=== PATIENT | male | born 1940 | race Caucasian/White ===

== ENCOUNTER 2017-03-01 20:50 | Inpatient (IN) | payer OTHER, BC ==
--- NOTE | 2017-03-01 21:42 | PDOC ---
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 Patient reports he was in his usual state of health when he suddenly developed sharp left-sided chest pain radiating to the left shoulder last night that he describes as constant and 7/10, in severity. He also reports associated one episode of vomiting last night and SOB, which he took albuterol with improvement. Denies lightheadedness, diaphoresis, or jaw pain. Patient states he was prescribed dilaudid for his h/o of chronic pain, which he decided to take last night prior to going to bed. The patient denies fever, chills, cough, abdominal pain, and diarrhea. Allergies: NKDA Social History: No alcohol, tobacco, or drug use reported. Past Surgical History: s/p cardiac stents x2 PCP: Dr. Edwardo Yang Cardio: Dr. Abhishek Ridley <GermaineBertha - Last Filed: 03/02/17 01:55> - General Chief Complaint: Chest Pain Stated Complaint: CHEST DISCOMFORT/S.O.B Time Seen by Provider: 03/01/17 21:10 Past History - Past Medical History Anemia: No Asthma: No Cancer: Yes (PROSTATE) Cardiac Disorders: Yes (STENTS, FACTOR 5, CLOTTING DISORDER) CVA: Yes (X2 '93 / '04 / (L) WEAKNESS) COPD: Yes CHF: No Dementia: No Diabetes: No GI Disorders: Yes (diverticulosis,gerd) Disorders: Yes (kidney stone) HTN: Yes Hypercholesterolemia: Yes Kidney Stones: Yes Liver Disease: No Suicide Attempt (Hx): No Seizures: No Thyroid Disease: No - Surgical History Abdominal Surgery: No Appendectomy: No Cardiac Surgery: Yes (2 STENTS, NICHOL FILTER) Cholecystectomy: No Lung Surgery: No Neurologic Surgery: No - Psycho/Social/Smoking Cessation Hx Anxiety: Yes Suicidal Ideation: No Smoking Status: No Smoking History: Never smoked Have you smoked in the past 12 months: No Number of Cigarettes Smoked Daily: 0 Information on smoking cessation initiated: No Hx Alcohol Use: No Drug/Substance Use Hx: No Substance Use Type: None Hx Substance Use Treatment: No <DanielamyRavindra - Last Filed: 03/02/17 00:48> <Bertha Herron - Last Filed: 03/02/17 01:55> - Past Medical History Allergies/Adverse Reactions: Allergies Allergy/AdvReac Type Severity Reaction Status Date / Time No Known Allergies Allergy Verified 03/01/17 21:04 Home Medications: Ambulatory Orders Hydromorphone HCl [Dilaudid] 8 mg PO TID PRN 07/14/16 Linaclotide [Linzess] 290 mcg PO DAILY 07/14/16 Thyroid [[place] Thyroid] 60 mg PO DAILY 07/14/16 Zolpidem Tartrate [Ambien] 10 mg PO HS PRN 07/14/16 Apixaban [Eliquis] 5 mg PO BID 03/01/17 Omeprazole 40 mg PO DAILY 03/01/17 Tamsulosin HCl 0.4 mg PO DAILY 03/01/17 Morphine Sulfate 30 mg PO BID 03/02/17 Ranolazine [Ranexa] 500 mg PO BID 03/02/17 Review of Systems - Review of Systems Able to Perform ROS?: Yes Comments:: 03/01/17 21:50 CONSTITUTIONAL: Absent: fever, chills, diaphoresis, generalized weakness, malaise, loss of appetite HEENT: Absent: rhinorrhea, nasal congestion, throat pain, throat swelling, difficulty swallowing, mouth swelling, ear pain, eye pain, visual Changes CARDIOVASCULAR: +left-sided chest pain radiating to the left shoulder Absent: chest pain, syncope, palpitations, irregular heart rate, lightheadedness RESPIRATORY: +SOB Absent: cough, dyspnea with exertion, orthopnea, wheezing, stridor, hemoptysis GASTROINTESTINAL: +vomiting Absent: abdominal pain, abdominal distension, diarrhea, constipation, melena, hematochezia GENITOURINARY: Absent: dysuria, frequency, urgency, hesitancy, hematuria, flank pain, genital pain MUSCULOSKELETAL: Absent: myalgia, joint swelling SKIN: Absent: rash, itching, pallor NEUROLOGIC: Absent: headache, focal weakness or paresthesias, dizziness, unsteady gait, seizure, mental status changes, bladder or bowel incontinence PSYCHIATRIC: Absent: anxiety, depression, suicidal or homicidal ideation, hallucinations. <AugustTony irwinta - Last Filed: 03/02/17 01:55> *Physical Exam - Vital Signs Last Vital Signs Temp Pulse Resp BP Pulse Ox 97.9 F 82 22 151/81 95 03/01/17 21:04 03/01/17 21:04 03/01/17 21:04 03/01/17 21:04 03/01/17 21:04 <Ravnidra Franklin - Last Filed: 03/02/17 00:48> - Vital Signs Last Vital Signs Temp Pulse Resp BP Pulse Ox 97.9 F 82 22 151/81 95 03/01/17 21:04 03/01/17 21:04 03/01/17 21:04 03/01/17 21:04 03/01/17 21:04 - Physical Exam Comments: 03/01/17 21:50 GENERAL: Well developed, well nourished. Awake and alert. No acute distress. HEENT: Normocephalic, atraumatic. PERRLA, EOMI. No conjunctival pallor. Sclera are non- icteric. Moist mucous membranes. Oropharynx is clear. NECK: Supple. Full ROM. No JVD. Carotid pulses 2+ and symmetric, without bruits. No thyromegaly. No lymphadenopathy. CARDIOVASCULAR: Regular rate and rhythm. No murmurs, rubs, or gallops. Distal pulses are 2+ and symmetric. PULMONARY: No evidence of respiratory distress. Lungs clear to auscultation bilaterally. No wheezing, rales or rhonchi. ABDOMINAL: Soft. Diffuse abdominal tenderness. Non-distended. No rebound or guarding. No organomegaly. Normoactive bowel sounds. MUSCULOSKELETAL Normal range of motion at all joints. No bony deformities or tenderness. Moderate right CVA tenderness. EXTREMITIES: No cyanosis. No clubbing. +2 pitting edema bilateral lower extremities. No calf tenderness. SKIN: Warm and dry. Normal capillary refill. No rashes. No jaundice. NEUROLOGICAL: Alert, awake, appropriate. Cranial nerves 2-12 intact. Moving all extremities. No gross focal neurological deficits. PSYCHIATRIC: Cooperative. Good eye contact. Appropriate mood and affect. <Bertha Herron - Last Filed: 03/02/17 01:55> Heart Score/ECG Review - ECG Impressions Comment:: 03/01/17 21:50 NSR @82bpm Possible L atrial enlargement Borderline ECG <Bertha Herron - Last Filed: 03/02/17 01:55> ED Treatment Course - LABORATORY CBC & Chemistry Diagram: 03/01/17 21:32 03/01/17 21:32 <Ravindra Franklin - Last Filed: 03/02/17 00:48> - LABORATORY CBC & Chemistry Diagram: 03/01/17 21:32 03/01/17 21:32 <Bertha Herron - Last Filed: 03/02/17 01:55> Medical Decision Making - Medical Decision Making 03/02/17 00:48 Dr. Franklin: The scribe's documentation has been prepared under my direction and personally reviewed by me in its entirery. I confirm that the note above accurately reflects all work, treatment, procedures, and medical decision making performed by me. Pt still having pain. Wants to be evaluated more for pain. Will admit. Spoke to Dr. Wilkes for orders <Ravindra Franklin - Last Filed: 03/02/17 00:48> - Medical Decision Making 03/02/17 00:26 Patient's case discussed with Dr. Santo Rockwell who is covering for Dr. Talha Love who is covering for Dr. Edwardo Yang. <Bertha Herron - Last Filed: 03/02/17 01:55> *DC/Admit/Observation/Transfer - Discharge Dispostion Admit: Yes <Ravindra Franklin - Last Filed: 03/02/17 00:48> - Attestations Scribe Attestion: 03/01/17 21:51 Documentation prepared by Bertha Herron, acting as certified medical dosimetrist for Ravindra Franklin MD <Bertha Herron - Last Filed: 03/02/17 01:55> Diagnosis at time of Disposition: Chronic pain syndrome - Discharge Dispostion Condition at time of disposition: Stable - Referrals Referrals: Edwardo Yang MD [Primary Care Provider] -
[2017-03-01 22:08] LABS: BASOPHIL 0.6 % (0-2.0); EOSINOPHIL 3.7 % (0-4.5); MCH 31.1 pg (25.7-33.7); MCHC 33.2 g/dl (32.0-35.9); MEAN CELL VOLUME 93.9 fl (80-96); NEUTROPHILS 55.9 % (42.8-82.8); PLATELET COUNT 203 K/MM3 (134-434); RDW 14.6 % (11.9-15.9)
[2017-03-01 22:24] LABS: INR 1.3 (0.82-1.09); PROTHROMBIN TIME (PATIENT) 14.4 SEC (9.98-11.88)
[2017-03-01 22:32] LABS: ALBUMIN 3.4 g/dl (3.4-5.0); ANION GAP 11 (8-16); CALCIUM 8.6 mg/dL (8.5-10.1); CO2 26 mmol/L (21-32); COCKROFT - GAULT 67.1; CREATININE 1.3 mg/dL (0.7-1.3); GLUCOSE,RANDOM 104 mg/dL (74-106); SGOT/AST 13 U/L (15-37); SGPT/ALT 18 U/L (12-78)
[2017-03-01 22:36] LABS: ALK PHOS 61 U/L (45-117); BILIRUBIN,TOTAL 0.4 mg/dL (0.2-1.0); TOT PROT 6.6 g/dl (6.4-8.2); TROPONIN I < 0.02 ng/ml (0.00-0.05)
[2017-03-02] MEDS ORDERED: traMADol HCL 50 MG TABLET PO PRN (01:01)
[2017-03-02] MEDS ORDERED: PANTOPRAZOLE SODIUM 40 MG in SODIUM CHLORIDE 100 ML IVPB ONE (01:04)
[2017-03-02] MEDS ORDERED: HYDROmorphone HCL CARPU-JECT 2 MG/1 ML DISP.SYRIN IVPUSH ONE (01:05)
[2017-03-02] MEDS ORDERED: PANTOPRAZOLE SODIUM 100 ML IVPB ONE (01:20)
[2017-03-02] MEDS ORDERED: ALBUTEROL SO4 6.7 GM HFA INHALER IH PRN (05:05)
[2017-03-02] MEDS ORDERED: MINERAL OIL/PET HY-PHL TOPICAL OINTMENT 454 GM JAR TP PRN (05:07)
[2017-03-02 06:33] VITALS: BMI 32.1
[2017-03-02] MEDS ORDERED: SIMETHICONE 125 MG PO PRN ×2 (07:00)
[2017-03-02] MEDS ORDERED: PT OWN MED DRAWER 7, Y5N ONE ×4 (08:38→21:30)
[2017-03-02] MEDS: PANCREATIN PO SCH ×3 (08:50→17:57)
[2017-03-02] MEDS: TAMSULOSIN HCL 0.4 MG CAP.ER.24H (FP) PO SCH (08:51)
--- NOTE | 2017-03-02 09:19 | EKG ---
Test Reason : Blood Pressure : / mmHG Vent. Rate : 082 BPM Atrial Rate : 082 BPM P-R Int : 160 ms QRS Dur : 090 ms QT Int : 404 ms P-R-T Axes : 048 -15 019 degrees QTc Int : 472 ms NORMAL SINUS RHYTHM POSSIBLE LEFT ATRIAL ENLARGEMENT INCOMPLETE RBBB WHEN COMPARED WITH ECG OF 30-OCT-2016 17:19, NO SIGNIFICANT CHANGE WAS FOUND Confirmed by DIAMANTE MARI MD ([id number]) on 03/02/2017 9:19:33 AM Referred By: Confirmed By:DIAMANTE MARI MD
[2017-03-02] MEDS ORDERED: LINZESS 290 MCG PO SCH (10:00)
[2017-03-02 10:20] LABS: EOSINOPHIL 4.9 % (0-4.5); MCH 31.7 pg (25.7-33.7); MEAN CELL VOLUME 93.2 fl (80-96); MEAN PLT VOLUME 7.5 fl (7.5-11.1); NEUTROPHILS 52.3 % (42.8-82.8); PLATELET COUNT 168 K/MM3 (134-434); RDW 14.4 % (11.9-15.9); WHITE BLOOD COUNT 5.8 K/mm3 (4.0-10.0)
[2017-03-02] MEDS: RANOLAZINE E.R. 500 MG TABLET (FP) PO SCH ×2 (10:34→21:31)
[2017-03-02] MEDS: APIXABAN 5 MG TABLET PO SCH ×2 (10:34→22:37)
[2017-03-02] MEDS: morphine SO4 SUSTAINED ACTING 30 MG TABLET.SA PO SCH ×2 (10:34→21:31)
[2017-03-02] MEDS: PANTOPRAZOLE 40 MG TABLET (FP) PO SCH (10:34)
[2017-03-02] MEDS: FLUTICASONE PROP 0.05% 16 GM NASAL SPRAY NS SCH (10:36)
[2017-03-02] MEDS: ISOSORBIDE MONONITRATE 30 MG TAB.SR.24H (FP) PO SCH (10:37)
[2017-03-02] MEDS: LINACLOTIDE 290 MCG PO SCH (10:41)
[2017-03-02] MEDS: [UNRECOGNIZED DRUG - OTHER] PO SCH (10:41)
[2017-03-02] MEDS: THYROID 60 MG TABLET PO SCH (10:42)
[2017-03-02 10:49] LABS: ANION GAP 9 (8-16); CALCIUM 8.2 mg/dL (8.5-10.1); CO2 26 mmol/L (21-32); COCKROFT - GAULT 76.33; CREATININE 1.2 mg/dL (0.7-1.3); GLUCOSE,RANDOM 94 mg/dL (74-106); MAGNESIUM 2.3 mg/dL (1.8-2.4); PHOSPHOROUS 3.8 mg/dL (2.5-4.9)
[2017-03-02 10:51] LABS: TROPONIN I < 0.02 ng/ml (0.00-0.05)
[2017-03-02] MEDS ORDERED: ACETAMINOPHEN 325 MG TABLET (FP) PO PRN (13:15)
[2017-03-02] MEDS ORDERED: ONDANSETRON 4 MG/2 ML VIAL IVPB PRN (13:15)
--- NOTE | 2017-03-02 13:18 | HP ---
Admitting History and Physical - Primary Care Physician PCP: Edwardo Yang - Admission Chief Complaint: I'm hurting History of Present Illness: Mr Vences is a 77 year old male who comes in with complaints of pain. Because of a CVA history he has some difficulty describing his pain. He says he has pain in his chest, abdomen, and groin. He says he is having L sided chest pain but keeps pointing to his R back and saying the pain is there. He says it is "ulcer" pain. He complains of groin pain and says it has been there since his bladder was seeded. He says he has abdominal pain, says it is epigastric in nature and from reflux. He denies fevers, chills, lightheadedness, passing out, shortness of breath, diarrhea, constipation, or swelling. He says he was nauseated and threw up once Sunday morning, however he was also drinking Sunday night and is reluctant to tell me how much. 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 Cardiovascular: Yes: CAD (multiple stents), Deep Vein Thrombosis, HTN, Hyperlipdemia, [place] Pulmonary: Yes: COPD Gastrointestinal: Yes: GERD Renal/: Yes: BPH, Cancer (Prostate) Heme/Onc: Yes: Hypercoaguable State (Factor 5 Clotting Disorder) Psych: Yes: Anxiety Musculoskeletal: Yes: Osteoarthritis, Other (Chronic pain syndrome) - Past Surgical History Past Surgical History: Yes: Stent - Smoking History Smoking history: Never smoked Have you smoked in the past 12 months: No Aproximately how many cigarettes per day: 0 - Alcohol/Substance Use Hx Alcohol Use: Yes History of Substance Use: reports: None - Social History ADL: Independent 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 History of Recent Travel: No Home Medications - Allergies Allergies/Adverse Reactions: Allergies Allergy/AdvReac Type Severity Reaction Status Date / Time No Known Allergies Allergy Verified 03/01/17 21:04 - Home Medications Home Medications: Ambulatory Orders Hydromorphone HCl [Dilaudid] 8 mg PO TID PRN 07/14/16 Linaclotide [Linzess] 290 mcg PO DAILY 07/14/16 Thyroid [[place] Thyroid] 60 mg PO DAILY 07/14/16 Zolpidem Tartrate [Ambien] 10 mg PO HS PRN 07/14/16 Apixaban [Eliquis] 5 mg PO BID 03/01/17 Omeprazole 40 mg PO DAILY 03/01/17 Tamsulosin HCl 0.4 mg PO DAILY 03/01/17 Morphine Sulfate 30 mg PO BID 03/02/17 Ranolazine [Ranexa] 500 mg PO BID 03/02/17 Family Disease History - Family Disease History Family History: Unremarkable Review of Systems Findings/Remarks: Full review of systems obtained, as per HPI and otherwise negative Physical Examination Vital Signs: Vital Signs Temperature 98.6 F 03/02/17 09:00 Pulse Rate 72 03/02/17 09:00 Respiratory Rate 18 03/02/17 09:00 Blood Pressure 124/59 03/02/17 09:00 O2 Sat by Pulse Oximetry (%) 94 L 03/02/17 09:00 Constitutional: Yes: Well Nourished, No Distress, Calm Eyes: Yes: Conjunctiva Clear, EOM Intact HENT: Yes: Atraumatic, Normocephalic Cardiovascular: Yes: Regular Rate and Rhythm. No: Gallop, Murmur, Rub Respiratory: Yes: Regular, CTA Bilaterally. No: Rales, Rhonchi, Wheezes Gastrointestinal: Yes: Normal Bowel Sounds, Soft. No: Distention, Tenderness Extremities: Yes: WNL Edema: No Labs: CBC, BMP 03/02/17 09:50 03/02/17 09:50 Imaging - Results Cat Scan: Report Reviewed Problem List - Problems (1) Chronic abdominal pain Code(s): R10.9 - UNSPECIFIED ABDOMINAL PAIN G89.29 - OTHER CHRONIC PAIN (2) GERD (gastroesophageal reflux disease) Code(s): K21.9 - GASTRO-ESOPHAGEAL REFLUX DISEASE WITHOUT ESOPHAGITIS (3) CAD (coronary artery disease) Code(s): I25.10 - ATHSCL HEART DISEASE OF [place] CORONARY ARTERY W/O ANG PCTRS (4) COPD (chronic obstructive pulmonary disease) Code(s): J44.9 - CHRONIC OBSTRUCTIVE PULMONARY DISEASE, UNSPECIFIED (5) CVA (cerebral vascular accident) Code(s): I63.9 - CEREBRAL INFARCTION, UNSPECIFIED (6) HTN (hypertension) Code(s): I10 - ESSENTIAL (PRIMARY) HYPERTENSION Qualifiers: Hypertension type: essential hypertension Qualified Code(s): I10 - Essential (primary) hypertension (7) Factor V deficiency Code(s): D68.2 - HEREDITARY DEFICIENCY OF OTHER CLOTTING FACTORS Assessment/Plan -patient admitted under observation -continue home regimen -GI consulted for abdominal pain -low suspicion this is cardiac pain, can hold off on cardiology consult -monitor for improvement
--- NOTE | 2017-03-02 16:17 | CON.GI ---
Consult Consult Specialty:: GASTROENTEROLOGY Reason for Consultation:: CHRONIC ABDOMINAL PAIN, NAUSEA AND VOMITING, WORSENING REFLUX - History of Present Illness Chief Complaint: LEFT SIDED FLANK PAIN, GERD, NAUSEA AND VOMITING History of Present Illness: THIS IS A 77 YEAR OLD MALE WITH CHRONIC PAIN SYNDROME, HISTORY OF PROSTATE CANCER S/P SEED IMPLANTS, DVT, FACTOR V DEF ON ELIQUIS AND S/P IVC, ON NARCOTICS ADMITTED WITH SEVERE UPPER LEFT FLANK PAIN. CT RENAL PROTOCOL WAS NEGATIVE FOR RENAL STONES. CONSULT CALLED FOR FURTHER EVALUATION. HE ALSO C/O OF INCREASED REFLUX SYMPTOMS WITH NAUSEA AND VOMITING. HE DOES C/O OF MILD DYSPHAGIA. HE HAS NO WEIGHT LOSS. HE WAKES A NIGHT WITH THIS REFLUX AND REGURGITATION. HE DOES EAT LATE AT NIGHT AND EVEN WAKES AT NIGHT AND EATS THEN LAYS BACK DOWN IN BED. HE STATES THAT HE IS CONSTIPATED AND HAS A HARD BM THAT HE REQUIRES HIM TO STRAIN WHEN HAVING A BM. HE DENIES BLEEDING. HE HAS PAIN INTERMITTENTLY IN VARIOUS AREAS OF HIS ABDOMEN EVERYDAY. HE IS ON DILAUDID FOR RELIEF OF THIS PAIN AND VARIOUS OTHERS. 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 Cardio/Vascular: Yes: CAD (multiple stents), Deep Vein Thrombosis, HTN, Hyperlipdemia, [place] Pulmonary: Yes: COPD, Pulmonary Fibrosis Gastrointestinal: Yes: Constipation, GERD Renal/: Yes: BPH, Cancer (Prostate) Psych: Yes: Anxiety Musculoskeletal: Yes: Osteoarthritis, Other (Chronic pain syndrome) - Past Surgical History Past Surgical History: Yes: Colonoscopy, Stent, Upper Endoscopy Additional Surgical History: SEED IMPLANTS PROSTATE - Alcohol/Substance Use Hx Alcohol Use: No History of Substance Use: reports: None - Smoking History Smoking history: Never smoked Have you smoked in the past 12 months: No Aproximately how many cigarettes per day: 0 - Social History ADL: Independent 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 History of Recent Travel: No Home Medications - Allergies Allergies/Adverse Reactions: Allergies Allergy/AdvReac Type Severity Reaction Status Date / Time No Known Allergies Allergy Verified 03/01/17 21:04 - Home Medications Home Medications: Ambulatory Orders Hydromorphone HCl [Dilaudid] 8 mg PO TID PRN 07/14/16 Linaclotide [Linzess] 290 mcg PO DAILY 07/14/16 Thyroid [[place] Thyroid] 60 mg PO DAILY 07/14/16 Zolpidem Tartrate [Ambien] 10 mg PO HS PRN 07/14/16 Apixaban [Eliquis] 5 mg PO BID 03/01/17 Omeprazole 40 mg PO DAILY 03/01/17 Tamsulosin HCl 0.4 mg PO DAILY 03/01/17 Morphine Sulfate 30 mg PO BID 03/02/17 Ranolazine [Ranexa] 500 mg PO BID 03/02/17 Family Disease History - Family Disease History Family History: Unremarkable Review of Systems - Review of Systems Constitutional: reports: No Symptoms Eyes: reports: No Symptoms HENT: reports: No Symptoms Neck: reports: No Symptoms Cardiovascular: reports: No Symptoms Respiratory: reports: No Symptoms Gastrointestinal: reports: Abdominal Pain, Constipation, Indigestion, Nausea, Vomiting Musculoskeletal: reports: Joint Pain, Muscle Pain Integumentary: reports: No Symptoms Neurological: reports: No Symptoms Hematology/Lymphatic: reports: No Symptoms Psychiatric: reports: Anxiety Physical Exam-GI Vital Signs: Vital Signs Temperature 97.6 F 03/02/17 15:05 Pulse Rate 83 03/02/17 15:05 Respiratory Rate 15 03/02/17 15:05 Blood Pressure 102/57 03/02/17 15:05 O2 Sat by Pulse Oximetry (%) 94 L 03/02/17 13:16 Constitutional: Yes: Well Nourished Eyes: Yes: Conjunctiva Clear HENT: Yes: Normocephalic Neck: Yes: Supple Cardiovascular: Yes: Regular Rate and Rhythm Respiratory: Yes: Rales (DRY RALES) Gastrointestinal Inspection: Yes: Other (DISTENSION) ...Auscultate: Yes: Hyperactive Bowel Sounds ...Palpate: Yes: Tenderness (LLQ PAIN,RIGHT FLANK PAIN) Genitourinary: Yes: WNL Musculoskeletal: Yes: WNL Extremities: Yes: WNL Neurological: Yes: Alert, Oriented Labs: INR, PTT INR 1.30 (0.82-1.09) H D 03/01/17 21:32 Laboratory Tests 03/01/17 03/01/17 03/02/17 21:32 21:32 09:50 WBC 5.8 RBC 4.34 Hgb 13.7 Hct 40.4 MCV 93.2 MCHC 34.0 RDW 14.4 Plt Count 168 MPV 7.5 Neutrophils % 52.3 Lymphocytes % 28.6 Monocytes % 13.2 H Eosinophils % 4.9 H INR 1.30 H D Sodium Potassium Creatinine Random Glucose Phosphorus Magnesium Lipase 115 03/02/17 09:50 WBC RBC Hgb Hct MCV MCHC RDW Plt Count MPV Neutrophils % Lymphocytes % Monocytes % Eosinophils % INR Sodium 141 Potassium 4.0 Creatinine 1.2 Random Glucose 94 Phosphorus 3.8 Magnesium 2.3 Lipase Imaging - Results Cat Scan: Pending, Image Reviewed (CTA PENDING) Problem List - Problems (1) Constipation Assessment/Plan: HIS EXAM IS NON SPECIFIC AND I BELIEVE THIS IS ALL NARCOTIC INDUCED PAIN AND CONSTIPATION. I NEED TO ALSO RULE OUT MESENTERIC ISCHEMIA BUT I DOUBT THE CTA WOULD BE POSITIVE. GIVEN HIS VASCULAR DISEASE THE EXAM SHOULD BE DONE. I WOULD ADD MIRALAX Q DAY, ADD COLACE, AND PROBABLY ADD MOVANTIK AN OUTPATIENT. HE NEEDS A COLONOSCOPY BUT WOULD HAVE TO BE DONE BRIDGED WITH LOVENOX. Code(s): K59.00 - CONSTIPATION, UNSPECIFIED (2) GERD (gastroesophageal reflux disease) Assessment/Plan: DIETARY HABITS HAVE INCREASED THE SYMPTOMS OF GERD. DUE TO MEDS HE MAY HAVE SOME PARESIS. I HAVE SENT HIM FOR A GRASTRIC EMPTYING SCAN. ADDED ZANTAC TO AVOID PPi WHILE ON ELIGUIS. Code(s): K21.9 - GASTRO-ESOPHAGEAL REFLUX DISEASE WITHOUT ESOPHAGITIS (3) Dysphagia Assessment/Plan: NO WEIGHT LOSS. WOULD ALSO NEED AN EGD EVENTUALLY. Code(s): R13.10 - DYSPHAGIA, UNSPECIFIED (4) Chronic abdominal pain Code(s): R10.9 - UNSPECIFIED ABDOMINAL PAIN G89.29 - OTHER CHRONIC PAIN (5) Chronic pain syndrome Code(s): G89.4 - CHRONIC PAIN SYNDROME (6) CAD (coronary artery disease) Code(s): I25.10 - ATHSCL HEART DISEASE OF [place] CORONARY ARTERY W/O ANG PCTRS (7) Anxiety Code(s): F41.9 - ANXIETY DISORDER, UNSPECIFIED (8) COPD (chronic obstructive pulmonary disease) Code(s): J44.9 - CHRONIC OBSTRUCTIVE PULMONARY DISEASE, UNSPECIFIED (9) CVA (cerebral vascular accident) Code(s): I63.9 - CEREBRAL INFARCTION, UNSPECIFIED (10) Factor V deficiency Code(s): D68.2 - HEREDITARY DEFICIENCY OF OTHER CLOTTING FACTORS (11) Hypercholesteremia Code(s): E78.0 - PURE HYPERCHOLESTEROLEMIA * DO NOT USE *
[2017-03-02] MEDS: POLYETHYLENE GLYCOL 3350 119 GM BTL PO SCH (17:57)
[2017-03-02] MEDS ORDERED: POLYETHYLENE GLYCOL 3350 119 GM BTL PO ONE (20:15)
[2017-03-02] MEDS: DOCUSATE SODIUM 100 MG CAPSULE (FP) PO SCH (21:31)
[2017-03-02] MEDS: RANITIDINE HCL 150 MG TABLET (FP) PO SCH (21:32)
[2017-03-02] MEDS: ZOLPIDEM TARTRATE 5 MG TABLET PO PRN (22:54)
[2017-03-03] MEDS: SENNOSIDES 8.6MG TABLET (FP) PO SCH ×2 (01:53→22:08)
[2017-03-03] MEDS: PANCREATIN PO SCH ×3 (08:36→17:24)
[2017-03-03] MEDS ORDERED: PT OWN MED DRAWER 7, Y5N ONE ×5 (08:38→17:24)
[2017-03-03] MEDS: TAMSULOSIN HCL 0.4 MG CAP.ER.24H (FP) PO SCH (08:51)
[2017-03-03 09:08] LABS: BASOPHIL 0.9 % (0-2.0); MCH 31.6 pg (25.7-33.7); MCHC 33.7 g/dl (32.0-35.9); MEAN CELL VOLUME 93.9 fl (80-96); MEAN PLT VOLUME 7.5 fl (7.5-11.1); NEUTROPHILS 57.1 % (42.8-82.8); PLATELET COUNT 166 K/MM3 (134-434); RDW 14.6 % (11.9-15.9); WHITE BLOOD COUNT 5.3 K/mm3 (4.0-10.0)
[2017-03-03] MEDS: LINACLOTIDE 290 MCG PO SCH (09:12)
[2017-03-03 09:29] LABS: CALCIUM 8.2 mg/dL (8.5-10.1); COCKROFT - GAULT 91.6; MAGNESIUM 2.3 mg/dL (1.8-2.4); PHOSPHOROUS 3.2 mg/dL (2.5-4.9)
[2017-03-03] MEDS: THYROID 60 MG TABLET PO SCH (10:02)
[2017-03-03] MEDS: APIXABAN 5 MG TABLET PO SCH ×2 (10:04→22:11)
[2017-03-03] MEDS: FLUTICASONE PROP 0.05% 16 GM NASAL SPRAY NS SCH (10:04)
[2017-03-03] MEDS: ISOSORBIDE MONONITRATE 30 MG TAB.SR.24H (FP) PO SCH (10:04)
[2017-03-03] MEDS: morphine SO4 SUSTAINED ACTING 30 MG TABLET.SA PO SCH ×2 (10:04→22:10)
[2017-03-03] MEDS: [UNRECOGNIZED DRUG - OTHER] PO SCH (10:05)
[2017-03-03] MEDS: RANITIDINE HCL 150 MG TABLET (FP) PO SCH ×2 (10:06→22:10)
[2017-03-03] MEDS: PANTOPRAZOLE 40 MG TABLET (FP) PO SCH (10:06)
[2017-03-03] MEDS: RANOLAZINE E.R. 500 MG TABLET (FP) PO SCH ×2 (10:06→22:07)
[2017-03-03] MEDS: POLYETHYLENE GLYCOL 3350 119 GM BTL PO SCH (10:07)
--- NOTE | 2017-03-03 13:25 | PN ---
Progress Note, Physician History of Present Illness: Still with abd pain, notes that he cannot cut down on his pain meds due to other pain in body (groin and arthritis pain). Breathing has been feeling heavy , asking for nebulized treatments. - Current Medication List Current Medications: Active Medications Acetaminophen (Tylenol -) 650 mg PO Q4H PRN PRN Reason: FEVER OR PAIN Albuterol Sulfate (Ventolin Hfa Inhaler -) 1 puff IH Q6H PRN PRN Reason: SHORTNESS OF BREATH Last Admin: 03/02/17 10:36 Dose: 1 puff Albuterol Sulfate (Ventolin 0.083% Nebulizer Soln -) 1 amp NEB TIDR [facility] Apixaban (Eliquis -) 5 mg PO BID [facility] Last Admin: 03/03/17 10:04 Dose: 5 mg Docusate Sodium (Colace -) 300 mg PO HS [facility] Last Admin: 03/02/17 21:31 Dose: 300 mg Emollient Ointment (Aquaphor -) 1 applic TP BID PRN Fluticasone Propionate (Flonase -) 1 spray NS DAILY [facility] Last Admin: 03/03/17 10:04 Dose: 1 spray Hydromorphone HCl (Dilaudid -) 8 mg PO Q8H PRN Last Admin: 03/02/17 05:50 Dose: 8 mg Isosorbide Mononitrate (Imdur -) 30 mg PO DAILY [facility] Last Admin: 03/03/17 10:04 Dose: 30 mg Morphine Sulfate (Ms Contin -) 30 mg PO BID [facility] Last Admin: 03/03/17 10:04 Dose: 30 mg Nf Med(Align Probiotic Supplement ) 1 each PO DAILY [facility] Last Admin: 03/03/17 10:05 Dose: 1 each Nf Med(Pancreatin (1300)) 1 each PO TIDAC [facility] Last Admin: 03/03/17 12:24 Dose: 1 each Nf Med(Simethicone (125mg)) 1 each PO ACHS PRN Nf Med(Simethicone (125mg)) 2 each PO ACHS PRN Nf Med (Linzess (290mcg)) 1 each PO DAILY@0700 [facility] Ondansetron HCl (Zofran Injection) 4 mg IVPB Q6H PRN PRN Reason: NAUSEA Pantoprazole Sodium (Protonix -) 40 mg PO DAILY [facility] Last Admin: 03/03/17 10:06 Dose: 40 mg Polyethylene Glycol (Miralax (For Daily Use) -) 17 gm PO DAILY [facility] Last Admin: 03/03/17 10:07 Dose: 17 grams Ranitidine HCl (Zantac -) 150 mg PO BID [facility] Last Admin: 03/03/17 10:06 Dose: 150 mg Ranolazine (Ranexa -) 500 mg PO BID [facility] Last Admin: 03/03/17 10:06 Dose: 500 mg Senna (Senna -) 2 tab PO HS [facility] Last Admin: 03/03/17 01:53 Dose: 2 tab Tamsulosin HCl (Flomax -) 0.4 mg PO DAILY@0830 [facility] Last Admin: 03/03/17 08:51 Dose: 0.4 mg Thyroid ([place] Thyroid -) 60 mg PO DAILY@0700 [facility] Tramadol HCl (Ultram -) 50 mg PO Q6H PRN Zolpidem Tartrate (Ambien -) 5 mg PO HS PRN Last Admin: 03/02/17 22:54 Dose: 5 mg - Objective Vital Signs: Vital Signs Temperature 97.8 F 03/03/17 10:00 Pulse Rate 75 03/03/17 10:00 Respiratory Rate 18 03/03/17 10:00 Blood Pressure 120/60 03/03/17 10:00 O2 Sat by Pulse Oximetry (%) 98 03/02/17 21:16 Constitutional: Yes: No Distress, Calm HENT: Yes: Atraumatic, Normocephalic Neck: Yes: Supple, Trachea Midline Cardiovascular: Yes: Regular Rate and Rhythm, S1, S2. No: Murmur Respiratory: Yes: Regular, Diminished (bilaterally) Gastrointestinal: Yes: Normal Bowel Sounds, Soft, Abdomen, Obese. No: Distention, Tenderness Edema: Yes Edema: LLE: Trace, RLE: Trace Neurological: Yes: Alert, Oriented Labs: CBC, BMP 03/03/17 07:30 03/03/17 07:30 INR, PTT INR 1.30 (0.82-1.09) H D 03/01/17 21:32 Assessment/Plan All Active Problems Chronic abdominal pain (Acute) Chronic pain syndrome (Acute) Constipation (Acute) Dysphagia (Acute) GERD (gastroesophageal reflux disease) (Acute) Anxiety (Acute) COPD (chronic obstructive pulmonary disease) (Acute) CVA (cerebral vascular accident) (Acute) Factor V deficiency (Acute) HTN (hypertension) (Acute) Hypercholesteremia (Acute) Multiple contusions (Acute) -likely abd pain from narcotic use, so may need to start Movantik as outpatient , but to get gastric emptying study for further eval -will increase Miralax to bid as well -start albuterol nebs for COPD
[2017-03-03] MEDS ORDERED: LACTULOSE 20 GM/30 ML UDC (FOR ORAL USE ONLY) PO PRN (14:17)
[2017-03-03] MEDS: ALBUTEROL SO4 0.083% IH SOL 2.5 MG/3 ML VIAL.NEB. NEB SCH ×2 (14:50→22:47)
[2017-03-03] MEDS: DOCUSATE SODIUM 100 MG CAPSULE (FP) PO SCH (22:07)
[2017-03-03] MEDS: ZOLPIDEM TARTRATE 5 MG TABLET PO PRN (22:08)
[2017-03-04] MEDS ORDERED: PT OWN MED DRAWER 7, Y5N ONE ×2 (05:10→08:41)
[2017-03-04] MEDS: THYROID 60 MG TABLET PO SCH (06:06)
[2017-03-04] MEDS: ALBUTEROL SO4 0.083% IH SOL 2.5 MG/3 ML VIAL.NEB. NEB SCH ×3 (06:30→22:37)
[2017-03-04] MEDS: TAMSULOSIN HCL 0.4 MG CAP.ER.24H (FP) PO SCH (08:39)
[2017-03-04] MEDS: PANCREATIN PO SCH ×3 (08:40→17:37)
[2017-03-04] MEDS: LINACLOTIDE 290 MCG PO SCH (08:40)
[2017-03-04] MEDS ORDERED: THYROID 60 MG TABLET PO SCH (10:00)
[2017-03-04] MEDS: FLUTICASONE PROP 0.05% 16 GM NASAL SPRAY NS SCH (10:04)
[2017-03-04] MEDS: APIXABAN 5 MG TABLET PO SCH ×2 (10:04→21:41)
[2017-03-04] MEDS: PANTOPRAZOLE 40 MG TABLET (FP) PO SCH (10:05)
[2017-03-04] MEDS: ISOSORBIDE MONONITRATE 30 MG TAB.SR.24H (FP) PO SCH (10:05)
[2017-03-04] MEDS: RANOLAZINE E.R. 500 MG TABLET (FP) PO SCH ×2 (10:05→21:41)
[2017-03-04] MEDS: POLYETHYLENE GLYCOL 3350 119 GM BTL PO SCH (10:05)
[2017-03-04] MEDS: RANITIDINE HCL 150 MG TABLET (FP) PO SCH ×2 (10:05→21:42)
[2017-03-04] MEDS: morphine SO4 SUSTAINED ACTING 30 MG TABLET.SA PO SCH ×2 (10:05→21:41)
[2017-03-04] MEDS: [UNRECOGNIZED DRUG - OTHER] PO SCH (10:06)
--- NOTE | 2017-03-04 11:09 | PN ---
Progress Note, Physician History of Present Illness: Was having COLLINS, does note a fall earlier this week (and takes AC). Did have a bowel movement last night, btu still with abd pain (continues to have right groin pain as well -chronic). - Current Medication List Current Medications: Active Medications Acetaminophen (Tylenol -) 650 mg PO Q4H PRN PRN Reason: FEVER OR PAIN Albuterol Sulfate (Ventolin Hfa Inhaler -) 1 puff IH Q6H PRN PRN Reason: SHORTNESS OF BREATH Last Admin: 03/02/17 10:36 Dose: 1 puff Albuterol Sulfate (Ventolin 0.083% Nebulizer Soln -) 1 amp NEB TIDR [facility] Last Admin: 03/04/17 06:30 Dose: 1 amp Apixaban (Eliquis -) 5 mg PO BID [facility] Last Admin: 03/04/17 10:04 Dose: 5 mg Docusate Sodium (Colace -) 300 mg PO HS [facility] Last Admin: 03/03/17 22:07 Dose: 300 mg Emollient Ointment (Aquaphor -) 1 applic TP BID PRN Fluticasone Propionate (Flonase -) 1 spray NS DAILY [facility] Last Admin: 03/04/17 10:04 Dose: 1 spray Hydromorphone HCl (Dilaudid -) 8 mg PO Q8H PRN Last Admin: 03/02/17 05:50 Dose: 8 mg Isosorbide Mononitrate (Imdur -) 30 mg PO DAILY [facility] Last Admin: 03/04/17 10:05 Dose: 30 mg Lactulose (Cephulac (Oral Use)) 20 gm PO DAILY PRN PRN Reason: CONSTIPATION Last Admin: 03/03/17 15:24 Dose: 20 gm Morphine Sulfate (Ms Contin -) 30 mg PO BID [facility] Last Admin: 03/04/17 10:05 Dose: 30 mg Nf Med(Align Probiotic Supplement ) 1 each PO DAILY [facility] Last Admin: 03/04/17 10:06 Dose: 1 each Nf Med(Simethicone (125mg)) 1 each PO ACHS PRN Nf Med(Simethicone (125mg)) 2 each PO ACHS PRN Nf Med (Linzess (290mcg)) 1 each PO DAILY@0800 [facility] Last Admin: 03/04/17 08:40 Dose: 1 each Nf Med(Pancreatin (1300)) 1 each PO TIDCM [facility] Last Admin: 03/04/17 08:40 Dose: 1 each Ondansetron HCl (Zofran Injection) 4 mg IVPB Q6H PRN PRN Reason: NAUSEA Pantoprazole Sodium (Protonix -) 40 mg PO DAILY [facility] Last Admin: 03/04/17 10:05 Dose: 40 mg Polyethylene Glycol (Miralax (For Daily Use) -) 17 gm PO DAILY [facility] Last Admin: 03/04/17 10:05 Dose: Not Given Ranitidine HCl (Zantac -) 150 mg PO BID [facility] Last Admin: 03/04/17 10:05 Dose: 150 mg Ranolazine (Ranexa -) 500 mg PO BID [facility] Last Admin: 03/04/17 10:05 Dose: 500 mg Senna (Senna -) 2 tab PO HS [facility] Last Admin: 03/03/17 22:08 Dose: Not Given Tamsulosin HCl (Flomax -) 0.4 mg PO DAILY@0830 [facility] Last Admin: 03/04/17 08:39 Dose: 0.4 mg Thyroid ([place] Thyroid -) 60 mg PO DAILY@0700 [facility] Last Admin: 03/04/17 06:06 Dose: 60 mg Tramadol HCl (Ultram -) 50 mg PO Q6H PRN Last Admin: 03/04/17 05:21 Dose: 50 mg Zolpidem Tartrate (Ambien -) 5 mg PO HS PRN Last Admin: 03/03/17 22:08 Dose: 5 mg - Objective Vital Signs: Vital Signs Temperature 98.3 F 03/04/17 10:00 Pulse Rate 74 03/04/17 10:00 Respiratory Rate 18 03/04/17 10:00 Blood Pressure 104/54 03/04/17 10:00 O2 Sat by Pulse Oximetry (%) 96 03/04/17 05:41 Constitutional: Yes: No Distress, Calm HENT: Yes: Atraumatic, Normocephalic Cardiovascular: Yes: Regular Rate and Rhythm, S1, S2. No: Murmur Respiratory: Yes: Regular, CTA Bilaterally. No: Rales, Rhonchi, Wheezes Gastrointestinal: Yes: Normal Bowel Sounds, Soft, Tenderness (left lower quadrant) Edema: Yes Edema: LLE: Trace, RLE: Trace Labs: CBC, BMP 03/03/17 07:30 03/03/17 07:30 INR, PTT INR 1.30 (0.82-1.09) H D 03/01/17 21:32 Assessment/Plan All Active Problems Chronic abdominal pain (Acute) Chronic pain syndrome (Acute) Constipation (Acute) Dysphagia (Acute) GERD (gastroesophageal reflux disease) (Acute) Anxiety (Acute) COPD (chronic obstructive pulmonary disease) (Acute) CVA (cerebral vascular accident) (Acute) Factor V deficiency (Acute) HTN (hypertension) (Acute) Hypercholesteremia (Acute) Multiple contusions (Acute) -check CT head, given AC use and headache with previously unreported fall earlier this week -to get gastric emptying study to further evaluate abd pain
[2017-03-04] MEDS: DOCUSATE SODIUM 100 MG CAPSULE (FP) PO SCH (21:40)
[2017-03-04] MEDS: SENNOSIDES 8.6MG TABLET (FP) PO SCH (21:41)
[2017-03-05] MEDS: THYROID 60 MG TABLET PO SCH (06:21)
[2017-03-05] MEDS: ALBUTEROL SO4 0.083% IH SOL 2.5 MG/3 ML VIAL.NEB. NEB SCH ×3 (06:30→22:35)
[2017-03-05 07:00] LABS: EOSINOPHIL 8.4 % (0-4.5); MCH 31.2 pg (25.7-33.7); MCHC 33.1 g/dl (32.0-35.9); MEAN CELL VOLUME 94.3 fl (80-96); MEAN PLT VOLUME 7.5 fl (7.5-11.1); NEUTROPHILS 45.2 % (42.8-82.8); PLATELET COUNT 157 K/MM3 (134-434); RDW 14.6 % (11.9-15.9); WHITE BLOOD COUNT 4.9 K/mm3 (4.0-10.0)
[2017-03-05 07:22] LABS: BILIRUBIN,TOTAL 0.6 mg/dL (0.2-1.0); CALCIUM 8.5 mg/dL (8.5-10.1); COCKROFT - GAULT 76.33; CREATININE 1.2 mg/dL (0.7-1.3)
[2017-03-05] MEDS: PANCREATIN PO SCH ×4 (08:00→17:30)
[2017-03-05] MEDS: TAMSULOSIN HCL 0.4 MG CAP.ER.24H (FP) PO SCH ×2 (08:30→10:37)
[2017-03-05] MEDS: LINACLOTIDE 290 MCG PO SCH (09:27)
[2017-03-05] MEDS: PANTOPRAZOLE 40 MG TABLET (FP) PO SCH (10:32)
[2017-03-05] MEDS: RANOLAZINE E.R. 500 MG TABLET (FP) PO SCH ×2 (10:32→21:49)
[2017-03-05] MEDS: morphine SO4 SUSTAINED ACTING 30 MG TABLET.SA PO SCH ×2 (10:32→21:50)
[2017-03-05] MEDS: RANITIDINE HCL 150 MG TABLET (FP) PO SCH ×2 (10:33→21:50)
[2017-03-05] MEDS: ISOSORBIDE MONONITRATE 30 MG TAB.SR.24H (FP) PO SCH (10:33)
[2017-03-05] MEDS: APIXABAN 5 MG TABLET PO SCH ×2 (10:34→21:47)
[2017-03-05] MEDS: FLUTICASONE PROP 0.05% 16 GM NASAL SPRAY NS SCH (10:38)
[2017-03-05] MEDS: POLYETHYLENE GLYCOL 3350 119 GM BTL PO SCH (10:39)
[2017-03-05] MEDS: [UNRECOGNIZED DRUG - OTHER] PO SCH ×2 (10:45→11:00)
--- NOTE | 2017-03-05 12:16 | PN ---
Progress Note, Physician Chief Complaint: Mr Vences says he is still having abdominal pain. Also with burning on urination that he says happens off and on for months. Not short of breath. No nausea/vomiting and tolerating diet. - Current Medication List Current Medications: Active Medications Acetaminophen (Tylenol -) 650 mg PO Q4H PRN PRN Reason: FEVER OR PAIN Albuterol Sulfate (Ventolin Hfa Inhaler -) 1 puff IH Q6H PRN PRN Reason: SHORTNESS OF BREATH Last Admin: 03/02/17 10:36 Dose: 1 puff Albuterol Sulfate (Ventolin 0.083% Nebulizer Soln -) 1 amp NEB TIDR [facility] Last Admin: 03/05/17 06:30 Dose: 1 amp Apixaban (Eliquis -) 5 mg PO BID [facility] Last Admin: 03/05/17 10:34 Dose: 5 mg Docusate Sodium (Colace -) 300 mg PO HS [facility] Last Admin: 03/04/17 21:40 Dose: 300 mg Emollient Ointment (Aquaphor -) 1 applic TP BID PRN Fluticasone Propionate (Flonase -) 1 spray NS DAILY [facility] Last Admin: 03/05/17 10:38 Dose: 1 spray Hydromorphone HCl (Dilaudid -) 8 mg PO Q8H PRN Last Admin: 03/05/17 01:48 Dose: 8 mg Isosorbide Mononitrate (Imdur -) 30 mg PO DAILY [facility] Last Admin: 03/05/17 10:33 Dose: 30 mg Lactulose (Cephulac (Oral Use)) 20 gm PO DAILY PRN PRN Reason: CONSTIPATION Last Admin: 03/03/17 15:24 Dose: 20 gm Morphine Sulfate (Ms Contin -) 30 mg PO BID [facility] Last Admin: 03/05/17 10:32 Dose: 30 mg Nf Med(Align Probiotic Supplement ) 1 each PO DAILY [facility] Last Admin: 03/05/17 10:45 Dose: Not Given Nf Med(Simethicone (125mg)) 1 each PO ACHS PRN Nf Med(Simethicone (125mg)) 2 each PO ACHS PRN Nf Med (Linzess (290mcg)) 1 each PO DAILY@0800 [facility] Last Admin: 03/05/17 09:27 Dose: 1 each Nf Med(Pancreatin (1300)) 1 each PO TIDCM [facility] Last Admin: 03/05/17 10:37 Dose: 1 each Ondansetron HCl (Zofran Injection) 4 mg IVPB Q6H PRN PRN Reason: NAUSEA Pantoprazole Sodium (Protonix -) 40 mg PO DAILY [facility] Last Admin: 03/05/17 10:32 Dose: 40 mg Polyethylene Glycol (Miralax (For Daily Use) -) 17 gm PO DAILY [facility] Last Admin: 03/05/17 10:39 Dose: 17 grams Ranitidine HCl (Zantac -) 150 mg PO BID [facility] Last Admin: 03/05/17 10:33 Dose: 150 mg Ranolazine (Ranexa -) 500 mg PO BID [facility] Last Admin: 03/05/17 10:32 Dose: 500 mg Senna (Senna -) 2 tab PO HS [facility] Last Admin: 03/04/17 21:41 Dose: 2 tab Tamsulosin HCl (Flomax -) 0.4 mg PO DAILY@0830 [facility] Last Admin: 03/05/17 10:37 Dose: 0.4 mg Thyroid ([place] Thyroid -) 60 mg PO DAILY@0700 [facility] Last Admin: 03/05/17 06:21 Dose: 60 mg Tramadol HCl (Ultram -) 50 mg PO Q6H PRN Last Admin: 03/04/17 05:21 Dose: 50 mg Zolpidem Tartrate (Ambien -) 5 mg PO HS PRN Last Admin: 03/03/17 22:08 Dose: 5 mg - Objective Vital Signs: Vital Signs Temperature 97.9 F 03/05/17 10:00 Pulse Rate 84 03/05/17 10:00 Respiratory Rate 18 03/05/17 10:00 Blood Pressure 104/62 03/05/17 10:00 O2 Sat by Pulse Oximetry (%) 95 03/05/17 09:00 Constitutional: Yes: No Distress, Calm, Obese Cardiovascular: Yes: Regular Rate and Rhythm. No: Gallop, Murmur, Rub Respiratory: Yes: Regular, CTA Bilaterally. No: Rales, Rhonchi, Wheezes Gastrointestinal: Yes: Normal Bowel Sounds, Soft. No: Distention, Tenderness Extremities: Yes: WNL Edema: No Labs: CBC, BMP 03/05/17 06:15 03/05/17 06:15 INR, PTT INR 1.30 (0.82-1.09) H D 03/01/17 21:32 Problem List - Problems (1) Chronic abdominal pain Assessment/Plan: -appreciate GI assistance -? gastroparesis -plan for GES tomorrow Code(s): R10.9 - UNSPECIFIED ABDOMINAL PAIN G89.29 - OTHER CHRONIC PAIN (2) GERD (gastroesophageal reflux disease) Assessment/Plan: -continue protonix and sucralfate Code(s): K21.9 - GASTRO-ESOPHAGEAL REFLUX DISEASE WITHOUT ESOPHAGITIS (3) CAD (coronary artery disease) Assessment/Plan: -quiescent -continue home regimen Code(s): I25.10 - ATHSCL HEART DISEASE OF [place] CORONARY ARTERY W/O ANG PCTRS (4) COPD (chronic obstructive pulmonary disease) Assessment/Plan: -not in exacerbation Code(s): J44.9 - CHRONIC OBSTRUCTIVE PULMONARY DISEASE, UNSPECIFIED (5) CVA (cerebral vascular accident) Assessment/Plan: -continue eliquis Code(s): I63.9 - CEREBRAL INFARCTION, UNSPECIFIED (6) HTN (hypertension) Assessment/Plan: -well controlled Code(s): I10 - ESSENTIAL (PRIMARY) HYPERTENSION Qualifiers: Hypertension type: essential hypertension Qualified Code(s): I10 - Essential (primary) hypertension (7) Factor V deficiency Assessment/Plan: -continue eliquis Code(s): D68.2 - HEREDITARY DEFICIENCY OF OTHER CLOTTING FACTORS (8) Dysuria Assessment/Plan: -check urinalysis Code(s): R30.0 - DYSURIA
--- NOTE | 2017-03-05 18:23 | PN ---
Progress Note (short form) - Note Progress Note: GASTROENTEROLOGY [facility] CAN NOT PERFORM THE GASTRIC EMPTYING SCAN TODAY. THEY WILL TRY TOMORROW, CONTINUE SAME FLORINDA GOSS MD Problem List - Problems (1) Constipation Code(s): K59.00 - CONSTIPATION, UNSPECIFIED (2) GERD (gastroesophageal reflux disease) Code(s): K21.9 - GASTRO-ESOPHAGEAL REFLUX DISEASE WITHOUT ESOPHAGITIS (3) Dysphagia Code(s): R13.10 - DYSPHAGIA, UNSPECIFIED (4) Chronic abdominal pain Code(s): R10.9 - UNSPECIFIED ABDOMINAL PAIN G89.29 - OTHER CHRONIC PAIN (5) Chronic pain syndrome Code(s): G89.4 - CHRONIC PAIN SYNDROME (6) Anxiety Code(s): F41.9 - ANXIETY DISORDER, UNSPECIFIED (7) COPD (chronic obstructive pulmonary disease) Code(s): J44.9 - CHRONIC OBSTRUCTIVE PULMONARY DISEASE, UNSPECIFIED (8) CVA (cerebral vascular accident) Code(s): I63.9 - CEREBRAL INFARCTION, UNSPECIFIED (9) Factor V deficiency Code(s): D68.2 - HEREDITARY DEFICIENCY OF OTHER CLOTTING FACTORS (10) Hypercholesteremia Code(s): E78.0 - PURE HYPERCHOLESTEROLEMIA * DO NOT USE *
[2017-03-05 19:49] LABS: URINE APPEARANCE CLEAR; URINE BILIRUBIN NEGATIVE (NEGATIVE); URINE BLOOD NEGATIVE (NEGATIVE); URINE COLOR LTYELLOW; URINE GLUCOSE (UA) NEGATIVE (NEGATIVE); URINE KETONE NEGATIVE (NEGATIVE); URINE LEUK ESTERASE NEGATIVE (NEGATIVE); URINE NITRITE NEGATIVE (NEGATIVE); URINE PROTEIN NEGATIVE (NEGATIVE); URINE UROBILINOGEN NEGATIVE E.U./dl (0.2-1.0)
[2017-03-05] MEDS ORDERED: PT OWN MED DRAWER 7, Y5N ONE (21:26)
[2017-03-05] MEDS: DOCUSATE SODIUM 100 MG CAPSULE (FP) PO SCH (21:47)
[2017-03-05] MEDS: SENNOSIDES 8.6MG TABLET (FP) PO SCH (21:49)
[2017-03-06] MEDS: ZOLPIDEM TARTRATE 5 MG TABLET PO PRN ×2 (00:46→23:39)
[2017-03-06] MEDS ORDERED: PT OWN MED DRAWER 7, Y5N ONE ×4 (06:06→21:18)
[2017-03-06] MEDS: THYROID 60 MG TABLET PO SCH ×2 (06:44→06:45)
[2017-03-06] MEDS: ALBUTEROL SO4 0.083% IH SOL 2.5 MG/3 ML VIAL.NEB. NEB SCH ×4 (06:48→22:15)
[2017-03-06 07:41] LABS: BASOPHIL 1.1 % (0-2.0); EOSINOPHIL 7.8 % (0-4.5); MCH 31.8 pg (25.7-33.7); MCHC 33.9 g/dl (32.0-35.9); MEAN CELL VOLUME 93.9 fl (80-96); MEAN PLT VOLUME 7.6 fl (7.5-11.1); NEUTROPHILS 52.9 % (42.8-82.8); PLATELET COUNT 158 K/MM3 (134-434); RDW 14.8 % (11.9-15.9); WHITE BLOOD COUNT 5.5 K/mm3 (4.0-10.0)
[2017-03-06 07:52] LABS: CALCIUM 8.3 mg/dL (8.5-10.1); MAGNESIUM 2.4 mg/dL (1.8-2.4)
[2017-03-06 07:54] LABS: COCKROFT - GAULT 76.33; CREATININE 1.2 mg/dL (0.7-1.3); PHOSPHOROUS 3.7 mg/dL (2.5-4.9)
[2017-03-06] MEDS: TAMSULOSIN HCL 0.4 MG CAP.ER.24H (FP) PO SCH (08:04)
[2017-03-06] MEDS: LINACLOTIDE 290 MCG PO SCH (08:05)
[2017-03-06] MEDS: PANCREATIN PO SCH ×3 (08:05→18:15)
[2017-03-06] MEDS: morphine SO4 SUSTAINED ACTING 30 MG TABLET.SA PO SCH ×2 (10:29→21:52)
[2017-03-06] MEDS: RANITIDINE HCL 150 MG TABLET (FP) PO SCH ×2 (10:30→21:50)
[2017-03-06] MEDS: RANOLAZINE E.R. 500 MG TABLET (FP) PO SCH ×2 (10:30→21:52)
[2017-03-06] MEDS: FLUTICASONE PROP 0.05% 16 GM NASAL SPRAY NS SCH (10:30)
[2017-03-06] MEDS: PANTOPRAZOLE 40 MG TABLET (FP) PO SCH (10:30)
[2017-03-06] MEDS: APIXABAN 5 MG TABLET PO SCH ×2 (10:31→21:50)
[2017-03-06] MEDS: POLYETHYLENE GLYCOL 3350 119 GM BTL PO SCH (10:32)
[2017-03-06] MEDS: [UNRECOGNIZED DRUG - OTHER] PO SCH (10:40)
--- NOTE | 2017-03-06 15:13 | PN ---
Progress Note, Physician Chief Complaint: Mr Vences complains of rectal pain today. No cp or sob. Cannot figure if he is still having abdominal pain as he mainly complains of rectal pain. - Current Medication List Current Medications: Active Medications Acetaminophen (Tylenol -) 650 mg PO Q4H PRN PRN Reason: FEVER OR PAIN Albuterol Sulfate (Ventolin Hfa Inhaler -) 1 puff IH Q6H PRN PRN Reason: SHORTNESS OF BREATH Last Admin: 03/02/17 10:36 Dose: 1 puff Albuterol Sulfate (Ventolin 0.083% Nebulizer Soln -) 1 amp NEB TIDR [facility] Last Admin: 03/06/17 14:09 Dose: Not Given Apixaban (Eliquis -) 5 mg PO BID [facility] Last Admin: 03/06/17 10:31 Dose: 5 mg Docusate Sodium (Colace -) 300 mg PO HS [facility] Last Admin: 03/05/17 21:47 Dose: 300 mg Emollient Ointment (Aquaphor -) 1 applic TP BID PRN Fluticasone Propionate (Flonase -) 1 spray NS DAILY [facility] Last Admin: 03/06/17 10:30 Dose: 1 spray Hydromorphone HCl (Dilaudid -) 8 mg PO Q8H PRN Last Admin: 03/05/17 15:55 Dose: 8 mg Isosorbide Mononitrate (Imdur -) 30 mg PO DAILY [facility] Last Admin: 03/05/17 10:33 Dose: 30 mg Lactulose (Cephulac (Oral Use)) 20 gm PO DAILY PRN PRN Reason: CONSTIPATION Last Admin: 03/03/17 15:24 Dose: 20 gm Morphine Sulfate (Ms Contin -) 30 mg PO BID [facility] Last Admin: 03/06/17 10:29 Dose: 30 mg Nf Med(Align Probiotic Supplement ) 1 each PO DAILY [facility] Last Admin: 03/06/17 10:40 Dose: 1 each Nf Med(Simethicone (125mg)) 1 each PO ACHS PRN Nf Med(Simethicone (125mg)) 2 each PO ACHS PRN Nf Med (Linzess (290mcg)) 1 each PO DAILY@0800 [facility] Last Admin: 03/06/17 08:05 Dose: 1 each Nf Med(Pancreatin (1300)) 1 each PO TIDCM [facility] Last Admin: 03/06/17 12:29 Dose: Not Given Ondansetron HCl (Zofran Injection) 4 mg IVPB Q6H PRN PRN Reason: NAUSEA Pantoprazole Sodium (Protonix -) 40 mg PO DAILY [facility] Last Admin: 03/06/17 10:30 Dose: 40 mg Polyethylene Glycol (Miralax (For Daily Use) -) 17 gm PO DAILY [facility] Last Admin: 03/06/17 10:32 Dose: 17 grams Ranitidine HCl (Zantac -) 150 mg PO BID [facility] Last Admin: 03/06/17 10:30 Dose: 150 mg Ranolazine (Ranexa -) 500 mg PO BID [facility] Last Admin: 03/06/17 10:30 Dose: 500 mg Senna (Senna -) 2 tab PO HS [facility] Last Admin: 03/05/17 21:49 Dose: 2 tab Tamsulosin HCl (Flomax -) 0.4 mg PO DAILY@0830 [facility] Last Admin: 03/06/17 08:04 Dose: 0.4 mg Thyroid ([place] Thyroid -) 60 mg PO DAILY@0700 [facility] Last Admin: 03/06/17 06:45 Dose: Not Given Tramadol HCl (Ultram -) 50 mg PO Q6H PRN Last Admin: 03/04/17 05:21 Dose: 50 mg Zolpidem Tartrate (Ambien -) 5 mg PO HS PRN Last Admin: 03/06/17 00:46 Dose: 5 mg - Objective Vital Signs: Vital Signs Temperature 97.5 F L 03/06/17 14:45 Pulse Rate 64 03/06/17 14:45 Respiratory Rate 22 03/06/17 14:45 Blood Pressure 137/82 03/06/17 14:45 O2 Sat by Pulse Oximetry (%) 95 03/06/17 09:00 Constitutional: Yes: Well Nourished, No Distress, Calm Cardiovascular: Yes: Regular Rate and Rhythm. No: Gallop, Murmur, Rub Respiratory: Yes: Regular, CTA Bilaterally. No: Rales, Rhonchi, Wheezes Gastrointestinal: Yes: Normal Bowel Sounds, Soft. No: Distention, Tenderness Extremities: Yes: WNL Edema: No Labs: CBC, BMP 03/06/17 06:20 03/06/17 06:20 INR, PTT INR 1.30 (0.82-1.09) H D 03/01/17 21:32 Problem List - Problems (1) Chronic abdominal pain Code(s): R10.9 - UNSPECIFIED ABDOMINAL PAIN G89.29 - OTHER CHRONIC PAIN (2) GERD (gastroesophageal reflux disease) Code(s): K21.9 - GASTRO-ESOPHAGEAL REFLUX DISEASE WITHOUT ESOPHAGITIS (3) CAD (coronary artery disease) Code(s): I25.10 - ATHSCL HEART DISEASE OF [place] CORONARY ARTERY W/O ANG PCTRS (4) COPD (chronic obstructive pulmonary disease) Code(s): J44.9 - CHRONIC OBSTRUCTIVE PULMONARY DISEASE, UNSPECIFIED (5) CVA (cerebral vascular accident) Code(s): I63.9 - CEREBRAL INFARCTION, UNSPECIFIED (6) HTN (hypertension) Code(s): I10 - ESSENTIAL (PRIMARY) HYPERTENSION Qualifiers: Hypertension type: essential hypertension Qualified Code(s): I10 - Essential (primary) hypertension (7) Factor V deficiency Code(s): D68.2 - HEREDITARY DEFICIENCY OF OTHER CLOTTING FACTORS (8) Dysuria Code(s): R30.0 - DYSURIA Assessment/Plan (1) Chronic abdominal pain Assessment/Plan: -appreciate GI assistance -? gastroparesis -awaiting GES -if performed today, plan for discharge tomorrow -schedule lactulose Code(s): R10.9 - UNSPECIFIED ABDOMINAL PAIN G89.29 - OTHER CHRONIC PAIN (2) GERD (gastroesophageal reflux disease) Assessment/Plan: -continue protonix and sucralfate Code(s): K21.9 - GASTRO-ESOPHAGEAL REFLUX DISEASE WITHOUT ESOPHAGITIS (3) CAD (coronary artery disease) Assessment/Plan: -quiescent -continue home regimen Code(s): I25.10 - ATHSCL HEART DISEASE OF [place] CORONARY ARTERY W/O ANG PCTRS (4) COPD (chronic obstructive pulmonary disease) Assessment/Plan: -not in exacerbation Code(s): J44.9 - CHRONIC OBSTRUCTIVE PULMONARY DISEASE, UNSPECIFIED (5) CVA (cerebral vascular accident) Assessment/Plan: -continue eliquis Code(s): I63.9 - CEREBRAL INFARCTION, UNSPECIFIED (6) HTN (hypertension) Assessment/Plan: -well controlled Code(s): I10 - ESSENTIAL (PRIMARY) HYPERTENSION Qualifiers: Hypertension type: essential hypertension Qualified Code(s): I10 - Essential (primary) hypertension (7) Factor V deficiency Assessment/Plan: -continue eliquis Code(s): D68.2 - HEREDITARY DEFICIENCY OF OTHER CLOTTING FACTORS (8) Dysuria Assessment/Plan: -urinalysis normal Code(s): R30.0 - DYSURIA
[2017-03-06] MEDS: SENNOSIDES 8.6MG TABLET (FP) PO SCH (21:50)
[2017-03-06] MEDS: DOCUSATE SODIUM 100 MG CAPSULE (FP) PO SCH (21:51)
[2017-03-06] MEDS: LACTULOSE 20 GM/30 ML UDC (FOR ORAL USE ONLY) PO SCH (21:58)
[2017-03-07] MEDS: THYROID 60 MG TABLET PO SCH (06:10)
[2017-03-07] MEDS: ALBUTEROL SO4 0.083% IH SOL 2.5 MG/3 ML VIAL.NEB. NEB SCH ×2 (06:45→14:46)
[2017-03-07] MEDS: PANCREATIN PO SCH ×2 (08:00→12:41)
[2017-03-07] MEDS: LINACLOTIDE 290 MCG PO SCH (08:00)
[2017-03-07] MEDS ORDERED: PT OWN MED DRAWER 7, Y5N ONE (10:20)
[2017-03-07] MEDS: morphine SO4 SUSTAINED ACTING 30 MG TABLET.SA PO SCH (10:24)
[2017-03-07] MEDS: TAMSULOSIN HCL 0.4 MG CAP.ER.24H (FP) PO SCH (10:27)
[2017-03-07] MEDS: LACTULOSE 20 GM/30 ML UDC (FOR ORAL USE ONLY) PO SCH (10:28)
[2017-03-07] MEDS: APIXABAN 5 MG TABLET PO SCH (10:29)
[2017-03-07] MEDS: POLYETHYLENE GLYCOL 3350 119 GM BTL PO SCH (10:30)
[2017-03-07] MEDS: FLUTICASONE PROP 0.05% 16 GM NASAL SPRAY NS SCH (10:30)
[2017-03-07] MEDS: [UNRECOGNIZED DRUG - OTHER] PO SCH (10:31)
[2017-03-07] MEDS: PANTOPRAZOLE 40 MG TABLET (FP) PO SCH (10:31)
[2017-03-07] MEDS: RANOLAZINE E.R. 500 MG TABLET (FP) PO SCH (10:32)
[2017-03-07] MEDS: RANITIDINE HCL 150 MG TABLET (FP) PO SCH (10:32)
--- NOTE | 2017-03-07 13:18 | DS ---
Physical Examination Vital Signs: Vital Signs Temperature 98.4 F 03/07/17 10:35 Pulse Rate 86 03/07/17 10:35 Respiratory Rate 20 03/07/17 10:35 Blood Pressure 123/66 03/07/17 10:35 O2 Sat by Pulse Oximetry (%) 94 L 03/06/17 21:00 Constitutional: Yes: Well Nourished, No Distress, Calm Cardiovascular: Yes: Regular Rate and Rhythm. No: Gallop, Murmur, Rub Respiratory: Yes: Regular, CTA Bilaterally. No: Rales, Rhonchi, Wheezes Gastrointestinal: Yes: Normal Bowel Sounds, Soft. No: Distention, Tenderness Extremities: Yes: WNL Edema: No Labs: CBC, BMP 03/06/17 06:20 03/06/17 06:20 Discharge Summary Reason For Visit: CHRONIC PAIN SYNDROME Current Active Problems Chronic abdominal pain (Acute) Chronic pain syndrome (Acute) Constipation (Acute) Dysphagia (Acute) Dysuria (Acute) GERD (gastroesophageal reflux disease) (Acute) Hospital Course: (1) Chronic abdominal pain Code(s): R10.9 - UNSPECIFIED ABDOMINAL PAIN G89.29 - OTHER CHRONIC PAIN (2) GERD (gastroesophageal reflux disease) Code(s): K21.9 - GASTRO-ESOPHAGEAL REFLUX DISEASE WITHOUT ESOPHAGITIS (3) CAD (coronary artery disease) Code(s): I25.10 - ATHSCL HEART DISEASE OF [place] CORONARY ARTERY W/O ANG PCTRS (4) COPD (chronic obstructive pulmonary disease) Code(s): J44.9 - CHRONIC OBSTRUCTIVE PULMONARY DISEASE, UNSPECIFIED (5) CVA (cerebral vascular accident) Code(s): I63.9 - CEREBRAL INFARCTION, UNSPECIFIED (6) HTN (hypertension) Code(s): I10 - ESSENTIAL (PRIMARY) HYPERTENSION Qualifiers: Hypertension type: essential hypertension Qualified Code(s): I10 - Essential (primary) hypertension (7) Factor V deficiency Code(s): D68.2 - HEREDITARY DEFICIENCY OF OTHER CLOTTING FACTORS (8) Dysuria Code(s): R30.0 - DYSURIA Mr Vences is a 77 year old male with chronic abdominal pain who presents with worsening pain. He was seen by GI and underwent CT scan which was normal accept for constipation. He also underwent GES which showed mild gastroparesis. He is to follow up with GI. No change in his current medications. 34 minutes spent in preparation of this discharge Condition: Stable - Instructions Diet, Activity, Other Instructions: resume previous diet and activity Referrals: Edwardo Yang MD [Primary Care Provider] - Italo Chand MD [Staff Physician] - Disposition: VNS/HOME HEALTH CARE - Home Medications Comprehensive Discharge Medication List: Ambulatory Orders Hydromorphone HCl [Dilaudid] 8 mg PO TID PRN 07/14/16 Linaclotide [Linzess] 290 mcg PO DAILY 07/14/16 Thyroid [[place] Thyroid] 60 mg PO DAILY 07/14/16 Zolpidem Tartrate [Ambien] 10 mg PO HS PRN 07/14/16 Apixaban [Eliquis] 5 mg PO BID 03/01/17 Omeprazole 40 mg PO DAILY 03/01/17 Tamsulosin HCl 0.4 mg PO DAILY 03/01/17 Morphine Sulfate 30 mg PO BID 03/02/17 Ranolazine [Ranexa] 500 mg PO BID 03/02/17
--- NOTE | 2017-03-07 14:33 | PN ---
Progress Note (short form) - Note Progress Note: GASTROENTEROLOGY PATIENT WAITING FOR DELAYED PERFORMANCE AND READING OF A GASTRIC EMPTYING SCAN. OF TODAY THE SCAN HAS NOT BEEN READ AND THE PATIENT'S PMD IS READY TO DISCHARGE THE PATIENT. I HAVE NO OBJECTION TO DISCHARGE. PATIENT CAN CALL MY OFFICE FOR FOLLOW UP VISIT. I SPOKE WITH HIS NURSE TODAY AND INFORMED HER OF THIS. FLORINDA GOSS MD Problem List - Problems (1) Constipation Code(s): K59.00 - CONSTIPATION, UNSPECIFIED (2) GERD (gastroesophageal reflux disease) Code(s): K21.9 - GASTRO-ESOPHAGEAL REFLUX DISEASE WITHOUT ESOPHAGITIS (3) Dysphagia Code(s): R13.10 - DYSPHAGIA, UNSPECIFIED (4) Chronic abdominal pain Code(s): R10.9 - UNSPECIFIED ABDOMINAL PAIN G89.29 - OTHER CHRONIC PAIN (5) Chronic pain syndrome Code(s): G89.4 - CHRONIC PAIN SYNDROME (6) Anxiety Code(s): F41.9 - ANXIETY DISORDER, UNSPECIFIED (7) COPD (chronic obstructive pulmonary disease) Code(s): J44.9 - CHRONIC OBSTRUCTIVE PULMONARY DISEASE, UNSPECIFIED (8) CVA (cerebral vascular accident) Code(s): I63.9 - CEREBRAL INFARCTION, UNSPECIFIED (9) Factor V deficiency Code(s): D68.2 - HEREDITARY DEFICIENCY OF OTHER CLOTTING FACTORS (10) Hypercholesteremia Code(s): E78.0 - PURE HYPERCHOLESTEROLEMIA * DO NOT USE *
[2017-03-07 15:07] VITALS: BP 128/61; PULSE 78; TEMP 98.5
== END 2017-03-07 15:28 | disposition home health service (06) | DRG 392 ==
LOC: JER 20:50 → JERBED 03-02 00:50 → UNDOADMOB 03-02 00:50 → INTOOBSV 03-02 00:50 → JERBED 03-02 01:05 → UNDOADMIN 03-02 01:05 → JERBED 03-02 03:39 → J5S 03-02 03:39 → JERBED 03-02 13:15 → INTOOBSV 03-02 13:15 → OBSVTOIN 03-02 13:15 → UNDOADMOB 03-02 13:15 → J5S 03-02 13:15 → JERBED 03-04 11:09 → OBSVTOIN 03-04 11:09 → J5S 03-04 14:27
PROVIDERS: ADMIT Internal Medicine; ATTEND Internal Medicine
PROC: 4A0B78Z Measurement of Gastrointestinal Motility, Via Natural or Artificial Opening (ICD-10-PCS; principal; 2017-03-06)
DX: K31.84 Gastroparesis (principal); I69.354 Hemiplegia and hemiparesis following cerebral infarction affecting left non-dominant side; D68.2 Hereditary deficiency of other clotting factors; I10 Essential (primary) hypertension; E78.00 Pure hypercholesterolemia, unspecified; I25.10 Atherosclerotic heart disease of native coronary artery without angina pectoris; Z86.718 Personal history of other venous thrombosis and embolism; Z79.01 Long term (current) use of anticoagulants; J44.9 Chronic obstructive pulmonary disease, unspecified; G89.4 Chronic pain syndrome; K21.9 Gastro-esophageal reflux disease without esophagitis; K59.00 Constipation, unspecified; R13.10 Dysphagia, unspecified; F41.9 Anxiety disorder, unspecified; R30.0 Dysuria
CPT/HCPCS: 36415; 70450-TC; 74174-TC; 74176; 78264-TC; 80048; 80053; 81003; 82150; 82550; 83690; 83735; 84100; 84484; 85025; 85610; 93005; 93010; 94010; 94640; 99281-25; A9541

== ENCOUNTER 2017-10-22 16:26 | Observation (INO) | payer OTHER, BC ==
[2017-10-22 16:33] VITALS: BMI 32.1
--- NOTE | 2017-10-22 16:34 | PDOC ---
Rapid Medical Evaluation Time Seen by Provider: 10/22/17 16:28 Medical Evaluation: Allergies Allergy/AdvReac Type Severity Reaction Status Date / Time No Known Allergies Allergy Verified 03/01/17 21:04 10/22/17 16:28 I have performed a brief in person evaluation of this patient. The patient presents with chief complaint of : chest pain and shortness of breath started this morning , has lung disease , coronary stents Pertinent PE findings: dyspnea , midsternal chest discomfort and short of breath I have ordered the following: ekg., labs The patient will proceed to the ER for further evaluation.
[2017-10-22 17:07] LABS: BASOPHIL 0.6 % (0-2.0); EOSINOPHIL 3.7 % (0-4.5); MCH 32.3 pg (25.7-33.7); MEAN PLT VOLUME 7.6 fl (7.5-11.1); NEUTROPHILS 68.8 % (42.8-82.8); PLATELET COUNT 165 K/MM3 (134-434); WHITE BLOOD COUNT 6.4 K/mm3 (4.0-10.0)
--- NOTE | 2017-10-22 17:28 | PDOC ---
History of Present Illness - General History Source: Patient Exam Limitations: No Limitations <Ladonna Kay - Last Filed: 10/22/17 20:53> <OwenEdda Babita - Last Filed: 10/24/17 02:03> - General Chief Complaint: Chest Pain Stated Complaint: CHEST PAIN Time Seen by Provider: 10/22/17 16:28 - History of Present Illness Initial Comments: 10/22/17 20:50 The patient is a 77 year old male, with a significant past medical history of CVA (with residual left sided weakness), CAD (multiple stents), Deep Vein Thrombosis (on Eliquis), HTN, Hyperlipdemia, NC,COPD, GERD, BPH, Cancer ( Prostate), Factor 5 Clotting Disorder, Anxiety, Osteoarthritis who presents to the emergency department with 2-3 days of increased cough, SOB and chest pain. Patient reports productive cough with increased phlegm production. Patient also reports midsternal chest pain, radiating to L shoulder, 6/10 in severity. Patient took nebs this morning however denies any relief and reports to the ED for further evaluation. Patient denies headache or dizziness. Patient denies fever, chills, abdominal pain, nausea, vomit, diarrhea or constipation. Patient denies dysuria, frequency , urgency or hematuria. Patient denies sick contacts or recent travel. Allergies: NKDA Social History: No alcohol, tobacco, or drug use reported. 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 Edwardo Yang Cardio: Dr. Abhishek Ridley (Ladonna Kay) Past History <Ladonna Kay - Last Filed: 10/22/17 20:53> - Past Medical History Anemia: No Asthma: No Cancer: Yes (PROSTATE) Cardiac Disorders: Yes (STENTS, FACTOR 5, CLOTTING DISORDER) CVA: Yes (X2 '93 / '04 / (L) WEAKNESS) COPD: Yes CHF: No Dementia: No Diabetes: No GI Disorders: Yes (diverticulosis,gerd) Disorders: Yes (kidney stone) HTN: Yes Hypercholesterolemia: Yes Kidney Stones: Yes Liver Disease: No Seizures: No Thyroid Disease: No - Surgical History Abdominal Surgery: No Appendectomy: No Cardiac Surgery: Yes (2 STENTS, NICHOL FILTER) Cholecystectomy: No Lung Surgery: No Neurologic Surgery: No - Suicide/Smoking/Psychosocial Hx Smoking Status: No Smoking History: Never smoked Have you smoked in the past 12 months: No Number of Cigarettes Smoked Daily: 0 Hx Alcohol Use: Yes Drug/Substance Use Hx: No Substance Use Type: None Hx Substance Use Treatment: No <Edda Weaver - Last Filed: 10/24/17 02:03> - Past Medical History Allergies/Adverse Reactions: Allergies Allergy/AdvReac Type Severity Reaction Status Date / Time No Known Allergies Allergy Verified 10/22/17 16:29 Home Medications: Ambulatory Orders Hydromorphone HCl [Dilaudid] 8 mg PO TID PRN 07/14/16 Linaclotide [Linzess] 290 mcg PO DAILY 07/14/16 Thyroid [[place] Thyroid] 60 mg PO DAILY 07/14/16 Zolpidem Tartrate [Ambien] 10 mg PO HS PRN 07/14/16 Apixaban [Eliquis] 5 mg PO BID 03/01/17 Omeprazole 40 mg PO DAILY 03/01/17 Tamsulosin HCl 0.4 mg PO DAILY 03/01/17 Ranolazine [Ranexa] 500 mg PO BID 03/02/17 Morphine *Sr* [Ms Contin -] 30 mg PO Q12H 10/22/17 Cardiac Specific PMH - Complaint Specific PMHX Angina: No Cardiac Arrhythmia: No GERD: No Pacemaker: No Peripheral Vascular Disease: No <Edda Weaver - Last Filed: 10/24/17 02:03> Review of Systems - Review of Systems Able to Perform ROS?: Yes <Ladonna Kay - Last Filed: 10/22/17 20:53> <Edda Weaver - Last Filed: 10/24/17 02:03> - Review of Systems Comments:: 10/22/17 20:50 CONSTITUTIONAL: Absent: fever, chills, diaphoresis, generalized weakness, malaise, loss of appetite HEENT: Absent: rhinorrhea, nasal congestion, throat pain, throat swelling, difficulty swallowing, mouth swelling, ear pain, eye pain, visual Changes CARDIOVASCULAR: + chest pain Absent:, syncope, palpitations, irregular heart rate, lightheadedness, peripheral edema RESPIRATORY: +cough, shortness of breath Absent: dyspnea with exertion, orthopnea, wheezing, stridor, hemoptysis GASTROINTESTINAL: Absent: abdominal pain, abdominal distension, nausea, vomiting, diarrhea, constipation, melena, hematochezia GENITOURINARY: Absent: dysuria, frequency, urgency, hesitancy, hematuria, flank pain, genital pain MUSCULOSKELETAL: Absent: myalgia, arthralgia, joint swelling SKIN: Absent: rash, itching, pallor HEMATOLOGIC/IMMUNOLOGIC: Absent: easy bleeding, easy bruising, lymphadenopathy, frequent infections ENDOCRINE: Absent: unexplained weight gain, unexplained weight loss, heat intolerance, cold intolerance NEUROLOGIC: Absent: headache, focal weakness or paresthesias, dizziness, unsteady gait, seizure, mental status changes, bladder or bowel incontinence PSYCHIATRIC: Absent: anxiety, depression, suicidal or homicidal ideation, hallucinations. (Ladonna Kay) *Physical Exam <Ladonna Kay - Last Filed: 10/22/17 20:53> <Edda Weaver - Last Filed: 10/24/17 02:03> - Vital Signs Last Vital Signs Temp Pulse Resp BP Pulse Ox 97.5 F L 90 18 133/69 95 10/23/17 22:00 10/23/17 22:00 10/23/17 22:00 10/23/17 22:00 10/23/17 21:00 - Physical Exam Comments: 10/22/17 20:51 GENERAL: Well developed, well nourished. Awake and alert. No acute distress. HEENT: Normocephalic, atraumatic. PERRLA, EOMI. No conjunctival pallor. Sclera are non- icteric. Moist mucous membranes. Oropharynx is clear. NECK: Supple. Full ROM. No JVD. Carotid pulses 2+ and symmetric, without bruits. No thyromegaly. No lymphadenopathy. CARDIOVASCULAR: Regular rate and rhythm. No murmurs, rubs, or gallops. Distal pulses are 2+ and symmetric. PULMONARY: +Fine crackle to the L base. Decreased breath sounds. No evidence of respiratory distress. No wheezing, rales. ABDOMINAL: Soft. Non-tender. Non-distended. No rebound or guarding. No organomegaly. Normoactive bowel sounds. MUSCULOSKELETAL Normal range of motion at all joints. No bony deformities or tenderness. No CVA tenderness. EXTREMITIES: No cyanosis. No clubbing. No edema. No calf tenderness. SKIN: Warm and dry. Normal capillary refill. No rashes. No jaundice. NEUROLOGICAL: Alert, awake, appropriate. Cranial nerves 2-12 intact. No deficits to light touch and temperature in face, upper extremities and lower extremities. No motor deficits in the in face, upper extremities and lower extremities. Normoreflexic in the upper and lower extremities. Normal speech. Toes are down-going bilaterally. Gait is normal without ataxia. PSYCHIATRIC: Cooperative. Good eye contact. Appropriate mood and affect. (Ladonna Kay) ED Treatment Course - LABORATORY CBC & Chemistry Diagram: 10/22/17 16:11 10/22/17 16:11 <Ladonna Kay - Last Filed: 10/22/17 20:53> - LABORATORY CBC & Chemistry Diagram: 10/23/17 05:22 10/23/17 05:22 <Edda Weaver - Last Filed: 10/24/17 02:03> - ADDITIONAL ORDERS Additional order review: 10/22/17 16:11 RBC 4.62 MCV 95.0 MCHC 34.0 RDW 14.0 MPV 7.6 Neutrophils % 68.8 D Lymphocytes % 17.6 D Monocytes % 9.3 Eosinophils % 3.7 Basophils % 0.6 - RADIOLOGY Radiology Studies Ordered: Category Date Time Status CHEST X-RAY PORTABLE* [RAD] Stat Radiology 10/22/17 18:47 Completed - Medications Given in the ED: ED Medications Discontinued Medications Generic Name Dose Route Start Last Admin Trade Name Freq PRN Reason Stop Dose Admin Albuterol/Ipratropium 1 amp 10/22/17 20:45 10/22/17 20:45 Duoneb - NEB 10/22/17 20:46 1 amp ONCE STA Administration Aspirin 81 mg 10/22/17 20:48 10/22/17 20:45 Asa - PO 10/22/17 20:49 81 mg ONCE ONE Administration Hydromorphone HCl 1 mg 10/22/17 22:00 10/22/17 22:30 Dilaudid Injection - IVPUSH 10/22/17 22:01 1 mg ONCE ONE Administration Potassium Phosphate 16 mm/ 250 mls @ 62.5 mls/hr 10/23/17 10:00 10/23/17 11: 00 Sodium Chloride IVPB 10/23/17 13:59 Not Given ONCE ONE Potassium Phosphate 16 mm/ 255.3333 mls @ 62.5 mls/hr 10/23/17 10:41 12:13 Sodium Chloride IVPB 10/23/17 14:05 62.5 mls/hr ONCE ONE Administration Prednisone 60 mg 10/22/17 20:45 10/22/17 20:55 Deltasone - PO 10/22/17 20:46 60 mg ONCE ONE Administration Medical Decision Making <Ladonna Kay - Last Filed: 10/22/17 20:53> <Edda Weaver - Last Filed: 10/24/17 02:03> - Medical Decision Making 10/22/17 21:14 77-year-old man with a history of coronary artery disease, COPD, who is home to dependent, presents with dyspnea and chest pain. EKG does not show any signs of ischemia. cxr + infi;ltrate pt has copd exacerbation and pneumonia and received resp tx,steroids, antibiotics and was admitted 10/24/17 02:02 (Edda Weaver) *DC/Admit/Observation/Transfer <Ladonna Kay - Last Filed: 10/22/17 20:53> - Discharge Dispostion Admit: Yes <Edda Weaver - Last Filed: 10/24/17 02:03> Diagnosis at time of Disposition: Dyspnea Qualifiers: Dyspnea type: other forms of dyspnea Qualified Code(s): R06.09 - Other forms of dyspnea Chest pain Qualifiers: Chest pain type: unspecified Qualified Code(s): R07.9 - Chest pain, unspecified - Attestations Scribe Attestion: 10/22/17 20:51 Documentation prepared by Ladonna Kay, acting as medical authorization specialist for Edda Weaver MD (Ladonna Kay)
[2017-10-22 17:31] LABS: INR 1.38 (0.82-1.09); PROTHROMBIN TIME (PATIENT) 15.6 SEC (9.98-11.88)
[2017-10-22 17:39] LABS: ALBUMIN 3.6 g/dl (3.4-5.0); ANION GAP 8 (8-16); CALCIUM 9.2 mg/dL (8.5-10.1); CO2 31 mmol/L (21-32); CREATININE 1.2 mg/dL (0.7-1.3); GLUCOSE,RANDOM 97 mg/dL (74-106); SGOT/AST 13 U/L (15-37)
[2017-10-22 18:14] LABS: ALK PHOS 69 U/L (45-117); BILIRUBIN,TOTAL 0.5 mg/dL (0.2-1.0); CPK 49 IU/L (39-308); SGPT/ALT 25 U/L (12-78); TOT PROT 6.7 g/dl (6.4-8.2); TROPONIN I < 0.02 ng/ml (0.00-0.05)
[2017-10-22] MEDS ORDERED: predniSONE 20 MG TABLET (UD) PO ONE (20:45)
[2017-10-22] MEDS ORDERED: ALBUTEROL SO4 2.5/IPRATROPIUM 0.5 INH SOL 3 ML VIAL.NEB. NEB STA (20:45)
[2017-10-22] MEDS ORDERED: ASPIRIN 81 MG CHEWABLE TABLETS PO ONE (20:48)
[2017-10-22] MEDS ORDERED: HYDROmorphone HCL CARPU-JECT 1 MG/1 ML DISP.SYRIN IVPUSH ONE (22:00)
--- NOTE | 2017-10-22 22:03 | HP ---
CHIEF COMPLAINT: YESSI whitley, CP PCP: Trey HISTORY OF PRESENT ILLNESS: This is a 77 year old male with a significant PMH CAD, MD, COPD who presented to the ED with a 2-3 day history of productive cough, SOB and chest pain. Pt also reports increased leg edema from usual. He dneies any palpitations. He has difficulty expressing himself at times due to previous CVA. He denies abdominal pain, nausea, vomiting, diarrhea. Reports constipation at times. 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 Smoking: pt denies Alcohol: pt denies Drugs: pt denies Family History: mother and father in their 80s due to heart disease sister with DVT during Allergies No Known Allergies Allergy (Verified 10/22/17 16:29) HOME MEDICATIONS: 3 Medication Instructions Recorded Hydromorphone HCl [Dilaudid] 8 mg PO TID PRN 07/14/16 Linaclotide [Linzess] 290 mcg PO DAILY 07/14/16 Thyroid [[place] Thyroid] 60 mg PO DAILY 07/14/16 Zolpidem Tartrate [Ambien] 10 mg PO HS PRN 07/14/16 Apixaban [Eliquis] 5 mg PO BID 03/01/17 Omeprazole 40 mg PO DAILY 03/01/17 Tamsulosin HCl 0.4 mg PO DAILY 03/01/17 Morphine Sulfate 30 mg PO BID 03/02/17 Ranolazine [Ranexa] 500 mg PO BID 03/02/17 REVIEW OF SYSTEMS CONSTITUTIONAL: Absent: fever, chills, diaphoresis, generalized weakness, malaise, loss of appetite, weight change HEENT: Absent: rhinorrhea, nasal congestion, throat pain, throat swelling, difficulty swallowing, mouth swelling, ear pain, eye pain, visual changes CARDIOVASCULAR: Present: chest pain Absent: syncope, palpitations, irregular heart rate, lightheadedness, peripheral edema RESPIRATORY: Present: cough, shortness of breath Absent: dyspnea with exertion, orthopnea, wheezing, stridor, hemoptysis GASTROINTESTINAL: Absent: abdominal pain, abdominal distension, nausea, vomiting, diarrhea, constipation, melena, hematochezia GENITOURINARY: Absent: dysuria, frequency, urgency, hesitancy, hematuria, flank pain, genital pain MUSCULOSKELETAL: Absent: myalgia, arthralgia, joint swelling, back pain, neck pain SKIN: Absent: rash, itching, pallor HEMATOLOGIC/IMMUNOLOGIC: Absent: easy bleeding, easy bruising, lymphadenopathy, frequent infections ENDOCRINE: Absent: unexplained weight gain, unexplained weight loss, heat intolerance, cold intolerance NEUROLOGIC: Absent: headache, focal weakness or paresthesias, dizziness, unsteady gait, seizure, mental status changes, bladder or bowel incontinence PSYCHIATRIC: Absent: anxiety, depression, suicidal or homicidal ideation, hallucinations. PHYSICAL EXAMINATION Vital Signs - 24 hr 3 10/22/17 10/22/17 10/22/17 16:29 17:42 17:55 Temperature 97.4 F L Pulse Rate 90 Pulse Rate [ 78 75 Apical] Respiratory 22 18 17 Rate Blood Pressure 140/72 Blood Pressure 119/74 118/72 [Left Arm] O2 Sat by Pulse 96 96 100 Oximetry (%) GENERAL: Awake, alert, and fully oriented, in no acute distress. HEAD: Normal with no signs of trauma. EYES: Pupils equal, round and reactive to light, extraocular movements intact, sclera anicteric, conjunctiva clear. No lid lag. EARS, NOSE, THROAT: Ears normal, nares patent, oropharynx clear without exudates. Moist mucous membranes. NECK: Normal range of motion, supple without lymphadenopathy, JVD, or masses. LUNGS: Breath sounds equal, Crackles bilateral bases. No wheezes, and no rhonchi. No accessory muscle use. HEART: Regular rate and rhythm, normal S1 and S2 without murmur, rub or gallop. ABDOMEN: Soft, nontender, not distended, normoactive bowel sounds, no guarding, no rebound, no masses. No hepatomegaly or splenomegaly. MUSCULOSKELETAL: Normal range of motion at all joints. No bony deformities or tenderness. No CVA tenderness. UPPER EXTREMITIES: 2+ pulses, warm, well-perfused. No cyanosis. No clubbing. No peripheral edema. LOWER EXTREMITIES: 2+ pulses, warm, well-perfused. No calf tenderness. tr peripheral edema. NEUROLOGICAL: Cranial nerves II-XII intact. Normal speech. Normal gait. PSYCHIATRIC: Cooperative. Good eye contact. Appropriate mood and affect. SKIN: Warm, dry, normal turgor, no rashes or lesions noted, normal capillary refill. Laboratory Results - last 24 hr 3 10/22/17 10/22/17 10/22/17 16:11 16:11 16:11 WBC 6.4 RBC 4.62 Hgb 14.9 Hct 43.9 MCV 95.0 MCH 32.3 MCHC 34.0 RDW 14.0 Plt Count 165 MPV 7.6 Neutrophils % 68.8 D Lymphocytes % 17.6 D Monocytes % 9.3 Eosinophils % 3.7 Basophils % 0.6 PT with INR 15.60 H INR 1.38 H Sodium 139 Potassium 4.7 Chloride 100 Carbon Dioxide 31 Anion Gap 8 BUN 17 Creatinine 1.2 Creat Clearance w eGFR 58.71 Random Glucose 97 Calcium 9.2 Total Bilirubin 0.5 D AST 13 L ALT 25 Alkaline Phosphatase 69 Creatine Kinase 49 Troponin I < 0.02 Total Protein 6.7 Albumin 3.6 Blood Type B POSITIVE Antibody Screen Negative ECG Normal sinus rhythm vent rate 79, QTC 460, prolonged flattened T waves 3, aVF, V4 inverted V2-V3 Radiology Reports Portable chest x-ray, AP sitting. Since 10/30/2016, the cardiac silhouette remains slightly enlarged with mild unfolding of the aortic arch. Bilateral increased lung markings and mild bibasal atelectatic changes are again seen. Mediastinum and visualized osseous structures appear intact Impression No significant interval change. Bilateral increased interstitial lung markings and mild bibasal atelectatic changes are again seen Reported By: Edin Carpenter MD 10/22/171940 ASSESSMENT/PLAN: 77yM with PMH CVA with L devante, CAD s/p stents, DVT, HTN, HLD, MD, COPD, GERD, BPH, Prostate CA, kidney stones, Factor 5 clotting d/o, anxiety, OA, chronic pain syndrome presented to the ED with increased cough, SOB, chest pain. Chest pain/SOB - given h/o CAD, need to r/o acute ischemic event - troponin neg x 1, cont to trend - cardiac monitoring - cardiology consult - lasix 40mg x 1 given bibasilar crackles - cont home ranexa for CAD COPD exac - duonebs qid standing - prednisone given in ED but given pt not actively wheezing will defer further administration - consider azithromycin if not improving with nebs HTN/HLD - on no antihypertensives or statin, f/u with PCP regarding same. constipation - cont linzess GERD - home omeprazole changed to formulary protonix DVT PPX - on eliquis FEN - defer IVF - BMP in am - low sodium diet in am Dispo: pt currently requires observation for cardiac monitoring. Visit type - Emergency Visit Emergency Visit: Yes ED Registration Date: 10/22/17 Care time: The patient presented to the Emergency Department on the above date and was hospitalized for further evaluation of their emergent condition. - New Patient This patient is new to me today: Yes Date on this admission: 10/22/17 - Critical Care Critical Care patient: No
[2017-10-22] MEDS: ALBUTEROL SO4 2.5/IPRATROPIUM 0.5 INH SOL 3 ML VIAL.NEB. NEB SCH (22:15)
[2017-10-22] MEDS ORDERED: predniSONE 20 MG TABLET (UD) ONE (22:27)
[2017-10-22] MEDS ORDERED: HYDROmorphone HCL CARPU-JECT 1 MG/1 ML DISP.SYRIN ONE (22:28)
[2017-10-22] MEDS ORDERED: ALBUTEROL SO4 2.5/IPRATROPIUM 0.5 INH SOL 3 ML VIAL.NEB. NEB ONE (22:28)
[2017-10-22] MEDS ORDERED: morphine SULFATE IMMEDIATE RELEASE 30 MG TAB ONE (22:28)
[2017-10-22] MEDS ORDERED: ASPIRIN 81 MG CHEWABLE TABLETS ONE (22:28)
[2017-10-23 01:31] LABS: CPK 41 IU/L (39-308); TROPONIN I < 0.02 ng/ml (0.00-0.05)
[2017-10-23] MEDS: ALBUTEROL SO4 2.5/IPRATROPIUM 0.5 INH SOL 3 ML VIAL.NEB. NEB SCH ×5 (06:15→23:13)
[2017-10-23 07:34] LABS: BASOPHIL 0.2 % (0-2.0); EOSINOPHIL 0.1 % (0-4.5); MCH 31.5 pg (25.7-33.7); MCHC 33.2 g/dl (32.0-35.9); MEAN CELL VOLUME 94.8 fl (80-96); MEAN PLT VOLUME 8.1 fl (7.5-11.1); NEUTROPHILS 84.7 % (42.8-82.8); PLATELET COUNT 145 K/MM3 (134-434); RDW 13.9 % (11.9-15.9); WHITE BLOOD COUNT 5.6 K/mm3 (4.0-10.0)
[2017-10-23 08:06] LABS: ANION GAP 7 (8-16); CALCIUM 8.4 mg/dL (8.5-10.1); CO2 26 mmol/L (21-32); GLUCOSE,RANDOM 189 mg/dL (74-106); MAGNESIUM 2.5 mg/dL (1.8-2.4)
[2017-10-23 08:14] LABS: CPK 43 IU/L (39-308); CREATININE 1.2 mg/dL (0.7-1.3); PHOSPHOROUS 1.5 mg/dL (2.5-4.9); TROPONIN I < 0.02 ng/ml (0.00-0.05)
[2017-10-23] MEDS: TAMSULOSIN HCL 0.4 MG CAP.ER.24H (FP) PO SCH (08:38)
[2017-10-23] MEDS ORDERED: PT OWN MED DRAWER 7, Y5N ONE (09:21)
[2017-10-23] MEDS: PANTOPRAZOLE 40 MG TABLET (FP) PO SCH (09:38)
[2017-10-23] MEDS: APIXABAN 5 MG TABLET PO SCH ×3 (09:38→22:20)
[2017-10-23] MEDS: RANOLAZINE E.R. 500 MG TABLET (FP) PO SCH ×2 (09:38→21:36)
[2017-10-23] MEDS: morphine SO4 SUSTAINED ACTING 30 MG TABLET.SA PO SCH ×2 (09:39→21:36)
[2017-10-23] MEDS ORDERED: POTASSIUM PHOSPHATE IVPB ONE (10:00)
[2017-10-23] MEDS ORDERED: PATIENT'S OWN MEDICATION (NON-FORMULARY) (Linaclotide [Linzess] 290 MCG) PO SCH (10:00)
[2017-10-23] MEDS ORDERED: SODIUM CHLORIDE IVPB ONE (10:00)
[2017-10-23] MEDS ORDERED: POTASSIUM PHOSPHATE 16 MM in SODIUM CHLORIDE 250 ML IVPB ONE (10:41)
[2017-10-23] MEDS: THYROID 60 MG TABLET PO SCH (10:59)
--- NOTE | 2017-10-23 11:46 | PN ---
Progress Note, Physician Chief Complaint: Mr Vences complains of shortness of breath and non-productive cough. Denies cp and n/v. Has chronic pain. - Current Medication List Current Medications: Active Medications Albuterol/Ipratropium (Duoneb -) 1 amp NEB QIDR [facility] Last Admin: 10/23/17 06:15 Dose: 1 amp Apixaban (Eliquis -) 5 mg PO BID [facility] Last Admin: 10/23/17 09:38 Dose: 5 mg Furosemide (Lasix Injection -) 40 mg IVPUSH NOW ONE Stop: 10/23/17 22:16 Hydromorphone HCl (Dilaudid -) 8 mg PO Q8H PRN PRN Reason: PAIN Last Admin: 10/23/17 09:45 Dose: 8 mg Potassium Phosphate 16 mm/ (Sodium Chloride) 255.3333 mls @ 62.5 mls/hr IVPB ONCE ONE Stop: 10/23/17 14:05 Morphine Sulfate (Ms Contin -) 30 mg PO BID [facility] Last Admin: 10/23/17 09:39 Dose: 30 mg Non-Formulary Medication (Linaclotide [Linzess]) 290 mcg PO DAILY [facility] Pantoprazole Sodium (Protonix -) 40 mg PO DAILY [facility] Last Admin: 10/23/17 09:38 Dose: 40 mg Ranolazine (Ranexa -) 500 mg PO BID [facility] Last Admin: 10/23/17 09:38 Dose: 500 mg Tamsulosin HCl (Flomax -) 0.4 mg PO DAILY@0830 [facility] Last Admin: 10/23/17 08:38 Dose: 0.4 mg Thyroid ([place] Thyroid -) 60 mg PO DAILY [facility] Last Admin: 10/23/17 10:59 Dose: 60 mg - Objective Vital Signs: Vital Signs Temperature 36.7 C 10/23/17 09:00 Pulse Rate 90 10/23/17 09:00 Respiratory Rate 18 10/23/17 09:00 Blood Pressure 128/69 10/23/17 09:00 O2 Sat by Pulse Oximetry (%) 100 10/23/17 09:00 Constitutional: Yes: Well Nourished, No Distress, Calm Cardiovascular: Yes: Regular Rate and Rhythm. No: Gallop, Murmur, Rub Respiratory: Yes: Regular, On Nasal O2, Rhonchi (RLL, minor). No: CTA Bilaterally, Rales, Wheezes Gastrointestinal: Yes: Normal Bowel Sounds, Soft. No: Distention, Tenderness Extremities: Yes: WNL Edema: No Labs: CBC, BMP 10/23/17 05:22 10/23/17 05:22 INR, PTT INR 1.38 (0.82-1.09) H 10/22/17 16:11 Problem List - Problems (1) COPD (chronic obstructive pulmonary disease) Assessment/Plan: -patient presents with shortness of breath most consistent with COPD exacerbation -on duonebs -no wheezing on exam, ronchi at bases c/w atelectasis -consult pulmonary Code(s): J44.9 - CHRONIC OBSTRUCTIVE PULMONARY DISEASE, UNSPECIFIED (2) Chest pain Assessment/Plan: -appears non-cardiac, suspect pleuritic secondary to cough -cardiology consulted -cardiac enzymes negative -continue ranexa Code(s): R07.9 - CHEST PAIN, UNSPECIFIED Qualifiers: Chest pain type: unspecified Qualified Code(s): R07.9 - Chest pain, unspecified (3) CVA (cerebral vascular accident) Assessment/Plan: -history of, anticoagulated Code(s): I63.9 - CEREBRAL INFARCTION, UNSPECIFIED (4) Chronic pain syndrome Assessment/Plan: -continue home regimen -will not place on IV narcotics Code(s): G89.4 - CHRONIC PAIN SYNDROME (5) Factor V deficiency Assessment/Plan: -continue eliquis Code(s): D68.2 - HEREDITARY DEFICIENCY OF OTHER CLOTTING FACTORS (6) GERD (gastroesophageal reflux disease) Assessment/Plan: -continue protonix Code(s): K21.9 - GASTRO-ESOPHAGEAL REFLUX DISEASE WITHOUT ESOPHAGITIS
--- NOTE | 2017-10-23 12:41 | CON.CARD ---
Cardiology Consult (text) - Consultation Consultation Note: cc: cp/sob hpi: 77 yo m hx of CAD with multiple stents ([place] [facility] [place]1, residual dz: 40%pLCX, 50%pLAD, 60%mLAD, 80%D1, 40%pRCA), hld, gerd, chronic atypical cp, copd, cva (, /residual left sided weakness), Factor 5 leiden/PE/DVT S/P IVC Filter(2002) on xarelto, HTN, BPH, Prostate Ca, hypothyroid, Chronic Pain Syndrome, Anxiety, OA here with cp Pt has chronic atypical cp, sometimes related to gerd. Current pain is reproducible to palpation and worse with coughing. Also with worsened sob in setting of URi sx's. + cough and congestion. No fevers. + chronic pain diffuse throughout body. + neck pain No f/c/s, n/v/d, weight change, h/a, rashes. No palps, dizzy, loc, pnd, orthopnea, le edema Sees dr almonte for cardio. pmh: per hpi psh: ivc filter social: no tob fam: parents with thoracic aortic aneurysms ros: per hpi; no fever/chills, n/d, rash, COLLINS, vision changes, wt loss meds: Ambulatory Orders Hydromorphone HCl [Dilaudid] 8 mg PO TID PRN 07/14/16 Linaclotide [Linzess] 290 mcg PO DAILY 07/14/16 Thyroid [[place] Thyroid] 60 mg PO DAILY 07/14/16 Zolpidem Tartrate [Ambien] 10 mg PO HS PRN 07/14/16 Apixaban [Eliquis] 5 mg PO BID 03/01/17 Omeprazole 40 mg PO DAILY 03/01/17 Tamsulosin HCl 0.4 mg PO DAILY 03/01/17 Ranolazine [Ranexa] 500 mg PO BID 03/02/17 Morphine *Sr* [Ms Contin -] 30 mg PO Q12H 10/22/17 Current Medications Albuterol/Ipratropium (Duoneb -) 1 amp NEB QIDR [facility] Last Admin: 10/23/17 06:15 Dose: 1 amp Apixaban (Eliquis -) 5 mg PO BID [facility] Last Admin: 10/23/17 09:38 Dose: 5 mg Furosemide (Lasix Injection -) 40 mg IVPUSH NOW ONE Stop: 10/23/17 22:16 Hydromorphone HCl (Dilaudid -) 8 mg PO Q8H PRN PRN Reason: PAIN Last Admin: 10/23/17 09:45 Dose: 8 mg Potassium Phosphate 16 mm/ (Sodium Chloride) 255.3333 mls @ 62.5 mls/hr IVPB ONCE ONE Stop: 10/23/17 14:05 Last Admin: 10/23/17 12:13 Dose: 62.5 mls/hr Morphine Sulfate (Ms Contin -) 30 mg PO BID [facility] Last Admin: 10/23/17 09:39 Dose: 30 mg Non-Formulary Medication (Linaclotide [Linzess]) 290 mcg PO DAILY [facility] Pantoprazole Sodium (Protonix -) 40 mg PO DAILY [facility] Last Admin: 10/23/17 09:38 Dose: 40 mg Ranolazine (Ranexa -) 500 mg PO BID [facility] Last Admin: 10/23/17 09:38 Dose: 500 mg Tamsulosin HCl (Flomax -) 0.4 mg PO DAILY@0830 [facility] Last Admin: 10/23/17 08:38 Dose: 0.4 mg Thyroid ([place] Thyroid -) 60 mg PO DAILY [facility] Last Admin: 10/23/17 10:59 Dose: 60 mg pe: Vital Signs - 24 hr 10/22/17 10/22/17 10/22/17 16:29 17:42 17:55 Temperature 97.4 F L Pulse Rate 90 Pulse Rate [ 78 75 Apical] Respiratory 22 18 17 Rate Blood Pressure 140/72 Blood Pressure 119/74 118/72 [Left Arm] O2 Sat by Pulse 96 96 100 Oximetry (%) 10/23/17 10/23/17 10/23/17 00:36 01:29 05:00 Temperature 98.7 F 98.1 F 98.0 F Pulse Rate 72 94 H Pulse Rate [ 72 Apical] Respiratory 18 18 18 Rate Blood Pressure 144/74 122/68 Blood Pressure 120/82 [Left Arm] O2 Sat by Pulse 98 97 Oximetry (%) 10/23/17 09:00 Temperature 98.0 F Pulse Rate 90 Pulse Rate [ Apical] Respiratory 18 Rate Blood Pressure 128/69 Blood Pressure [Left Arm] O2 Sat by Pulse 100 Oximetry (%) Intake & Output 10/21/17 10/22/17 10/23/17 10/24/17 07:59 07:59 07:59 07:59 Weight 224 lb 3.997 oz 224 lb 3.997 oz nad, no jvd rrr s1s2 no mrg diffuse rales. trace wheezes. aaox3 no le e/c/c abd nt nd pos bs pos dp pt, no carotid bruits no jaundice diaphoresis CBC, BMP 10/23/17 05:22 10/23/17 05:22 Laboratory Tests 09/29/16 10/22/17 10/23/17 16:48 16:11 00:30 Magnesium B-Natriuretic Peptide 654.58 H Troponin I < 0.02 < 0.02 10/23/17 10/23/17 00:30 05:22 Magnesium 2.5 H B-Natriuretic Peptide 249.89 Troponin I < 0.02 ecg: sr, anterior twi- similar to priors allowing for differences in lead placement. tele: SR, sinus tach. Run of SVT. 8b-nsvt/vt cxr: bilateral increased markings similar to priors stress MPI 2014: NO ekg changes. Mild CP after injection. EF 58%. Nl perf dobuta stress echo 09/2014: 75% mphr, no ischemic changes, nl lvef mibi 08/2013: no ischemia, nl lvef echo 03/2016: suboptimal views. EF 50-55%. Impaired relaxation. Nl RV ( suboptimal views). Mild ao dilation 3.8 cm with laminar atherosclerotic plaque. a/p: 77 yo m hx of CAD with multiple stents ([place] [facility] [place] om1, residual dz: 40%pLCX, 50%pLAD, 60%mLAD, 80%D1, 40%pRCA), hld, gerd, chronic atypical cp, copd, cva (, /residual left sided weakness), Factor 5 leiden/PE/DVT S/P IVC Filter(2002) on xarelto, HTN, BPH, Prostate Ca, hypothyroid, Chronic Pain Syndrome, Anxiety, OA here with cp cp/sob: - SOB in setting of URI sx's. bnp lower than priors. Would not recommend diuresis. -pt has hx of atypical cp but also hx of cad and pci, so symptoms are sometimes unclear. Here however, appears to be msk related 2/2 cough. -currently no signs of acs with trop neg and no ischemic ecg changes. - Low suspicion for PE given AC and IVC filter. pulm following. con't eliquis cad, pci: -no signs of acs -nl lvef -cont ranexa, ac. hld: -? statin htn: - bp controlled off anti-hypertensives. Hypercoaguability - s/p IVC filter. Continue eliquis
--- NOTE | 2017-10-23 14:05 | CONSULT ---
Consultation: REQUESTING PROVIDER: CONSULT REQUEST: We have been asked to medically evaluate this patient for SOB, possible COPD exacerbation. 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 Per pt, he was in his USOH until 2 weeks ago when he developed a productive cough of thick sputum (pt has difficulty identifying its color) accompanied by increasing LITTLEJOHN, PND, orthopnea, LE edema, and chest pain upon coughing. He went to [facility] for 7 days, does not know what they diagnosed him with, and he states that he did not improve there. Over the next 7 days at home, his symptoms continued prompting him to come here. He endorses preceding sinus headache and rhinorrhea, and he denies recent travel, sick contacts, fevers, chills, palpitations, abdominal pain, diarrhea, and dysuria. He endorses chronic nausea which he attributes to his GERD, chronic constipation , and LE pain. 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 REVIEW OF SYSTEMS: CONSTITUTIONAL: Absent: fever, chills, generalized weakness, malaise, loss of appetite, weight change present: diaphoresis HEENT: Absent: throat pain, throat swelling, difficulty swallowing, mouth swelling, ear pain, eye pain, visual changes present: rhinorrhea, nasal congestion CARDIOVASCULAR: Absent: chest pain, syncope, palpitations, irregular heart rate, lightheadedness , peripheral edema RESPIRATORY: Absent: wheezing, stridor, hemoptysis present: cough, SOB, LITTLEJOHN, orthopnea, GASTROINTESTINAL: Absent: abdominal pain, abdominal distension, vomiting, diarrhea, melena, hematochezia present: nausea, constipation GENITOURINARY: Absent: dysuria, frequency, urgency, hesitancy, hematuria, flank pain, genital pain MUSCULOSKELETAL: Absent: joint swelling, back pain, neck pain present: leg pain SKIN: Absent: rash, itching, pallor HEMATOLOGIC/IMMUNOLOGIC: Absent: lymphadenopathy, frequent infections ENDOCRINE: Absent: unexplained weight gain, unexplained weight loss, heat intolerance, cold intolerance NEUROLOGIC: Absent: headache, focal weakness or paresthesias, dizziness, unsteady gait, seizure, mental status changes, bladder or bowel incontinence PSYCHIATRIC: Absent: anxiety, depression, suicidal or homicidal ideation, hallucinations. PHYSICAL EXAMINATION Vital Signs - 24 hr 10/22/17 10/22/17 10/22/17 16:29 17:42 17:55 Temperature 97.4 F L Pulse Rate 90 Pulse Rate [ 78 75 Apical] Respiratory 22 18 17 Rate Blood Pressure 140/72 Blood Pressure 119/74 118/72 [Left Arm] O2 Sat by Pulse 96 96 100 Oximetry (%) 10/23/17 10/23/17 10/23/17 00:36 01:29 05:00 Temperature 98.7 F 98.1 F 98.0 F Pulse Rate 72 94 H Pulse Rate [ 72 Apical] Respiratory 18 18 18 Rate Blood Pressure 144/74 122/68 Blood Pressure 120/82 [Left Arm] O2 Sat by Pulse 98 97 Oximetry (%) 10/23/17 10/23/17 09:00 10:20 Temperature 98.0 F Pulse Rate 90 92 H Pulse Rate [ Apical] Respiratory 18 Rate Blood Pressure 128/69 Blood Pressure [Left Arm] O2 Sat by Pulse 100 94 L Oximetry (%) GENERAL: elderly pleasant male, awake, alert, and fully oriented, in no acute distress. HEENT: moist mucous membranes, no pharyngeal erythema, left-sided facial droop NECK: Normal range of motion, supple without lymphadenopathy, JVD, or masses. LUNGS: bibasilar rales HEART: Regular rate and rhythm, normal S1 and S2 without murmur, rub or gallop. ABDOMEN: Soft, nontender, not distended, normoactive bowel sounds, no guarding, no rebound, no masses. No hepatomegaly or splenomegaly. MUSCULOSKELETAL: 1+ b/l LE edema, tender to palpation of LLE NEUROLOGICAL: AAOx3 PSYCHIATRIC: Cooperative. Good eye contact. Appropriate mood and affect. Laboratory Results - last 24 hr 10/22/17 10/22/17 10/22/17 16:11 16:11 16:11 WBC 6.4 RBC 4.62 Hgb 14.9 Hct 43.9 MCV 95.0 MCH 32.3 MCHC 34.0 RDW 14.0 Plt Count 165 MPV 7.6 Neutrophils % 68.8 D Lymphocytes % 17.6 D Monocytes % 9.3 Eosinophils % 3.7 Basophils % 0.6 PT with INR 15.60 H INR 1.38 H Sodium 139 Potassium 4.7 Chloride 100 Carbon Dioxide 31 Anion Gap 8 BUN 17 Creatinine 1.2 Creat Clearance w eGFR 58.71 Random Glucose 97 Calcium 9.2 Phosphorus Magnesium Total Bilirubin 0.5 D AST 13 L ALT 25 Alkaline Phosphatase 69 Creatine Kinase 49 Troponin I < 0.02 B-Natriuretic Peptide Total Protein 6.7 Albumin 3.6 Blood Type Antibody Screen 10/22/17 10/23/17 10/23/17 16:11 00:30 00:30 WBC RBC Hgb Hct MCV MCH MCHC RDW Plt Count MPV Neutrophils % Lymphocytes % Monocytes % Eosinophils % Basophils % PT with INR INR Sodium Potassium Chloride Carbon Dioxide Anion Gap BUN Creatinine Creat Clearance w eGFR Random Glucose Calcium Phosphorus Magnesium Total Bilirubin AST ALT Alkaline Phosphatase Creatine Kinase 41 Troponin I < 0.02 B-Natriuretic Peptide 249.89 Total Protein Albumin Blood Type B POSITIVE Antibody Screen Negative 10/23/17 10/23/17 05:22 05:22 WBC 5.6 RBC 4.54 Hgb 14.3 Hct 43.0 MCV 94.8 MCH 31.5 MCHC 33.2 RDW 13.9 Plt Count 145 MPV 8.1 Neutrophils % 84.7 H D Lymphocytes % 13.3 D Monocytes % 1.7 L D Eosinophils % 0.1 D Basophils % 0.2 PT with INR INR Sodium 137 Potassium 4.4 Chloride 104 Carbon Dioxide 26 Anion Gap 7 L BUN 16 Creatinine 1.2 Creat Clearance w eGFR Random Glucose 189 H D Calcium 8.4 L Phosphorus 1.5 L D Magnesium 2.5 H Total Bilirubin AST ALT Alkaline Phosphatase Creatine Kinase 43 Troponin I < 0.02 B-Natriuretic Peptide Total Protein Albumin Blood Type Antibody Screen Active Medications Generic Name Dose Route Start Last Admin Trade Name Freq PRN Reason Stop Dose Admin Albuterol/Ipratropium 1 amp 10/22/17 22:15 10/23/17 11:10 Duoneb - NEB 1 amp QIDR JAIMEE Administration Apixaban 5 mg 10/22/17 22:30 10/23/17 09:38 Eliquis - PO 5 mg BID JAIMEE Administration Furosemide 40 mg 10/23/17 22:15 Lasix Injection - IVPUSH 10/23/17 22:16 NOW ONE Hydromorphone HCl 8 mg 10/22/17 22:16 10/23/17 09:45 Dilaudid - PO 8 mg Q8H PRN Administration PAIN Potassium Phosphate 16 mm/ 255.3333 mls @ 62.5 mls/hr 10/23/17 10:41 12:13 Sodium Chloride IVPB 10/23/17 14:05 62.5 mls/hr ONCE ONE Administration Morphine Sulfate 30 mg 10/23/17 10:00 10/23/17 09:39 Ms Contin - PO 30 mg BID JAIMEE Administration Non-Formulary Medication 290 mcg 10/23/17 10:00 Linaclotide [Linzess] PO DAILY JAIMEE Pantoprazole Sodium 40 mg 10/23/17 10:00 10/23/17 09:38 Protonix - PO 40 mg DAILY JAIMEE Administration Ranolazine 500 mg 10/23/17 10:00 10/23/17 09:38 Ranexa - PO 500 mg BID JAIMEE Administration Tamsulosin HCl 0.4 mg 10/23/17 08:30 10/23/17 08:38 Flomax - PO 0.4 mg DAILY@0830 JAIMEE Administration Thyroid 60 mg 10/23/17 10:00 10/23/17 10:59 [place] Thyroid - PO 60 mg DAILY JAIMEE Administration CXR: chronic b/l increased lung markings and mild bibasal atelectatic changes ASSESSMENT/PLAN: 77M w/ hx of COPD on home O2, PNA, CAD s/p stents, CVA w/ residual left-sided weakness, 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 #COPD exacerbation -lasix -duonebs -prednisone 40mg daily -outpt PFTs -incentive spirometry Rest of care per medical team Plan discussed with attending, Dr. Nunez. Dispo: We will continue to follow the patient. Thank you for this consultative opportunity. -Gee Whittaker MD PGY1 Pulmonology Team Visit type - Emergency Visit Emergency Visit: Yes ED Registration Date: 10/22/17 Care time: The patient presented to the Emergency Department on the above date and was hospitalized for further evaluation of their emergent condition. - New Patient This patient is new to me today: Yes Date on this admission: 10/23/17 - Critical Care Critical Care patient: No
[2017-10-23] MEDS: predniSONE 20 MG TABLET (UD) PO SCH (14:31)
--- NOTE | 2017-10-23 16:27 | PN ---
Teaching Attending Note Name of Resident: Gee Whittaker ATTENDING PHYSICIAN STATEMENT I saw and evaluated the patient. I reviewed the resident's note and discussed the case with the resident. I agree with the resident's findings and plan as documented. 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 Admitted via the ER due to productive cough and SOB for past 2 weeks. Patient was admitted to [place] for 7 days with similar symptoms. He has been home for about 1 week with continued symptoms. Unclear if the symptoms have been progressing. No hemoptysis or night sweats. No travel history or specific sick contacts. 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 PHYSICAL EXAMINATION Vital Signs - 24 hr 10/22/17 10/22/17 10/22/17 16:29 17:42 17:55 Temperature 97.4 F L Pulse Rate 90 Pulse Rate [ 78 75 Apical] Respiratory 22 18 17 Rate Blood Pressure 140/72 Blood Pressure 119/74 118/72 [Left Arm] O2 Sat by Pulse 96 96 100 Oximetry (%) 10/23/17 10/23/17 10/23/17 00:36 01:29 05:00 Temperature 98.7 F 98.1 F 98.0 F Pulse Rate 72 94 H Pulse Rate [ 72 Apical] Respiratory 18 18 18 Rate Blood Pressure 144/74 122/68 Blood Pressure 120/82 [Left Arm] O2 Sat by Pulse 98 97 Oximetry (%) 10/23/17 10/23/17 09:00 10:20 Temperature 98.0 F Pulse Rate 90 92 H Pulse Rate [ Apical] Respiratory 18 Rate Blood Pressure 128/69 Blood Pressure [Left Arm] O2 Sat by Pulse 100 94 L Oximetry (%) GENERAL: awake, alert, and fully oriented, in no acute distress. HEENT: moist mucous membranes, no pharyngeal erythema, left-sided facial droop NECK: Normal range of motion, supple without lymphadenopathy, JVD, or masses. LUNGS: bibasilar rales, no active wheezing HEART: Regular rate and rhythm, normal S1 and S2 without murmur, rub or gallop. ABDOMEN: Soft, nontender, not distended, normoactive bowel sounds, no guarding, no rebound, no masses. No hepatomegaly or splenomegaly. MUSCULOSKELETAL: 1+ b/l LE edema, tender to palpation of LLE NEUROLOGICAL: AAOx3 PSYCHIATRIC: Cooperative. Good eye contact. Appropriate mood and affect. Laboratory Results - last 24 hr 10/22/17 10/22/17 10/22/17 16:11 16:11 16:11 WBC 6.4 RBC 4.62 Hgb 14.9 Hct 43.9 MCV 95.0 MCH 32.3 MCHC 34.0 RDW 14.0 Plt Count 165 MPV 7.6 Neutrophils % 68.8 D Lymphocytes % 17.6 D Monocytes % 9.3 Eosinophils % 3.7 Basophils % 0.6 PT with INR 15.60 H INR 1.38 H Sodium 139 Potassium 4.7 Chloride 100 Carbon Dioxide 31 Anion Gap 8 BUN 17 Creatinine 1.2 Creat Clearance w eGFR 58.71 Random Glucose 97 Calcium 9.2 Phosphorus Magnesium Total Bilirubin 0.5 D AST 13 L ALT 25 Alkaline Phosphatase 69 Creatine Kinase 49 Troponin I < 0.02 B-Natriuretic Peptide Total Protein 6.7 Albumin 3.6 Blood Type Antibody Screen 10/22/17 10/23/17 10/23/17 16:11 00:30 00:30 WBC RBC Hgb Hct MCV MCH MCHC RDW Plt Count MPV Neutrophils % Lymphocytes % Monocytes % Eosinophils % Basophils % PT with INR INR Sodium Potassium Chloride Carbon Dioxide Anion Gap BUN Creatinine Creat Clearance w eGFR Random Glucose Calcium Phosphorus Magnesium Total Bilirubin AST ALT Alkaline Phosphatase Creatine Kinase 41 Troponin I < 0.02 B-Natriuretic Peptide 249.89 Total Protein Albumin Blood Type B POSITIVE Antibody Screen Negative 10/23/17 10/23/17 05:22 05:22 WBC 5.6 RBC 4.54 Hgb 14.3 Hct 43.0 MCV 94.8 MCH 31.5 MCHC 33.2 RDW 13.9 Plt Count 145 MPV 8.1 Neutrophils % 84.7 H D Lymphocytes % 13.3 D Monocytes % 1.7 L D Eosinophils % 0.1 D Basophils % 0.2 PT with INR INR Sodium 137 Potassium 4.4 Chloride 104 Carbon Dioxide 26 Anion Gap 7 L BUN 16 Creatinine 1.2 Creat Clearance w eGFR Random Glucose 189 H D Calcium 8.4 L Phosphorus 1.5 L D Magnesium 2.5 H Total Bilirubin AST ALT Alkaline Phosphatase Creatine Kinase 43 Troponin I < 0.02 B-Natriuretic Peptide Total Protein Albumin Blood Type Antibody Screen Active Medications Generic Name Dose Route Start Last Admin Trade Name Freq PRN Reason Stop Dose Admin Albuterol/Ipratropium 1 amp 10/22/17 22:15 10/23/17 11:10 Duoneb - NEB 1 amp QIDR JAIMEE Administration Apixaban 5 mg 10/22/17 22:30 10/23/17 09:38 Eliquis - PO 5 mg BID JAIMEE Administration Furosemide 40 mg 10/23/17 22:15 Lasix Injection - IVPUSH 10/23/17 22:16 NOW ONE Hydromorphone HCl 8 mg 10/22/17 22:16 10/23/17 09:45 Dilaudid - PO 8 mg Q8H PRN Administration PAIN Potassium Phosphate 16 mm/ 255.3333 mls @ 62.5 mls/hr 10/23/17 10:41 12:13 Sodium Chloride IVPB 10/23/17 14:05 62.5 mls/hr ONCE ONE Administration Morphine Sulfate 30 mg 10/23/17 10:00 10/23/17 09:39 Ms Contin - PO 30 mg BID JAIMEE Administration Non-Formulary Medication 290 mcg 10/23/17 10:00 Linaclotide [Linzess] PO DAILY JAIMEE Pantoprazole Sodium 40 mg 10/23/17 10:00 10/23/17 09:38 Protonix - PO 40 mg DAILY JAIMEE Administration Ranolazine 500 mg 10/23/17 10:00 10/23/17 09:38 Ranexa - PO 500 mg BID JAIMEE Administration Tamsulosin HCl 0.4 mg 10/23/17 08:30 10/23/17 08:38 Flomax - PO 0.4 mg DAILY@0830 JAIMEE Administration Thyroid 60 mg 10/23/17 10:00 10/23/17 10:59 [place] Thyroid - PO 60 mg DAILY JAIMEE Administration CXR: chronic b/l increased lung markings and mild bibasal atelectatic changes ASSESSMENT/PLAN: Acute Exacerbation of COPD Acute on Chronic Bronchitis Possible underlying ILD (chronic changes and some possible honeycombing on CT imaging) O2 dependent COPD PNA CAD s/p stents CVA w/ residual left-sided weakness Factor 5 leiden and DVT/PE s/p IVC filter on AC HTN HLD GERD BPH Prostate cancer Prednisone 40mg OD BD TX Monitor off ABX Lasix Eliquis Outpatient PFTs O2 to maintain saturation Will follow Thank you. Dr Nunez
[2017-10-23] MEDS ORDERED: FUROSEMIDE 40 MG/4 ML INJECTABLE VIAL IVPUSH ONE (22:15)
[2017-10-24 06:30] VITALS: TEMP 98.2
[2017-10-24] MEDS: ALBUTEROL SO4 2.5/IPRATROPIUM 0.5 INH SOL 3 ML VIAL.NEB. NEB SCH ×2 (06:45→11:51)
[2017-10-24 07:21] LABS: BASOPHIL 0.2 % (0-2.0); EOSINOPHIL 0.1 % (0-4.5); MCH 31.2 pg (25.7-33.7); MCHC 32.7 g/dl (32.0-35.9); MEAN CELL VOLUME 95.5 fl (80-96); MEAN PLT VOLUME 8.3 fl (7.5-11.1); NEUTROPHILS 77.3 % (42.8-82.8); PLATELET COUNT 150 K/MM3 (134-434); RDW 14.2 % (11.9-15.9); WHITE BLOOD COUNT 9.2 K/mm3 (4.0-10.0)
[2017-10-24 07:29] VITALS: BP 114/53
[2017-10-24 07:47] LABS: ANION GAP 10 (8-16); CO2 27 mmol/L (21-32); CREATININE 1.1 mg/dL (0.7-1.3); GLUCOSE,RANDOM 111 mg/dL (74-106); MAGNESIUM 2.4 mg/dL (1.8-2.4); PHOSPHOROUS 3.9 mg/dL (2.5-4.9)
--- NOTE | 2017-10-24 07:53 | EKG ---
Test Reason : Blood Pressure : / mmHG Vent. Rate : 079 BPM Atrial Rate : 079 BPM P-R Int : 152 ms QRS Dur : 088 ms QT Int : 402 ms P-R-T Axes : 053 -04 014 degrees QTc Int : 460 ms NORMAL SINUS RHYTHM POSSIBLE LEFT ATRIAL ENLARGEMENT T WAVE ABNORMALITY, CONSIDER ANTERIOR ISCHEMIA RSR' PATTERN IN V1 PROLONGED QT ABNORMAL ECG WHEN COMPARED WITH ECG OF 01-MAR-2017 21:03, NO SIGNIFICANT CHANGE WAS FOUND Confirmed by MD Cochran Daniel ([id number]) on 10/23/2017 2:57:40 PM Also confirmed by MD Cochran Daniel [id number]), state editor SHAILESH LOPEZ ([id number]) on 10/24/2017 7:53:37 AM Referred By: Confirmed By:Shailesh Cochran MD
[2017-10-24] MEDS: morphine SO4 SUSTAINED ACTING 30 MG TABLET.SA PO SCH (09:48)
[2017-10-24] MEDS: THYROID 60 MG TABLET PO SCH (09:48)
[2017-10-24] MEDS: RANOLAZINE E.R. 500 MG TABLET (FP) PO SCH (09:48)
[2017-10-24] MEDS: TAMSULOSIN HCL 0.4 MG CAP.ER.24H (FP) PO SCH (09:49)
[2017-10-24] MEDS: predniSONE 20 MG TABLET (UD) PO SCH (09:49)
[2017-10-24] MEDS: PANTOPRAZOLE 40 MG TABLET (FP) PO SCH (09:49)
[2017-10-24] MEDS: APIXABAN 5 MG TABLET PO SCH (09:49)
--- NOTE | 2017-10-24 11:34 | DS ---
Physical Examination Vital Signs: Vital Signs Temperature 36.8 C 10/24/17 07:27 Pulse Rate 76 10/24/17 07:27 Respiratory Rate 20 10/24/17 07:29 Blood Pressure 114/53 10/24/17 07:27 O2 Sat by Pulse Oximetry (%) 95 10/24/17 07:29 Constitutional: Yes: Well Nourished, No Distress Cardiovascular: Yes: Regular Rate and Rhythm. No: Gallop, Murmur, Rub Respiratory: Yes: Regular, Rhonchi (at base, unchanged). No: CTA Bilaterally, Rales, Wheezes Gastrointestinal: Yes: Normal Bowel Sounds, Soft. No: Distention, Tenderness Extremities: Yes: WNL Edema: No Labs: CBC, BMP 10/24/17 06:45 10/24/17 06:45 Discharge Summary Reason For Visit: CHEST PAIN Current Active Problems Chest pain (Acute) Dyspnea (Acute) Hospital Course: (1) COPD (chronic obstructive pulmonary disease) Code(s): J44.9 - CHRONIC OBSTRUCTIVE PULMONARY DISEASE, UNSPECIFIED (2) Chest pain Code(s): R07.9 - CHEST PAIN, UNSPECIFIED Qualifiers: Chest pain type: unspecified Qualified Code(s): R07.9 - Chest pain, unspecified (3) CVA (cerebral vascular accident) Code(s): I63.9 - CEREBRAL INFARCTION, UNSPECIFIED (4) Chronic pain syndrome Code(s): G89.4 - CHRONIC PAIN SYNDROME (5) Factor V deficiency Code(s): D68.2 - HEREDITARY DEFICIENCY OF OTHER CLOTTING FACTORS (6) GERD (gastroesophageal reflux disease) Code(s): K21.9 - GASTRO-ESOPHAGEAL REFLUX DISEASE WITHOUT ESOPHAGITIS Mr Vences is a 77 year old male coming in with a minor COPD exacerbation and atypical chest pain. He was admitted under observation. He was seen by cardiology and evaluated, he was continued on his home regimen as pain was musculoskeletal in nature. He was started on duonebs and seen by pulmonary, he was placed on oral prednisone with improvement. He has basilar ronchi secondary to atelectasis and is recommended to ambulate and use incentive spirometer. He is stable to discharge to SNF. 32 minutes spent in preparation of this discharge Condition: Stable - Instructions Diet, Activity, Other Instructions: up with assistance, further activity per PT at SNF. Low fat/low salt diet. Incentive spirometer 10x q1hwa. Referrals: Edwardo Yang MD [Primary Care Provider] - Kenneth Bentley MD [Staff Physician] - Mini Lundy MD [Staff Physician] - Disposition: RESIDENTIAL FACILITY - Home Medications Comprehensive Discharge Medication List: Ambulatory Orders Hydromorphone HCl [Dilaudid] 8 mg PO TID PRN 07/14/16 Linaclotide [Linzess] 290 mcg PO DAILY 07/14/16 Thyroid [[place] Thyroid] 60 mg PO DAILY 07/14/16 Apixaban [Eliquis] 5 mg PO BID 03/01/17 Omeprazole 40 mg PO DAILY 03/01/17 Tamsulosin HCl 0.4 mg PO DAILY 03/01/17 Ranolazine [Ranexa] 500 mg PO BID 03/02/17 Morphine *Sr* [MS Contin -] 30 mg PO Q12H 10/22/17 Albuterol 2.5/Ipratropium 0.5 [Duoneb -] 1 amp NEB QIDR amp 10/24/17 Prednisone [Deltasone -] 40 mg PO DAILY 3 Days tablet 10/24/17
--- NOTE | 2017-10-24 11:35 | PN ---
Physical Exam: SUBJECTIVE: Patient seen and examined. Pt reports improved breathing and cough. He still gets SOB when walking to bathroom. He endorses RLE pain that is 8/10 and constipation with no BM in 3 days. OBJECTIVE: Vital Signs Period Temp Pulse Resp BP Sys/Fernandez Pulse Ox Last 24 Hr 97.5 F-98.8 F 71-93 18-20 106-138/50-76 94-95 GENERAL: The patient is awake, alert, and fully oriented, in no acute distress. HEENT: [place] NECK: Trachea midline, full range of motion, supple. LUNGS: bibasilar rales HEART: Regular rate and rhythm, S1, S2 without murmur, rub or gallop. ABDOMEN: Soft, nontender, nondistended, normoactive bowel sounds, no guarding, no rebound, no hepatosplenomegaly, no masses. EXTREMITIES: decreased LE edema, RLE TTP NEUROLOGICAL: Cranial nerves II through XII grossly intact. Normal speech, gait not observed. PSYCH: Normal mood, normal affect. SKIN: Warm, dry, normal turgor, no rashes or lesions noted Laboratory Results - last 24 hr 10/24/17 10/24/17 06:45 06:45 WBC 9.2 D RBC 4.34 Hgb 13.5 Hct 41.5 MCV 95.5 MCH 31.2 MCHC 32.7 RDW 14.2 Plt Count 150 MPV 8.3 Neutrophils % 77.3 Lymphocytes % 14.0 Monocytes % 8.4 D Eosinophils % 0.1 Basophils % 0.2 Sodium 141 Potassium 4.3 Chloride 104 Carbon Dioxide 27 Anion Gap 10 BUN 16 Creatinine 1.1 Random Glucose 111 H D Calcium 9.0 Phosphorus 3.9 D Magnesium 2.4 Active Medications Generic Name Dose Route Start Last Admin Trade Name Freq PRN Reason Stop Dose Admin Albuterol/Ipratropium 1 amp 10/22/17 22:15 10/24/17 06:45 Duoneb - NEB 1 amp QIDR JAIMEE Administration Apixaban 5 mg 10/22/17 22:30 10/24/17 09:49 Eliquis - PO 5 mg BID JAIMEE Administration Hydromorphone HCl 8 mg 10/22/17 22:16 10/23/17 21:43 Dilaudid - PO 8 mg Q8H PRN Administration PAIN Morphine Sulfate 30 mg 10/23/17 10:00 10/24/17 09:48 Ms Contin - PO 30 mg BID JAIMEE Administration Non-Formulary Medication 290 mcg 10/23/17 10:00 Linaclotide [Linzess] PO DAILY JAIMEE Pantoprazole Sodium 40 mg 10/23/17 10:00 10/24/17 09:49 Protonix - PO 40 mg DAILY JAIMEE Administration Prednisone 40 mg 10/23/17 14:30 10/24/17 09:49 Deltasone - PO 40 mg DAILY JAIMEE Administration Ranolazine 500 mg 10/23/17 10:00 10/24/17 09:48 Ranexa - PO 500 mg BID JAIMEE Administration Tamsulosin HCl 0.4 mg 10/23/17 08:30 10/24/17 09:49 Flomax - PO 0.4 mg DAILY@0830 JAIMEE Administration Thyroid 60 mg 10/23/17 10:00 10/24/17 09:48 [place] Thyroid - PO 60 mg DAILY JAIMEE Administration ASSESSMENT/PLAN: 77M w/ hx of COPD on home O2, PNA, CAD s/p stents, CVA w/ residual left-sided weakness, 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 #COPD exacerbation- improving -lasix -duonebs -prednisone 40mg daily -outpt PFTs -incentive spirometry Rest of care per medical team Plan discussed with attending, Dr. Bentley. Dispo: We will continue to follow the patient. Thank you for this consultative opportunity. -Gee Whittaker MD PGY1 Pulmonology Team Visit type - Emergency Visit Emergency Visit: Yes ED Registration Date: 10/22/17 Care time: The patient presented to the Emergency Department on the above date and was hospitalized for further evaluation of their emergent condition. - New Patient This patient is new to me today: No - Critical Care Critical Care patient: No
--- NOTE | 2017-10-24 11:42 | PN ---
Progress Note (short form) - Note Progress Note: s: no cp sob palps dizzy o: Vital Signs Period Temp Pulse Resp BP Sys/Fernandez Pulse Ox Last 24 Hr 97.5 F-98.8 F 71-93 18-20 106-138/50-76 94-95 nad, no jvd rrr s1s2 no mrg cta bl nl eff aaox3 no le e/c/c abd nt nd pos bs pos dp pt, no carotid bruits no jaundice diaphoresis CBC, BMP 10/24/17 06:45 10/24/17 06:45 Current Medications Generic Name Dose Route Start Last Admin Trade Name Freq PRN Reason Stop Dose Admin Albuterol/Ipratropium 1 amp 10/22/17 22:15 10/24/17 06:45 Duoneb - NEB 1 amp QIDR JAIMEE Administration Apixaban 5 mg 10/22/17 22:30 10/24/17 09:49 Eliquis - PO 5 mg BID JAIMEE Administration Hydromorphone HCl 8 mg 10/22/17 22:16 10/23/17 21:43 Dilaudid - PO 8 mg Q8H PRN Administration PAIN Morphine Sulfate 30 mg 10/23/17 10:00 10/24/17 09:48 Ms Contin - PO 30 mg BID JAIMEE Administration Non-Formulary Medication 290 mcg 10/23/17 10:00 Linaclotide [Linzess] PO DAILY JAIMEE Pantoprazole Sodium 40 mg 10/23/17 10:00 10/24/17 09:49 Protonix - PO 40 mg DAILY JAIMEE Administration Prednisone 40 mg 10/23/17 14:30 10/24/17 09:49 Deltasone - PO 40 mg DAILY JAIMEE Administration Ranolazine 500 mg 10/23/17 10:00 10/24/17 09:48 Ranexa - PO 500 mg BID JAIMEE Administration Tamsulosin HCl 0.4 mg 10/23/17 08:30 10/24/17 09:49 Flomax - PO 0.4 mg DAILY@0830 JAIMEE Administration Thyroid 60 mg 10/23/17 10:00 10/24/17 09:48 [place] Thyroid - PO 60 mg DAILY JAIMEE Administration ecg: sr, anterior twi- similar to priors allowing for differences in lead placement. tele: SR, artifact cxr: bilateral increased markings similar to priors stress MPI 2015: NO ekg changes. Mild CP after injection. EF 58%. Nl perf dobuta stress echo 09/2014: 75% mphr, no ischemic changes, nl lvef mibi 08/2013: no ischemia, nl lvef echo 03/2016: suboptimal views. EF 50-55%. Impaired relaxation. Nl RV ( suboptimal views). Mild ao dilation 3.8 cm with laminar atherosclerotic plaque. a/p: 77 yo m hx of CAD with multiple stents (last cath was 11/2011 at [facility] [place]: le to om1, residual dz: 40%pLCX, 50%pLAD, 60%mLAD, 80%D1, 40%pRCA), hld, gerd, chronic atypical cp, copd, cva (, /residual left sided weakness), Factor 5 leiden/PE/DVT S/P IVC Filter(2002) on xarelto, HTN, BPH, Prostate Ca, hypothyroid, Chronic Pain Syndrome, Anxiety, OA here with cp cp/sob: - SOB in setting of URI sx's. bnp lower than priors. Would not recommend diuresis. -pt has hx of atypical cp but also hx of cad and pci, so symptoms are sometimes unclear. Here however, appears to be msk related 2/2 cough. -currently no signs of acs with trop neg and no ischemic ecg changes. - Low suspicion for PE given AC and IVC filter. pulm following. con't eliquis cad, pci: -no signs of acs -nl lvef -cont ranexa, ac. hld: -? statin htn: - bp controlled off anti-hypertensives. Hypercoaguability - s/p IVC filter. Continue eliquis cardiac martinez stable, can dc tele
[2017-10-24 11:51] VITALS: PULSE 87
== END 2017-10-24 16:07 ==
LOC: JER 16:26 → JERBED 21:12 → J4W 10-23 01:27
PROVIDERS: ADMIT Internal Medicine; ATTEND Internal Medicine
PROC: 3E0F7GC Introduction of Other Therapeutic Substance into Respiratory Tract, Via Natural or Artificial Opening (ICD-10-PCS; principal; 2017-10-22)
PROC: 3E0F7GC Introduction of Other Therapeutic Substance into Respiratory Tract, Via Natural or Artificial Opening (ICD-10-PCS; 2017-10-22)
PROC: 3E033GC Introduction of Other Therapeutic Substance into Peripheral Vein, Percutaneous Approach (ICD-10-PCS; 2017-10-22)
PROC: 3E033NZ Introduction of Analgesics, Hypnotics, Sedatives into Peripheral Vein, Percutaneous Approach (ICD-10-PCS; 2017-10-22)
DX: R07.9 Chest pain, unspecified (principal); I25.10 Atherosclerotic heart disease of native coronary artery without angina pectoris; I10 Essential (primary) hypertension; Z95.5 Presence of coronary angioplasty implant and graft; J44.9 Chronic obstructive pulmonary disease, unspecified; Z99.81 Dependence on supplemental oxygen; D68.51 Activated protein C resistance; D68.2 Hereditary deficiency of other clotting factors; E78.5 Hyperlipidemia, unspecified; K21.9 Gastro-esophageal reflux disease without esophagitis; N40.0 Benign prostatic hyperplasia without lower urinary tract symptoms; F41.9 Anxiety disorder, unspecified; Z85.46 Personal history of malignant neoplasm of prostate; Z86.711 Personal history of pulmonary embolism; Z86.718 Personal history of other venous thrombosis and embolism; Z79.01 Long term (current) use of anticoagulants; Z95.828 Presence of other vascular implants and grafts
CPT/HCPCS: 36415; 71010-TC; 80048; 80053; 82550; 83735; 83880; 84100; 84484; 85025; 85610; 86850; 86900; 86901; 93005; 93010; 94640; 96365; 96366; 96375; 97116-GP; 97163-GP; 99285-25; G0378

== ENCOUNTER 2018-01-21 10:02 | Inpatient (IN) | payer OTHER, BC ==
[2018-01-21] MEDS ORDERED: ONDANSETRON 4 MG/2 ML VIAL IVPB ONE (10:40)
[2018-01-21] MEDS ORDERED: SODIUM CHLORIDE 1,000 ML IV ONE (10:40)
--- NOTE | 2018-01-21 10:46 | PDOC ---
History of Present Illness <Max Rojas - Last Filed: 01/21/18 12:20> - General History Source: Patient Exam Limitations: No Limitations - History of Present Illness Initial Comments: 01/21/18 10:42 76y M hx of htn, hl, cad s/p stents x 2, factor v leiden, cva x 2, diverticulitis, dvt on eliquis, gerd, kidney stones, presents from home for sob. Pt states that he has been having about 1 week of sob, mild cough prod of whitish sputum as well as sore throat. Pt also endorses some lower abdominal pain and chest pain. Pt states he was seen at [facility] a few days ago for the same and was admitted for 6 days but is unclear what they were doing. Pt denies any fever/chills, diarrhea, bpr, n/v, palpitations. Pt in general is nto a great historian, sometimes contradicts his history. pt states he came here today because his sob feels a bit worse than yesterday. PMD: dr. Fallon Card: [place] <Quang Villegas - Last Filed: 01/21/18 14:25> - General Chief Complaint: Chest Pain Stated Complaint: CHEST PAIN Time Seen by Provider: 01/21/18 10:23 Past History <Max Rojas - Last Filed: 01/21/18 12:20> - Past Medical History Anemia: No Asthma: No Cancer: Yes (PROSTATE) Cardiac Disorders: Yes (STENTS, FACTOR 5, CLOTTING DISORDER) CVA: Yes (X2 '93 / '04 / (L) WEAKNESS) COPD: Yes CHF: No Dementia: No Diabetes: No GI Disorders: Yes (diverticulosis,gerd) Disorders: Yes (kidney stone) HTN: Yes Hypercholesterolemia: Yes Kidney Stones: Yes Liver Disease: No Seizures: No Thyroid Disease: No - Surgical History Abdominal Surgery: No Appendectomy: No Cardiac Surgery: Yes (2 STENTS, NICHOL FILTER) Cholecystectomy: No Lung Surgery: No Neurologic Surgery: No - Immunization History Immunization Up to Date: Yes - Suicide/Smoking/Psychosocial Hx Smoking Status: No Smoking History: Never smoked Have you smoked in the past 12 months: No Number of Cigarettes Smoked Daily: 0 Hx Alcohol Use: Yes Drug/Substance Use Hx: No Substance Use Type: None Hx Substance Use Treatment: No <Quang Villegas - Last Filed: 01/21/18 14:25> - Past Medical History Allergies/Adverse Reactions: Allergies Allergy/AdvReac Type Severity Reaction Status Date / Time No Known Allergies Allergy Verified 01/21/18 10:12 Home Medications: Ambulatory Orders Hydromorphone HCl [Dilaudid] 8 mg PO TID PRN 07/14/16 Linaclotide [Linzess] 290 mcg PO DAILY 07/14/16 Thyroid [[place] Thyroid] 60 mg PO DAILY 07/14/16 Apixaban [Eliquis] 5 mg PO BID 03/01/17 Omeprazole 40 mg PO DAILY 03/01/17 Tamsulosin HCl 0.4 mg PO DAILY 03/01/17 Ranolazine [Ranexa] 500 mg PO BID 03/02/17 Morphine *Sr* [MS Contin -] 30 mg PO Q12H 10/22/17 predniSONE [Deltasone -] 40 mg PO DAILY 3 Days tablet 10/24/17 Albuterol 2.5/Ipratropium 0.5 [Duoneb -] 1 amp NEB PRN PRN 01/21/18 Review of Systems - Review of Systems Able to Perform ROS?: Yes Comments:: 01/21/18 10:46 All other systems reviewed and are negative except noted in HPI <Quang Villegas - Last Filed: 01/21/18 14:25> *Physical Exam - Vital Signs Last Vital Signs Temp Pulse Resp BP Pulse Ox 97.6 F 77 19 93/60 97 01/21/18 10:12 01/21/18 10:49 01/21/18 10:12 01/21/18 10:12 01/21/18 10:49 <Max Rojas - Last Filed: 01/21/18 12:20> - Vital Signs Last Vital Signs Temp Pulse Resp BP Pulse Ox 97.6 F 79 19 93/60 97 01/21/18 10:12 01/21/18 10:12 01/21/18 10:12 01/21/18 10:12 01/21/18 10:12 - Physical Exam Comments: 01/21/18 10:49 GENERAL: The patient is awake, alert, and oriented x3, Nontoxic - in no acute distress. HEAD: Normocephalic, atraumatic. EYES: extraocular movements intact, sclera anicteric, conjunctiva clear. ENT: Normal voice, dry mucous membranes. NECK: Normal range of motion, supple LUNGS: Breath sounds equal, clear to auscultation bilaterally. No wheezes, no rhonchi, no rales. HEART: Regular rate and rhythm, normal S1 and S2 without murmur, rub or gallop. ABDOMEN: mild b/l lower abdominal tenderness, No guarding, no rebound. No CVA tenderness EXTREMITIES: Normal range of motion, b/l LE edema with mild calf tenderness NEUROLOGICAL: No facial assymetry, Normal speech, moving all 4 extremities spontenaously and symmetrically PSYCH: Normal mood, normal affect. SKIN: Warm, Dry, normal turgor, <Quang Villegas - Last Filed: 01/21/18 14:25> Heart Score/ECG Review - ECG Impressions Comment:: 01/21/18 12:09 Twelve-lead EKG was performed and reviewed by me. There is normal sinus rhythm with a normal rate. Rate of [address] [place] is normal No ST changes suggestive of acute ischemia. <Quang Villegas - Last Filed: 01/21/18 14:25> ED Treatment Course - LABORATORY CBC & Chemistry Diagram: 01/21/18 11:07 01/21/18 11:34 - ADDITIONAL ORDERS Additional order review: Laboratory Results 01/21/18 01/21/18 01/21/18 11:34 11:34 11:34 PT with INR INR VBG pH 7.37 POC VBG pCO2 53.1 H POC VBG pO2 17.3 L* Mixed VBG HCO3 30.0 H Sodium 141 Potassium 4.4 Chloride 102 Carbon Dioxide 27 Anion Gap 12 BUN 17 Creatinine 1.3 Creat Clearance w eGFR 53.53 Random Glucose 109 H Lactic Acid 1.6 Calcium 8.7 Total Bilirubin 0.3 D AST 10 L D ALT 18 D Alkaline Phosphatase 73 Creatine Kinase 30 L Troponin I 0.58 H D Total Protein 6.5 Albumin 3.0 L Lipase 115 01/21/18 11:34 PT with INR 18.10 H INR 1.60 H VBG pH POC VBG pCO2 POC VBG pO2 Mixed VBG HCO3 Sodium Potassium Chloride Carbon Dioxide Anion Gap BUN Creatinine Creat Clearance w eGFR Random Glucose Lactic Acid Calcium Total Bilirubin AST ALT Alkaline Phosphatase Creatine Kinase Troponin I Total Protein Albumin Lipase 01/21/18 11:07 RBC 4.43 MCV 94.8 MCHC 33.6 RDW 14.5 MPV 8.1 Neutrophils % 71.3 Lymphocytes % 14.4 Monocytes % 12.5 H Eosinophils % 1.3 D Basophils % 0.5 - Medications Given in the ED: ED Medications Discontinued Medications Generic Name Dose Route Start Last Admin Trade Name Gildardo PRN Reason Stop Dose Admin Sodium Chloride 1,000 mls @ 1,000 mls/hr 01/21/18 10:40 01/21/18 11:55 Normal Saline - IV 01/21/18 11:39 1,000 mls/hr .Q1H ONE Administration Ondansetron HCl 4 mg 01/21/18 10:40 01/21/18 11:55 Zofran Injection IVPB 01/21/18 10:41 4 mg ONCE ONE Administration <Max Rojas - Last Filed: 01/21/18 12:20> - LABORATORY CBC & Chemistry Diagram: 01/21/18 11:07 01/21/18 11:34 - RADIOLOGY Radiology Studies Ordered: Category Date Time Status CHEST X-RAY PORTABLE* [RAD] Stat Radiology 01/21/18 10:40 Ordered <Quang Villegas - Last Filed: 01/21/18 14:25> Medical Decision Making - Medical Decision Making 01/21/18 12:[address] Almonte at 12:20 pm. Case discussed. <Max Rojas - Last Filed: 01/21/18 12:20> - Medical Decision Making 01/21/18 10:50 77y M here with what seems like cold like symptoms, but seems a bit more comfortable than i would expect and is alittle agitated pt is not a great historia, (?due to old cva?) will attempt to find out more from [facility] and then from dr. fallon 01/21/18 10:57 [facility] d/c yesterday for evaluation of acute on crhonic dvt, no PE (CTA on 01/11, unchanged filling defect from prior 2014, no acute PE, changes c/w intersititial lung disease, +extensive coronary disease, b/l DVT on doplers) treated for COPD/CHF cleared by card/pulm pt refused to leave 01/17 given home O2 01/21/18 13:10 pts labs reviewed noted for trop of .58 pt tates feeling a bit better, denies current cp pt took his eliquis this AM will give asa case dw. dr. almonte agree with manageemnt, will admit for further management to tele aaitng for dr. reynolds for admission CRITICAL CARE DOCUMENTATION: I spent ~35 minutes of Critical Care time, excluding separately billable procedures, involving high complexity decision making to assess, manipulate and support vital system function(s) to treat single or multiple vital organ system failure and/or to prevent further life threatening deterioration of the patient' s condition. 01/21/18 14:25 discussed [employer] HEL[employer] Tiffany, ana laura ith admission under dr. roman for evaluation of NSTEMI stable for tele Case discussed in detail with admitting physician including history, physical exam and ancillary studies. Admitting physician has assumed care for the patient, will follow all pending diagnostics and will complete the evaluation and treatment. <Quang Villegas - Last Filed: 01/21/18 14:25> *DC/Admit/Observation/Transfer - Attestations Scribe Attestion: 01/21/18 12:21 Documentation prepared by Max Rojas, acting as medical concierge for Quang Villegas MD. <Max Rojas - Last Filed: 01/21/18 12:20> - Discharge Dispostion Admit: Yes <Quang Villegas - Last Filed: 01/21/18 14:25> Diagnosis at time of Disposition: NSTEMI (non-ST elevated myocardial infarction), SOB (shortness of breath) - Discharge Dispostion Condition at time of disposition: Stable
[2018-01-21 11:48] LABS: BASO % 0.5 % (0-2.0); EOS % 1.3 % (0-4.5); HEMOGLOBIN 14.1 GM/dL (11.7-16.9); LYMPH % 14.4 % (8-40); MCH 31.8 pg (25.7-33.7); MCHC 33.6 g/dl (32.0-35.9); MEAN CELL VOLUME 94.8 fl (80-96); MEAN PLT VOLUME 8.1 fl (7.5-11.1); MONO % 12.5 % (3.8-10.2); NEUT % 71.3 % (42.8-82.8); PLATELET COUNT 196 K/MM3 (134-434); RBC 4.43 M/mm3 (4.00-5.60); RDW 14.5 % (11.9-15.9); WHITE BLOOD COUNT 6.4 K/mm3 (4.0-10.0)
[2018-01-21] MEDS ORDERED: ONDANSETRON 4 MG/2 ML VIAL ONE (11:50)
[2018-01-21 11:56] LABS: INR 1.6 (0.82-1.09); PROTHROMBIN TIME (PATIENT) 18.1 SEC (9.98-11.88)
[2018-01-21 11:59] LABS: VENOUS PC02 53.1 mmHg (38-52); VENOUS PH 7.37 (7.32-7.42); VENOUS PO2 17.3 mmHg (28-48)
[2018-01-21 12:04] LABS: ANION GAP 12 (8-16); BILIRUBIN,TOTAL 0.3 mg/dL (0.2-1.0); BLOOD UREA NITROGEN 17 mg/dL (7-18); CALCIUM 8.7 mg/dL (8.5-10.1); CHLORIDE 102 mmol/L (98-107); CO2 27 mmol/L (21-32); CREATININE 1.3 mg/dL (0.7-1.3); GLUCOSE,RANDOM 109 mg/dL (74-106); LIPASE 115 U/L (73-393); POTASSIUM 4.4 mmol/L (3.5-5.1); SGOT/AST 10 U/L (15-37); SGPT/ALT 18 U/L (12-78); SODIUM 141 mmol/L (136-145); TOT PROT 6.5 g/dl (6.4-8.2)
[2018-01-21 12:13] LABS: ALK PHOS 73 U/L (45-117)
[2018-01-21] MEDS ORDERED: ASPIRIN 81 MG CHEWABLE TABLETS PO ONE (12:19)
[2018-01-21] MEDS ORDERED: APIXABAN 5 MG TABLET PO ONE (12:21)
[2018-01-21] MEDS ORDERED: ASPIRIN 81 MG CHEWABLE TABLETS ONE (12:25)
[2018-01-21] MEDS ORDERED: morphine CARPU-JECT 4 MG/1 ML DISP.SYRIN IVPUSH ONE (13:01)
[2018-01-21 13:14] LABS: URINE APPEARANCE SLCLOUDY; URINE BILIRUBIN NEGATIVE (NEGATIVE); URINE BLOOD NEGATIVE (NEGATIVE); URINE COLOR YELLOW; URINE GLUCOSE (UA) NEGATIVE (NEGATIVE); URINE KETONE NEGATIVE (NEGATIVE); URINE LEUK ESTERASE NEGATIVE (NEGATIVE); URINE NITRITE NEGATIVE (NEGATIVE); URINE PROTEIN NEGATIVE (NEGATIVE)
[2018-01-21] MEDS ORDERED: MORPHINE SULFATE 10 MG/1 ML *VIAL ONE (13:20)
[2018-01-21] MEDS ORDERED: ALBUTEROL SO4 2.5/IPRATROPIUM 0.5 INH SOL 3 ML VIAL.NEB. NEB PRN (15:58)
[2018-01-21] MEDS ORDERED: morphine SO4 SUSTAINED ACTING 30 MG TABLET.SA PO SCH (16:00)
[2018-01-21] MEDS ORDERED: morphine SULFATE IMMEDIATE RELEASE 30 MG TAB ONE (16:36)
--- NOTE | 2018-01-21 17:16 | HP ---
CHIEF COMPLAINT: chest pain, shortness of breath PCP: Dr. Yang HISTORY OF PRESENT ILLNESS: Patient is a 77 year old male with a significant past medical history of CVA, CAD s/p stents x 2, factor V leiden, diverticulitis, DVT (on Elliquis 5mg BID), GERD, kidney stones, ID, hypertension and COPD (home oxygen dependent) He presents to the ED today with complaints of shortness of breath x 1 week with cough of white sputum with a sore throat. Patient also endorses some lower abdominal pain and chest pain. Patient states he was seen at [facility] a few days ago for the same complaints and was admitted for 6 days and was seen by both a monitor technician and pulmonogist. Pt denies any fever/chills, diarrhea, nausea or vomiting. Patient states he came here today because his sob feels a bit worse than yesterday. As per ED attending, patient was evaluated at [facility] for evaluation of chronic DVT. A CTA was done on 01/11/18 which showned no acute PE. but was consistent with interstitial lung disease, extensive coronary artery disease, bilateral DVT seen on dopplers imaging. During hospitalization patient was treated for COPD exacerbation and CHF. He was given home oxygen on discharge. Patient gave verbal consent to retrieve records at [facility]. ER course was notable for: (1) Trop 0.58 (2) bnp 236 (3) chest xray, left lower lobe infiltrate Recent Travel: PAST MEDICAL HISTORY: CVA, CAD s/p stents x 2, factor V leiden, diverticulitis, DVT (on Elliquis 5mg BID), GERD, kidney stones, ID, hypertension and COPD (home oxygen dependent) PAST SURGICAL HISTORY: Social History: Smoking: Alcohol: Drugs: Family History: Allergies No Known Allergies Allergy (Verified 01/21/18 10:12) HOME MEDICATIONS: Home Medications Medication Instructions Recorded Hydromorphone HCl [Dilaudid] 8 mg PO TID PRN 07/14/16 Linaclotide [Linzess] 290 mcg PO DAILY 07/14/16 Thyroid [[place] Thyroid] 60 mg PO DAILY 07/14/16 Apixaban [Eliquis] 5 mg PO BID 03/01/17 Omeprazole 40 mg PO DAILY 03/01/17 Tamsulosin HCl 0.4 mg PO DAILY 03/01/17 Ranolazine [Ranexa] 500 mg PO BID 03/02/17 Morphine *Sr* [MS Contin -] 30 mg PO Q12H 10/22/17 predniSONE [Deltasone -] 40 mg PO DAILY 3 Days tablet 10/24/17 Albuterol 2.5/Ipratropium 0.5 1 amp NEB PRN PRN 01/21/18 [Duoneb -] Digoxin [Lanoxin -] 0.25 mg PO DAILY 01/21/18 Diltiazem [Cardizem -] 30 mg PO TID 01/21/18 REVIEW OF SYSTEMS CARDIOVASCULAR: Absent: syncope, palpitations, lightheadedness, peripheral edema RESPIRATORY: Absent: wheezing, stridor, hemoptysis GASTROINTESTINAL: Absent: nausea, vomiting, diarrhea, constipation, melena, hematochezia GENITOURINARY: Absent: dysuria, frequency, urgency, hesitancy, hematuria, flank pain, genital pain MUSCULOSKELETAL: Absent: myalgia, arthralgia, joint swelling, back pain, neck pain ENDOCRINE: Absent: unexplained weight gain, unexplained weight loss, heat intolerance, cold intolerance NEUROLOGIC: Absent: headache, focal weakness or paresthesias, dizziness, unsteady gait, seizure, mental status changes, bladder or bowel incontinence PSYCHIATRIC: Absent: anxiety, depression, suicidal or homicidal ideation, hallucinations. PHYSICAL EXAMINATION Vital Signs - 24 hr 01/21/18 01/21/18 01/21/18 10:12 10:49 12:39 Temperature 97.6 F Pulse Rate 79 77 Pulse Rate [ 74 Apical] Respiratory 19 18 Rate Blood Pressure 93/60 Blood Pressure 102/60 [Left Arm] O2 Sat by Pulse 97 97 98 Oximetry (%) 01/21/18 14:23 Temperature Pulse Rate 80 Pulse Rate [ 80 Apical] Respiratory 18 Rate Blood Pressure Blood Pressure 106/74 [Left Arm] O2 Sat by Pulse 99 Oximetry (%) GENERAL: Awake, alert, and fully oriented, in no mild respiratory distress. HEAD: Normal with no signs of trauma. EYES: Pupils equal, round and reactive to light, extraocular movements intact, sclera anicteric, conjunctiva clear. No lid lag. EARS, NOSE, THROAT: Ears normal, nares patent, oropharynx clear without exudates. Moist mucous membranes. NECK: Normal range of motion, supple without lymphadenopathy, JVD, or masses. LUNGS: left lower lobe + crackles at the bases, right lung clear/diminished, no wheezing HEART: Regular rate and rhythm, normal S1 and S2 without murmur, rub or gallop. ABDOMEN: Soft, nontender, not distended, normoactive bowel sounds, no guarding, no rebound, no masses. MUSCULOSKELETAL: Normal range of motion at all joints. No bony deformities or tenderness. No CVA tenderness. UPPER EXTREMITIES: No peripheral edema. LOWER EXTREMITIES: trace edema bilaterally NEUROLOGICAL: Normal speech. Normal steady gait. PSYCHIATRIC: Cooperative. Good eye contact. Appropriate mood and affect. Laboratory Results - last 24 hr 01/21/18 01/21/18 01/21/18 11:07 11:34 11:34 WBC 6.4 D RBC 4.43 Hgb 14.1 Hct 42.0 MCV 94.8 MCH 31.8 MCHC 33.6 RDW 14.5 Plt Count 196 D MPV 8.1 Neutrophils % 71.3 Lymphocytes % 14.4 Monocytes % 12.5 H Eosinophils % 1.3 D Basophils % 0.5 PT with INR 18.10 H INR 1.60 H VBG pH POC VBG pCO2 POC VBG pO2 Mixed VBG HCO3 Sodium 141 Potassium 4.4 Chloride 102 Carbon Dioxide 27 Anion Gap 12 BUN 17 Creatinine 1.3 Creat Clearance w eGFR 53.53 Random Glucose 109 H Lactic Acid Calcium 8.7 Total Bilirubin 0.3 D AST 10 L D ALT 18 D Alkaline Phosphatase 73 Creatine Kinase 30 L Troponin I 0.58 H D B-Natriuretic Peptide 236.80 Total Protein 6.5 Albumin 3.0 L Lipase 115 Urine Color Urine Appearance Urine pH Ur Specific [place] Urine Protein Urine Glucose (UA) Urine Ketones Urine Blood Urine Nitrite Urine Bilirubin Urine Urobilinogen Ur Leukocyte Esterase 01/21/18 01/21/18 01/21/18 11:34 11:34 12:39 WBC RBC Hgb Hct MCV MCH MCHC RDW Plt Count MPV Neutrophils % Lymphocytes % Monocytes % Eosinophils % Basophils % PT with INR INR VBG pH 7.37 POC VBG pCO2 53.1 H POC VBG pO2 17.3 L* Mixed VBG HCO3 30.0 H Sodium Potassium Chloride Carbon Dioxide Anion Gap BUN Creatinine Creat Clearance w eGFR Random Glucose Lactic Acid 1.6 Calcium Total Bilirubin AST ALT Alkaline Phosphatase Creatine Kinase Troponin I B-Natriuretic Peptide Cancelled Total Protein Albumin Lipase Urine Color Urine Appearance Urine pH Ur Specific [place] Urine Protein Urine Glucose (UA) Urine Ketones Urine Blood Urine Nitrite Urine Bilirubin Urine Urobilinogen Ur Leukocyte Esterase 01/21/18 13:05 WBC RBC Hgb Hct MCV MCH MCHC RDW Plt Count MPV Neutrophils % Lymphocytes % Monocytes % Eosinophils % Basophils % PT with INR INR VBG pH POC VBG pCO2 POC VBG pO2 Mixed VBG HCO3 Sodium Potassium Chloride Carbon Dioxide Anion Gap BUN Creatinine Creat Clearance w eGFR Random Glucose Lactic Acid Calcium Total Bilirubin AST ALT Alkaline Phosphatase Creatine Kinase Troponin I B-Natriuretic Peptide Total Protein Albumin Lipase Urine Color Yellow Urine Appearance Slcloudy Urine pH 7.0 Ur Specific [place] 1.013 Urine Protein Negative Urine Glucose (UA) Negative Urine Ketones Negative Urine Blood Negative Urine Nitrite Negative Urine Bilirubin Negative Urine Urobilinogen 2.0 Ur Leukocyte Esterase Negative ASSESSMENT/PLAN: Patient is a 77 year old male with a significant past medical history of 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 Patient also endorses some lower abdominal pain and chest pain. Patient states he was seen at [facility] a few days ago for the same complaints and was admitted for 6 days and was seen by both a monitor technician and pulmonogist. Pt denies any fever/chills, diarrhea, nausea or vomiting. Patient states he came here today because his sob feels a bit worse than yesterday. As per ED attending, patient was evaluated at [facility] for evaluation of chronic DVT. A CTA was done on 01/11/18 which showed no acute PE. but was consistent with interstitial lung disease, extensive coronary artery disease, and bilateral DVT seen on dopplers imaging. During hospitalization patient was treated for COPD exacerbation and CHF. He was given home oxygen on discharge. Patient reports last cardiac cath was in 2011. Patient gave verbal consent to retrieve records at [facility]. Imaging: Chest xray 01/22: left lower lobe infiltrate Echo 01/21/18: e/a reversal consistent with poor LV fx, trace MR, trace to mild tricuspid regurg., mild aortic root dilattion, trivial pericardial effusion. ID: Sepsis, rule out Left lower infiltrate seen on chest xray Hypotension on admission, hypoxia Feels flushed, subjective fevers @ home Monitor vitals, no fevers noted, WBC normal Maintain oxygen sats 90% or above Blood and urine cultures ordered ID consult Pulmonary Shortness of breath, acute on chronic COPD exacerbation Rule out interstitial lung disease + crackles on left lung base On home oxygen which was given on discharge from [facility] Trend trops 0.58 On supplemental oxygen @ 2-3 liters Maintain oxygen saturations 90% or greater On daily prednisone 40mg Pulmonary consult Muscular/Skeletal Back pain, generalized pain, chronic will continue his home regimen as pain is musculoskeletal Cardiology: CAD s/p stents x 2 DVT history On Eliquis 5mg BID Hypertension, chronic On Coreq BID Also on Diliatizem Awaiting records from [facility] Hematology: Factor 5 leiden PE, DVT history IVC filter On Eliquis 5mg BID F.E.N. Fluids: Po adequate Electrolytes: monitor Nutrition: low sodium diet Prophy: On Eliquis Disposition: full code. Visit type - Emergency Visit Emergency Visit: Yes ED Registration Date: 01/21/18 Care time: The patient presented to the Emergency Department on the above date and was hospitalized for further evaluation of their emergent condition. - New Patient This patient is new to me today: Yes Date on this admission: 01/26/18 - Critical Care Critical Care patient: No Hospitalist Screening - Colonoscopy Questionnaire Colonoscopy Questionnaire: Colonoscopy Questionnaire - Patient: 50 - 75 years old and never had a screening colonoscopy: Unknown History of colon or rectal polyps, or CA: Unknown History of IBD, Crohn's disease or UC: Unknown History of abdominal radiation therapy as a child: Unknown - Relative: 1 with colon or rectal CA, or polyps at age 60 or younger: Unknown Colon or rectal CA diagnosed at age 45 or younger: Unknown Multiple relatives with colon or rectal CA: Unknown - Outcome: Screening Result: Negative Screen
[2018-01-21 18:34] VITALS: BMI 30.1
--- NOTE | 2018-01-21 18:52 | CON.CARD ---
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 He states that he was too wiped out after getting medications from pharmacy and he did not take his medications yesterday. This morning woke up with worsened sob. Pt has chronic atypical cp, sometimes related to gerd. Current pain is reproducible to palpation. + abd distension. + chronic pain diffuse throughout body, stable. + le edema, unclear if worsened. Poor historian. As per ED attending, patient was evaluated at [facility] for evaluation of chronic DVT. A CTA was done on 01/11/18 which showned no acute PE. but was consistent with interstitial lung disease, extensive coronary artery disease, bilateral DVT seen on dopplers imaging. During hospitalization patient was treated for COPD exacerbation and CHF. He was given home oxygen on discharge. Was discharged on new diltiazem and digoxin --> unclear why, ? possible afib?. No f/c/s, n/v/d, weight change, h/a, rashes. No palps, dizzy, loc, pnd, orthopnea. Sees dr almonte for cardio. 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 fam: parents with thoracic aortic aneurysms ros: per hpi meds: Ambulatory Orders Hydromorphone HCl [Dilaudid] 8 mg PO TID PRN 07/14/16 Linaclotide [Linzess] 290 mcg PO DAILY 07/14/16 Thyroid [[place] Thyroid] 90 mg PO DAILY 07/14/16 Apixaban [Eliquis] 5 mg PO BID 03/01/17 Omeprazole 40 mg PO DAILY 03/01/17 Tamsulosin HCl 0.4 mg PO DAILY 03/01/17 Ranolazine [Ranexa] 500 mg PO BID 03/02/17 Morphine *Sr* [MS Contin -] 30 mg PO Q12H PRN 10/22/17 predniSONE [Deltasone -] 40 mg PO DAILY 3 Days tablet 10/24/17 Albuterol 2.5/Ipratropium 0.5 [Duoneb -] 1 amp NEB PRN PRN 01/21/18 Digoxin [Lanoxin -] 0.25 mg PO DAILY 01/21/18 Diltiazem [Cardizem -] 60 mg PO TID 01/21/18 Fluticasone Prop 0.05% Nasal [Flonase -] 1 spray NS BID 01/21/18 Most recent office note lists the following cardiac meds: crestor 20 mg/day, eliquis 5 bid, lasix 40 mg/day, imdur 30 mg/day, toprol 25 bid, praluent?, ranexa 500 bid, Current Medications Albuterol/Ipratropium (Duoneb -) 1 amp NEB PRN PRN PRN Reason: sob Apixaban (Eliquis -) 5 mg PO BID JAIMEE Digoxin (Lanoxin -) 0.25 mg PO DAILY [facility] Diltiazem HCl (Cardizem -) 30 mg PO TID [facility] Morphine Sulfate (Ms Contin -) 30 mg PO Q12H [facility] Last Admin: 01/21/18 16:40 Dose: 30 mg Non-Formulary Medication (Hydromorphone Hcl [Dilaudid]) 8 mg PO TID PRN PRN Reason: PAIN Non-Formulary Medication (Omeprazole) 40 mg PO DAILY [facility] Prednisone (Deltasone -) 40 mg PO DAILY [facility] Ranolazine (Ranexa -) 500 mg PO BID [facility] Tamsulosin HCl (Flomax -) 0.4 mg PO DAILY [facility] Thyroid ([place] Thyroid -) 60 mg PO DAILY [facility] pe: Vital Signs - 24 hr 01/21/18 01/21/18 01/21/18 10:12 10:49 12:39 Temperature 97.6 F Pulse Rate 79 77 Pulse Rate [ 74 Apical] Respiratory 19 18 Rate Blood Pressure 93/60 Blood Pressure 102/60 [Left Arm] O2 Sat by Pulse 97 97 98 Oximetry (%) 01/21/18 01/21/18 01/21/18 14:23 17:30 18:23 Temperature Pulse Rate 80 73 Pulse Rate [ 80 78 Apical] Respiratory 18 18 18 Rate Blood Pressure 124/64 Blood Pressure 106/74 110/57 [Left Arm] O2 Sat by Pulse 99 97 99 Oximetry (%) nad, calm jvd tds but does not appear elevated. rrr s1s2 no mrg bibasilar rales. nl effort aaox3 trace le edema. no c/c abd nt nd pos bs pos dp pt, no carotid bruits no jaundice diaphoresis CBC, BMP 01/21/18 11:07 01/21/18 11:34 Laboratory Tests 01/09/17 15:15 Monocytes % Lactic Acid Magnesium Total Bilirubin AST ALT Alkaline Phosphatase Creatine Kinase Troponin I B-Natriuretic Peptide Lipase TSH 2.42 D 10/23/17 10/23/17 01/21/18 00:30 05:22 11:07 Monocytes % 12.5 H Lactic Acid Magnesium 2.5 H Total Bilirubin AST ALT Alkaline Phosphatase Creatine Kinase 43 Troponin I < 0.02 B-Natriuretic Peptide 249.89 Lipase TSH 01/21/18 01/21/18 11:34 11:34 Monocytes % Lactic Acid 1.6 Magnesium Total Bilirubin 0.3 D AST 10 L D ALT 18 D Alkaline Phosphatase 73 Creatine Kinase 30 L Troponin I 0.58 H D B-Natriuretic Peptide 236.80 Lipase 115 TSH ecg: sr, non-specific t wave abnormalities - similar to priors. no acute ischemic changes. tele: SR, rare pvc's cxr: scarring vs. left early lobe infiltrate. pharm stress 2016: No sx's. No ischemic ekg changes. Small subtle inferolateral ischemia. EF 57%. echo 03/2016: suboptimal views. EF 50-55%. Impaired relaxation. Nl RV ( suboptimal views). Nl valves. Mild ao dilation 3.8 cm with laminar atherosclerotic plaque. Trop elevation. - elevation x 1 thus far. con't juvenal. patient states he took his eliquis this morning. EKG without acute ischemic changes. - Not on ASA as outpatient because on AC (remote stent), con't statin. depending on enzyme trend may need to convert from eliquis to short acting lovenox if concern for need for cath, otherwise repeat stress test when stable. - will need to get records from [facility]. sob - unclear if cxr with congestion or infiltrates. Will get pa/lat in am. - bnp stable from priors. resume home po lasix for now. infectious work up per pmd.
[2018-01-21] MEDS: ALBUTEROL SO4 2.5/IPRATROPIUM 0.5 INH SOL 3 ML VIAL.NEB. NEB SCH (20:30)
[2018-01-21] MEDS: HYDROmorphone HCL 2 MG TABLET PO PRN (20:42)
[2018-01-21] MEDS: ASPIRIN 81 MG CHEWABLE TABLETS PO SCH (20:42)
[2018-01-21] MEDS: dilTIAZem HCL 30 MG TABLET (FP) PO SCH (21:51)
[2018-01-21] MEDS: RANOLAZINE E.R. 500 MG TABLET (FP) PO SCH (21:51)
[2018-01-21] MEDS: APIXABAN 5 MG TABLET PO SCH (21:51)
[2018-01-22] MEDS ORDERED: ALBUTEROL SO4 2.5/IPRATROPIUM 0.5 INH SOL 3 ML VIAL.NEB. NEB SCH
[2018-01-22] MEDS: morphine SO4 SUSTAINED ACTING 30 MG TABLET.SA PO SCH ×2 (05:59→17:37)
[2018-01-22] MEDS: dilTIAZem HCL 30 MG TABLET (FP) PO SCH ×3 (06:00→21:55)
[2018-01-22 07:02] LABS: INR 1.49 (0.82-1.09); PROTHROMBIN TIME (PATIENT) 16.8 SEC (9.98-11.88)
[2018-01-22 07:04] LABS: BASO % 0.7 % (0-2.0); EOS % 3.1 % (0-4.5); HEMATOCRIT 38.4 % (35.4-49); HEMOGLOBIN 12.9 GM/dL (11.7-16.9); LYMPH % 23.3 % (8-40); MCHC 33.5 g/dl (32.0-35.9); MEAN CELL VOLUME 95.5 fl (80-96); MEAN PLT VOLUME 7.8 fl (7.5-11.1); MONO % 14.3 % (3.8-10.2); NEUT % 58.6 % (42.8-82.8); PLATELET COUNT 180 K/MM3 (134-434); RBC 4.02 M/mm3 (4.00-5.60); RDW 14.6 % (11.9-15.9); WHITE BLOOD COUNT 5.3 K/mm3 (4.0-10.0)
[2018-01-22 07:22] LABS: ALBUMIN 2.7 g/dl (3.4-5.0); ANION GAP 5 (8-16); BLOOD UREA NITROGEN 13 mg/dL (7-18); CALCIUM 7.9 mg/dL (8.5-10.1); CHLORIDE 106 mmol/L (98-107); CO2 31 mmol/L (21-32); GLUCOSE,RANDOM 85 mg/dL (74-106); MAGNESIUM 2.3 mg/dL (1.8-2.4); PHOSPHOROUS 3.1 mg/dL (2.5-4.9); POTASSIUM 4.1 mmol/L (3.5-5.1); SGOT/AST 9 U/L (15-37); SODIUM 142 mmol/L (136-145)
[2018-01-22 07:38] LABS: ALK PHOS 58 U/L (45-117); BILIRUBIN,TOTAL 0.4 mg/dL (0.2-1.0); CREATININE 1.2 mg/dL (0.7-1.3); SGPT/ALT 18 U/L (12-78); TOT PROT 5.5 g/dl (6.4-8.2)
[2018-01-22] MEDS: ALBUTEROL SO4 2.5/IPRATROPIUM 0.5 INH SOL 3 ML VIAL.NEB. NEB SCH ×4 (07:40→20:51)
[2018-01-22 07:42] LABS: CHOLESTEROL 139 mg/dL (50-200); HDL CHOLESTEROL 45 mg/dL (40-60); LDL CHOLESTEROL (ONLY SJRH) 80 mg/dL (5-100); TRIGLYCERIDES 101 mg/dL (35-160)
[2018-01-22] MEDS ORDERED: PANTOPRAZOLE 40 MG TABLET (FP) PO SCH (10:00)
[2018-01-22] MEDS ORDERED: THYROID 60 MG TABLET PO SCH (10:00)
[2018-01-22] MEDS ORDERED: PATIENT'S OWN MEDICATION (NON-FORMULARY) (Omeprazole 40 MG) PO SCH (10:00)
[2018-01-22] MEDS ORDERED: PT OWN MED DRAWER 7, Y5N ONE ×2 (10:04→12:43)
[2018-01-22] MEDS: RANOLAZINE E.R. 500 MG TABLET (FP) PO SCH ×2 (10:05→21:55)
[2018-01-22] MEDS: predniSONE 20 MG TABLET (UD) PO SCH (10:06)
[2018-01-22] MEDS: DIGOXIN 0.25 MG TABLET (FP) PO SCH (10:06)
[2018-01-22] MEDS: TAMSULOSIN HCL 0.4 MG CAP.ER.24H (FP) PO SCH (10:06)
[2018-01-22] MEDS: APIXABAN 5 MG TABLET PO SCH ×2 (10:06→22:12)
[2018-01-22] MEDS: ASPIRIN 81 MG CHEWABLE TABLETS PO SCH (10:06)
[2018-01-22] MEDS: FUROSEMIDE 40 MG TABLET (FP) PO SCH (10:07)
--- NOTE | 2018-01-22 11:52 | PN ---
Progress Note (short form) - Note Progress Note: PULMONARY CONSULTATION DICTATED 01/22/18 IMP DYSPNEA COPD EXACERBATION CHF ? LLL INFILTRATE FACTOR V LEIDEN H/O DVT/PE ? ILD H/O CVA + TROPONINS PROSTATE CA HLD HTN PLAN O2 PREDNISONE ABX LASIX TREND TROPONINS F/U CHEST X-RAYS DR CASTELLON
[2018-01-22] MEDS: THYROID 60 MG TABLET PO SCH (12:00)
--- NOTE | 2018-01-22 12:22 | PN ---
Physical Exam: SUBJECTIVE: Patient seen and examined at the bedside. OBJECTIVE: Vital Signs Period Temp Pulse Resp BP Sys/Fernandez Pulse Ox Last 24 Hr 97.2 F-98 F 64-80 8-18 100-130/50-74 97-99 GENERAL: Awake, alert, and fully oriented, in no mild respiratory distress. HEAD: Normal with no signs of trauma. EYES: Pupils equal, round and reactive to light, extraocular movements intact, sclera anicteric, conjunctiva clear. No lid lag. EARS, NOSE, THROAT: Ears normal, nares patent, oropharynx clear without exudates. Moist mucous membranes. NECK: Normal range of motion, supple without lymphadenopathy, JVD, or masses. LUNGS: left lower lobe + crackles at the bases, right lung clear/diminished, no wheezing HEART: Regular rate and rhythm, normal S1 and S2 without murmur, rub or gallop. ABDOMEN: Soft, nontender, not distended, normoactive bowel sounds, no guarding, no rebound, no masses. MUSCULOSKELETAL: Normal range of motion at all joints. No bony deformities or tenderness. No CVA tenderness. UPPER EXTREMITIES: No peripheral edema. LOWER EXTREMITIES: trace edema bilaterally NEUROLOGICAL: Normal speech. Normal steady gait. PSYCHIATRIC: Cooperative. Good eye contact. Appropriate mood and affect. Laboratory Results - last 24 hr 01/21/18 01/21/18 01/21/18 11:34 12:39 13:05 WBC RBC Hgb Hct MCV MCH MCHC RDW Plt Count MPV Neutrophils % Lymphocytes % Monocytes % Eosinophils % Basophils % PT with INR INR Sodium 141 Potassium 4.4 Chloride 102 Carbon Dioxide 27 Anion Gap 12 BUN 17 Creatinine 1.3 Creat Clearance w eGFR 53.53 Random Glucose 109 H Hemoglobin A1c % Calcium 8.7 Phosphorus Magnesium Total Bilirubin 0.3 D AST 10 L D ALT 18 D Alkaline Phosphatase 73 Creatine Kinase 30 L Troponin I 0.58 H D B-Natriuretic Peptide 236.80 Cancelled Total Protein 6.5 Albumin 3.0 L Triglycerides Cholesterol Total LDL Cholesterol HDL Cholesterol Lipase 115 TSH Urine Color Yellow Urine Appearance Slcloudy Urine pH 7.0 Ur Specific [place] 1.013 Urine Protein Negative Urine Glucose (UA) Negative Urine Ketones Negative Urine Blood Negative Urine Nitrite Negative Urine Bilirubin Negative Urine Urobilinogen 2.0 Ur Leukocyte Esterase Negative Digoxin 01/21/18 01/22/18 01/22/18 19:45 00:00 06:30 WBC RBC Hgb Hct MCV MCH MCHC RDW Plt Count MPV Neutrophils % Lymphocytes % Monocytes % Eosinophils % Basophils % PT with INR INR Sodium 142 Potassium 4.1 Chloride 106 Carbon Dioxide 31 Anion Gap 5 L BUN 13 D Creatinine 1.2 Creat Clearance w eGFR 58.71 Random Glucose 85 D Hemoglobin A1c % Calcium 7.9 L Phosphorus 3.1 D Magnesium 2.3 Total Bilirubin 0.4 D AST 9 L ALT 18 Alkaline Phosphatase 58 D Creatine Kinase 33 L Troponin I 0.37 H D 0.47 H B-Natriuretic Peptide Total Protein 5.5 L Albumin 2.7 L Triglycerides 101 D Cholesterol 139 Total LDL Cholesterol 80 D HDL Cholesterol 45 Lipase TSH Urine Color Urine Appearance Urine pH Ur Specific [place] Urine Protein Urine Glucose (UA) Urine Ketones Urine Blood Urine Nitrite Urine Bilirubin Urine Urobilinogen Ur Leukocyte Esterase Digoxin 1.2400 01/22/18 01/22/18 01/22/18 06:30 06:30 06:30 WBC 5.3 RBC 4.02 Hgb 12.9 Hct 38.4 MCV 95.5 MCH 32.0 MCHC 33.5 RDW 14.6 Plt Count 180 MPV 7.8 Neutrophils % 58.6 Lymphocytes % 23.3 D Monocytes % 14.3 H Eosinophils % 3.1 D Basophils % 0.7 PT with INR 16.80 H INR 1.49 H Sodium Potassium Chloride Carbon Dioxide Anion Gap BUN Creatinine Creat Clearance w eGFR Random Glucose Hemoglobin A1c % Calcium Phosphorus Magnesium Total Bilirubin AST ALT Alkaline Phosphatase Creatine Kinase Troponin I B-Natriuretic Peptide Total Protein Albumin Triglycerides Cancelled Cholesterol Cancelled Total LDL Cholesterol Cancelled HDL Cholesterol Cancelled Lipase TSH Urine Color Urine Appearance Urine pH Ur Specific [place] Urine Protein Urine Glucose (UA) Urine Ketones Urine Blood Urine Nitrite Urine Bilirubin Urine Urobilinogen Ur Leukocyte Esterase Digoxin 01/22/18 01/22/18 06:30 06:30 WBC RBC Hgb Hct MCV MCH MCHC RDW Plt Count MPV Neutrophils % Lymphocytes % Monocytes % Eosinophils % Basophils % PT with INR INR Sodium Potassium Chloride Carbon Dioxide Anion Gap BUN Creatinine Creat Clearance w eGFR Random Glucose Hemoglobin A1c % 6.2 H D Calcium Phosphorus Magnesium Total Bilirubin AST ALT Alkaline Phosphatase Creatine Kinase Troponin I B-Natriuretic Peptide Total Protein Albumin Triglycerides Cholesterol Total LDL Cholesterol HDL Cholesterol Lipase TSH Cancelled Urine Color Urine Appearance Urine pH Ur Specific [place] Urine Protein Urine Glucose (UA) Urine Ketones Urine Blood Urine Nitrite Urine Bilirubin Urine Urobilinogen Ur Leukocyte Esterase Digoxin Active Medications Generic Name Dose Route Start Last Admin Trade Name Freq PRN Reason Stop Dose Admin Albuterol/Ipratropium 1 amp 01/21/18 20:00 01/22/18 11:35 Duoneb - NEB 1 amp RQID JAIMEE Administration Apixaban 5 mg 01/21/18 22:00 01/22/18 10:06 Eliquis - PO 5 mg BID JAIMEE Administration Aspirin 81 mg 01/21/18 19:00 01/22/18 10:06 Asa - PO 81 mg DAILY JAIMEE Administration Digoxin 0.25 mg 01/22/18 10:00 01/22/18 10:06 Lanoxin - PO 0.25 mg DAILY JAIMEE Administration Diltiazem HCl 30 mg 01/21/18 22:00 01/22/18 06:00 Cardizem - PO 30 mg TID JAIMEE Administration Furosemide 40 mg 01/22/18 10:00 01/22/18 10:07 Lasix - PO 40 mg DAILY JAIMEE Administration Hydromorphone HCl 8 mg 01/21/18 15:58 01/21/18 20:42 Dilaudid - PO 8 mg Q8H PRN Administration PAIN Morphine Sulfate 30 mg 01/21/18 19:00 01/22/18 05:59 Ms Contin - PO 30 mg BID@0600,1800 JAIMEE Administration Prednisone 40 mg 01/22/18 10:00 01/22/18 10:06 Deltasone - PO 40 mg DAILY JAIMEE Administration Ranolazine 500 mg 01/21/18 22:00 01/22/18 10:05 Ranexa - PO 500 mg BID JAIMEE Administration Rosuvastatin Calcium 20 mg 01/22/18 22:00 Crestor - PO HS [facility] Tamsulosin HCl 0.4 mg 01/22/18 10:00 01/22/18 10:06 Flomax - PO 0.4 mg DAILY JAIMEE Administration Thyroid 60 mg 01/22/18 10:11 01/22/18 12:00 [place] Thyroid - PO 60 mg DAILY@0700 JAIMEE Administration ASSESSMENT/PLAN: Patient is a 77 year old male with a significant past medical history of CVA, CAD s/p stents x 2, factor V leiden, diverticulitis, DVT (on Elliquis 5mg BID), GERD, kidney stones, [place], hypertension and COPD (home oxygen dependent) He presents to the ED today with complaints of shortness of breath x 1 week with cough of white sputum with a sore throat. Patient also endorses some lower abdominal pain and chest pain. Patient states he was seen at [facility] a few days ago for the same complaints and was admitted for 6 days and was seen by both a principal technical writer and pulmonogist. Pt denies any fever/chills, diarrhea, nausea or vomiting. Patient states he came here today because his sob feels a bit worse than yesterday. Patient reports non compliance with home medications. CTA and doppler Imaging at [facility] as follows: CTA chest 01/11/2018: curvillnear filling defect within a segmental branch of the right lower lobe similar to CT on 12/17/2014 and may reflect sequela of chronic pulmonary embolisms. No CT evidence of other acute pulmonary embolism with the remaining main, lobar and segmental branches. Additional findings are suspicious for progressive interstitial lung disease such as interstitial pneumonia. 7mm pulmonary nodule within the right middle lobe, follow up per Fleishner criteria guidelines. Extensive 3 vessel coronary artery atherosclerotic disease. Bilateral lower ext venous doppler ultrasound: Findings consistent with DVT within the left common femoral vein and deep femoral vein. Imaging (R): Chest xray 01/22: left lower lobe infiltrate Echo 01/21/18: e/a reversal consistent with poor LV fx, trace MR, trace to mild tricuspid regurg., mild aortic root dilatation, trivial pericardial effusion. ID: Sepsis, rule out Left lower infiltrate seen on chest xray Hypotension, hypoxia on admission Feels flushed, subjective fevers @ home Monitor vitals, no fevers noted, WBC normal Maintain oxygen sats 90% or above Blood cultures, one bottle shows pending organism, likely contaminant Repeat blood cultures pending ID consult and following Pulmonary Shortness of breath, acute on chronic COPD exacerbation Rule out interstitial lung disease CTA with possible chronic PEs On Eliquis, but non compliance with home meds reported by patient Consider hematology consult outpatient On home oxygen Trops flat trending On supplemental oxygen @ 2-3 liters Maintain oxygen saturations 90% or greater Pulmonary following Cardiology: CAD s/p stents x 2 DVT history On Eliquis 5mg BID Hypertension, chronic On Coreq BID Also on Diliatizem Muscular/Skeletal Back pain, generalized pain, chronic will continue his home regimen as pain is musculoskeletal MS contin BID, Dilaudid 8mg TID prn Hematology: Factor 5 leiden PE, DVT history IVC filter On Eliquis 5mg BID Eliquis non compliance F.E.N. Fluids: Po adequate Electrolytes: monitor Nutrition: low sodium diet Prophy: On Eliquis Disposition: full code. Visit type - Emergency Visit Emergency Visit: Yes ED Registration Date: 01/21/18 Care time: The patient presented to the Emergency Department on the above date and was hospitalized for further evaluation of their emergent condition. - New Patient This patient is new to me today: No - Critical Care Critical Care patient: No - Discharge Referral Referred to [facility] Med P.C.: No
--- NOTE | 2018-01-22 13:12 | CONS ---
PULMONARY CONSULTATION DATE OF CONSULTATION: 01/22/2018 REFERRING PHYSICIAN: Roxann Jiménez NP HISTORY OF PRESENT ILLNESS: The patient is a 77-year-old white male with past medical history of COPD on home O2; pneumonia; ASHD; status post CVA with residual left-sided weakness; factor V Leiden; history of DVT, PE, status post IVC filter, currently maintained on anticoagulation; hypertension; hyperlipidemia; GERD; BPH; history of prostate CA; who was admitted to [facility] on January 21 with complaint of increasing shortness of breath, cough productive of whitish sputum, and sore throat. Patient also complained of some lower abdominal discomfort and chest pain. Patient states that he was recently hospitalized at [place] a few days prior to admission with the same symptoms, was admitted 6 days. Apparently had scans done but he is unsure exactly what they were doing. Patient was admitted currently with the above complaint. On admission, he was placed on bronchodilators and continued on prednisone as well as Lasix. Patient is a nonsmoker. 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 There is no history of recent travel. There is no history of hemoptysis. He does complain of some mild chest discomfort. PAST MEDICAL HISTORY: Again includes pulmonary embolism, DVT, factor V Leiden, a history of CVA with residual left-sided weakness, ASHD status post stents, pneumonia, COPD on O2, hyperlipidemia, hypertension, GERD, BPH, prostate CA. REVIEW OF SYSTEMS: Positive mild shortness of breath. Positive cough. Positive questionable chest pain. No fever. No chills. No hemoptysis. No abdominal pain. No lower extremity edema. CURRENT MEDICATIONS: Include Dilaudid, MS Contin, [place] Thyroid, aspirin, Lasix, Crestor, Lanoxin, Ranexa, Cardizem, DuoNeb, Eliquis, Flomax, and prednisone. PHYSICAL EXAMINATION: General: The patient is a well-developed nourished male, awake, alert, comfortable, in no acute distress. Vital Signs: He is currently afebrile. Blood pressure is 130/54, respiratory rate is 18, O2 saturation is 98% on 2 L. HEENT: Normocephalic, atraumatic. Neck: Supple. Heart: Regular. S1, S2. Chest: Bilateral crackles throughout. Abdomen: Soft. Bowel sounds are positive. Extremities: Normal cyanosis or edema. LABORATORY DATA: WBC is 5.3, hemoglobin 12.9, hematocrit 38.4, with a platelet count of 180,000. INR is 1.49. Venous blood gas shows pH 7.37, pCO2 of 53, a pO2 of 17. BUN is 13, creatinine 1.2. Troponin 0.47. Chest x-ray: Cardiomegaly, questionable left lower lobe infiltrate versus scarring, some increased markings bilaterally. IMPRESSION: 1. Dyspnea, cough, likely chronic obstructive pulmonary disease exacerbation. 2. Mild congestive heart failure. 3. Likely possible interstitial lung disease. 4. Positive troponins. 5. Hypertension. 6. History of deep venous thrombosis, pulmonary embolism. 7. Factor V Leiden. 8. Hyperlipidemia. 9. Prostate cancer. PLAN: Continue bronchodilators, supplemental O2, continue prednisone. Trend troponins. Continue Lasix. Follow up chest x-ray. Try to obtain old CT from [facility]. Cardiology followup. Thao [id number]
--- NOTE | 2018-01-22 14:01 | CON.ID ---
Consult Consult Specialty:: infectious diseases Reason for Consultation:: weakness pain in the flank - History of Present Illness Chief Complaint: not feeling well History of Present Illness: 77 year old male with a significant past medical history of CVA, CAD s/p stents x 2, factor V leiden, diverticulitis, DVT (on Elliquis 5mg BID), GERD, kidney stones, [place], hypertension and COPD (home oxygen dependent) He presents to the ED today with complaints of shortness of breath x 1 week with cough of white sputum with a sore throat. Patient also endorses some lower abdominal pain and chest pain. Patient states he was seen at [facility] a few days ago for the same complaints and was admitted for 6 days and was seen by both a geophysical party chief and pulmonogist. Pt denies any fever/chills, diarrhea, nausea or vomiting. Patient states he came here today because his sob feels a bit worse than yesterday. 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: Yes: CVA Cardio/Vascular: Yes: CAD (multiple stents), Deep Vein Thrombosis, HTN, Hyperlipdemia, [place] Pulmonary: Yes: COPD Gastrointestinal: Yes: GERD Renal/: Yes: BPH, Cancer (Prostate) Psych: Yes: Anxiety Musculoskeletal: Yes: Osteoarthritis, Other (Chronic pain syndrome) - Past Surgical History Past Surgical History: Yes: Stent - Alcohol/Substance Use Hx Alcohol Use: Yes History of Substance Use: reports: None - Smoking History Smoking history: Never smoked Have you smoked in the past 12 months: No Aproximately how many cigarettes per day: 0 - Social History ADL: Independent 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 History of Recent Travel: No Home Medications - Allergies Allergies/Adverse Reactions: Allergies Allergy/AdvReac Type Severity Reaction Status Date / Time No Known Allergies Allergy Verified 01/21/18 10:12 - Home Medications Home Medications: Ambulatory Orders Hydromorphone HCl [Dilaudid] 8 mg PO TID PRN 07/14/16 Linaclotide [Linzess] 290 mcg PO DAILY 07/14/16 Thyroid [[place] Thyroid] 90 mg PO DAILY 07/14/16 Apixaban [Eliquis] 5 mg PO BID 03/01/17 Omeprazole 40 mg PO DAILY 03/01/17 Tamsulosin HCl 0.4 mg PO DAILY 03/01/17 Ranolazine [Ranexa] 500 mg PO BID 03/02/17 Morphine *Sr* [MS Contin -] 30 mg PO Q12H PRN 10/22/17 predniSONE [Deltasone -] 40 mg PO DAILY 3 Days tablet 10/24/17 Albuterol 2.5/Ipratropium 0.5 [Duoneb -] 1 amp NEB PRN PRN 01/21/18 Digoxin [Lanoxin -] 0.25 mg PO DAILY 01/21/18 Diltiazem [Cardizem -] 60 mg PO TID 01/21/18 Fluticasone Prop 0.05% Nasal [Flonase -] 1 spray NS BID 01/21/18 Review of Systems - Review of Systems Constitutional: reports: No Symptoms, Weakness. denies: Chills, Fever Eyes: reports: No Symptoms HENT: reports: No Symptoms Neck: reports: No Symptoms Cardiovascular: reports: No Symptoms Respiratory: reports: SOB, SOB on Exertion Gastrointestinal: reports: No Symptoms Genitourinary: reports: Flank Pain (rt) Musculoskeletal: reports: No Symptoms Neurological: reports: No Symptoms Endocrine: reports: No Symptoms Hematology/Lymphatic: reports: No Symptoms Psychiatric: reports: No Symptoms Physical Exam Vital Signs: Vital Signs Temperature 98 F 01/22/18 09:00 Pulse Rate 78 01/22/18 10:06 Respiratory Rate 18 01/22/18 09:00 Blood Pressure 130/54 01/22/18 09:00 O2 Sat by Pulse Oximetry (%) 98 01/22/18 09:00 Constitutional: Yes: Well Nourished, Calm, Mild Distress Eyes: Yes: Conjunctiva Clear HENT: Yes: Atraumatic, Normocephalic Neck: Yes: Supple, Trachea Midline Cardiovascular: Yes: Regular Rate and Rhythm Respiratory: Yes: Regular, On Nasal O2, Poor Air Entry, Other (crackles) Gastrointestinal: Yes: Normal Bowel Sounds, Soft Renal/: Yes: CVA Tenderness - Right Musculoskeletal: Yes: WNL Extremities: Yes: WNL Neurological: Yes: Alert, Oriented Psychiatric: Yes: Alert, Oriented Labs: CBC, BMP 01/22/18 06:30 01/22/18 06:30 Imaging - Results Chest X-ray: Report Reviewed, Image Reviewed Assessment/Plan after evaluating the patient i have low suspicion of infection.there is something in the left lower lobe dyspnea ll infiltrate prostate ca htn hld plan will hold off starting abx will monitor await for blood cx rest continue as per primary team pul consider ct scan of the abd and pelvis to see if any other pathology present
--- NOTE | 2018-01-22 14:32 | EKG ---
Test Reason : Blood Pressure : / mmHG Vent. Rate : 077 BPM Atrial Rate : 077 BPM P-R Int : 164 ms QRS Dur : 088 ms QT Int : 354 ms P-R-T Axes : 037 -15 005 degrees QTc Int : 400 ms NORMAL SINUS RHYTHM NORMAL ECG Nonspecific T wave abnormalities Confirmed by MD Kali, Jason ([id number]) on 01/22/2018 2:31:37 PM Referred By: Confirmed By:Jason Bass MD
[2018-01-22] MEDS ORDERED: MAGNESIUM HYDROX 2400MG/30ML ORAL SUSPENSION 30 ML CUP PO ONE (14:45)
--- NOTE | 2018-01-22 14:51 | PN ---
Progress Note (short form) - Note Progress Note: CC: sob, abnormal troponin S: received records from [facility] - reviewed 11/20 blood cx pending organism, cx repeated today. mild sob persists. no cp, palps, dizziness. Still with tenderness to palpation of left flank Current Medications Albuterol/Ipratropium (Duoneb -) 1 amp NEB RQID [facility] Last Admin: 01/22/18 11:35 Dose: 1 amp Apixaban (Eliquis -) 5 mg PO BID [facility] Last Admin: 01/22/18 10:06 Dose: 5 mg Aspirin (Asa -) 81 mg PO DAILY [facility] Last Admin: 01/22/18 10:06 Dose: 81 mg Digoxin (Lanoxin -) 0.25 mg PO DAILY [facility] Last Admin: 01/22/18 10:06 Dose: 0.25 mg Diltiazem HCl (Cardizem -) 30 mg PO TID [facility] Last Admin: 01/22/18 06:00 Dose: 30 mg Furosemide (Lasix -) 40 mg PO DAILY [facility] Last Admin: 01/22/18 10:07 Dose: 40 mg Hydromorphone HCl (Dilaudid -) 8 mg PO Q8H PRN PRN Reason: PAIN Last Admin: 01/21/18 20:42 Dose: 8 mg Morphine Sulfate (Ms Contin -) 30 mg PO BID@0600,1800 [facility] Last Admin: 01/22/18 05:59 Dose: 30 mg Prednisone (Deltasone -) 40 mg PO DAILY [facility] Last Admin: 01/22/18 10:06 Dose: 40 mg Ranolazine (Ranexa -) 500 mg PO BID [facility] Last Admin: 01/22/18 10:05 Dose: 500 mg Rosuvastatin Calcium (Crestor -) 20 mg PO [facility] Tamsulosin HCl (Flomax -) 0.4 mg PO DAILY [facility] Last Admin: 01/22/18 10:06 Dose: 0.4 mg Thyroid ([place] Thyroid -) 60 mg PO DAILY@0700 [facility] Last Admin: 01/22/18 12:00 Dose: 60 mg Vital Signs - 24 hr 01/21/18 01/21/18 01/21/18 17:30 18:23 21:00 Temperature Pulse Rate 73 Pulse Rate [ 78 Apical] Respiratory 18 18 Rate Blood Pressure 124/64 Blood Pressure 110/57 [Left Arm] O2 Sat by Pulse 97 99 99 Oximetry (%) 01/21/18 01/22/18 01/22/18 21:31 01:24 05:00 Temperature 97.8 F 97.6 F 97.2 F L Pulse Rate 68 64 65 Pulse Rate [ Apical] Respiratory 18 18 8 L Rate Blood Pressure 124/67 100/57 100/50 Blood Pressure [Left Arm] O2 Sat by Pulse Oximetry (%) 01/22/18 01/22/18 09:00 10:06 Temperature 98 F Pulse Rate 76 78 Pulse Rate [ Apical] Respiratory 18 Rate Blood Pressure 130/54 Blood Pressure [Left Arm] O2 Sat by Pulse 98 Oximetry (%) Intake & Output 01/20/18 01/21/18 01/22/18 01/23/18 07:59 07:59 07:59 07:59 Intake Total 260 240 Balance 260 240 Weight 210 lb nad, calm jvd tds but does not appear elevated. rrr s1s2 no mrg bibasilar dry rales. nl effort aaox3 no le e/c/c abd nt nd pos bs pos dp pt, no carotid bruits no jaundice diaphoresis CBC, BMP 01/22/18 06:30 01/22/18 06:30 Microbiology 01/21/18 11:34 Blood - Peripheral Venous Blood Culture - Preliminary Pending Organism 01/21/18 11:34 Blood - Peripheral Venous Blood Culture - Preliminary NO GROWTH OBTAINED AFTER 24 HOURS, INCUBATION TO CONTINUE FOR 4 DAYS. Laboratory Tests 01/21/18 01/22/18 01/22/18 19:45 00:00 06:30 Magnesium 2.3 Creatine Kinase 33 L Troponin I 0.37 H D 0.47 H Albumin 2.7 L Total LDL Cholesterol 80 D TSH 4.70 H D Digoxin 1.2400 ecg: sr, non-specific t wave abnormalities - similar to priors. no acute ischemic changes. 01/15/18 ekg [facility]: SVT, [address] abnormalities/STD tele: SR, rare pvc's, 8 beat AIVR cxr: scarring vs. left early lobe infiltrate. 01/22 cxr: slightly better aeration at left base. apical pleural thickening. PFTs [facility] 12/2017: moderate restrictive defect with mild decrease in diffusion capacity. CTA chest [facility] 12/2017: suboptimal opacification of pulmonary arterial tree limiting evaluation. curvilinear filling defect in segmental branch of RLL similar to 2015 cta - may reflect chronic PE. No acute PE. + aortic atherosclerosis. prominent calcification of cors. low lung volumes. peripheral/basilar reticular opacities, honeycombing and traction bronchiectasis within bilateral lower lobes. scattered atelectasis/scarring. RML nodule. mediastinal LAD, somewhat similar to 2015 CT. LE dopplers 12/2017: B LE DVT's Echo 12/2017: tds. mild LVE. nl lv fn. EF 60-65%. nl rv size/fn. small pericardial effusion. Echo here 01/2018: tds. no pericardial effusion. echo 03/2016: suboptimal views. EF 50-55%. Impaired relaxation. Nl RV ( suboptimal views). Nl valves. Mild ao dilation 3.8 cm with laminar atherosclerotic plaque. pharm stress 2015: No sx's. No ischemic ekg changes. Small subtle inferolateral ischemia. EF 57%. A/P 77 yo m hx of CAD with multiple stents (last cath was 11/2011 at 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 EKG without acute ischemic changes. - reviewed [facility] records. initial trop not elevated. had episode of SVT to 180' s on 01/15, subsequent trops not drawn. Current elevation in troponin has overall flat trend with nl CK. Likely had troponin lead at that time and now with residual elevation. ddx. myopericarditis (crp elevated). echo here tds. - low suspicion for acute ACS here as mentioned, but added ASA for underlying CAD/demand ischemia (also on eliquis). Will likely need ischemic evaluation for risk stratification once acute issues resolve. - con't statin. sob - unclear if initial cxr with congestion or infiltrates. --> pa/lat today without evidence of chf. CTA/PFT's at [facility] c/w ILD. Flu neg at [facility] - bnp stable from priors. no signs of acute diastolic hf exacerbation. resumed home po lasix. - ischemic evaluation as above. - infectious work up per pmd. SVT - Episode of SVT up to 180's on [facility] admit 01/15/2018. Cr at the time had peak of 1.75. CRP at the time 27.4. Troponins prior to episode and at time of episode were negative, but no trops drawn after episode. - per patient was started on diltiazem and digoxin (pt has new meds with him here). prior toprol was not continued. Bilateral DVT - recent CTA at [facility] with no evidence of acute PE. has h/o factor V leiden. con 't eliquis.
[2018-01-22] MEDS: HYDROmorphone HCL 2 MG TABLET PO PRN (14:52)
[2018-01-22] MEDS: DOCUSATE SODIUM 100 MG CAPSULE (FP) PO SCH (21:56)
[2018-01-22] MEDS: ROSUVASTATIN CA 20 MG TABLET (FP) PO SCH (21:56)
[2018-01-23] MEDS: morphine SO4 SUSTAINED ACTING 30 MG TABLET.SA PO SCH ×2 (06:02→17:25)
[2018-01-23] MEDS: dilTIAZem HCL 30 MG TABLET (FP) PO SCH ×3 (06:02→21:46)
[2018-01-23] MEDS: DOCUSATE SODIUM 100 MG CAPSULE (FP) PO SCH ×3 (06:02→21:47)
[2018-01-23] MEDS: THYROID 60 MG TABLET PO SCH (06:09)
[2018-01-23] MEDS: ALBUTEROL SO4 2.5/IPRATROPIUM 0.5 INH SOL 3 ML VIAL.NEB. NEB SCH ×4 (08:15→21:35)
[2018-01-23] MEDS: DIGOXIN 0.25 MG TABLET (FP) PO SCH (10:11)
[2018-01-23] MEDS: RANOLAZINE E.R. 500 MG TABLET (FP) PO SCH ×2 (10:11→21:47)
[2018-01-23] MEDS: ASPIRIN 81 MG CHEWABLE TABLETS PO SCH (10:12)
[2018-01-23] MEDS: APIXABAN 5 MG TABLET PO SCH ×2 (10:12→21:47)
[2018-01-23] MEDS: predniSONE 20 MG TABLET (UD) PO SCH (10:12)
[2018-01-23] MEDS: TAMSULOSIN HCL 0.4 MG CAP.ER.24H (FP) PO SCH (10:12)
[2018-01-23] MEDS: FUROSEMIDE 40 MG TABLET (FP) PO SCH (10:12)
[2018-01-23] MEDS: MAGNESIUM CITRATE 300 ML BOTTLE PO ONE ×2 (10:39→10:44)
--- NOTE | 2018-01-23 11:06 | PN ---
Progress Note (short form) - Note Progress Note: S: +cough and nasal congestion, no cp palps dizzy; mild sob Current Medications Generic Name Dose Route Start Last Admin Trade Name Freq PRN Reason Stop Dose Admin Albuterol/Ipratropium 1 amp 01/21/18 20:00 01/23/18 08:15 Duoneb - NEB 1 amp RQID JAIMEE Administration Apixaban 5 mg 01/21/18 22:00 01/23/18 10:12 Eliquis - PO 5 mg BID JAIMEE Administration Aspirin 81 mg 01/21/18 19:00 01/23/18 10:12 Asa - PO 81 mg DAILY JAIMEE Administration Digoxin 0.25 mg 01/22/18 10:00 01/23/18 10:11 Lanoxin - PO 0.25 mg DAILY JAIMEE Administration Diltiazem HCl 30 mg 01/21/18 22:00 01/23/18 06:02 Cardizem - PO 30 mg TID JAIMEE Administration Docusate Sodium 100 mg 01/22/18 22:00 01/23/18 06:02 Colace - PO 100 mg TID JAIMEE Administration Fluticasone Propionate 1 spray 01/23/18 11:00 Flonase - NS BID JAIMEE Furosemide 40 mg 01/22/18 10:00 01/23/18 10:12 Lasix - PO 40 mg DAILY JAIMEE Administration Hydromorphone HCl 8 mg 01/21/18 15:58 01/22/18 14:52 Dilaudid - PO 8 mg Q8H PRN Administration PAIN Morphine Sulfate 30 mg 01/21/18 19:00 01/23/18 06:02 Ms Contin - PO 30 mg BID@0600,1800 JAIMEE Administration Prednisone 40 mg 01/22/18 10:00 01/23/18 10:12 Deltasone - PO 40 mg DAILY JAIMEE Administration Ranolazine 500 mg 01/21/18 22:00 01/23/18 10:11 Ranexa - PO 500 mg BID JAIMEE Administration Rosuvastatin Calcium 20 mg 01/22/18 22:00 01/22/18 21:56 Crestor - PO 20 mg HS JAIMEE Administration Senna 2 tab 01/22/18 20:11 Senna - PO HS PRN CONSTIPATION Tamsulosin HCl 0.4 mg 01/22/18 10:00 01/23/18 10:12 Flomax - PO 0.4 mg DAILY JAIMEE Administration Thyroid 60 mg 01/22/18 10:11 01/23/18 06:09 [place] Thyroid - PO 60 mg DAILY@0700 JAIMEE Administration Vital Signs Period Temp Pulse Resp BP Sys/Fernandez Pulse Ox Last 24 Hr 97.4 F-97.9 F 65-102 19-20 97-142/45-78 97 nad, calm jvd tds but does not appear elevated. rrr s1s2 no mrg bibasilar dry rales. nl effort aaox3 no le e/c/c abd nt nd pos bs no jaundice diaphoresis Laboratory Last Values WBC 5.3 K/mm3 (4.0-10.0) 01/22/18 06:30 RBC 4.02 M/mm3 (4.00-5.60) 01/22/18 06:30 Hgb 12.9 GM/dL (11.7-16.9) 01/22/18 06:30 Hct 38.4 % (35.4-49) 01/22/18 06:30 MCV 95.5 fl (80-96) 01/22/18 06:30 MCH 32.0 pg (25.7-33.7) 01/22/18 06:30 MCHC 33.5 g/dl (32.0-35.9) 01/22/18 06:30 RDW 14.6 % (11.9-15.9) 01/22/18 06:30 Plt Count 180 K/MM3 (134-434) 01/22/18 06:30 MPV 7.8 fl (7.5-11.1) 01/22/18 06:30 Neutrophils % 58.6 % (42.8-82.8) 01/22/18 06:30 Lymphocytes % 23.3 % (8-40) D 01/22/18 06:30 Monocytes % 14.3 % (3.8-10.2) H 01/22/18 06:30 Eosinophils % 3.1 % (0-4.5) D 01/22/18 06:30 Basophils % 0.7 % (0-2.0) 01/22/18 06:30 PT with INR 16.80 SEC (9.98-11.88) H 01/22/18 06:30 INR 1.49 (0.82-1.09) H 01/22/18 06:30 VBG pH 7.37 (7.32-7.42) 01/21/18 11:34 POC VBG pCO2 53.1 mmHg (38-52) H 01/21/18 11:34 POC VBG pO2 17.3 mmHg (28-48) L* 01/21/18 11:34 Mixed VBG HCO3 30.0 meq/L (19-25) H 01/21/18 11:34 Sodium 142 mmol/L (136-145) 01/22/18 06:30 Potassium 4.1 mmol/L (3.5-5.1) 01/22/18 06:30 Chloride 106 mmol/L (98-107) 01/22/18 06:30 Carbon Dioxide 31 mmol/L (21-32) 01/22/18 06:30 Anion Gap 5 (8-16) L 01/22/18 06:30 BUN 13 mg/dL (7-18) D 01/22/18 06:30 Creatinine 1.2 mg/dL (0.7-1.3) 01/22/18 06:30 Creat Clearance w eGFR 58.71 (>60) 01/22/18 06:30 Random Glucose 85 mg/dL (74-106) D 01/22/18 06:30 Hemoglobin A1c % 6.2 % (4.8-6.0) H D 01/22/18 06:30 Lactic Acid 1.6 mmol/L (0.0-2.0) 01/21/18 11:34 Calcium 7.9 mg/dL (8.5-10.1) L 01/22/18 06:30 Phosphorus 3.1 mg/dL (2.5-4.9) D 01/22/18 06:30 Magnesium 2.3 mg/dL (1.8-2.4) 01/22/18 06:30 Total Bilirubin 0.4 mg/dL (0.2-1.0) D 01/22/18 06:30 AST 9 U/L (15-37) L 01/22/18 06:30 ALT 18 U/L (12-78) 01/22/18 06:30 Alkaline Phosphatase 58 U/L (45-117) D 01/22/18 06:30 Creatine Kinase 30 IU/L (39-308) L 01/22/18 17:30 Troponin I 0.58 ng/ml (0.00-0.05) H 01/22/18 17:30 B-Natriuretic Peptide 236.80 pg/ml (5-450) 01/21/18 11:34 Total Protein 5.5 g/dl (6.4-8.2) L 01/22/18 06:30 Albumin 2.7 g/dl (3.4-5.0) L 01/22/18 06:30 Triglycerides 101 mg/dL (35-160) D 01/22/18 06:30 Cholesterol 139 mg/dL (50-200) 01/22/18 06:30 Total LDL Cholesterol 80 mg/dL (5-100) D 01/22/18 06:30 HDL Cholesterol 45 mg/dL (40-60) 01/22/18 06:30 Lipase 115 U/L (73-393) 01/21/18 11:34 TSH 4.70 uIU/ml (0.358-3.74) H D 01/22/18 06:30 Urine Color Yellow 01/21/18 13:05 Urine Appearance Slcloudy 01/21/18 13:05 Urine pH 7.0 (5.0-8.0) 01/21/18 13:05 Ur Specific [place] 1.013 (1.001-1.035) 01/21/18 13:05 Urine Protein Negative (NEGATIVE) 01/21/18 13:05 Urine Glucose (UA) Negative (NEGATIVE) 01/21/18 13:05 Urine Ketones Negative (NEGATIVE) 01/21/18 13:05 Urine Blood Negative (NEGATIVE) 01/21/18 13:05 Urine Nitrite Negative (NEGATIVE) 01/21/18 13:05 Urine Bilirubin Negative (NEGATIVE) 01/21/18 13:05 Urine Urobilinogen 2.0 mg/dL (0.2-1.0) 01/21/18 13:05 Ur Leukocyte Esterase Negative (NEGATIVE) 01/21/18 13:05 Digoxin 1.2400 ng/ml (0.8-2.0) 01/22/18 06:30 ecg: sr, non-specific t wave abnormalities - similar to priors. no acute ischemic changes. 01/15/18 ekg [facility]: SVT, [address] abnormalities/STD tele: SR cxr: scarring vs. left early lobe infiltrate. 01/22 cxr: slightly better aeration at left base. apical pleural thickening. PFTs [facility] 12/2017: moderate restrictive defect with mild decrease in diffusion capacity. CTA chest [facility] 12/2017: suboptimal opacification of pulmonary arterial tree limiting evaluation. curvilinear filling defect in segmental branch of RLL similar to 2015 cta - may reflect chronic PE. No acute PE. + aortic atherosclerosis. prominent calcification of cors. low lung volumes. peripheral/basilar reticular opacities, honeycombing and traction bronchiectasis within bilateral lower lobes. scattered atelectasis/scarring. RML nodule. mediastinal LAD, somewhat similar to 2015 CT. LE dopplers 12/2017: B LE DVT's Echo 12/2017: tds. mild LVE. nl lv fn. EF 60-65%. nl rv size/fn. small pericardial effusion. Echo here 01/2018: tds. no pericardial effusion. echo 03/2016: suboptimal views. EF 50-55%. Impaired relaxation. Nl RV ( suboptimal views). Nl valves. Mild ao dilation 3.8 cm with laminar atherosclerotic plaque. pharm stress 2016: No sx's. No ischemic ekg changes. Small subtle inferolateral ischemia. EF 57%. A/P 77 yo m hx of CAD with multiple stents (last cath was 11/2011 at [facility] [place]: le to om1 , residual dz: 40%pLCX, 50%pLAD, 60%mLAD, 80%D1, 40%pRCA), htn, hld, chronic atypical cp, copd, cva (, /residual left sided weakness), Factor 5 leiden/ PE/DVT S/P IVC Filter(2002) on eliquis, gerd, gastroparesis, BPH, Prostate Ca, hypothyroid, Chronic Pain Syndrome, Anxiety, OA here with sob CAD with prior pci (last 2011)/Trop elevation/NSTEMI - persistent elevation with flat trend. EKG without acute ischemic changes. - reviewed [facility] records. initial trop not elevated. had episode of SVT to 180' s on 01/15, subsequent trops not drawn. Current elevation in troponin has overall flat trend with nl CK. Likely had troponin lead at that time and now with residual elevation. ddx. myopericarditis (crp elevated). echo here tds. - low suspicion for acute ACS here as mentioned, but added ASA for underlying CAD/demand ischemia (also on eliquis). Will likely need ischemic evaluation for risk stratification once acute issues resolve. - con't statin. sob - no signs of acute diastolic hf exacerbation. resumed home po lasix. - ischemic evaluation as above. - infectious work up per pmd/ID. SVT - Episode of SVT up to 180's on [facility] admit 01/15/2018. Cr at the time had peak of 1.75. CRP at the time 27.4. Troponins prior to episode and at time of episode were negative, but no trops drawn after episode. - per patient was started on diltiazem and digoxin (pt has new meds with him here). prior toprol was not continued. Bilateral DVT - recent CTA at [facility] with no evidence of acute PE. has h/o factor V leiden. con 't eliquis. can [employer] tele
[2018-01-23 11:09] LABS: BASO % 0.4 % (0-2.0); HEMATOCRIT 38.6 % (35.4-49); LYMPH % 19.8 % (8-40); MCH 31.7 pg (25.7-33.7); MCHC 33.7 g/dl (32.0-35.9); MEAN PLT VOLUME 7.5 fl (7.5-11.1); NEUT % 66.8 % (42.8-82.8); PLATELET COUNT 201 K/MM3 (134-434); RBC 4.11 M/mm3 (4.00-5.60); RDW 14.2 % (11.9-15.9); WHITE BLOOD COUNT 8.6 K/mm3 (4.0-10.0)
--- NOTE | 2018-01-23 11:14 | PN ---
Physical Exam: SUBJECTIVE: Patient seen and examined. He feels sob, nasal congestion, flushed and RLQ pain. OBJECTIVE: Vital Signs Period Temp Pulse Resp BP Sys/Fernandez Pulse Ox Last 24 Hr 97.4 F-97.9 F 65-102 19-20 97-142/45-78 97 PE Neuro: alert, awake, cn 2-12intact Pulm: diminished bases CV: s1 s2 rrr Abd: RLQ tenderness to palpation, soft, + bs : R flank tenderness Ext: warm, no le edema Laboratory Results - last 24 hr 01/22/18 01/22/18 01/22/18 06:30 06:30 17:30 Sodium 142 Potassium 4.1 Chloride 106 Carbon Dioxide 31 Anion Gap 5 L BUN 13 D Creatinine 1.2 Creat Clearance w eGFR 58.71 Random Glucose 85 D Calcium 7.9 L Phosphorus 3.1 D Magnesium 2.3 Total Bilirubin 0.4 D AST 9 L ALT 18 Alkaline Phosphatase 58 D Creatine Kinase 30 L Troponin I 0.58 H Total Protein 5.5 L Albumin 2.7 L Triglycerides 101 D Cholesterol 139 Total LDL Cholesterol 80 D HDL Cholesterol 45 TSH 4.70 H D Cancelled Digoxin 1.2400 Active Medications Generic Name Dose Route Start Last Admin Trade Name Freq PRN Reason Stop Dose Admin Albuterol/Ipratropium 1 amp 01/21/18 20:00 01/23/18 08:15 Duoneb - NEB 1 amp RQID JAIMEE Administration Apixaban 5 mg 01/21/18 22:00 01/23/18 10:12 Eliquis - PO 5 mg BID JAIMEE Administration Aspirin 81 mg 01/21/18 19:00 01/23/18 10:12 Asa - PO 81 mg DAILY JAIMEE Administration Digoxin 0.25 mg 01/22/18 10:00 01/23/18 10:11 Lanoxin - PO 0.25 mg DAILY JAIMEE Administration Diltiazem HCl 30 mg 01/21/18 22:00 01/23/18 06:02 Cardizem - PO 30 mg TID JAIMEE Administration Docusate Sodium 100 mg 01/22/18 22:00 01/23/18 06:02 Colace - PO 100 mg TID JAIMEE Administration Fluticasone Propionate 1 spray 01/23/18 11:00 Flonase - NS BID JAIMEE Furosemide 40 mg 01/22/18 10:00 01/23/18 10:12 Lasix - PO 40 mg DAILY JAIMEE Administration Hydromorphone HCl 8 mg 01/21/18 15:58 01/22/18 14:52 Dilaudid - PO 8 mg Q8H PRN Administration PAIN Morphine Sulfate 30 mg 01/21/18 19:00 01/23/18 06:02 Ms Contin - PO 30 mg BID@0600,1800 JAIMEE Administration Prednisone 40 mg 01/22/18 10:00 01/23/18 10:12 Deltasone - PO 40 mg DAILY JAIMEE Administration Ranolazine 500 mg 01/21/18 22:00 01/23/18 10:11 Ranexa - PO 500 mg BID JAIMEE Administration Rosuvastatin Calcium 20 mg 01/22/18 22:00 01/22/18 21:56 Crestor - PO 20 mg HS JAIMEE Administration Senna 2 tab 01/22/18 20:11 Senna - PO HS PRN CONSTIPATION Tamsulosin HCl 0.4 mg 01/22/18 10:00 01/23/18 10:12 Flomax - PO 0.4 mg DAILY JAIMEE Administration Thyroid 60 mg 01/22/18 10:11 01/23/18 06:09 [place] Thyroid - PO 60 mg DAILY@0700 JAIMEE Administration Assessment: 77 year old male with a significant past medical history of CVA, CAD s/p stents x 2, factor V leiden, diverticulitis, DVT (on Elliquis 5mg BID), GERD, kidney stones, gastroparesis, BPH, Prostate Ca, hypothyroid, Chronic Pain Syndrome, Anxiety, OA here with sob SC, HTN, CVA, and COPD (home oxygen dependent) admitted with worsening sob Plan: 1. Acute COPD exacerbation/interstitial lung disease, bronchiectasis - CTA from [place] shows interstitial lung disease - Change to IV steroids 60mg q8 - Start empiric azithro - Albuterol nebs qid - CT chest eval for malignancy - ID/pulm seeing 2. CAD s/p multiple stents - Started ASA with eliquis for demand ischemia - Statin - Ranexa 500mg BID 3. hx of b/l DVT/factor V leiden deficiency - s/p IVC filter 2002 - Eliquis 5mg BID - recent imaging at negative for dvt 4. Elevated trop - Flat trend - In future will need ischemic eval 5. Diastolic CHF - Not in exacerbation - Lasix 40mg day 6. SVT - Dx at [facility] - Digoxin 0.25mg daily , cardizem 30mg TID 7. RLQ pain , R flank pain- chronic - CTAP ordered, also r/o malignancy 8. DVt - Eliquis 9. BPH - Flomax 10. Hypothyroid - [place] Thyroid Visit type - Emergency Visit Emergency Visit: Yes ED Registration Date: 01/21/18 Care time: The patient presented to the Emergency Department on the above date and was hospitalized for further evaluation of their emergent condition. - New Patient This patient is new to me today: Yes Date on this admission: 01/23/18 - Critical Care Critical Care patient: No
--- NOTE | 2018-01-23 11:20 | PN ---
Progress Note (short form) - Note Progress Note: PULMONARY Still with shortness of breath, nonproductive cough and wheezing. Last Vital Signs Temp Pulse Resp BP Pulse Ox 97.9 F 86 19 115/58 97 01/23/18 05:00 01/23/18 10:11 01/23/18 05:53 01/23/18 05:53 01/22/18 21:00 Gen: NAD at rest Heart: RRR Lung: decreased breath sounds at the bases Abd: soft, nontender Ext: no edema CBC, BMP 01/23/18 10:50 Active Medications Albuterol/Ipratropium (Duoneb -) 1 amp NEB RQID [facility] Last Admin: 01/23/18 08:15 Dose: 1 amp Apixaban (Eliquis -) 5 mg PO BID [facility] Last Admin: 01/23/18 10:12 Dose: 5 mg Aspirin (Asa -) 81 mg PO DAILY [facility] Last Admin: 01/23/18 10:12 Dose: 81 mg Digoxin (Lanoxin -) 0.25 mg PO DAILY [facility] Last Admin: 01/23/18 10:11 Dose: 0.25 mg Diltiazem HCl (Cardizem -) 30 mg PO TID [facility] Last Admin: 01/23/18 06:02 Dose: 30 mg Docusate Sodium (Colace -) 100 mg PO TID [facility] Last Admin: 01/23/18 06:02 Dose: 100 mg Fluticasone Propionate (Flonase -) 1 spray NS BID [facility] Furosemide (Lasix -) 40 mg PO DAILY [facility] Last Admin: 01/23/18 10:12 Dose: 40 mg Hydromorphone HCl (Dilaudid -) 8 mg PO Q8H PRN PRN Reason: PAIN Last Admin: 01/22/18 14:52 Dose: 8 mg Morphine Sulfate (Ms Contin -) 30 mg PO BID@0600,1800 [facility] Last Admin: 01/23/18 06:02 Dose: 30 mg Prednisone (Deltasone -) 40 mg PO DAILY [facility] Last Admin: 01/23/18 10:12 Dose: 40 mg Ranolazine (Ranexa -) 500 mg PO BID [facility] Last Admin: 01/23/18 10:11 Dose: 500 mg Rosuvastatin Calcium (Crestor -) 20 mg PO HS [facility] Last Admin: 01/22/18 21:56 Dose: 20 mg Senna (Senna -) 2 tab PO HS PRN PRN Reason: CONSTIPATION Tamsulosin HCl (Flomax -) 0.4 mg PO DAILY [facility] Last Admin: 01/23/18 10:12 Dose: 0.4 mg Thyroid ([place] Thyroid -) 60 mg PO DAILY@0700 [facility] Last Admin: 01/23/18 06:09 Dose: 60 mg A/P Acute COPD Exacerbation Bronchiectasis Interstitial Lung Disease CAD s/p multiple stents Factor V Leiden Deficiency h/o DVT/PE s/p IVC Filter h/o CVA - will change steroids to IV - empiric azithromycin - inhaled bronchodilators - O2 to keep Spo2 >90% - continue anticoagulation
[2018-01-23 11:29] LABS: ANION GAP 10 (8-16); BILIRUBIN,TOTAL 0.6 mg/dL (0.2-1.0); BLOOD UREA NITROGEN 14 mg/dL (7-18); CALCIUM 8.3 mg/dL (8.5-10.1); CHLORIDE 101 mmol/L (98-107); CO2 27 mmol/L (21-32); CREATININE 1.3 mg/dL (0.7-1.3); GLUCOSE,RANDOM 114 mg/dL (74-106); MAGNESIUM 2.4 mg/dL (1.8-2.4); POTASSIUM 3.6 mmol/L (3.5-5.1); SGOT/AST 7 U/L (15-37); SGPT/ALT 17 U/L (12-78); SODIUM 138 mmol/L (136-145); TOT PROT 5.9 g/dl (6.4-8.2)
[2018-01-23 11:30] LABS: ALK PHOS 61 U/L (45-117)
[2018-01-23] MEDS: methylPREDNISolone NA SUCC 125 MG/2 ML VIAL IVPUSH SCH ×2 (11:36→17:25)
[2018-01-23] MEDS: FLUTICASONE PROP 0.05% 16 GM NASAL SPRAY NS SCH ×2 (13:35→21:50)
[2018-01-23] MEDS: AZITHROMYCIN IVPB 500 MG in DEXTROSE 5%-WATER - 250 ML IVPB SCH (13:36)
[2018-01-23] MEDS: HYDROmorphone HCL 2 MG TABLET PO PRN (15:39)
[2018-01-23] MEDS ORDERED: PT OWN MED DRAWER 7, Y5N ONE (16:38)
--- NOTE | 2018-01-23 16:48 | PN ---
Progress Note, Physician History of Present Illness: says he is feeling a little better no other issues still weak - Current Medication List Current Medications: Active Medications Albuterol/Ipratropium (Duoneb -) 1 amp NEB RQID [facility] Last Admin: 01/23/18 16:44 Dose: 1 amp Apixaban (Eliquis -) 5 mg PO BID [facility] Last Admin: 01/23/18 10:12 Dose: 5 mg Aspirin (Asa -) 81 mg PO DAILY [facility] Last Admin: 01/23/18 10:12 Dose: 81 mg Digoxin (Lanoxin -) 0.25 mg PO DAILY [facility] Last Admin: 01/23/18 10:11 Dose: 0.25 mg Diltiazem HCl (Cardizem -) 30 mg PO TID [facility] Last Admin: 01/23/18 13:36 Dose: 30 mg Docusate Sodium (Colace -) 100 mg PO TID [facility] Last Admin: 01/23/18 13:36 Dose: 100 mg Fluticasone Propionate (Flonase -) 1 spray NS BID [facility] Last Admin: 01/23/18 13:35 Dose: 2 inh Furosemide (Lasix -) 40 mg PO DAILY [facility] Last Admin: 01/23/18 10:12 Dose: 40 mg Hydromorphone HCl (Dilaudid -) 8 mg PO Q8H PRN PRN Reason: PAIN Last Admin: 01/23/18 15:39 Dose: 8 mg Azithromycin 500 mg/ Dextrose 250 mls @ 250 mls/hr IVPB DAILY [facility] Last Admin: 01/23/18 13:36 Dose: 250 mls/hr Methylprednisolone Sodium Succinate (Solu-Medrol -) 60 mg IVPUSH Q8H-IV [facility] Last Admin: 01/23/18 11:36 Dose: 60 mg Morphine Sulfate (Ms Contin -) 30 mg PO BID@0600,1800 [facility] Last Admin: 01/23/18 06:02 Dose: 30 mg Ranolazine (Ranexa -) 500 mg PO BID [facility] Last Admin: 01/23/18 10:11 Dose: 500 mg Rosuvastatin Calcium (Crestor -) 20 mg PO HS [facility] Last Admin: 01/22/18 21:56 Dose: 20 mg Senna (Senna -) 2 tab PO HS PRN PRN Reason: CONSTIPATION Tamsulosin HCl (Flomax -) 0.4 mg PO DAILY [facility] Last Admin: 01/23/18 10:12 Dose: 0.4 mg Thyroid ([place] Thyroid -) 60 mg PO DAILY@0700 [facility] Last Admin: 01/23/18 06:09 Dose: 60 mg - Objective Vital Signs: Vital Signs Temperature 98.6 F 01/23/18 14:00 Pulse Rate 89 01/23/18 14:00 Respiratory Rate 19 01/23/18 05:53 Blood Pressure 121/58 01/23/18 14:00 O2 Sat by Pulse Oximetry (%) 97 01/22/18 21:00 Constitutional: Yes: Calm, Mild Distress Cardiovascular: Yes: Regular Rate and Rhythm Respiratory: Yes: Regular, Poor Air Entry, Other (crackles) Gastrointestinal: Yes: Normal Bowel Sounds, Soft Musculoskeletal: Yes: WNL Extremities: Yes: WNL Neurological: Yes: Alert, Oriented Psychiatric: Yes: Alert, Oriented Labs: CBC, BMP 01/23/18 10:50 01/23/18 10:50 INR, PTT INR 1.49 (0.82-1.09) H 01/22/18 06:30 - ....Imaging Cat Scan: Report Reviewed, Image Reviewed Assessment/Plan after evaluating the patient i have low suspicion of infection.there is something in the left lower lobe dyspnea ll infiltrate prostate ca htn hld gm positive bacteremia blood cx reports noted only one cx positive will ask for repeat blood cx as could be contaminant plan continue current mgmt continue monitoring' rest as per primary team incnetive be ct scan results noted
[2018-01-23] MEDS: ROSUVASTATIN CA 20 MG TABLET (FP) PO SCH (21:47)
[2018-01-23] MEDS: SENNOSIDES 8.6MG TABLET (FP) PO PRN (21:48)
[2018-01-24] MEDS: MELATONIN 5 MG TABLETS PO PRN (00:32)
[2018-01-24] MEDS: methylPREDNISolone NA SUCC 125 MG/2 ML VIAL IVPUSH SCH ×3 (03:00→17:17)
[2018-01-24] MEDS: THYROID 60 MG TABLET PO SCH (06:00)
[2018-01-24] MEDS: DOCUSATE SODIUM 100 MG CAPSULE (FP) PO SCH ×3 (06:15→21:07)
[2018-01-24] MEDS: dilTIAZem HCL 30 MG TABLET (FP) PO SCH ×3 (06:15→21:07)
[2018-01-24] MEDS: morphine SO4 SUSTAINED ACTING 30 MG TABLET.SA PO SCH ×2 (06:16→17:17)
[2018-01-24] MEDS: ALBUTEROL SO4 2.5/IPRATROPIUM 0.5 INH SOL 3 ML VIAL.NEB. NEB SCH ×4 (07:27→20:47)
[2018-01-24] MEDS ORDERED: PT OWN MED DRAWER 7, Y5N ONE (08:20)
[2018-01-24] MEDS: AZITHROMYCIN IVPB 500 MG in DEXTROSE 5%-WATER - 250 ML IVPB SCH (08:59)
[2018-01-24] MEDS: DIGOXIN 0.25 MG TABLET (FP) PO SCH (09:00)
[2018-01-24] MEDS: ASPIRIN 81 MG CHEWABLE TABLETS PO SCH (09:00)
[2018-01-24] MEDS: TAMSULOSIN HCL 0.4 MG CAP.ER.24H (FP) PO SCH (09:00)
[2018-01-24] MEDS: RANOLAZINE E.R. 500 MG TABLET (FP) PO SCH ×2 (09:00→21:07)
[2018-01-24] MEDS: FUROSEMIDE 40 MG TABLET (FP) PO SCH (09:00)
[2018-01-24] MEDS: APIXABAN 5 MG TABLET PO SCH ×2 (09:00→21:07)
[2018-01-24] MEDS: FLUTICASONE PROP 0.05% 16 GM NASAL SPRAY NS SCH ×2 (09:01→21:07)
--- NOTE | 2018-01-24 11:56 | PN ---
Progress Note, Physician History of Present Illness: pulmonary alert,feeling better,less dyspneic,less cough-cp - Current Medication List Current Medications: Active Medications Albuterol/Ipratropium (Duoneb -) 1 amp NEB RQID [facility] Last Admin: 01/24/18 11:18 Dose: 1 amp Apixaban (Eliquis -) 5 mg PO BID [facility] Last Admin: 01/24/18 09:00 Dose: 5 mg Aspirin (Asa -) 81 mg PO DAILY [facility] Last Admin: 01/24/18 09:00 Dose: 81 mg Digoxin (Lanoxin -) 0.25 mg PO DAILY [facility] Last Admin: 01/24/18 09:00 Dose: 0.25 mg Diltiazem HCl (Cardizem -) 30 mg PO TID [facility] Last Admin: 01/24/18 06:15 Dose: 30 mg Docusate Sodium (Colace -) 100 mg PO TID [facility] Last Admin: 01/24/18 06:15 Dose: 100 mg Fluticasone Propionate (Flonase -) 1 spray NS BID [facility] Last Admin: 01/24/18 09:01 Dose: 1 inh Furosemide (Lasix -) 40 mg PO DAILY [facility] Last Admin: 01/24/18 09:00 Dose: 40 mg Hydromorphone HCl (Dilaudid -) 8 mg PO Q8H PRN PRN Reason: PAIN Last Admin: 01/23/18 15:39 Dose: 8 mg Azithromycin 500 mg/ Dextrose 250 mls @ 250 mls/hr IVPB DAILY [facility] Last Admin: 01/24/18 08:59 Dose: 250 mls/hr Melatonin (Melatonin) 5 mg PO HS PRN PRN Reason: INSOMNIA Last Admin: 01/24/18 00:32 Dose: 5 mg Methylprednisolone Sodium Succinate (Solu-Medrol -) 60 mg IVPUSH Q8H-IV [facility] Last Admin: 01/24/18 09:01 Dose: 60 mg Morphine Sulfate (Ms Contin -) 30 mg PO BID@0600,1800 [facility] Last Admin: 01/24/18 06:16 Dose: 30 mg Ranolazine (Ranexa -) 500 mg PO BID [facility] Last Admin: 01/24/18 09:00 Dose: 500 mg Rosuvastatin Calcium (Crestor -) 20 mg PO HS [facility] Last Admin: 01/23/18 21:47 Dose: 20 mg Senna (Senna -) 2 tab PO HS PRN PRN Reason: CONSTIPATION Last Admin: 01/23/18 21:48 Dose: 2 tab Tamsulosin HCl (Flomax -) 0.4 mg PO DAILY [facility] Last Admin: 01/24/18 09:00 Dose: 0.4 mg Thyroid ([place] Thyroid -) 60 mg PO DAILY@0700 [facility] Last Admin: 01/24/18 06:00 Dose: 60 mg - Objective Vital Signs: Vital Signs Temperature 97.6 F 01/24/18 05:00 Pulse Rate 90 01/24/18 09:00 Respiratory Rate 20 01/24/18 05:00 Blood Pressure 132/65 01/24/18 05:00 O2 Sat by Pulse Oximetry (%) 94 L 01/23/18 20:17 Constitutional: Yes: Well Nourished, Calm Eyes: Yes: WNL HENT: Yes: WNL Neck: Yes: WNL Cardiovascular: Yes: Regular Rate and Rhythm, S1, S2 Respiratory: Yes: Rales ( bibasilar crackles) Gastrointestinal: Yes: Normal Bowel Sounds, Soft Extremities: Yes: WNL Edema: No Labs: Assessment/Plan IMP DYSPNEA COPD EXACERBATION CHF ? LLL INFILTRATE FACTOR V LEIDEN H/O DVT/PE ILD H/O CVA + TROPONINS PROSTATE CA HLD HTN PLAN O2 STEROID TAPER ABX LASIX F/U CHEST X-RAYS DR CASTELLON
--- NOTE | 2018-01-24 11:58 | PN ---
Progress Note (short form) - Note Progress Note: S: +cough and nasal congestion, less today. no cp palps dizzy; mild sob Current Medications Generic Name Dose Route Start Last Admin Trade Name Freq PRN Reason Stop Dose Admin Albuterol/Ipratropium 1 amp 01/21/18 20:00 01/24/18 11:18 Duoneb - NEB 1 amp RQID JAIMEE Administration Apixaban 5 mg 01/21/18 22:00 01/24/18 09:00 Eliquis - PO 5 mg BID JAIMEE Administration Aspirin 81 mg 01/21/18 19:00 01/24/18 09:00 Asa - PO 81 mg DAILY JAIMEE Administration Digoxin 0.25 mg 01/22/18 10:00 01/24/18 09:00 Lanoxin - PO 0.25 mg DAILY JAIMEE Administration Diltiazem HCl 30 mg 01/21/18 22:00 01/24/18 06:15 Cardizem - PO 30 mg TID JAIMEE Administration Docusate Sodium 100 mg 01/22/18 22:00 01/24/18 06:15 Colace - PO 100 mg TID JAIMEE Administration Fluticasone Propionate 1 spray 01/23/18 11:00 01/24/18 09:01 Flonase - NS 1 inh BID JAIMEE Administration Furosemide 40 mg 01/22/18 10:00 01/24/18 09:00 Lasix - PO 40 mg DAILY JAIMEE Administration Hydromorphone HCl 8 mg 01/21/18 15:58 01/23/18 15:39 Dilaudid - PO 8 mg Q8H PRN Administration PAIN Azithromycin 500 mg/ Dextrose 250 mls @ 250 mls/hr 01/23/18 12:00 01/24/18 08 :59 IVPB 250 mls/hr DAILY JAIMEE Administration Melatonin 5 mg 01/24/18 00:09 01/24/18 00:32 Melatonin PO 5 mg HS PRN Administration INSOMNIA Methylprednisolone Sodium Succinate 60 mg 01/23/18 11:30 01/24/18 09:01 Solu-Medrol - IVPUSH 60 mg Q8H-IV JAIMEE Administration Morphine Sulfate 30 mg 01/21/18 19:00 01/24/18 06:16 Ms Contin - PO 30 mg BID@0600,1800 JAIMEE Administration Ranolazine 500 mg 01/21/18 22:00 01/24/18 09:00 Ranexa - PO 500 mg BID JAIMEE Administration Rosuvastatin Calcium 20 mg 01/22/18 22:00 01/23/18 21:47 Crestor - PO 20 mg HS JAIMEE Administration Senna 2 tab 01/22/18 20:11 01/23/18 21:48 Senna - PO 2 tab HS PRN Administration CONSTIPATION Tamsulosin HCl 0.4 mg 01/22/18 10:00 01/24/18 09:00 Flomax - PO 0.4 mg DAILY JAIMEE Administration Thyroid 60 mg 01/22/18 10:11 01/24/18 06:00 [place] Thyroid - PO 60 mg DAILY@0700 JAIMEE Administration Vital Signs Period Temp Pulse Resp BP Sys/Fernandez Pulse Ox Last 24 Hr 97.5 F-98.9 F 78-90 20-20 115-132/55-65 94 nad, calm jvd tds but does not appear elevated. rrr s1s2 no mrg bibasilar dry rales. nl effort aaox3 no le e/c/c abd nt nd pos bs no jaundice diaphoresis Laboratory Last Values WBC 8.6 K/mm3 (4.0-10.0) D 01/23/18 10:50 RBC 4.11 M/mm3 (4.00-5.60) 01/23/18 10:50 Hgb 13.0 GM/dL (11.7-16.9) 01/23/18 10:50 Hct 38.6 % (35.4-49) 01/23/18 10:50 MCV 94.0 fl (80-96) 01/23/18 10:50 MCH 31.7 pg (25.7-33.7) 01/23/18 10:50 MCHC 33.7 g/dl (32.0-35.9) 01/23/18 10:50 RDW 14.2 % (11.9-15.9) 01/23/18 10:50 Plt Count 201 K/MM3 (134-434) 01/23/18 10:50 MPV 7.5 fl (7.5-11.1) 01/23/18 10:50 Neutrophils % 66.8 % (42.8-82.8) 01/23/18 10:50 Lymphocytes % 19.8 % (8-40) 01/23/18 10:50 Monocytes % 12.0 % (3.8-10.2) H 01/23/18 10:50 Eosinophils % 1.0 % (0-4.5) 01/23/18 10:50 Basophils % 0.4 % (0-2.0) 01/23/18 10:50 PT with INR 16.80 SEC (9.98-11.88) H 01/22/18 06:30 INR 1.49 (0.82-1.09) H 01/22/18 06:30 VBG pH 7.37 (7.32-7.42) 01/21/18 11:34 POC VBG pCO2 53.1 mmHg (38-52) H 01/21/18 11:34 POC VBG pO2 17.3 mmHg (28-48) L* 01/21/18 11:34 Mixed VBG HCO3 30.0 meq/L (19-25) H 01/21/18 11:34 Sodium 138 mmol/L (136-145) 01/23/18 10:50 Potassium 3.6 mmol/L (3.5-5.1) 01/23/18 10:50 Chloride 101 mmol/L (98-107) 01/23/18 10:50 Carbon Dioxide 27 mmol/L (21-32) 01/23/18 10:50 Anion Gap 10 (8-16) 01/23/18 10:50 BUN 14 mg/dL (7-18) 01/23/18 10:50 Creatinine 1.3 mg/dL (0.7-1.3) 01/23/18 10:50 Creat Clearance w eGFR 53.53 (>60) 01/23/18 10:50 Random Glucose 114 mg/dL (74-106) H D 01/23/18 10:50 Hemoglobin A1c % 6.2 % (4.8-6.0) H D 01/22/18 06:30 Lactic Acid 1.6 mmol/L (0.0-2.0) 01/21/18 11:34 Calcium 8.3 mg/dL (8.5-10.1) L 01/23/18 10:50 Phosphorus 3.1 mg/dL (2.5-4.9) D 01/22/18 06:30 Magnesium 2.4 mg/dL (1.8-2.4) 01/23/18 10:50 Total Bilirubin 0.6 mg/dL (0.2-1.0) D 01/23/18 10:50 AST 7 U/L (15-37) L D 01/23/18 10:50 ALT 17 U/L (12-78) 01/23/18 10:50 Alkaline Phosphatase 61 U/L (45-117) 01/23/18 10:50 Creatine Kinase 30 IU/L (39-308) L 01/22/18 17:30 Troponin I 0.58 ng/ml (0.00-0.05) H 01/22/18 17:30 B-Natriuretic Peptide 236.80 pg/ml (5-450) 01/21/18 11:34 Total Protein 5.9 g/dl (6.4-8.2) L 01/23/18 10:50 Albumin 3.0 g/dl (3.4-5.0) L 01/23/18 10:50 Triglycerides 101 mg/dL (35-160) D 01/22/18 06:30 Cholesterol 139 mg/dL (50-200) 01/22/18 06:30 Total LDL Cholesterol 80 mg/dL (5-100) D 01/22/18 06:30 HDL Cholesterol 45 mg/dL (40-60) 01/22/18 06:30 Lipase 115 U/L (73-393) 01/21/18 11:34 TSH 4.70 uIU/ml (0.358-3.74) H D 01/22/18 06:30 Urine Color Yellow 01/21/18 13:05 Urine Appearance Slcloudy 01/21/18 13:05 Urine pH 7.0 (5.0-8.0) 01/21/18 13:05 Ur Specific [place] 1.013 (1.001-1.035) 01/21/18 13:05 Urine Protein Negative (NEGATIVE) 01/21/18 13:05 Urine Glucose (UA) Negative (NEGATIVE) 01/21/18 13:05 Urine Ketones Negative (NEGATIVE) 01/21/18 13:05 Urine Blood Negative (NEGATIVE) 01/21/18 13:05 Urine Nitrite Negative (NEGATIVE) 01/21/18 13:05 Urine Bilirubin Negative (NEGATIVE) 01/21/18 13:05 Urine Urobilinogen 2.0 mg/dL (0.2-1.0) 01/21/18 13:05 Ur Leukocyte Esterase Negative (NEGATIVE) 01/21/18 13:05 Digoxin 1.2400 ng/ml (0.8-2.0) 01/22/18 06:30 ecg: sr, non-specific t wave abnormalities - similar to priors. no acute ischemic changes. 01/15/18 ekg [facility]: SVT, [address] abnormalities/STD tele: SR cxr: scarring vs. left early lobe infiltrate. 01/22 cxr: slightly better aeration at left base. apical pleural thickening. PFTs [facility] 12/2017: moderate restrictive defect with mild decrease in diffusion capacity. CTA chest [facility] 12/2017: suboptimal opacification of pulmonary arterial tree limiting evaluation. curvilinear filling defect in segmental branch of RLL similar to 2015 cta - may reflect chronic PE. No acute PE. + aortic atherosclerosis. prominent calcification of cors. low lung volumes. peripheral/basilar reticular opacities, honeycombing and traction bronchiectasis within bilateral lower lobes. scattered atelectasis/scarring. RML nodule. mediastinal LAD, somewhat similar to 2015 CT. LE dopplers 12/2017: B LE DVT's Echo 12/2017: tds. mild LVE. nl lv fn. EF 60-65%. nl rv size/fn. small pericardial effusion. Echo here 01/2018: tds. no pericardial effusion. echo 03/2016: suboptimal views. EF 50-55%. Impaired relaxation. Nl RV ( suboptimal views). Nl valves. Mild ao dilation 3.8 cm with laminar atherosclerotic plaque. pharm stress 2015: No sx's. No ischemic ekg changes. Small subtle inferolateral ischemia. EF 57%. 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 EKG without acute ischemic changes. - reviewed [facility] records. initial trop not elevated. had episode of SVT to 180' s on 01/15, subsequent trops not drawn. Current elevation in troponin has overall flat trend with nl CK. Likely had troponin lead at that time and now with residual elevation. ddx. myopericarditis (crp elevated). echo here tds. - low suspicion for acute ACS here as mentioned, but added ASA for underlying CAD/demand ischemia (also on eliquis). Will likely need ischemic evaluation for risk stratification once acute issues resolve. - con't statin. sob - no signs of acute diastolic hf exacerbation. resumed home po lasix. - ischemic evaluation as above. - infectious work up per pmd/ID. SVT - Episode of SVT up to 180's on [facility] admit 01/15/2018. Cr at the time had peak of 1.75. CRP at the time 27.4. Troponins prior to episode and at time of episode were negative, but no trops drawn after episode. - per patient was started on diltiazem and digoxin (pt has new meds with him here). prior toprol was not continued. Bilateral DVT - recent CTA at [facility] with no evidence of acute PE. has h/o factor V leiden. con 't eliquis.
[2018-01-24] MEDS ORDERED: MAGNESIUM HYDROX 2400MG/30ML ORAL SUSPENSION 30 ML CUP PO ONE (15:00)
--- NOTE | 2018-01-24 15:03 | PN ---
Physical Exam: SUBJECTIVE: Patient seen and examined. He feels abdominal discomfort d/t no bowel movement. His is less sob. OBJECTIVE: Vital Signs Period Temp Pulse Resp BP Sys/Fernandez Pulse Ox Last 24 Hr 97.5 F-98.9 F 78-90 20-20 115-132/55-65 94 PE Neuro: alert, awake, cn 2-12intact Pulm: diminished however clear, no sob, wheezing CV: s1 s2 rrr Abd: RLQ mild tenderness to palpation, soft, + bs Ext: warm, no le edema Active Medications Generic Name Dose Route Start Last Admin Trade Name Freq PRN Reason Stop Dose Admin Albuterol/Ipratropium 1 amp 01/21/18 20:00 01/24/18 11:18 Duoneb - NEB 1 amp RQID JAIMEE Administration Apixaban 5 mg 01/21/18 22:00 01/24/18 09:00 Eliquis - PO 5 mg BID JAIMEE Administration Aspirin 81 mg 01/21/18 19:00 01/24/18 09:00 Asa - PO 81 mg DAILY JAIMEE Administration Digoxin 0.25 mg 01/22/18 10:00 01/24/18 09:00 Lanoxin - PO 0.25 mg DAILY JAIMEE Administration Diltiazem HCl 30 mg 01/21/18 22:00 01/24/18 13:16 Cardizem - PO 30 mg TID JAIMEE Administration Docusate Sodium 100 mg 01/22/18 22:00 01/24/18 13:16 Colace - PO 100 mg TID JAIMEE Administration Fluticasone Propionate 1 spray 01/23/18 11:00 01/24/18 09:01 Flonase - NS 1 inh BID JAIMEE Administration Furosemide 40 mg 01/22/18 10:00 01/24/18 09:00 Lasix - PO 40 mg DAILY JAIMEE Administration Hydromorphone HCl 8 mg 01/21/18 15:58 01/23/18 15:39 Dilaudid - PO 8 mg Q8H PRN Administration PAIN Azithromycin 500 mg/ Dextrose 250 mls @ 250 mls/hr 01/23/18 12:00 01/24/18 08 :59 IVPB 250 mls/hr DAILY JAIMEE Administration Magnesium Hydroxide 30 ml 01/24/18 15:00 Milk Of Magnesia - PO 01/24/18 15:01 ONCE ONE Melatonin 5 mg 01/24/18 00:09 01/24/18 00:32 Melatonin PO 5 mg HS PRN Administration INSOMNIA Methylprednisolone Sodium Succinate 60 mg 01/23/18 11:30 01/24/18 09:01 Solu-Medrol - IVPUSH 60 mg Q8H-IV JAIMEE Administration Morphine Sulfate 30 mg 01/21/18 19:00 01/24/18 06:16 Ms Contin - PO 30 mg BID@0600,1800 JAIMEE Administration Ranolazine 500 mg 01/21/18 22:00 01/24/18 09:00 Ranexa - PO 500 mg BID JAIMEE Administration Rosuvastatin Calcium 20 mg 01/22/18 22:00 01/23/18 21:47 Crestor - PO 20 mg HS JAIMEE Administration Senna 2 tab 01/22/18 20:11 01/23/18 21:48 Senna - PO 2 tab HS PRN Administration CONSTIPATION Tamsulosin HCl 0.4 mg 01/22/18 10:00 01/24/18 09:00 Flomax - PO 0.4 mg DAILY JAIMEE Administration Thyroid 60 mg 01/22/18 10:11 01/24/18 06:00 [place] Thyroid - PO 60 mg DAILY@0700 JAIMEE Administration Assessment: 77 year old male with a significant past medical history of CVA, CAD s/p stents x 2, factor V leiden, diverticulitis, DVT (on Elliquis 5mg BID), GERD, kidney stones, gastroparesis, BPH, Prostate Ca, hypothyroid, Chronic Pain Syndrome, Anxiety, OA here with sob MN, HTN, CVA, and COPD (home oxygen dependent) admitted with worsening sob Plan: 1. Acute COPD exacerbation/interstitial lung disease, bronchiectasis - CTA from [place] shows interstitial lung disease - Taper IV steroids 40mg q8 - Continue empiric azithro (day 2) - Albuterol nebs qid - CT chest noted, nodules appear unchanged - ID/pulm seeing 2. CAD s/p multiple stents - Started ASA with eliquis for demand ischemia - Statin - Ranexa 500mg BID 3. hx of b/l DVT/factor V leiden deficiency - s/p IVC filter 2002 - Eliquis 5mg BID - Recent imaging at negative for dvt 4. Elevated trop - Flat trend - In future will need ischemic eval per cardiology 5. Diastolic CHF - Not in exacerbation - Lasix 40mg day 6. SVT - Dx at [facility] - Digoxin 0.25mg daily , cardizem 30mg TID 7. RLQ pain , R flank pain- chronic - CTAP neg for acute pathology, abd pain could be from constipation - Will given mineral enema and milk of mg today 8. DVt - Eliquis 9. BPH - Flomax 10. Hypothyroid - [place] Thyroid Visit type - Emergency Visit Emergency Visit: Yes ED Registration Date: 01/21/18 Care time: The patient presented to the Emergency Department on the above date and was hospitalized for further evaluation of their emergent condition. - New Patient This patient is new to me today: No - Critical Care Critical Care patient: No
--- NOTE | 2018-01-24 15:27 | PN ---
Progress Note, Physician History of Present Illness: patient c/o of sore throat constipation still feeling weak but says otherwise feels better - Current Medication List Current Medications: Active Medications Albuterol/Ipratropium (Duoneb -) 1 amp NEB RQID [facility] Last Admin: 01/24/18 11:18 Dose: 1 amp Apixaban (Eliquis -) 5 mg PO BID [facility] Last Admin: 01/24/18 09:00 Dose: 5 mg Aspirin (Asa -) 81 mg PO DAILY [facility] Last Admin: 01/24/18 09:00 Dose: 81 mg Digoxin (Lanoxin -) 0.25 mg PO DAILY [facility] Last Admin: 01/24/18 09:00 Dose: 0.25 mg Diltiazem HCl (Cardizem -) 30 mg PO TID [facility] Last Admin: 01/24/18 13:16 Dose: 30 mg Docusate Sodium (Colace -) 100 mg PO TID [facility] Last Admin: 01/24/18 13:16 Dose: 100 mg Fluticasone Propionate (Flonase -) 1 spray NS BID [facility] Last Admin: 01/24/18 09:01 Dose: 1 inh Furosemide (Lasix -) 40 mg PO DAILY [facility] Last Admin: 01/24/18 09:00 Dose: 40 mg Hydromorphone HCl (Dilaudid -) 8 mg PO Q8H PRN PRN Reason: PAIN Last Admin: 01/23/18 15:39 Dose: 8 mg Azithromycin 500 mg/ Dextrose 250 mls @ 250 mls/hr IVPB DAILY [facility] Last Admin: 01/24/18 08:59 Dose: 250 mls/hr Melatonin (Melatonin) 5 mg PO HS PRN PRN Reason: INSOMNIA Last Admin: 01/24/18 00:32 Dose: 5 mg Methylprednisolone Sodium Succinate (Solu-Medrol -) 40 mg IVPUSH Q8H-IV [facility] Morphine Sulfate (Ms Contin -) 30 mg PO BID@0600,1800 [facility] Last Admin: 01/24/18 06:16 Dose: 30 mg Ranolazine (Ranexa -) 500 mg PO BID [facility] Last Admin: 01/24/18 09:00 Dose: 500 mg Rosuvastatin Calcium (Crestor -) 20 mg PO HS [facility] Last Admin: 01/23/18 21:47 Dose: 20 mg Senna (Senna -) 2 tab PO HS PRN PRN Reason: CONSTIPATION Last Admin: 01/23/18 21:48 Dose: 2 tab Tamsulosin HCl (Flomax -) 0.4 mg PO DAILY [facility] Last Admin: 01/24/18 09:00 Dose: 0.4 mg Thyroid ([place] Thyroid -) 60 mg PO DAILY@0700 [facility] Last Admin: 01/24/18 06:00 Dose: 60 mg - Objective Vital Signs: Vital Signs Temperature 97.6 F 01/24/18 14:00 Pulse Rate 87 01/24/18 14:00 Respiratory Rate 20 01/24/18 05:00 Blood Pressure 121/62 01/24/18 14:00 O2 Sat by Pulse Oximetry (%) 94 L 01/23/18 20:17 Constitutional: Yes: Calm, Mild Distress Cardiovascular: Yes: Regular Rate and Rhythm Respiratory: Yes: Regular, On Nasal O2, Poor Air Entry, Other (crackles) Gastrointestinal: Yes: Normal Bowel Sounds, Soft Musculoskeletal: Yes: WNL Extremities: Yes: WNL Neurological: Yes: Alert, Oriented Psychiatric: Yes: Alert, Oriented Labs: CBC, BMP 01/23/18 10:50 01/23/18 10:50 INR, PTT INR 1.49 (0.82-1.09) H 01/22/18 06:30 Assessment/Plan dyspnea ll infiltrate prostate ca htn hld gm positive bacteremia repeat blood cx negative plan continue current mgmt continue monitoring' rest as per primary team look at the throat
[2018-01-24] MEDS: ROSUVASTATIN CA 20 MG TABLET (FP) PO SCH (21:07)
[2018-01-24] MEDS: SENNOSIDES 8.6MG TABLET (FP) PO PRN (21:10)
[2018-01-25] MEDS: methylPREDNISolone NA SUCC 125 MG/2 ML VIAL IVPUSH SCH ×2 (01:00→09:27)
[2018-01-25] MEDS: MELATONIN 5 MG TABLETS PO PRN ×2 (01:00→22:16)
[2018-01-25] MEDS: DOCUSATE SODIUM 100 MG CAPSULE (FP) PO SCH ×4 (05:54→21:27)
[2018-01-25] MEDS: dilTIAZem HCL 30 MG TABLET (FP) PO SCH ×4 (05:55→21:27)
[2018-01-25] MEDS: morphine SO4 SUSTAINED ACTING 30 MG TABLET.SA PO SCH ×3 (05:57→17:59)
[2018-01-25] MEDS: THYROID 60 MG TABLET PO SCH (06:28)
[2018-01-25] MEDS: ALBUTEROL SO4 2.5/IPRATROPIUM 0.5 INH SOL 3 ML VIAL.NEB. NEB SCH ×4 (07:35→20:40)
[2018-01-25] MEDS ORDERED: PT OWN MED DRAWER 7, Y5N ONE ×2 (09:15→21:19)
[2018-01-25] MEDS: ASPIRIN 81 MG CHEWABLE TABLETS PO SCH (09:27)
[2018-01-25] MEDS: FLUTICASONE PROP 0.05% 16 GM NASAL SPRAY NS SCH ×2 (09:28→21:28)
[2018-01-25] MEDS: APIXABAN 5 MG TABLET PO SCH ×2 (09:28→22:17)
[2018-01-25] MEDS: RANOLAZINE E.R. 500 MG TABLET (FP) PO SCH ×2 (09:28→21:28)
[2018-01-25] MEDS: DIGOXIN 0.25 MG TABLET (FP) PO SCH (09:28)
[2018-01-25] MEDS: FUROSEMIDE 40 MG TABLET (FP) PO SCH (09:28)
[2018-01-25] MEDS: TAMSULOSIN HCL 0.4 MG CAP.ER.24H (FP) PO SCH (09:28)
[2018-01-25] MEDS: AZITHROMYCIN IVPB 500 MG in DEXTROSE 5%-WATER - 250 ML IVPB SCH (09:28)
--- NOTE | 2018-01-25 09:29 | PN ---
Physical Exam: SUBJECTIVE: Patient seen and examined. Pt reports no bowel movement as of yet. Instructed pt he needs to attempt ambulation. He feels weak, appears less sob. OBJECTIVE: Vital Signs Period Temp Pulse Resp BP Sys/Fernandez Pulse Ox Last 24 Hr 97.5 F-98.2 F 74-100 20-20 116-129/49-66 95 PE Neuro: alert, awake, cn 2-12intact HEENT: oral cavity pink moist Pulm: R base crackles CV: s1 s2 rrr Abd: RLQ mild tenderness to palpation, soft, + bs Ext: warm, no le edema Active Medications Generic Name Dose Route Start Last Admin Trade Name Freq PRN Reason Stop Dose Admin Albuterol/Ipratropium 1 amp 01/21/18 20:00 01/25/18 07:35 Duoneb - NEB 1 amp RQID JAIMEE Administration Apixaban 5 mg 01/21/18 22:00 01/25/18 09:28 Eliquis - PO 5 mg BID JAIMEE Administration Aspirin 81 mg 01/21/18 19:00 01/25/18 09:27 Asa - PO 81 mg DAILY JAIMEE Administration Digoxin 0.25 mg 01/22/18 10:00 01/25/18 09:28 Lanoxin - PO 0.25 mg DAILY JAIMEE Administration Diltiazem HCl 30 mg 01/21/18 22:00 01/25/18 07:57 Cardizem - PO 30 mg TID JAIMEE Administration Docusate Sodium 100 mg 01/22/18 22:00 01/25/18 07:57 Colace - PO 100 mg TID JAIMEE Administration Fluticasone Propionate 1 spray 01/23/18 11:00 01/25/18 09:28 Flonase - NS 1 inh BID JAIMEE Administration Furosemide 40 mg 01/22/18 10:00 01/25/18 09:28 Lasix - PO 40 mg DAILY JAIMEE Administration Azithromycin 500 mg/ Dextrose 250 mls @ 250 mls/hr 01/23/18 12:00 01/25/18 09 :28 IVPB 250 mls/hr DAILY JAIMEE Administration Melatonin 5 mg 01/24/18 00:09 01/25/18 01:00 Melatonin PO 5 mg HS PRN Administration INSOMNIA Methylprednisolone Sodium Succinate 40 mg 01/24/18 18:00 01/25/18 09:27 Solu-Medrol - IVPUSH 40 mg Q8H-IV JAIMEE Administration Morphine Sulfate 30 mg 01/21/18 19:00 01/25/18 07:57 Ms Contin - PO 30 mg BID@0600,1800 JAIMEE Administration Ranolazine 500 mg 01/21/18 22:00 01/25/18 09:28 Ranexa - PO 500 mg BID JAIMEE Administration Rosuvastatin Calcium 20 mg 01/22/18 22:00 01/24/18 21:07 Crestor - PO 20 mg HS JAIMEE Administration Senna 2 tab 01/22/18 20:11 01/24/18 21:10 Senna - PO 2 tab HS PRN Administration CONSTIPATION Tamsulosin HCl 0.4 mg 01/25/18 08:30 01/25/18 09:28 Flomax - PO 0.4 mg DAILY@0830 JAIMEE Administration Thyroid 60 mg 01/22/18 10:11 01/25/18 06:28 [place] Thyroid - PO 60 mg DAILY@0700 JAIMEE Administration Imaging: CTA/CT chest: Interstitial lung disease, Pulmonary nodules unchanged Assessment: 77 year old male with a significant past medical history of CVA, CAD s/p stents x 2, factor V leiden, diverticulitis, DVT (on Elliquis 5mg BID), GERD, kidney stones, gastroparesis, BPH, Prostate Ca, hypothyroid, Chronic Pain Syndrome, Anxiety, OA here with sob GA, HTN, CVA, and COPD (home oxygen dependent) admitted with worsening sob Plan: 1. Acute COPD exacerbation/interstitial lung disease, bronchiectasis - Maintain medrol 40mg q8; pt o2 stable, however sob with exertion - Continue empiric azithro (day 3) - Albuterol nebs qid - ID/pulm seeing 2. CAD s/p multiple stents - Started ASA with eliquis for demand ischemia - Statin - Ranexa 500mg BID 3. hx of b/l DVT/factor V leiden deficiency - s/p IVC filter 2002 - Eliquis 5mg BID - Recent imaging at negative for dvt 4. Elevated trop - Flat trend - In future will need ischemic eval per cardiology 5. Diastolic CHF - Not in exacerbation - Lasix 40mg day 6. SVT - Dx at [place] - Digoxin 0.25mg daily , cardizem 30mg TID 7. Constipation, R flank pain- chronic, - CTAP neg for acute pathology, abd pain could be from constipation - Encourage ambulation - If no success will give lactulose 8. DVT - Eliquis 9. BPH - Flomax 10. Hypothyroid - Tererro Thyroid 11. PT - Pt wants walker - PT eval 12. x1 positive blood cx - Repeat bc negative Visit type - Emergency Visit Emergency Visit: Yes ED Registration Date: 01/21/18 Care time: The patient presented to the Emergency Department on the above date and was hospitalized for further evaluation of their emergent condition. - New Patient This patient is new to me today: No - Critical Care Critical Care patient: No
[2018-01-25] MEDS ORDERED: methylPREDNISolone NA SUCC 40 MG/1 ML VIAL IVPUSH SCH ×2 (10:00→18:00)
--- NOTE | 2018-01-25 11:33 | PN ---
Progress Note, Physician History of Present Illness: PULMONARY ALERT,OOB-CHAIR,C/O SOB - Current Medication List Current Medications: Active Medications Albuterol/Ipratropium (Duoneb -) 1 amp NEB RQID [facility] Last Admin: 01/25/18 07:35 Dose: 1 amp Apixaban (Eliquis -) 5 mg PO BID [facility] Last Admin: 01/25/18 09:28 Dose: 5 mg Aspirin (Asa -) 81 mg PO DAILY [facility] Last Admin: 01/25/18 09:27 Dose: 81 mg Digoxin (Lanoxin -) 0.25 mg PO DAILY [facility] Last Admin: 01/25/18 09:28 Dose: 0.25 mg Diltiazem HCl (Cardizem -) 30 mg PO TID [facility] Last Admin: 01/25/18 07:57 Dose: 30 mg Docusate Sodium (Colace -) 100 mg PO TID [facility] Last Admin: 01/25/18 07:57 Dose: 100 mg Fluticasone Propionate (Flonase -) 1 spray NS BID [facility] Last Admin: 01/25/18 09:28 Dose: 1 inh Furosemide (Lasix -) 40 mg PO DAILY [facility] Last Admin: 01/25/18 09:28 Dose: 40 mg Azithromycin 500 mg/ Dextrose 250 mls @ 250 mls/hr IVPB DAILY [facility] Last Admin: 01/25/18 09:28 Dose: 250 mls/hr Melatonin (Melatonin) 5 mg PO HS PRN PRN Reason: INSOMNIA Last Admin: 01/25/18 01:00 Dose: 5 mg Methylprednisolone Sodium Succinate (Solu-Medrol -) 40 mg IVPUSH Q8H-IV [facility] Morphine Sulfate (Ms Contin -) 30 mg PO BID@0600,1800 [facility] Last Admin: 01/25/18 07:57 Dose: 30 mg Ranolazine (Ranexa -) 500 mg PO BID [facility] Last Admin: 01/25/18 09:28 Dose: 500 mg Rosuvastatin Calcium (Crestor -) 20 mg PO HS [facility] Last Admin: 01/24/18 21:07 Dose: 20 mg Senna (Senna -) 2 tab PO HS PRN PRN Reason: CONSTIPATION Last Admin: 01/24/18 21:10 Dose: 2 tab Tamsulosin HCl (Flomax -) 0.4 mg PO DAILY@0830 [facility] Last Admin: 01/25/18 09:28 Dose: 0.4 mg Thyroid ([place] Thyroid -) 60 mg PO DAILY@0700 JAIMEE Last Admin: 01/25/18 06:28 Dose: 60 mg - Objective Vital Signs: Vital Signs Temperature 98.1 F 01/25/18 10:00 Pulse Rate 74 01/25/18 10:00 Respiratory Rate 20 01/25/18 10:00 Blood Pressure 129/74 01/25/18 10:00 O2 Sat by Pulse Oximetry (%) 95 01/25/18 10:00 Constitutional: Yes: Well Nourished, Calm Eyes: Yes: WNL HENT: Yes: WNL Neck: Yes: WNL Cardiovascular: Yes: Regular Rate and Rhythm, S1, S2 Respiratory: Yes: Rales (BILATERAL CRACKLES) Gastrointestinal: Yes: Normal Bowel Sounds, Soft Extremities: Yes: WNL Edema: Yes Labs: CBC, BMP Assessment/Plan IMP DYSPNEA COPD EXACERBATION CHF ? LLL INFILTRATE FACTOR V LEIDEN H/O DVT/PE ILD H/O CVA + TROPONINS PROSTATE CA HLD HTN PLAN O2 INCREASE STEROIDS ABX LASIX F/U CHEST X-RAYS DR CASTELLON
--- NOTE | 2018-01-25 11:37 | PN ---
Progress Note (short form) - Note Progress Note: S: +cough and nasal congestion, less today. no cp palps dizzy; mild sob Current Medications Generic Name Dose Route Start Last Admin Trade Name Gildardo PRN Reason Stop Dose Admin Albuterol/Ipratropium 1 amp 01/21/18 20:00 01/25/18 11:31 Duoneb - NEB 1 amp RQID JAIMEE Administration Apixaban 5 mg 01/21/18 22:00 01/25/18 09:28 Eliquis - PO 5 mg BID JAIMEE Administration Aspirin 81 mg 01/21/18 19:00 01/25/18 09:27 Asa - PO 81 mg DAILY JAIMEE Administration Digoxin 0.25 mg 01/22/18 10:00 01/25/18 09:28 Lanoxin - PO 0.25 mg DAILY JAIMEE Administration Diltiazem HCl 30 mg 01/21/18 22:00 01/25/18 07:57 Cardizem - PO 30 mg TID JAIMEE Administration Docusate Sodium 100 mg 01/22/18 22:00 01/25/18 07:57 Colace - PO 100 mg TID JAIMEE Administration Fluticasone Propionate 1 spray 01/23/18 11:00 01/25/18 09:28 Flonase - NS 1 inh BID JAIMEE Administration Furosemide 40 mg 01/22/18 10:00 01/25/18 09:28 Lasix - PO 40 mg DAILY JAIMEE Administration Azithromycin 500 mg/ Dextrose 250 mls @ 250 mls/hr 01/23/18 12:00 01/25/18 09 :28 IVPB 250 mls/hr DAILY JAIMEE Administration Melatonin 5 mg 01/24/18 00:09 01/25/18 01:00 Melatonin PO 5 mg HS PRN Administration INSOMNIA Methylprednisolone Sodium Succinate 40 mg 01/25/18 15:00 Solu-Medrol - IVPUSH Q6H-IV JAIMEE Morphine Sulfate 30 mg 01/21/18 19:00 01/25/18 07:57 Ms Contin - PO 30 mg BID@0600,1800 JAIMEE Administration Ranolazine 500 mg 01/21/18 22:00 01/25/18 09:28 Ranexa - PO 500 mg BID JAIMEE Administration Rosuvastatin Calcium 20 mg 01/22/18 22:00 01/24/18 21:07 Crestor - PO 20 mg HS JAIMEE Administration Senna 2 tab 01/22/18 20:11 03/08/18 21:10 Senna - PO 2 tab HS PRN Administration CONSTIPATION Tamsulosin HCl 0.4 mg 01/25/18 08:30 01/25/18 09:28 Flomax - PO 0.4 mg DAILY@0830 JAIMEE Administration Thyroid 60 mg 01/22/18 10:11 01/25/18 06:28 [place] Thyroid - PO 60 mg DAILY@0700 JAIMEE Administration Vital Signs Period Temp Pulse Resp BP Sys/Fernandez Pulse Ox Last 24 Hr 97.5 F-98.2 F 74-100 20-20 116-129/49-74 95-95 nad, calm jvd tds but does not appear elevated. rrr s1s2 no mrg bibasilar dry rales. nl effort aaox3 no le e/c/c abd nt nd pos bs no jaundice diaphoresis Laboratory Last Values WBC 8.6 K/mm3 (4.0-10.0) D 01/23/18 10:50 RBC 4.11 M/mm3 (4.00-5.60) 01/23/18 10:50 Hgb 13.0 GM/dL (11.7-16.9) 01/23/18 10:50 Hct 38.6 % (35.4-49) 01/23/18 10:50 MCV 94.0 fl (80-96) 01/23/18 10:50 MCH 31.7 pg (25.7-33.7) 01/23/18 10:50 MCHC 33.7 g/dl (32.0-35.9) 01/23/18 10:50 RDW 14.2 % (11.9-15.9) 01/23/18 10:50 Plt Count 201 K/MM3 (134-434) 01/23/18 10:50 MPV 7.5 fl (7.5-11.1) 01/23/18 10:50 Neutrophils % 66.8 % (42.8-82.8) 01/23/18 10:50 Lymphocytes % 19.8 % (8-40) 01/23/18 10:50 Monocytes % 12.0 % (3.8-10.2) H 01/23/18 10:50 Eosinophils % 1.0 % (0-4.5) 01/23/18 10:50 Basophils % 0.4 % (0-2.0) 01/23/18 10:50 PT with INR 16.80 SEC (9.98-11.88) H 01/22/18 06:30 INR 1.49 (0.82-1.09) H 01/22/18 06:30 VBG pH 7.37 (7.32-7.42) 01/21/18 11:34 POC VBG pCO2 53.1 mmHg (38-52) H 01/21/18 11:34 POC VBG pO2 17.3 mmHg (28-48) L* 01/21/18 11:34 Mixed VBG HCO3 30.0 meq/L (19-25) H 01/21/18 11:34 Sodium 138 mmol/L (136-145) 01/23/18 10:50 Potassium 3.6 mmol/L (3.5-5.1) 01/23/18 10:50 Chloride 101 mmol/L (98-107) 01/23/18 10:50 Carbon Dioxide 27 mmol/L (21-32) 01/23/18 10:50 Anion Gap 10 (8-16) 01/23/18 10:50 BUN 14 mg/dL (7-18) 01/23/18 10:50 Creatinine 1.3 mg/dL (0.7-1.3) 01/23/18 10:50 Creat Clearance w eGFR 53.53 (>60) 01/23/18 10:50 Random Glucose 114 mg/dL (74-106) H D 01/23/18 10:50 Hemoglobin A1c % 6.2 % (4.8-6.0) H D 01/22/18 06:30 Lactic Acid 1.6 mmol/L (0.0-2.0) 01/21/18 11:34 Calcium 8.3 mg/dL (8.5-10.1) L 01/23/18 10:50 Phosphorus 3.1 mg/dL (2.5-4.9) D 01/22/18 06:30 Magnesium 2.4 mg/dL (1.8-2.4) 01/23/18 10:50 Total Bilirubin 0.6 mg/dL (0.2-1.0) D 01/23/18 10:50 AST 7 U/L (15-37) L D 01/23/18 10:50 ALT 17 U/L (12-78) 01/23/18 10:50 Alkaline Phosphatase 61 U/L (45-117) 01/23/18 10:50 Creatine Kinase 30 IU/L (39-308) L 01/22/18 17:30 Troponin I 0.58 ng/ml (0.00-0.05) H 01/22/18 17:30 B-Natriuretic Peptide 236.80 pg/ml (5-450) 01/21/18 11:34 Total Protein 5.9 g/dl (6.4-8.2) L 01/23/18 10:50 Albumin 3.0 g/dl (3.4-5.0) L 01/23/18 10:50 Triglycerides 101 mg/dL (35-160) D 01/22/18 06:30 Cholesterol 139 mg/dL (50-200) 01/22/18 06:30 Total LDL Cholesterol 80 mg/dL (5-100) D 01/22/18 06:30 HDL Cholesterol 45 mg/dL (40-60) 01/22/18 06:30 Lipase 115 U/L (73-393) 01/21/18 11:34 TSH 4.70 uIU/ml (0.358-3.74) H D 01/22/18 06:30 Urine Color Yellow 01/21/18 13:05 Urine Appearance Slcloudy 01/21/18 13:05 Urine pH 7.0 (5.0-8.0) 01/21/18 13:05 Ur Specific [place] 1.013 (1.001-1.035) 01/21/18 13:05 Urine Protein Negative (NEGATIVE) 01/21/18 13:05 Urine Glucose (UA) Negative (NEGATIVE) 01/21/18 13:05 Urine Ketones Negative (NEGATIVE) 01/21/18 13:05 Urine Blood Negative (NEGATIVE) 01/21/18 13:05 Urine Nitrite Negative (NEGATIVE) 01/21/18 13:05 Urine Bilirubin Negative (NEGATIVE) 01/21/18 13:05 Urine Urobilinogen 2.0 mg/dL (0.2-1.0) 01/21/18 13:05 Ur Leukocyte Esterase Negative (NEGATIVE) 01/21/18 13:05 Digoxin 1.2400 ng/ml (0.8-2.0) 01/22/18 06:30 ecg: sr, non-specific t wave abnormalities - similar to priors. no acute ischemic changes. 01/15/18 ekg [facility]: SVT, [address] abnormalities/STD cxr: scarring vs. left early lobe infiltrate. 01/22 cxr: slightly better aeration at left base. apical pleural thickening. PFTs [facility] 12/2017: moderate restrictive defect with mild decrease in diffusion capacity. CTA chest [facility] 12/2017: suboptimal opacification of pulmonary arterial tree limiting evaluation. curvilinear filling defect in segmental branch of RLL similar to 2015 cta - may reflect chronic PE. No acute PE. + aortic atherosclerosis. prominent calcification of cors. low lung volumes. peripheral/basilar reticular opacities, honeycombing and traction bronchiectasis within bilateral lower lobes. scattered atelectasis/scarring. RML nodule. mediastinal LAD, somewhat similar to 2015 CT. [facility] dopplers 12/2017: B LE DVT's Echo 12/2017: tds. mild LVE. nl lv fn. EF 60-65%. nl rv size/fn. small pericardial effusion. Echo here 01/2018: tds. no pericardial effusion. echo 03/2016: suboptimal views. EF 50-55%. Impaired relaxation. Nl RV ( suboptimal views). Nl valves. Mild ao dilation 3.8 cm with laminar atherosclerotic plaque. pharm stress 2015: No sx's. No ischemic ekg changes. Small subtle inferolateral ischemia. EF 57%. 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 EKG without acute ischemic changes. - reviewed [facility] records. initial trop not elevated. had episode of SVT to 180' s on 01/15, subsequent trops not drawn. Current elevation in troponin has overall flat trend with nl CK. Likely had troponin lead at that time and now with residual elevation. ddx. myopericarditis (crp elevated). echo here tds. - low suspicion for acute ACS here as mentioned, but added ASA for underlying CAD/demand ischemia (also on eliquis). Will likely need ischemic evaluation for risk stratification once acute issues resolve. - con't statin. sob - no signs of acute diastolic hf exacerbation. resumed home po lasix. - ischemic evaluation as above. - infectious work up per pmd/ID. SVT - Episode of SVT up to 180's on [facility] admit 01/15/2018. Cr at the time had peak of 1.75. CRP at the time 27.4. Troponins prior to episode and at time of episode were negative, but no trops drawn after episode. - per patient was started on diltiazem and digoxin (pt has new meds with him here). prior toprol was not continued. Bilateral DVT - recent CTA at [facility] with no evidence of acute PE. has h/o factor V leiden. con 't eliquis.
--- NOTE | 2018-01-25 12:45 | PN ---
Progress Note, Physician History of Present Illness: stable no new issues - Current Medication List Current Medications: Active Medications Albuterol/Ipratropium (Duoneb -) 1 amp NEB RQID [facility] Last Admin: 01/25/18 11:31 Dose: 1 amp Apixaban (Eliquis -) 5 mg PO BID [facility] Last Admin: 01/25/18 09:28 Dose: 5 mg Aspirin (Asa -) 81 mg PO DAILY [facility] Last Admin: 01/25/18 09:27 Dose: 81 mg Digoxin (Lanoxin -) 0.25 mg PO DAILY [facility] Last Admin: 01/25/18 09:28 Dose: 0.25 mg Diltiazem HCl (Cardizem -) 30 mg PO TID [facility] Last Admin: 01/25/18 07:57 Dose: 30 mg Docusate Sodium (Colace -) 100 mg PO TID [facility] Last Admin: 01/25/18 07:57 Dose: 100 mg Fluticasone Propionate (Flonase -) 1 spray NS BID [facility] Last Admin: 01/25/18 09:28 Dose: 1 inh Furosemide (Lasix -) 40 mg PO DAILY [facility] Last Admin: 01/25/18 09:28 Dose: 40 mg Azithromycin 500 mg/ Dextrose 250 mls @ 250 mls/hr IVPB DAILY [facility] Last Admin: 01/25/18 09:28 Dose: 250 mls/hr Melatonin (Melatonin) 5 mg PO HS PRN PRN Reason: INSOMNIA Last Admin: 01/25/18 01:00 Dose: 5 mg Methylprednisolone Sodium Succinate (Solu-Medrol -) 40 mg IVPUSH Q6H-IV [facility] Morphine Sulfate (Ms Contin -) 30 mg PO BID@0600,1800 [facility] Last Admin: 01/25/18 07:57 Dose: 30 mg Ranolazine (Ranexa -) 500 mg PO BID [facility] Last Admin: 01/25/18 09:28 Dose: 500 mg Rosuvastatin Calcium (Crestor -) 20 mg PO HS [facility] Last Admin: 01/24/18 21:07 Dose: 20 mg Senna (Senna -) 2 tab PO HS PRN PRN Reason: CONSTIPATION Last Admin: 01/24/18 21:10 Dose: 2 tab Tamsulosin HCl (Flomax -) 0.4 mg PO DAILY@0830 [facility] Last Admin: 01/25/18 09:28 Dose: 0.4 mg Thyroid ([place] Thyroid -) 60 mg PO DAILY@0700 [facility] Last Admin: 01/25/18 06:28 Dose: 60 mg - Objective Vital Signs: Vital Signs Temperature 98.1 F 01/25/18 10:00 Pulse Rate 74 01/25/18 10:00 Respiratory Rate 20 01/25/18 10:00 Blood Pressure 129/74 01/25/18 10:00 O2 Sat by Pulse Oximetry (%) 95 01/25/18 10:00 Constitutional: Yes: No Distress, Calm Cardiovascular: Yes: Regular Rate and Rhythm Respiratory: Yes: Regular, CTA Bilaterally Gastrointestinal: Yes: Normal Bowel Sounds, Soft Musculoskeletal: Yes: WNL Extremities: Yes: WNL Neurological: Yes: Alert, Oriented Psychiatric: Yes: Alert, Oriented Labs: CBC, BMP 01/23/18 10:50 01/23/18 10:50 INR, PTT INR 1.49 (0.82-1.09) H 01/22/18 06:30 Assessment/Plan dyspnea ll infiltrate prostate ca htn hld gm positive bacteremia repeat blood cx negative plan continue current mgmt continue monitoring rest as per primary
[2018-01-25] MEDS: methylPREDNISolone NA SUCC 40 MG/1 ML VIAL IVPUSH SCH ×2 (14:27→21:27)
[2018-01-25] MEDS ORDERED: LACTULOSE 20 GM/30 ML UDC (FOR ORAL USE ONLY) PO ONE (14:41)
[2018-01-25] MEDS: ROSUVASTATIN CA 20 MG TABLET (FP) PO SCH (21:27)
[2018-01-26] MEDS: methylPREDNISolone NA SUCC 40 MG/1 ML VIAL IVPUSH SCH ×3 (03:06→17:15)
[2018-01-26] MEDS: THYROID 60 MG TABLET PO SCH (06:38)
[2018-01-26] MEDS: DOCUSATE SODIUM 100 MG CAPSULE (FP) PO SCH ×3 (06:38→21:13)
[2018-01-26] MEDS: dilTIAZem HCL 30 MG TABLET (FP) PO SCH ×3 (06:38→21:14)
[2018-01-26] MEDS: morphine SO4 SUSTAINED ACTING 30 MG TABLET.SA PO SCH ×2 (06:38→17:12)
[2018-01-26] MEDS: ALBUTEROL SO4 2.5/IPRATROPIUM 0.5 INH SOL 3 ML VIAL.NEB. NEB SCH ×3 (07:30→16:38)
[2018-01-26] MEDS: TAMSULOSIN HCL 0.4 MG CAP.ER.24H (FP) PO SCH (08:59)
[2018-01-26] MEDS ORDERED: PT OWN MED DRAWER 7, Y5N ONE ×2 (10:04→10:55)
[2018-01-26] MEDS: FLUTICASONE PROP 0.05% 16 GM NASAL SPRAY NS SCH ×2 (10:52→21:15)
[2018-01-26] MEDS: ASPIRIN 81 MG CHEWABLE TABLETS PO SCH (10:52)
[2018-01-26] MEDS: APIXABAN 5 MG TABLET PO SCH ×2 (10:52→21:15)
[2018-01-26] MEDS: FUROSEMIDE 40 MG TABLET (FP) PO SCH (10:53)
[2018-01-26] MEDS: RANOLAZINE E.R. 500 MG TABLET (FP) PO SCH ×2 (10:54→21:15)
[2018-01-26] MEDS: DIGOXIN 0.25 MG TABLET (FP) PO SCH (11:01)
--- NOTE | 2018-01-26 11:08 | PN ---
Progress Note, Physician Chief Complaint: comfortable denies any new complaints History of Present Illness: 77 year old male with a significant past medical history of CVA, CAD s/p stents x 2, factor V leiden, diverticulitis, DVT (on Elliquis 5mg BID), GERD, kidney stones, ND, hypertension and COPD (home oxygen dependent) He presents to the ED today with complaints of shortness of breath x 1 week with cough of white sputum with a sore throat. Mild elevation of Trop I evaluated by cardiology - Current Medication List Current Medications: Active Medications Albuterol/Ipratropium (Duoneb -) 1 amp NEB RQID [facility] Last Admin: 01/26/18 07:30 Dose: 1 amp Apixaban (Eliquis -) 5 mg PO BID [facility] Last Admin: 01/26/18 10:52 Dose: 5 mg Aspirin (Asa -) 81 mg PO DAILY [facility] Last Admin: 01/26/18 10:52 Dose: 81 mg Digoxin (Lanoxin -) 0.25 mg PO DAILY [facility] Last Admin: 01/26/18 11:01 Dose: 0.25 mg Diltiazem HCl (Cardizem -) 30 mg PO TID [facility] Last Admin: 01/26/18 06:38 Dose: 30 mg Docusate Sodium (Colace -) 100 mg PO TID [facility] Last Admin: 01/26/18 06:38 Dose: 100 mg Fluticasone Propionate (Flonase -) 1 spray NS BID [facility] Last Admin: 01/26/18 10:52 Dose: 1 inh Furosemide (Lasix -) 40 mg PO DAILY [facility] Last Admin: 01/26/18 10:53 Dose: 40 mg Azithromycin 500 mg/ Dextrose 250 mls @ 250 mls/hr IVPB DAILY [facility] Last Admin: 01/25/18 09:28 Dose: 250 mls/hr Melatonin (Melatonin) 5 mg PO HS PRN PRN Reason: INSOMNIA Last Admin: 01/25/18 22:16 Dose: 5 mg Methylprednisolone Sodium Succinate (Solu-Medrol -) 40 mg IVPUSH Q6H-IV [facility] Last Admin: 01/26/18 08:59 Dose: 40 mg Morphine Sulfate (Ms Contin -) 30 mg PO BID@0600,1800 [facility] Last Admin: 01/26/18 06:38 Dose: 30 mg Ranolazine (Ranexa -) 500 mg PO BID [facility] Last Admin: 01/26/18 10:54 Dose: 500 mg Rosuvastatin Calcium (Crestor -) 20 mg PO HS [facility] Last Admin: 01/25/18 21:27 Dose: 20 mg Senna (Senna -) 2 tab PO HS PRN PRN Reason: CONSTIPATION Last Admin: 01/24/18 21:10 Dose: 2 tab Tamsulosin HCl (Flomax -) 0.4 mg PO DAILY@0830 [facility] Last Admin: 01/26/18 08:59 Dose: 0.4 mg Thyroid ([place] Thyroid -) 60 mg PO DAILY@0700 [facility] Last Admin: 01/26/18 06:38 Dose: 60 mg - Objective Vital Signs: Vital Signs Temperature 97.7 F 01/26/18 06:00 Pulse Rate 94 H 01/26/18 11:01 Respiratory Rate 18 01/26/18 06:00 Blood Pressure 114/61 01/26/18 06:00 O2 Sat by Pulse Oximetry (%) 95 01/25/18 21:00 HEENT: Mm Moist, no anemia, PERRLA EOMI NECK: No JVd No Bruit CHEST: CTa B/L CVS; S1S2R ABD: Mild distention, non tender Bs + EXT: Trace adeline afeet, no calf tenderness 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 + 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 non foacl Labs: CBC, BMP 01/23/18 10:50 01/23/18 10:50 INR, PTT INR 1.49 (0.82-1.09) H 01/22/18 06:30 Problem List - Problems (1) Elevated troponin I level Assessment/Plan: H/O CAD S/P PCI no chest papain bryanna cute St t changes last NST -ve in 2016 normal EF evaluated by cardiology further ischemic W/U as out patient Code(s): R74.8 - ABNORMAL LEVELS OF OTHER SERUM ENZYMES (2) SOB (shortness of breath) Assessment/Plan: Most likely COPd exacerbaytyion in the setting of Bronchitis on Z pack Code(s): R06.02 - SHORTNESS OF BREATH (3) COPD (chronic obstructive pulmonary disease) Assessment/Plan: Stable cont all Home Meds Code(s): J44.9 - CHRONIC OBSTRUCTIVE PULMONARY DISEASE, UNSPECIFIED (4) Factor V deficiency Assessment/Plan: On Apaxiban H/O DVTs s/p IVC Filter Code(s): D68.2 - HEREDITARY DEFICIENCY OF OTHER CLOTTING FACTORS (5) SVT (supraventricular tachycardia) Assessment/Plan: Cont Digoxine Code(s): I47.1 - SUPRAVENTRICULAR TACHYCARDIA (6) Constipation Assessment/Plan: last BM 6 days ago no clinical sign of obstruction cont Home Laxative Code(s): K59.00 - CONSTIPATION, UNSPECIFIED (7) HTN (hypertension) Assessment/Plan: Well controlled Cont Home Meds Code(s): I10 - ESSENTIAL (PRIMARY) HYPERTENSION Qualifiers: Hypertension type: essential hypertension Qualified Code(s): I10 - Essential (primary) hypertension (8) Hypothyroid Code(s): E03.9 - HYPOTHYROIDISM, UNSPECIFIED Qualifiers: Hypothyroidism type: due to acquired atrophy of thyroid Qualified Code(s): E03.4 - Atrophy of thyroid (acquired)
--- NOTE | 2018-01-26 12:06 | PN ---
Progress Note, Physician History of Present Illness: stable no new issues c/o of bowel movement not happening - Current Medication List Current Medications: Active Medications Albuterol/Ipratropium (Duoneb -) 1 amp NEB RQID [facility] Last Admin: 01/26/18 11:05 Dose: 1 amp Apixaban (Eliquis -) 5 mg PO BID [facility] Last Admin: 01/26/18 10:52 Dose: 5 mg Aspirin (Asa -) 81 mg PO DAILY [facility] Last Admin: 01/26/18 10:52 Dose: 81 mg Digoxin (Lanoxin -) 0.25 mg PO DAILY [facility] Last Admin: 01/26/18 11:01 Dose: 0.25 mg Diltiazem HCl (Cardizem -) 30 mg PO TID [facility] Last Admin: 01/26/18 06:38 Dose: 30 mg Docusate Sodium (Colace -) 100 mg PO TID [facility] Last Admin: 01/26/18 06:38 Dose: 100 mg Fluticasone Propionate (Flonase -) 1 spray NS BID [facility] Last Admin: 01/26/18 10:52 Dose: 1 inh Furosemide (Lasix -) 40 mg PO DAILY [facility] Last Admin: 01/26/18 10:53 Dose: 40 mg Azithromycin 500 mg/ Dextrose 250 mls @ 250 mls/hr IVPB DAILY [facility] Last Admin: 01/25/18 09:28 Dose: 250 mls/hr Melatonin (Melatonin) 5 mg PO HS PRN PRN Reason: INSOMNIA Last Admin: 01/25/18 22:16 Dose: 5 mg Methylprednisolone Sodium Succinate (Solu-Medrol -) 40 mg IVPUSH Q6H-IV [facility] Last Admin: 01/26/18 08:59 Dose: 40 mg Morphine Sulfate (Ms Contin -) 30 mg PO BID@0600,1800 [facility] Last Admin: 01/26/18 06:38 Dose: 30 mg Non-Formulary Medication (Naloxegol Oxalate [Movantik]) 25 mg PO DAILY [facility] Ranolazine (Ranexa -) 500 mg PO BID [facility] Last Admin: 01/26/18 10:54 Dose: 500 mg Rosuvastatin Calcium (Crestor -) 20 mg PO HS [facility] Last Admin: 01/25/18 21:27 Dose: 20 mg Senna (Senna -) 2 tab PO HS PRN PRN Reason: CONSTIPATION Last Admin: 01/24/18 21:10 Dose: 2 tab Tamsulosin HCl (Flomax -) 0.4 mg PO DAILY@0830 [facility] Last Admin: 01/26/18 08:59 Dose: 0.4 mg Thyroid ([place] Thyroid -) 60 mg PO DAILY@0700 [facility] Last Admin: 01/26/18 06:38 Dose: 60 mg - Objective Vital Signs: Vital Signs Temperature 97.7 F 01/26/18 06:00 Pulse Rate 94 H 01/26/18 11:01 Respiratory Rate 01/26/18 06:00 Blood Pressure 114/61 01/26/18 06:00 O2 Sat by Pulse Oximetry (%) 95 01/25/18 21:00 Constitutional: Yes: No Distress, Calm Cardiovascular: Yes: Regular Rate and Rhythm Respiratory: Yes: Regular, CTA Bilaterally Gastrointestinal: Yes: Normal Bowel Sounds, Soft Musculoskeletal: Yes: WNL Extremities: Yes: WNL Neurological: Yes: Alert, Oriented Psychiatric: Yes: Alert Labs: CBC, BMP 01/23/18 10:50 01/23/18 10:50 INR, PTT INR 1.49 (0.82-1.09) H 01/22/18 06:30 Assessment/Plan dyspnea ll infiltrate prostate ca htn hld gm positive bacteremia repeat blood cx negative plan continue current mgmt continue monitoring rest as per primary
--- NOTE | 2018-01-26 13:01 | PN ---
Progress Note, Physician History of Present Illness: pulmonary alert,feeling better,oob-chair,less dyspneic - Current Medication List Current Medications: Active Medications Albuterol/Ipratropium (Duoneb -) 1 amp NEB RQID [facility] Last Admin: 01/26/18 11:05 Dose: 1 amp Apixaban (Eliquis -) 5 mg PO BID [facility] Last Admin: 01/26/18 10:52 Dose: 5 mg Aspirin (Asa -) 81 mg PO DAILY [facility] Last Admin: 01/26/18 10:52 Dose: 81 mg Digoxin (Lanoxin -) 0.25 mg PO DAILY [facility] Last Admin: 01/26/18 11:01 Dose: 0.25 mg Diltiazem HCl (Cardizem -) 30 mg PO TID [facility] Last Admin: 01/26/18 06:38 Dose: 30 mg Docusate Sodium (Colace -) 100 mg PO TID [facility] Last Admin: 01/26/18 06:38 Dose: 100 mg Fluticasone Propionate (Flonase -) 1 spray NS BID [facility] Last Admin: 01/26/18 10:52 Dose: 1 inh Furosemide (Lasix -) 40 mg PO DAILY [facility] Last Admin: 01/26/18 10:53 Dose: 40 mg Azithromycin 500 mg/ Dextrose 250 mls @ 250 mls/hr IVPB DAILY [facility] Last Admin: 01/25/18 09:28 Dose: 250 mls/hr Melatonin (Melatonin) 5 mg PO HS PRN PRN Reason: INSOMNIA Last Admin: 01/25/18 22:16 Dose: 5 mg Methylprednisolone Sodium Succinate (Solu-Medrol -) 40 mg IVPUSH Q6H-IV [facility] Last Admin: 01/26/18 08:59 Dose: 40 mg Morphine Sulfate (Ms Contin -) 30 mg PO BID@0600,1800 [facility] Last Admin: 01/26/18 06:38 Dose: 30 mg Non-Formulary Medication (Naloxegol Oxalate [Movantik]) 25 mg PO DAILY [facility] Ranolazine (Ranexa -) 500 mg PO BID [facility] Last Admin: 01/26/18 10:54 Dose: 500 mg Rosuvastatin Calcium (Crestor -) 20 mg PO HS [facility] Last Admin: 01/25/18 21:27 Dose: 20 mg Senna (Senna -) 2 tab PO HS PRN PRN Reason: CONSTIPATION Last Admin: 01/24/18 21:10 Dose: 2 tab Tamsulosin HCl (Flomax -) 0.4 mg PO DAILY@0830 [facility] Last Admin: 01/26/18 08:59 Dose: 0.4 mg Thyroid ([place] Thyroid -) 60 mg PO DAILY@0700 [facility] Last Admin: 01/26/18 06:38 Dose: 60 mg - Objective Vital Signs: Vital Signs Temperature 98 F 01/26/18 10:00 Pulse Rate 94 H 01/26/18 11:01 Respiratory Rate 18 01/26/18 10:00 Blood Pressure 119/60 01/26/18 10:00 O2 Sat by Pulse Oximetry (%) 95 01/25/18 21:00 Constitutional: Yes: Well Nourished, Calm Eyes: Yes: WNL HENT: Yes: WNL Neck: Yes: WNL Cardiovascular: Yes: Regular Rate and Rhythm, S1, S2 Respiratory: Yes: Rales (bilateral crackles1/3 up) Gastrointestinal: Yes: Normal Bowel Sounds, Soft Extremities: Yes: WNL Edema: No Labs: CBC, BMP Assessment/Plan IMP DYSPNEA IMPROVING COPD EXACERBATION IMPROVING CHF ? LLL INFILTRATE FACTOR V LEIDEN H/O DVT/PE ILD H/O CVA + TROPONINS PROSTATE CA HLD HTN PLAN O2 STEROID TAPER ABX LASIX F/U CHEST X-RAYS DR CASTELLON
[2018-01-26] MEDS: AZITHROMYCIN IVPB 500 MG in DEXTROSE 5%-WATER - 250 ML IVPB SCH (13:03)
[2018-01-26] MEDS ORDERED: HYDROmorphone HCL 2 MG TABLET PO ONE (19:56)
[2018-01-26] MEDS: SENNOSIDES 8.6MG TABLET (FP) PO PRN (21:13)
[2018-01-26] MEDS: ROSUVASTATIN CA 20 MG TABLET (FP) PO SCH (21:17)
[2018-01-26] MEDS: MELATONIN 5 MG TABLETS PO PRN (21:18)
[2018-01-27] MEDS: methylPREDNISolone NA SUCC 40 MG/1 ML VIAL IVPUSH SCH ×3 (01:23→18:29)
[2018-01-27] MEDS ORDERED: HYDROmorphone HCL 2 MG TABLET PO ONE (04:00)
[2018-01-27] MEDS: THYROID 60 MG TABLET PO SCH (06:05)
[2018-01-27] MEDS: DOCUSATE SODIUM 100 MG CAPSULE (FP) PO SCH ×4 (07:05→21:32)
[2018-01-27] MEDS: dilTIAZem HCL 30 MG TABLET (FP) PO SCH ×4 (07:05→21:32)
[2018-01-27] MEDS: morphine SO4 SUSTAINED ACTING 30 MG TABLET.SA PO SCH ×2 (07:05→18:30)
[2018-01-27 07:29] LABS: BASO % 0.1 % (0-2.0); HEMATOCRIT 38.1 % (35.4-49); HEMOGLOBIN 12.9 GM/dL (11.7-16.9); LYMPH % 4.6 % (8-40); MCH 31.9 pg (25.7-33.7); MCHC 33.8 g/dl (32.0-35.9); MEAN CELL VOLUME 94.4 fl (80-96); MEAN PLT VOLUME 7.9 fl (7.5-11.1); MONO % 4.7 % (3.8-10.2); NEUT % 90.6 % (42.8-82.8); PLATELET COUNT 194 K/MM3 (134-434); RBC 4.04 M/mm3 (4.00-5.60); RDW 14.3 % (11.9-15.9)
[2018-01-27 08:26] LABS: ANION GAP 8 (8-16); BLOOD UREA NITROGEN 22 mg/dL (7-18); CALCIUM 7.3 mg/dL (8.5-10.1); CHLORIDE 103 mmol/L (98-107); CO2 30 mmol/L (21-32); GLUCOSE,RANDOM 117 mg/dL (74-106); POTASSIUM 3.5 mmol/L (3.5-5.1); SODIUM 141 mmol/L (136-145)
[2018-01-27 08:27] LABS: CREATININE 1.1 mg/dL (0.7-1.3)
[2018-01-27] MEDS: TAMSULOSIN HCL 0.4 MG CAP.ER.24H (FP) PO SCH (08:59)
[2018-01-27] MEDS ORDERED: PT OWN MED DRAWER 7, Y5N ONE ×3 (10:27→15:04)
[2018-01-27] MEDS: ASPIRIN 81 MG CHEWABLE TABLETS PO SCH (10:35)
[2018-01-27] MEDS: RANOLAZINE E.R. 500 MG TABLET (FP) PO SCH ×2 (10:35→21:32)
[2018-01-27] MEDS: FLUTICASONE PROP 0.05% 16 GM NASAL SPRAY NS SCH ×2 (10:35→21:33)
[2018-01-27] MEDS: FUROSEMIDE 40 MG TABLET (FP) PO SCH (10:35)
[2018-01-27] MEDS: APIXABAN 5 MG TABLET PO SCH ×2 (10:36→21:32)
[2018-01-27] MEDS: DIGOXIN 0.25 MG TABLET (FP) PO SCH (10:42)
[2018-01-27] MEDS: AZITHROMYCIN IVPB 500 MG in DEXTROSE 5%-WATER - 250 ML IVPB SCH (10:47)
--- NOTE | 2018-01-27 12:13 | PN ---
Progress Note, Physician Chief Complaint: comfortable c/o abd pain asking to resume home meds History of Present Illness: 77 year old male with a significant past medical history of CVA, CAD s/p stents x 2, factor V leiden, diverticulitis, DVT (on Elliquis 5mg BID), GERD, kidney stones, PR, hypertension and COPD (home oxygen dependent) He presents to the ED today with complaints of shortness of breath x 1 week with cough of white sputum with a sore throat. Mild elevation of Trop I evaluated by cardiology - Current Medication List Current Medications: Active Medications Apixaban (Eliquis -) 5 mg PO BID [facility] Last Admin: 01/27/18 10:36 Dose: 5 mg Aspirin (Asa -) 81 mg PO DAILY [facility] Last Admin: 01/27/18 10:35 Dose: 81 mg Digoxin (Lanoxin -) 0.25 mg PO DAILY [facility] Last Admin: 01/27/18 10:42 Dose: 0.25 mg Diltiazem HCl (Cardizem -) 30 mg PO TID [facility] Last Admin: 01/27/18 07:05 Dose: 30 mg Docusate Sodium (Colace -) 100 mg PO TID [facility] Last Admin: 01/27/18 07:05 Dose: 100 mg Fluticasone Propionate (Flonase -) 1 spray NS BID [facility] Last Admin: 01/26/18 21:15 Dose: 1 inh Furosemide (Lasix -) 40 mg PO DAILY [facility] Last Admin: 01/27/18 10:35 Dose: 40 mg Azithromycin 500 mg/ Dextrose 250 mls @ 250 mls/hr IVPB DAILY [facility] Last Admin: 01/27/18 10:47 Dose: 250 mls/hr Melatonin (Melatonin) 5 mg PO HS PRN PRN Reason: INSOMNIA Last Admin: 01/26/18 21:18 Dose: 5 mg Methylprednisolone Sodium Succinate (Solu-Medrol -) 40 mg IVPUSH Q8H-IV [facility] Last Admin: 01/27/18 10:35 Dose: 40 mg Morphine Sulfate (Ms Contin -) 30 mg PO BID@0600,1800 [facility] Last Admin: 01/27/18 07:05 Dose: 30 mg Non-Formulary Medication (Naloxegol Oxalate [Movantik]) 25 mg PO DAILY [facility] Ranolazine (Ranexa -) 500 mg PO BID [facility] Last Admin: 01/27/18 10:35 Dose: 500 mg Rosuvastatin Calcium (Crestor -) 20 mg PO HS [facility] Last Admin: 01/26/18 21:17 Dose: Not Given Senna (Senna -) 2 tab PO HS PRN PRN Reason: CONSTIPATION Last Admin: 01/26/18 21:13 Dose: 2 tab Tamsulosin HCl (Flomax -) 0.4 mg PO DAILY@0830 [facility] Last Admin: 01/27/18 08:59 Dose: 0.4 mg Thyroid ([place] Thyroid -) 60 mg PO DAILY@0700 [facility] Last Admin: 01/27/18 06:05 Dose: 60 mg - Objective Vital Signs: Vital Signs Temperature 97.6 F 01/27/18 10:30 Pulse Rate 83 01/27/18 10:42 Respiratory Rate 24 01/27/18 10:30 Blood Pressure 114/66 01/27/18 10:30 O2 Sat by Pulse Oximetry (%) 99 01/26/18 21:00 Constitutional: Yes: No Distress, Calm, Anxious HENT: Yes: Atraumatic, Normocephalic, Nasal Congestion. No: Epistaxis Neck: Yes: Supple, Trachea Midline. No: Lymphadenopathy Cardiovascular: Yes: Regular Rate and Rhythm, S1, S2. No: Bruit, JVD, Gallop Respiratory: Yes: Regular, CTA Bilaterally Gastrointestinal: Yes: Normal Bowel Sounds, Tenderness Musculoskeletal: Yes: Back Pain. No: Joint Swelling, Muscle Pain Extremities: No: Calf Tenderness Edema: Yes Edema: LLE: Trace, RLE: Trace Peripheral Pulses WNL: Yes Peripheral Pulses: Left Doralis Pedis: 1+, Right Dorsalis Pedis: 1+ Neurological: Yes: Alert, Oriented. No: Aphasia ...Motor Strength: WNL, LUE, LLE, RUE, RLE Labs: CBC, BMP 01/27/18 07:05 01/27/18 07:05 INR, PTT INR 1.49 (0.82-1.09) H 01/22/18 06:30 Problem List - Problems (1) Elevated troponin I level Assessment/Plan: H/O CAD S/P PCI no chest papain bryanna cute St t changes last NST -ve in 2016 normal EF evaluated by cardiology further ischemic W/U as out patient Code(s): R74.8 - ABNORMAL LEVELS OF OTHER SERUM ENZYMES (2) SOB (shortness of breath) Assessment/Plan: Most likely COPd exacerbaytyion in the setting of Bronchitis on Z pack Code(s): R06.02 - SHORTNESS OF BREATH (3) COPD (chronic obstructive pulmonary disease) Assessment/Plan: Stable cont all Home Meds Code(s): J44.9 - CHRONIC OBSTRUCTIVE PULMONARY DISEASE, UNSPECIFIED (4) Factor V deficiency Assessment/Plan: On Apaxiban H/O DVTs s/p IVC Filter Code(s): D68.2 - HEREDITARY DEFICIENCY OF OTHER CLOTTING FACTORS (5) SVT (supraventricular tachycardia) Assessment/Plan: Cont Digoxine Code(s): I47.1 - SUPRAVENTRICULAR TACHYCARDIA (6) Constipation Assessment/Plan: last BM 6 days ago no clinical sign of obstruction cont Home Laxative Code(s): K59.00 - CONSTIPATION, UNSPECIFIED (7) HTN (hypertension) Assessment/Plan: Well controlled Cont Home Meds Code(s): I10 - ESSENTIAL (PRIMARY) HYPERTENSION Qualifiers: Hypertension type: essential hypertension Qualified Code(s): I10 - Essential (primary) hypertension (8) Hypothyroid Assessment/Plan: Cont armur thyroid Code(s): E03.9 - HYPOTHYROIDISM, UNSPECIFIED Qualifiers: Hypothyroidism type: due to acquired atrophy of thyroid Qualified Code(s): E03.4 - Atrophy of thyroid (acquired)
[2018-01-27] MEDS: PANTOPRAZOLE 40 MG TABLET (FP) PO SCH (13:09)
--- NOTE | 2018-01-27 13:32 | PN ---
Progress Note, Physician History of Present Illness: PULMONARY ALERT,NAD ,DYSPNEA IMPROVING - Current Medication List Current Medications: Active Medications Apixaban (Eliquis -) 5 mg PO BID [facility] Last Admin: 01/27/18 10:36 Dose: 5 mg Aspirin (Asa -) 81 mg PO DAILY [facility] Last Admin: 01/27/18 10:35 Dose: 81 mg Digoxin (Lanoxin -) 0.25 mg PO DAILY [facility] Last Admin: 01/27/18 10:42 Dose: 0.25 mg Diltiazem HCl (Cardizem -) 30 mg PO TID [facility] Last Admin: 01/27/18 07:05 Dose: 30 mg Docusate Sodium (Colace -) 100 mg PO TID [facility] Last Admin: 01/27/18 07:05 Dose: 100 mg Fluticasone Propionate (Flonase -) 1 spray NS BID [facility] Last Admin: 01/26/18 21:15 Dose: 1 inh Furosemide (Lasix -) 40 mg PO DAILY [facility] Last Admin: 01/27/18 10:35 Dose: 40 mg Hydromorphone HCl (Dilaudid -) 8 mg PO Q8H PRN PRN Reason: PAIN LEVEL 7 - 10 Azithromycin 500 mg/ Dextrose 250 mls @ 250 mls/hr IVPB DAILY [facility] Last Admin: 01/27/18 10:47 Dose: 250 mls/hr Melatonin (Melatonin) 5 mg PO HS PRN PRN Reason: INSOMNIA Last Admin: 01/26/18 21:18 Dose: 5 mg Methylprednisolone Sodium Succinate (Solu-Medrol -) 40 mg IVPUSH Q8H-IV [facility] Last Admin: 01/27/18 10:35 Dose: 40 mg Morphine Sulfate (Ms Contin -) 30 mg PO BID@0600,1800 [facility] Last Admin: 01/27/18 07:05 Dose: 30 mg Non-Formulary Medication (Naloxegol Oxalate [Movantik]) 25 mg PO DAILY [facility] Last Admin: 01/27/18 13:09 Dose: 25 mg Pantoprazole Sodium (Protonix -) 40 mg PO DAILY [facility] Last Admin: 01/27/18 13:09 Dose: 40 mg Ranolazine (Ranexa -) 500 mg PO BID [facility] Last Admin: 01/27/18 10:35 Dose: 500 mg Rosuvastatin Calcium (Crestor -) 20 mg PO HS [facility] Last Admin: 01/26/18 21:17 Dose: Not Given Senna (Senna -) 2 tab PO HS PRN PRN Reason: CONSTIPATION Last Admin: 01/26/18 21:13 Dose: 2 tab Tamsulosin HCl (Flomax -) 0.4 mg PO DAILY@0830 [facility] Last Admin: 01/27/18 08:59 Dose: 0.4 mg Thyroid ([place] Thyroid -) 60 mg PO DAILY@0700 [facility] Last Admin: 01/27/18 06:05 Dose: 60 mg - Objective Vital Signs: Vital Signs Temperature 97.6 F 01/27/18 10:30 Pulse Rate 83 01/27/18 10:42 Respiratory Rate 24 01/27/18 10:30 Blood Pressure 114/66 01/27/18 10:30 O2 Sat by Pulse Oximetry (%) 98 01/27/18 10:05 Constitutional: Yes: Well Nourished, Calm Eyes: Yes: WNL, Occular Prosthesis Neck: Yes: WNL Cardiovascular: Yes: Regular Rate and Rhythm, S1, S2 Respiratory: Yes: Rales (BIBASILAR CRACKLES) Gastrointestinal: Yes: Normal Bowel Sounds, Soft Extremities: Yes: WNL Edema: No Labs: CBC, BMP 01/27/18 07:05 01/27/18 07:05 INR, PTT INR 1.49 (0.82-1.09) H 01/22/18 06:30 Assessment/Plan IMP DYSPNEA IMPROVING COPD EXACERBATION IMPROVING CHF ? LLL INFILTRATE FACTOR V LEIDEN H/O DVT/PE ILD H/O CVA + TROPONINS PROSTATE CA HLD HTN PLAN O2 STEROID TAPER ABX PER ID VIRGIE F/U CHEST X-RAYS DR CASTELLON
[2018-01-27] MEDS: PATIENT'S OWN MEDICATION (NON-FORMULARY) (Naloxegol Oxalate [Movantik] 25 MG) PO SCH (14:51)
--- NOTE | 2018-01-27 15:39 | PN ---
Progress Note, Physician History of Present Illness: patient stable no issues breathing well - Current Medication List Current Medications: Active Medications Apixaban (Eliquis -) 5 mg PO BID [facility] Last Admin: 01/27/18 10:36 Dose: 5 mg Aspirin (Asa -) 81 mg PO DAILY [facility] Last Admin: 01/27/18 10:35 Dose: 81 mg Digoxin (Lanoxin -) 0.25 mg PO DAILY [facility] Last Admin: 01/27/18 10:42 Dose: 0.25 mg Diltiazem HCl (Cardizem -) 30 mg PO TID [facility] Last Admin: 01/27/18 07:05 Dose: 30 mg Docusate Sodium (Colace -) 100 mg PO TID [facility] Last Admin: 01/27/18 07:05 Dose: 100 mg Fluticasone Propionate (Flonase -) 1 spray NS BID [facility] Last Admin: 01/26/18 21:15 Dose: 1 inh Furosemide (Lasix -) 40 mg PO DAILY [facility] Last Admin: 01/27/18 10:35 Dose: 40 mg Hydromorphone HCl (Dilaudid -) 8 mg PO Q8H PRN PRN Reason: PAIN LEVEL 7 - 10 Melatonin (Melatonin) 5 mg PO HS PRN PRN Reason: INSOMNIA Last Admin: 01/26/18 21:18 Dose: 5 mg Methylprednisolone Sodium Succinate (Solu-Medrol -) 40 mg IVPUSH Q8H-IV [facility] Last Admin: 01/27/18 10:35 Dose: 40 mg Morphine Sulfate (Ms Contin -) 30 mg PO BID@0600,1800 [facility] Last Admin: 01/27/18 07:05 Dose: 30 mg Non-Formulary Medication (Naloxegol Oxalate [Movantik]) 25 mg PO DAILY [facility] Last Admin: 01/27/18 14:51 Dose: 25 mg Pantoprazole Sodium (Protonix -) 40 mg PO DAILY [facility] Last Admin: 01/27/18 13:09 Dose: 40 mg Ranolazine (Ranexa -) 500 mg PO BID [facility] Last Admin: 01/27/18 10:35 Dose: 500 mg Rosuvastatin Calcium (Crestor -) 20 mg PO HS [facility] Last Admin: 01/26/18 21:17 Dose: Not Given Senna (Senna -) 2 tab PO HS PRN PRN Reason: CONSTIPATION Last Admin: 01/26/18 21:13 Dose: 2 tab Tamsulosin HCl (Flomax -) 0.4 mg PO DAILY@0830 [facility] Last Admin: 01/27/18 08:59 Dose: 0.4 mg Thyroid ([place] Thyroid -) 60 mg PO DAILY@0700 [facility] Last Admin: 01/27/18 06:05 Dose: 60 mg - Objective Vital Signs: Vital Signs Temperature 97.6 F 01/27/18 14:47 Pulse Rate 87 01/27/18 14:47 Respiratory Rate 20 01/27/18 14:47 Blood Pressure 133/63 01/27/18 14:47 O2 Sat by Pulse Oximetry (%) 98 01/27/18 10:05 Constitutional: Yes: No Distress, Calm Cardiovascular: Yes: Regular Rate and Rhythm Respiratory: Yes: Regular, CTA Bilaterally Gastrointestinal: Yes: Normal Bowel Sounds, Soft Musculoskeletal: Yes: WNL Extremities: Yes: WNL Neurological: Yes: Alert, Oriented Psychiatric: Yes: Alert, Oriented Labs: CBC, BMP 01/27/18 07:05 01/27/18 07:05 INR, PTT INR 1.49 (0.82-1.09) H 01/22/18 06:30 Assessment/Plan dyspnea ll infiltrate prostate ca htn hld gm positive bacteremia repeat blood cx negative plan continue current mgmt continue monitoring' rest as per primary team stopped zithro
--- NOTE | 2018-01-27 17:24 | PN ---
Progress Note (short form) - Note Progress Note: CC: sob S: still with sob today, not yet at baseline. no cp palps dizzy Current Medications Apixaban (Eliquis -) 5 mg PO BID [facility] Last Admin: 01/27/18 10:36 Dose: 5 mg Aspirin (Asa -) 81 mg PO DAILY [facility] Last Admin: 01/27/18 10:35 Dose: 81 mg Digoxin (Lanoxin -) 0.25 mg PO DAILY [facility] Last Admin: 01/27/18 10:42 Dose: 0.25 mg Diltiazem HCl (Cardizem -) 30 mg PO TID [facility] Last Admin: 01/27/18 15:50 Dose: 30 mg Docusate Sodium (Colace -) 100 mg PO TID [facility] Last Admin: 01/27/18 15:50 Dose: 100 mg Fluticasone Propionate (Flonase -) 1 spray NS BID [facility] Last Admin: 01/27/18 10:35 Dose: 1 inh Furosemide (Lasix -) 40 mg PO DAILY [facility] Last Admin: 01/27/18 10:35 Dose: 40 mg Hydromorphone HCl (Dilaudid -) 8 mg PO Q8H PRN PRN Reason: PAIN LEVEL 7 - 10 Melatonin (Melatonin) 5 mg PO HS PRN PRN Reason: INSOMNIA Last Admin: 01/26/18 21:18 Dose: 5 mg Methylprednisolone Sodium Succinate (Solu-Medrol -) 40 mg IVPUSH Q8H-IV [facility] Last Admin: 01/27/18 10:35 Dose: 40 mg Morphine Sulfate (Ms Contin -) 30 mg PO BID@0600,1800 [facility] Last Admin: 01/27/18 07:05 Dose: 30 mg Non-Formulary Medication (Naloxegol Oxalate [Movantik]) 25 mg PO DAILY [facility] Last Admin: 01/27/18 14:51 Dose: 25 mg Pantoprazole Sodium (Protonix -) 40 mg PO DAILY [facility] Last Admin: 01/27/18 13:09 Dose: 40 mg Potassium Chloride (K-Dur -) 40 meq PO ONCE ONE Stop: 01/27/18 17:22 Ranolazine (Ranexa -) 500 mg PO BID [facility] Last Admin: 01/27/18 10:35 Dose: 500 mg Rosuvastatin Calcium (Crestor -) 20 mg PO HS [facility] Last Admin: 01/26/18 21:17 Dose: Not Given Senna (Senna -) 2 tab PO HS PRN PRN Reason: CONSTIPATION Last Admin: 01/26/18 21:13 Dose: 2 tab Tamsulosin HCl (Flomax -) 0.4 mg PO DAILY@0830 [facility] Last Admin: 01/27/18 08:59 Dose: 0.4 mg Thyroid ([place] Thyroid -) 60 mg PO DAILY@0700 [facility] Last Admin: 01/27/18 06:05 Dose: 60 mg Vital Signs - 24 hr 01/26/18 01/26/18 01/26/18 18:00 21:00 21:05 Temperature 97.6 F 98.2 F Pulse Rate 91 H 80 Respiratory 20 20 Rate Blood Pressure 139/59 133/73 O2 Sat by Pulse 99 Oximetry (%) 01/27/18 01/27/18 01/27/18 01:00 06:00 10:05 Temperature 98.0 F 98.1 F Pulse Rate 80 65 Respiratory 20 20 Rate Blood Pressure 112/56 118/66 O2 Sat by Pulse 98 Oximetry (%) 01/27/18 01/27/18 01/27/18 10:30 10:42 14:47 Temperature 97.6 F 97.6 F Pulse Rate 81 83 87 Respiratory 24 20 Rate Blood Pressure 114/66 133/63 O2 Sat by Pulse Oximetry (%) 01/27/18 15:45 Temperature Pulse Rate 98 H Respiratory 20 Rate Blood Pressure 150/75 O2 Sat by Pulse Oximetry (%) Intake & Output 01/25/18 01/26/18 01/27/18 01/28/18 06:59 06:59 07:59 07:59 Intake Total 1190 Output Total Balance 1190 nad, calm jvd tds but does not appear elevated. rrr s1s2 no mrg bibasilar dry rales. nl effort aaox3 1+ le edema, no c/c abd nt nd pos bs no jaundice diaphoresis CBC, BMP 01/27/18 07:05 01/27/18 07:05 ecg: sr, non-specific t wave abnormalities - similar to priors. no acute ischemic changes. 01/15/18 ekg [facility]: SVT, [address] abnormalities/STD ct scan here, images and report reviewed. + ild, severe calcification of cors. see emr for detailed report cxr: scarring vs. left early lobe infiltrate. 01/22 cxr: slightly better aeration at left base. apical pleural thickening. PFTs [facility] 12/2017: moderate restrictive defect with mild decrease in diffusion capacity. CTA chest [facility] 12/2017: suboptimal opacification of pulmonary arterial tree limiting evaluation. curvilinear filling defect in segmental branch of RLL similar to 2015 cta - may reflect chronic PE. No acute PE. + aortic atherosclerosis. prominent calcification of cors. low lung volumes. peripheral/basilar reticular opacities, honeycombing and traction bronchiectasis within bilateral lower lobes. scattered atelectasis/scarring. RML nodule. mediastinal LAD, somewhat similar to 2015 CT. LE dopplers 12/2017: B LE DVT's Echo 12/2017: tds. mild LVE. nl lv fn. EF 60-65%. nl rv size/fn. small pericardial effusion. Echo here 01/2018: tds. no pericardial effusion. echo 03/2016: suboptimal views. EF 50-55%. Impaired relaxation. Nl RV ( suboptimal views). Nl valves. Mild ao dilation 3.8 cm with laminar atherosclerotic plaque. pharm stress 2016: No sx's. No ischemic ekg changes. Small subtle inferolateral ischemia. EF 57%. A/P 77 yo m hx of CAD with multiple stents (last cath was 11/2011 at [facility] [place]: le to om1 , residual dz: 40%pLCX, 50%pLAD, 60%mLAD, 80%D1, 40%pRCA), htn, hld, chronic atypical cp, copd, cva (, /residual left sided weakness), Factor 5 leiden/ PE/DVT S/P IVC Filter(2002) on eliquis, gerd, gastroparesis, BPH, Prostate Ca, hypothyroid, Chronic Pain Syndrome, Anxiety, OA here with sob CAD with prior pci (last 2011)/Trop elevation/NSTEMI - persistent elevation with flat trend. EKG without acute ischemic changes. - reviewed [facility] records. initial trop not elevated. had episode of SVT to 180' s on 01/15, subsequent trops not drawn. Current elevation in troponin has overall flat trend with nl CK. Likely had troponin lead at that time and now with residual elevation. ddx. myopericarditis (crp elevated). echo here tds. - low suspicion for acute ACS here as mentioned, but added ASA for underlying CAD/demand ischemia (also on eliquis). Will likely need ischemic evaluation for risk stratification once acute issues resolve. - con't statin. sob - no signs of acute diastolic hf exacerbation. resumed home po lasix. 01/27 LE edema appears slightly worsened, will monitor weight to assess whether dose needs to be uptitrated. - ischemic evaluation as above. - infectious work up per pmd/ID. SVT - Episode of SVT up to 180's on [facility] admit 01/15/2018. Cr at the time had peak of 1.75. CRP at the time 27.4. Troponins prior to episode and at time of episode were negative, but no trops drawn after episode. - per patient was started on diltiazem and digoxin (pt has new meds with him here). prior toprol was not continued. - 01/27: stable HR,con't current meds, will repeat dig level. Bilateral DVT - recent CTA at [facility] with no evidence of acute PE. has h/o factor V leiden. con 't eliquis.
[2018-01-27] MEDS ORDERED: POTASSIUM CHLORIDE TABS 20 MEQ TABLET.ER (FP) PO ONE (17:45)
[2018-01-27] MEDS: SENNOSIDES 8.6MG TABLET (FP) PO PRN (21:32)
[2018-01-27] MEDS: ROSUVASTATIN CA 20 MG TABLET (FP) PO SCH (21:33)
[2018-01-28] MEDS: methylPREDNISolone NA SUCC 40 MG/1 ML VIAL IVPUSH SCH ×2 (02:10→09:34)
[2018-01-28] MEDS: PATIENT'S OWN MEDICATION (NON-FORMULARY) (Naloxegol Oxalate [Movantik] 25 MG) PO SCH ×2 (05:01→09:34)
[2018-01-28] MEDS: DOCUSATE SODIUM 100 MG CAPSULE (FP) PO SCH ×2 (06:20→13:17)
[2018-01-28] MEDS: THYROID 60 MG TABLET PO SCH (06:20)
[2018-01-28] MEDS: morphine SO4 SUSTAINED ACTING 30 MG TABLET.SA PO SCH ×2 (06:21→07:04)
[2018-01-28] MEDS: dilTIAZem HCL 30 MG TABLET (FP) PO SCH ×2 (06:21→13:17)
[2018-01-28 08:16] LABS: ANION GAP 12 (8-16); BLOOD UREA NITROGEN 21 mg/dL (7-18); CALCIUM 7.8 mg/dL (8.5-10.1); CHLORIDE 103 mmol/L (98-107); CO2 25 mmol/L (21-32); GLUCOSE,RANDOM 130 mg/dL (74-106); POTASSIUM 3.4 mmol/L (3.5-5.1); SODIUM 140 mmol/L (136-145)
[2018-01-28] MEDS: TAMSULOSIN HCL 0.4 MG CAP.ER.24H (FP) PO SCH (08:22)
--- NOTE | 2018-01-28 09:05 | PN ---
Progress Note, Physician Chief Complaint: sob History of Present Illness: very angry that i have not yet seen him personally since he was admitted. once he calms down, he states: 1) intermittent wheezing chronically at home, can't say if worse of late 2) sob acute on chronic is significantly improved here with ongoing copd tx 3) at times has burning in chest, at times other type of cp/heaviness--cannot say if any is his prior anginal sx (cannot recall), and whether both sx's are his usual GERD sx. thinks both of these cp sx's are longstanding and stable, but not sure 4) complying with repatha at home, no s.e.; continues to have worse acid reflux pains when takes the crestor (as with other statins, per pt) 5) no palpitations (including at time of SVT in [place]) 6) intermitten leg swelling at home stable vs his baseline; has not been complying with rx'd lasix no cigs - Current Medication List Current Medications: Active Medications Apixaban (Eliquis -) 5 mg PO BID [facility] Last Admin: 01/27/18 21:32 Dose: 5 mg Aspirin (Asa -) 81 mg PO DAILY [facility] Last Admin: 01/27/18 10:35 Dose: 81 mg Digoxin (Lanoxin -) 0.25 mg PO DAILY [facility] Last Admin: 01/27/18 10:42 Dose: 0.25 mg Diltiazem HCl (Cardizem -) 30 mg PO TID [facility] Last Admin: 01/28/18 06:21 Dose: 30 mg Docusate Sodium (Colace -) 100 mg PO TID [facility] Last Admin: 01/28/18 06:20 Dose: 100 mg Fluticasone Propionate (Flonase -) 1 spray NS BID [facility] Last Admin: 01/27/18 21:33 Dose: 1 inh Furosemide (Lasix -) 40 mg PO DAILY [facility] Last Admin: 01/27/18 10:35 Dose: 40 mg Hydromorphone HCl (Dilaudid -) 8 mg PO Q8H PRN PRN Reason: PAIN LEVEL 7 - 10 Melatonin (Melatonin) 5 mg PO HS PRN PRN Reason: INSOMNIA Last Admin: 01/26/18 21:18 Dose: 5 mg Methylprednisolone Sodium Succinate (Solu-Medrol -) 40 mg IVPUSH Q8H-IV [facility] Last Admin: 01/28/18 02:10 Dose: 40 mg Morphine Sulfate (Ms Contin -) 30 mg PO BID@0600,1800 [facility] Last Admin: 01/28/18 07:04 Dose: Not Given Non-Formulary Medication (Naloxegol Oxalate [Movantik]) 25 mg PO DAILY [facility] Last Admin: 01/28/18 05:01 Dose: 25 mg Pantoprazole Sodium (Protonix -) 40 mg PO DAILY [facility] Last Admin: 01/27/18 13:09 Dose: 40 mg Ranolazine (Ranexa -) 500 mg PO BID [facility] Last Admin: 01/27/18 21:32 Dose: 500 mg Rosuvastatin Calcium (Crestor -) 20 mg PO HS [facility] Last Admin: 01/27/18 21:33 Dose: Not Given Senna (Senna -) 2 tab PO HS PRN PRN Reason: CONSTIPATION Last Admin: 01/27/18 21:32 Dose: 2 tab Tamsulosin HCl (Flomax -) 0.4 mg PO DAILY@0830 [facility] Last Admin: 01/28/18 08:22 Dose: 0.4 mg Thyroid ([place] Thyroid -) 60 mg PO DAILY@0700 [facility] Last Admin: 01/28/18 06:20 Dose: 60 mg - Objective Vital Signs: Vital Signs Temperature 98.0 F 01/28/18 08:58 Pulse Rate 83 01/28/18 08:58 Respiratory Rate 18 01/28/18 08:58 Blood Pressure 132/73 01/28/18 08:58 O2 Sat by Pulse Oximetry (%) 99 01/27/18 21:00 Constitutional: Yes: No Distress, Calm Eyes: No: Sclera Icterus HENT: No: Nasal Congestion Cardiovascular: Yes: Regular Rate and Rhythm, S1, S2, Other (PMI non diplaced). No: JVD, Gallop, Murmur Respiratory: Yes: CTA Bilaterally. No: Accessory Muscle Use, Rales, Wheezes Gastrointestinal: Yes: Normal Bowel Sounds, Soft. No: Tenderness Musculoskeletal: Yes: Other (No kyphosis) Extremities: No: Cold, Cyanosis Edema: No Integumentary: No: Jaundice Neurological: Yes: Alert, Oriented (x3) Psychiatric: No: Agitated Labs: CBC, BMP 01/27/18 07:05 01/28/18 07:00 INR, PTT INR 1.49 (0.82-1.09) H 01/22/18 06:30 Assessment/Plan ecg: sr, non-specific t wave abnormalities - similar to priors. no acute ischemic changes. 01/15/18 ekg [facility]: SVT, [address] abnormalities/STD ct scan here, images and report reviewed. + ILDz changes, severe calcification of cors. see emr for detailed report cxr: scarring vs. left early lobe infiltrate. 01/22 cxr: slightly better aeration at left base. apical pleural thickening. PFTs [facility] 12/2017: moderate restrictive defect with mild decrease in diffusion capacity. CTA chest [facility] 12/2017: suboptimal opacification of pulmonary arterial tree limiting evaluation. NO ACUTE PE SEEN. + curvilinear filling defect in segmental branch of RLL similar to 2015 cta - may reflect chronic PE. + aortic atherosclerosis. prominent calcification of cors. low lung volumes. peripheral/basilar reticular opacities, honeycombing and traction bronchiectasis within bilateral lower lobes. scattered atelectasis/scarring. RML nodule. mediastinal LAD, somewhat similar to 2015 CT. LE dopplers 12/2017: B LE DVT's Echo here 01/2018: tds. no pericardial effusion. Echo 12/2017: tds. mild LVE. nl lv fn. EF 60-65%. nl rv size/fn. small pericardial effusion. Echo 2016: suboptimal views. EF 50-55%. Impaired relaxation. Nl RV (suboptimal views). Nl valves. Mild ao dilation 3.8 cm with laminar atherosclerotic plaque. pharm stress 2016: No sx's. No ischemic ekg changes. Small subtle inferolateral ischemia. EF 57%. A/P 77 yo m hx of CAD with multiple st[place] [facility] [place] , residual dz: 40%pLCX, 50%pLAD, 60%mLAD, 80%D1, 40%pRCA), htn, hld, chronic atypical cp, copd, cva (, 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 copd: - being treated by pulmonary team, sx's improving chronic diast chf: - equivocal clinical findings in office in past, possible HFpEF in addition to LE venous insufficiency - no signs acute chf here - does not comply with rx'd daily maintenance lasix (uses prn edema)--on 40mg qd here, continue same CAD with prior pci (last 2011), elevated troponin: - persistent mild elevation (0.3-0.5) with flat trend. EKG without acute ischemic changes. FINDINGS NOT C/W ACS. - ? low-level troponin sec to chronic diast CHF, vs residual elevation s/p Type II PA (demand ischemia) at time of recent rapid SVT at outside hospital (no troponin checked at that time) - less likely myopericarditis, (very hi CRP noted at outside hospital = 27)-- echo TDS, no effusion, no friction rub. given alternative etiology of hi CRP ( a.e. copd +/- pneumonitis), and pt sx's responded well to copd tx, will defer further w/u at present. - consider outpt repeat echo (+/- Definity echocontrast), +/- cardiac MRI if sx' s change in future (pt advised to f/u with me in office as soon as leaves SNF). - added ASA for underlying CAD (also on eliquis). - metoprolol apparently stopped at [facility] when SVT treated with diltiazem/digoxin combo. cont holding metoprolol for now--observe as outpt if underlying sob improves (has copd with previous sporadic pulm f/u, no recent PFTs available, but some wheezing hx noted) - consider outpt repeat stress test for risk stratification - pt is intolerant of multiple statins (severe GERD). has been on PCSK-9 inhibitor (praluent 75mg q2 weeks injection) for several months with good LDL lowering--not on hospital formulary here--to be included on d/c med list per hospitalist opal (d/w'd her). has not f/u with me since starting it. outpt cardio f/u will be arranged SVT - Episode of SVT up to 180's on [facility] admit 01/15/2018. - per patient was started on diltiazem and digoxin (pt has new meds with him here). prior toprol was stopped. - continue same meds (change diltiazem 30 tid to ER 120 qd--d/w'd hospitalist opal) Bilateral DVT - recent CTA at [facility] with no evidence of acute PE. has h/o factor V leiden. con 't eliquis.
--- NOTE | 2018-01-28 09:23 | PN ---
Physical Exam: SUBJECTIVE: Patient seen and examined OBJECTIVE: Vital Signs Period Temp Pulse Resp BP Sys/Fernandez Pulse Ox Last 24 Hr 97.6 F-98.0 F 77-98 18-24 114-150/56-82 98-99 GENERAL: The patient is awake, alert, and fully oriented, in no acute distress. HEAD: Normal with no signs of trauma. EYES: PERRL, extraocular movements intact, sclera anicteric, conjunctiva clear. No ptosis. ENT: Ears normal, nares patent, oropharynx clear without exudates, moist mucous membranes. NECK: Trachea midline, full range of motion, supple. LUNGS: Breath sounds equal, clear to auscultation bilaterally, no wheezes, no crackles, no accessory muscle use. HEART: Regular rate and rhythm, S1, S2 without murmur, rub or gallop. ABDOMEN: Soft, nontender, nondistended, normoactive bowel sounds, no guarding, no rebound, no hepatosplenomegaly, no masses. EXTREMITIES: 2+ pulses, warm, well-perfused, no edema. NEUROLOGICAL: Cranial nerves II through XII grossly intact. Normal speech, gait not observed. PSYCH: Normal mood, normal affect. SKIN: Warm, dry, normal turgor, no rashes or lesions noted Laboratory Results - last 24 hr 01/28/18 07:00 Sodium 140 Potassium 3.4 L Chloride 103 Carbon Dioxide 25 Anion Gap 12 BUN 21 H Creatinine 1.0 Random Glucose 130 H Calcium 7.8 L Digoxin 0.9463 Active Medications Generic Name Dose Route Start Last Admin Trade Name Freq PRN Reason Stop Dose Admin Apixaban 5 mg 01/21/18 22:00 01/27/18 21:32 Eliquis - PO 5 mg BID JAIMEE Administration Aspirin 81 mg 01/21/18 19:00 01/27/18 10:35 Asa - PO 81 mg DAILY JAIMEE Administration Digoxin 0.25 mg 01/22/18 10:00 01/27/18 10:42 Lanoxin - PO 0.25 mg DAILY JAIMEE Administration Diltiazem HCl 30 mg 01/21/18 22:00 01/28/18 06:21 Cardizem - PO 30 mg TID JAIMEE Administration Docusate Sodium 100 mg 01/22/18 22:00 01/28/18 06:20 Colace - PO 100 mg TID JAIMEE Administration Fluticasone Propionate 1 spray 01/23/18 11:00 01/27/18 21:33 Flonase - NS 1 inh BID JAIMEE Administration Furosemide 40 mg 01/22/18 10:00 01/27/18 10:35 Lasix - PO 40 mg DAILY JAIMEE Administration Hydromorphone HCl 8 mg 01/27/18 12:36 Dilaudid - PO Q8H PRN PAIN LEVEL 7 - 10 Melatonin 5 mg 01/24/18 00:09 01/26/18 21:18 Melatonin PO 5 mg HS PRN Administration INSOMNIA Methylprednisolone Sodium Succinate 40 mg 01/26/18 18:00 01/28/18 02:10 Solu-Medrol - IVPUSH 40 mg Q8H-IV JAIMEE Administration Morphine Sulfate 30 mg 01/21/18 19:00 01/28/18 07:04 Ms Contin - PO Not Given BID@0600,1800 [facility] Non-Formulary Medication 25 mg 01/27/18 10:00 01/28/18 05:01 Naloxegol Oxalate [Movantik] PO 25 mg DAILY JAIMEE Administration Pantoprazole Sodium 40 mg 01/27/18 12:45 01/27/18 13:09 Protonix - PO 40 mg DAILY JAIMEE Administration Ranolazine 500 mg 01/21/18 22:00 01/27/18 21:32 Ranexa - PO 500 mg BID JAIMEE Administration Rosuvastatin Calcium 20 mg 01/22/18 22:00 01/27/18 21:33 Crestor - PO Not Given HS JAIMEE Senna 2 tab 01/22/18 20:11 01/27/18 21:32 Senna - PO 2 tab HS PRN Administration CONSTIPATION Tamsulosin HCl 0.4 mg 01/25/18 08:30 01/28/18 08:22 Flomax - PO 0.4 mg DAILY@0830 JAIMEE Administration Thyroid 60 mg 01/22/18 10:11 01/28/18 06:20 [place] Thyroid - PO 60 mg DAILY@0700 JAIMEE Administration ASSESSMENT/PLAN: 77 yo m hx of CAD with multiple stents (last cath was 11/2011 at [facility] [place]: le to om1 , residual dz: 40%pLCX, 50%pLAD, 60%mLAD, 80%D1, 40%pRCA), htn, hld, chronic atypical cp, copd, 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 copd: - being treated by pulmonary team chronic diast chf: - equivocal clinical findings in office in past, possible HFpEF in addition to LE venous insufficiency - no signs acute chf here - continue home lasix as doing CAD with prior pci (last 2011), elevated troponin: - persistent mild elevation (0.3-0.5) with flat trend. EKG without acute ischemic changes. FINDINGS NOT C/W ACS. - ? low-level troponin sec to chronic diast CHF, vs residual elevation s/p Type II VT (demand ischemia) at time of recent rapid SVT at outside hospital (no troponin checked at that time) - less likely myopericarditis, (very hi CRP noted at outside hospital = 27)-- echo TDS, no effusion, no friction rub. consider outpt repeat echo (+/- Definity echocontrast), +/- cardiac MRI if sx's continue. - added ASA for underlying CAD (also on eliquis). - consider outpt repeat stress test for risk stratification - pt is intolerant of statins. has been on PCSK-9 inhibitor (Repatha) for several months with good LDL lowering. has not f/u with me since starting it. outpt cardio f/u will be arranged SVT - Episode of SVT up to [address] [facility] admit 01/15/2018. - per patient was started on diltiazem and digoxin (pt has new meds with him here). prior toprol was not continued. - 01/27: stable HR, con't current meds (dig level ok) Bilateral DVT - recent CTA at [facility] with no evidence of acute PE. has h/o factor V leiden. con 't eliquis.
[2018-01-28] MEDS: RANOLAZINE E.R. 500 MG TABLET (FP) PO SCH (09:33)
[2018-01-28] MEDS: PANTOPRAZOLE 40 MG TABLET (FP) PO SCH (09:33)
[2018-01-28] MEDS: ASPIRIN 81 MG CHEWABLE TABLETS PO SCH (09:34)
[2018-01-28] MEDS: FUROSEMIDE 40 MG TABLET (FP) PO SCH (09:34)
[2018-01-28] MEDS: FLUTICASONE PROP 0.05% 16 GM NASAL SPRAY NS SCH (09:34)
[2018-01-28] MEDS: APIXABAN 5 MG TABLET PO SCH (09:35)
[2018-01-28] MEDS: DIGOXIN 0.25 MG TABLET (FP) PO SCH (09:36)
[2018-01-28] MEDS ORDERED: POTASSIUM CHLORIDE TABS 20 MEQ TABLET.ER (FP) PO ONE (10:00)
[2018-01-28] MEDS ORDERED: predniSONE 20 MG TABLET (UD) PO SCH (10:00)
--- NOTE | 2018-01-28 12:13 | DS ---
Physical Exam: SUBJECTIVE: Patient seen and examined OBJECTIVE: Vital Signs Period Temp Pulse Resp BP Sys/Fernandez Pulse Ox Last 24 Hr 97.6 F-98.0 F 77-98 18-20 125-150/56-82 99 PHYSICAL EXAM GENERAL: The patient is awake, alert, and fully oriented, in no acute distress. HEAD: Normal with no signs of trauma. EYES: PERRL, extraocular movements intact, sclera anicteric, conjunctiva clear. ENT: Ears normal, nares patent, oropharynx clear without exudates, moist mucous membranes. NECK: Trachea midline, full range of motion, supple. LUNGS: Breath sounds equal, clear to auscultation bilaterally, no wheezes, no crackles, no accessory muscle use. HEART: Regular rate and rhythm, S1, S2 without murmur, rub or gallop. ABDOMEN: Soft, nontender, nondistended, normoactive bowel sounds, no guarding, no rebound, no hepatosplenomegaly, no masses. EXTREMITIES: 2+ pulses, warm, well-perfused, no edema. NEUROLOGICAL: Cranial nerves II through XII grossly intact. Normal speech, gait not observed. PSYCH: Normal mood, normal affect. SKIN: Warm, dry, normal turgor, no rashes or lesions noted. LABS Laboratory Results - last 24 hr 01/28/18 07:00 Sodium 140 Potassium 3.4 L Chloride 103 Carbon Dioxide 25 Anion Gap 12 BUN 21 H Creatinine 1.0 Random Glucose 130 H Calcium 7.8 L Digoxin 0.9463 HOSPITAL COURSE: Date of Admission:01/21/18 Date of Discharge: 01/28/18 Discharge Summary Reason For Visit: SOB Current Active Problems Elevated troponin I level (Acute) Hypothyroid (Acute) NSTEMI (non-ST elevated myocardial infarction) (Acute) SOB (shortness of breath) (Acute) SVT (supraventricular tachycardia) (Acute) Condition: Improved - Instructions Referrals: Abhishek Ridley MD [Staff Physician] - Disposition: INTERMEDIATE FACILITY - Home Medications Comprehensive Discharge Medication List: Ambulatory Orders Hydromorphone HCl [Dilaudid] 8 mg PO TID PRN 07/14/16 Linaclotide [Linzess] 290 mcg PO DAILY 07/14/16 Thyroid [[place] Thyroid] 90 mg PO DAILY 07/14/16 Apixaban [Eliquis] 5 mg PO BID 03/01/17 Omeprazole 40 mg PO DAILY 03/01/17 Tamsulosin HCl 0.4 mg PO DAILY 03/01/17 Ranolazine [Ranexa] 500 mg PO BID 03/02/17 Morphine *Sr* [MS Contin -] 30 mg PO Q12H PRN 10/22/17 Albuterol 2.5/Ipratropium 0.5 [Duoneb -] 1 amp NEB PRN PRN 01/21/18 Digoxin [Lanoxin -] 0.25 mg PO DAILY 01/21/18 Fluticasone Prop 0.05% Nasal [Flonase -] 1 spray NS BID 01/21/18 Alirocumab [Praluent Pen] 75 mg SQ ASDIR #1 ml 01/28/18 Aspirin [ASA -] 81 mg PO DAILY tab.chew 01/28/18 Diltiazem Cd [Cardizem Cd -] 120 mg PO DAILY #30 cap.cd.24h 01/28/18 Fluticasone Prop 0.05% Nasal [Flonase -] 1 spray NS BID spray 01/28/18 Furosemide [Lasix -] 40 mg PO DAILY tablet 01/28/18 Melatonin 5 mg PO HS PRN tab 01/28/18 Naloxegol Oxalate [Movantik] 25 mg PO DAILY #30 cap 01/28/18 Pantoprazole Sodium [Protonix -] 40 mg PO DAILY tablet.ec 01/28/18 Prednisone See Taper PO ASDIR #21 tablet 01/28/18 predniSONE [Deltasone -] See Taper PO ASDIR #21 tablet 01/28/18 - Discharge Referral Referred to [facility] No
--- NOTE | 2018-01-28 13:26 | PN ---
Progress Note (short form) - Note Progress Note: Sitting at the edge of the bed in NAD on RA. Some residual dry cough. No CP. CXR: No gross change / new finding Intake & Output 01/25/18 01/26/18 01/27/18 01/28/18 22:59 22:59 23:59 23:59 Intake Total 325 Output Total 1050 Balance -725 Weight 219 lb 0.3 oz Last Vital Signs Temp Pulse Resp BP Pulse Ox 98.0 F 83 18 132/73 99 01/28/18 08:58 01/28/18 09:36 01/28/18 09:00 01/28/18 08:58 01/28/18 09:00 Active Medications Apixaban (Eliquis -) 5 mg PO BID [facility] Last Admin: 01/28/18 09:35 Dose: 5 mg Aspirin (Asa -) 81 mg PO DAILY [facility] Last Admin: 01/28/18 09:34 Dose: 81 mg Digoxin (Lanoxin -) 0.25 mg PO DAILY [facility] Last Admin: 01/28/18 09:36 Dose: 0.25 mg Diltiazem HCl (Cardizem -) 30 mg PO TID [facility] Last Admin: 01/28/18 13:17 Dose: 30 mg Docusate Sodium (Colace -) 100 mg PO TID [facility] Last Admin: 01/28/18 13:17 Dose: 100 mg Fluticasone Propionate (Flonase -) 1 spray NS BID [facility] Last Admin: 01/28/18 09:34 Dose: 1 inh Furosemide (Lasix -) 40 mg PO DAILY [facility] Last Admin: 01/28/18 09:34 Dose: 40 mg Hydromorphone HCl (Dilaudid -) 8 mg PO Q8H PRN PRN Reason: PAIN LEVEL 7 - 10 Last Admin: 01/28/18 11:42 Dose: 8 mg Melatonin (Melatonin) 5 mg PO HS PRN PRN Reason: INSOMNIA Last Admin: 01/26/18 21:18 Dose: 5 mg Morphine Sulfate (Ms Contin -) 30 mg PO BID@0600,1800 [facility] Last Admin: 01/28/18 07:04 Dose: Not Given Non-Formulary Medication (Naloxegol Oxalate [Movantik]) 25 mg PO DAILY [facility] Last Admin: 01/28/18 09:34 Dose: 25 mg Pantoprazole Sodium (Protonix -) 40 mg PO DAILY [facility] Last Admin: 01/28/18 09:33 Dose: 40 mg Prednisone (Deltasone -) 40 mg PO BID [facility] Last Admin: 01/28/18 11:20 Dose: Not Given Ranolazine (Ranexa -) 500 mg PO BID [facility] Last Admin: 01/28/18 09:33 Dose: 500 mg Senna (Senna -) 2 tab PO HS PRN PRN Reason: CONSTIPATION Last Admin: 01/27/18 21:32 Dose: 2 tab Tamsulosin HCl (Flomax -) 0.4 mg PO DAILY@0830 [facility] Last Admin: 01/28/18 08:22 Dose: 0.4 mg Thyroid ([place] Thyroid -) 60 mg PO DAILY@0700 [facility] Last Admin: 01/28/18 06:20 Dose: 60 mg Constitutional: Yes: NAD Eyes: Yes: WNL, Occular Prosthesis Neck: Yes: WNL Cardiovascular: Yes: Regular Rate and Rhythm, S1, S2 Respiratory: Yes: Bibasilar Rales / crackles Gastrointestinal: Yes: Normal Bowel Sounds, Soft Extremities: Yes: WNL Edema: No Labs: Laboratory Results - last 24 hr 01/28/18 07:00 Sodium 140 Potassium 3.4 L Chloride 103 Carbon Dioxide 25 Anion Gap 12 BUN 21 H Creatinine 1.0 Random Glucose 130 H Calcium 7.8 L Digoxin 0.9463 Assessment/Plan IMP DYSPNEA IMPROVING COPD EXACERBATION IMPROVING CHF ? LLL INFILTRATE FACTOR V LEIDEN H/O DVT/PE ILD H/O CVA + TROPONINS PROSTATE CA HLD HTN PLAN O2 PREDNISONE TAPER OFF ABX PER KAYLEE GARVIN D/C PLANNING DR NIETO
--- NOTE | 2018-01-28 13:55 | PN ---
Progress Note, Physician History of Present Illness: stable no issues slight confusion had bm thinks he did not - Current Medication List Current Medications: Active Medications Apixaban (Eliquis -) 5 mg PO BID [facility] Last Admin: 01/28/18 09:35 Dose: 5 mg Aspirin (Asa -) 81 mg PO DAILY [facility] Last Admin: 01/28/18 09:34 Dose: 81 mg Digoxin (Lanoxin -) 0.25 mg PO DAILY [facility] Last Admin: 01/28/18 09:36 Dose: 0.25 mg Diltiazem HCl (Cardizem -) 30 mg PO TID [facility] Last Admin: 01/28/18 13:17 Dose: 30 mg Docusate Sodium (Colace -) 100 mg PO TID [facility] Last Admin: 01/28/18 13:17 Dose: 100 mg Fluticasone Propionate (Flonase -) 1 spray NS BID [facility] Last Admin: 01/28/18 09:34 Dose: 1 inh Furosemide (Lasix -) 40 mg PO DAILY [facility] Last Admin: 01/28/18 09:34 Dose: 40 mg Hydromorphone HCl (Dilaudid -) 8 mg PO Q8H PRN PRN Reason: PAIN LEVEL 7 - 10 Last Admin: 01/28/18 11:42 Dose: 8 mg Melatonin (Melatonin) 5 mg PO HS PRN PRN Reason: INSOMNIA Last Admin: 01/26/18 21:18 Dose: 5 mg Morphine Sulfate (Ms Contin -) 30 mg PO BID@0600,1800 [facility] Last Admin: 01/28/18 07:04 Dose: Not Given Non-Formulary Medication (Naloxegol Oxalate [Movantik]) 25 mg PO DAILY [facility] Last Admin: 01/28/18 09:34 Dose: 25 mg Pantoprazole Sodium (Protonix -) 40 mg PO DAILY [facility] Last Admin: 01/28/18 09:33 Dose: 40 mg Prednisone (Deltasone -) 40 mg PO BID [facility] Last Admin: 01/28/18 11:20 Dose: Not Given Ranolazine (Ranexa -) 500 mg PO BID [facility] Last Admin: 01/28/18 09:33 Dose: 500 mg Senna (Senna -) 2 tab PO HS PRN PRN Reason: CONSTIPATION Last Admin: 01/27/18 21:32 Dose: 2 tab Tamsulosin HCl (Flomax -) 0.4 mg PO DAILY@0830 [facility] Last Admin: 01/28/18 08:22 Dose: 0.4 mg Thyroid ([place] Thyroid -) 60 mg PO DAILY@0700 [facility] Last Admin: 01/28/18 06:20 Dose: 60 mg - Objective Vital Signs: Vital Signs Temperature 98.0 F 01/28/18 08:58 Pulse Rate 83 01/28/18 09:36 Respiratory Rate 18 01/28/18 09:00 Blood Pressure 132/73 01/28/18 08:58 O2 Sat by Pulse Oximetry (%) 99 01/28/18 09:00 Constitutional: Yes: No Distress, Calm Cardiovascular: Yes: Regular Rate and Rhythm Respiratory: Yes: Regular, CTA Bilaterally Gastrointestinal: Yes: Normal Bowel Sounds, Soft Musculoskeletal: Yes: WNL Extremities: Yes: WNL Neurological: Yes: Alert, Oriented Labs: CBC, BMP 01/27/18 07:05 01/28/18 07:00 INR, PTT INR 1.49 (0.82-1.09) H 01/22/18 06:30 Assessment/Plan dyspnea ll infiltrate prostate ca htn hld gm positive bacteremia repeat blood cx negative plan continue current mgmt continue monitoring rest as per primary avoid constipation
[2018-01-28] MEDS ORDERED: PT OWN MED DRAWER 7, Y5N ONE (14:07)
[2018-01-28 14:32] VITALS: TEMP 97.9
[2018-01-28 14:33] VITALS: BP 126/72; PULSE 100
== END 2018-01-28 14:46 | DRG 191 ==
LOC: JER 10:02 → JERBED 14:25 → J4W 19:00 → J5S 01-25 16:36
PROVIDERS: ADMIT Internal Medicine; ATTEND Nurse Practitioner Acute Care
DX: J44.1 Chronic obstructive pulmonary disease with (acute) exacerbation (principal); I69.354 Hemiplegia and hemiparesis following cerebral infarction affecting left non-dominant side; J84.9 Interstitial pulmonary disease, unspecified; I47.1 Supraventricular tachycardia; I50.32 Chronic diastolic (congestive) heart failure; D68.2 Hereditary deficiency of other clotting factors; I24.8 Other forms of acute ischemic heart disease; I82.4Z3 Acute embolism and thrombosis of unspecified deep veins of distal lower extremity, bilateral; I25.10 Atherosclerotic heart disease of native coronary artery without angina pectoris; Z98.61 Coronary angioplasty status; K21.9 Gastro-esophageal reflux disease without esophagitis; I11.0 Hypertensive heart disease with heart failure; E78.5 Hyperlipidemia, unspecified; E03.9 Hypothyroidism, unspecified; K59.00 Constipation, unspecified; N40.0 Benign prostatic hyperplasia without lower urinary tract symptoms; J47.9 Bronchiectasis, uncomplicated
CPT/HCPCS: 36415; 71045-TC-FY; 71046-TC-FY; 71250-TC; 74176-TC; 80048; 80053; 80061; 80162; 81003; 82550; 82803; 83036; 83605; 83690; 83721; 83735; 83880; 84100; 84443; 84484; 85025; 85610; 87040; 87186; 93005; 93010; 93306-TC; 94640; 97116-GP; 97161-GP; 99285-25

== ENCOUNTER 2018-02-22 15:41 | Inpatient (IN) | payer OTHER, BC ==
--- NOTE | 2018-02-22 17:37 | PDOC ---
History of Present Illness - General History Source: Patient Exam Limitations: No Limitations - History of Present Illness Initial Comments: 02/22/18 21:12 Patient is a 77 year old male with a significant past medical history of CVA, CAD s/p stents x 2, factor V leiden, diverticulitis, DVT (on Eliquis 5 mg BID), GERD, kidney stones, AR, hypertension and COPD (home oxygen dependent), who presents to the ED with complaints of shortness of breath that began 2 weeks ago. Patient reports seeing Dr. Patrick today when he began to feel increasingly unwell prompting his physician to send him to the ED for further evaluation. He reports experiencing gradual shortness of breath, that he states is increased with exertion making it so he cannot walk very long without getting winded. Patient reports experiencing associated symptoms of productive cough with yellow phlegm as well as bilateral lower extremity edema. Denies chest pain. Denies nausea, vomiting. Denies contact with sick individuals , out of state travelling. Denies change in vision, head pain. Denies weakness/ numbness. Denies any other symptoms. Allergies: None Social history: No smoking, No alcohol No illicit drugs. Surgical history: None PMD: Dr. Edwardo Yang Direct Mail Coordinator: Dr. Patrick, Dr. Ridley <Carlos Montesinos - Last Filed: 02/22/18 22:42> <Blayne Mejia - Last Filed: 02/22/18 23:25> - General Chief Complaint: Shortness of Breath Stated Complaint: SHORTNESS OF BREATH Time Seen by Provider: 02/22/18 16:36 Past History <Carlos Montesinos - Last Filed: 02/22/18 22:42> - Past Medical History Anemia: No Asthma: No Cancer: Yes (PROSTATE) Cardiac Disorders: Yes (STENTS, FACTOR 5, CLOTTING DISORDER) CVA: Yes (X2 '93 / '04 / (L) WEAKNESS) COPD: Yes CHF: No Dementia: No Diabetes: No GI Disorders: Yes (diverticulosis,gerd) Disorders: Yes (kidney stone) HTN: Yes Hypercholesterolemia: Yes Kidney Stones: Yes Liver Disease: No Seizures: No Thyroid Disease: No - Surgical History Abdominal Surgery: No Appendectomy: No Cardiac Surgery: Yes (2 STENTS, NICHOL FILTER) Cholecystectomy: No Lung Surgery: No Neurologic Surgery: No - Immunization History Immunization Up to Date: Yes - Suicide/Smoking/Psychosocial Hx Smoking Status: No Smoking History: Never smoked Have you smoked in the past 12 months: No Number of Cigarettes Smoked Daily: 0 Information on smoking cessation initiated: No Hx Alcohol Use: No Drug/Substance Use Hx: No Substance Use Type: None Hx Substance Use Treatment: No <JackieRileystefanie - Last Filed: 02/22/18 23:25> - Past Medical History Allergies/Adverse Reactions: Allergies Allergy/AdvReac Type Severity Reaction Status Date / Time No Known Allergies Allergy Verified 01/21/18 10:12 Home Medications: Ambulatory Orders Albuterol Sulfate [Proair Hfa] 2 puff IH BID 02/22/18 Alirocumab [Praluent Pen] 75 mg SQ ASDIR 02/22/18 Apixaban [Eliquis -] 5 mg PO BID 02/22/18 Aspirin [ASA -] 81 mg PO DAILY 02/22/18 Digoxin [Lanoxin -] 0.25 mg PO DAILY 02/22/18 Diltiazem Cd [Cardizem Cd -] 120 mg PO DAILY 02/22/18 Docusate Sodium 200 mg PO HS 02/22/18 Fluticasone Prop 0.05% Nasal [Flonase -] 1 - 2 spray NS BID 02/22/18 Furosemide [Lasix -] 40 mg PO DAILY 02/22/18 HYDROmorphone [Dilaudid -] 6 mg PO Q8H PRN 02/22/18 Levothyroxine Sodium [Synthroid] 88 mcg PO AM 02/22/18 Linaclotide [Linzess] 290 mcg PO DAILY 02/22/18 Melatonin 5 mg PO HS 02/22/18 Morphine *Sr* [Ms Contin -] 30 mg PO Q12H PRN 02/22/18 Naloxegol Oxalate [Movantik] 25 mg PO DAILY 02/22/18 Omeprazole 40 mg PO DAILY 02/22/18 Prednisone 10 mg PO DAILY 02/22/18 Ranolazine [Ranexa -] 500 mg PO BID 02/22/18 Tamsulosin HCl 0.4 mg PO DAILY 02/22/18 Review of Systems - Review of Systems Able to Perform ROS?: Yes Comments:: 02/22/18 21:12 GENERAL/CONSTITUTIONAL: No fever or chills. No weakness. HEAD, EYES, EARS, NOSE AND THROAT: No change in vision. No ear pain or discharge. No sore throat. GASTROINTESTINAL: No nausea, vomiting, diarrhea or constipation. GENITOURINARY: No dysuria, frequency, or change in urination. CARDIOVASCULAR: +Shortness of breath. No chest pain RESPIRATORY: No cough, wheezing, or hemoptysis. MUSCULOSKELETAL: +Bilateral lower extremity edema. No joint or muscle pain. No neck or back pain. SKIN: No rash NEUROLOGIC: No headache, vertigo, loss of consciousness, or change in strength/ sensation. ENDOCRINE: No increased thirst. No abnormal weight change. HEMATOLOGIC/LYMPHATIC: No anemia, easy bleeding, or history of blood clots. ALLERGIC/IMMUNOLOGIC: No hives or skin allergy. <Carlos Montesinos - Last Filed: 02/22/18 22:42> *Physical Exam - Vital Signs Last Vital Signs Temp Pulse Resp BP Pulse Ox 97.6 F 69 20 120/66 100 02/22/18 16:06 02/22/18 16:06 02/22/18 16:06 02/22/18 16:06 02/22/18 16:06 - Physical Exam Comments: 02/22/18 21:12 GENERAL: Awake, alert, and fully oriented, in no acute distress HEAD: No signs of trauma EYES: PERRLA, EOMI, sclera anicteric, conjunctiva clear ENT: Auricles normal inspection, hearing grossly normal, nares patent, oropharynx clear without exudates. Moist mucosa NECK: Normal ROM, supple, no lymphadenopathy, JVD, or masses LUNGS: +Diminished breath sounds at bases bilaterally clear to auscultation bilaterally. No wheezes, and no crackles HEART: Regular rate and rhythm, normal S1 and S2, no murmurs, rubs or gallops ABDOMEN: Soft, nontender, normoactive bowel sounds. No guarding, no rebound. No masses EXTREMITIES: +2+ pitting edema to the knees b/l Normal range of motion, no edema. No clubbing or cyanosis. No cords, erythema, or tenderness NEUROLOGICAL: Normal speech, cranial nerves intact, negative pronator drift, 5/ 5 strength in all 4 extremities, normal sensation to light touch in all 4 extremities, normal cerebellar exam, normal reflexes and tone SKIN: Warm, Dry, normal turgor, no rashes or lesions noted. <Carlos Montesinos - Last Filed: 02/22/18 22:42> - Vital Signs Last Vital Signs Temp Pulse Resp BP Pulse Ox 97.6 F 69 20 120/66 100 02/22/18 16:06 02/22/18 16:06 02/22/18 16:06 02/22/18 16:06 02/22/18 16:06 <Blayne Mejia - Last Filed: 02/22/18 23:25> ED Treatment Course - LABORATORY CBC & Chemistry Diagram: 02/22/18 17:30 02/22/18 17:30 - ADDITIONAL ORDERS Additional order review: Laboratory Results 02/22/18 02/22/18 02/22/18 17:30 17:30 17:30 PT with INR 16.90 H INR 1.50 H PTT (Actin FS) Sodium 142 Potassium 4.1 D Chloride 103 Carbon Dioxide 28 Anion Gap 11 BUN 10 D Creatinine 1.1 Creat Clearance w eGFR > 60 Random Glucose 111 H Calcium 9.1 Magnesium 2.2 Total Bilirubin 0.6 AST 19 D ALT 32 D Alkaline Phosphatase 67 Troponin I 0.10 H D B-Natriuretic Peptide 265.04 Total Protein 6.2 L Albumin 3.2 L 02/22/18 17:30 PT with INR INR PTT (Actin FS) 30.0 Sodium Potassium Chloride Carbon Dioxide Anion Gap BUN Creatinine Creat Clearance w eGFR Random Glucose Calcium Magnesium Total Bilirubin AST ALT Alkaline Phosphatase Troponin I B-Natriuretic Peptide Total Protein Albumin 02/22/18 17:30 RBC 4.23 MCV 94.4 MCHC 34.5 RDW 14.3 MPV 7.6 Neutrophils % 66.7 D Lymphocytes % 18.2 D Monocytes % 12.8 H D Eosinophils % 1.7 D Basophils % 0.6 D - Medications Given in the ED: ED Medications Discontinued Medications Generic Name Dose Route Start Last Admin Trade Name Freq PRN Reason Stop Dose Admin Morphine Sulfate 4 mg 02/22/18 19:00 02/22/18 20:41 Morphine Injection - IVPUSH 02/22/18 19:01 4 mg ONCE ONE Administration <Carlos Montesinos - Last Filed: 02/22/18 22:42> - LABORATORY CBC & Chemistry Diagram: 02/22/18 17:30 02/22/18 17:30 - RADIOLOGY Radiology Studies Ordered: Category Date Time Status CHEST X-RAY PORTABLE* [RAD] Stat Radiology 02/22/18 17:12 Ordered DUPLEX VASCUL US-2LEGS [US] Stat Ultrasound 02/22/18 17:12 Ordered <Blayne Mejia - Last Filed: 02/22/18 23:25> Medical Decision Making - Medical Decision Making 02/22/18 22:42 Microblog admission sent at 22:12pm. <Carlos Montesinos - Last Filed: 02/22/18 22:42> - Medical Decision Making 02/22/18 17:37 77yo M hx CVA, CAD s/p stents x 2, factor V leiden, diverticulitis, DVT (on Elliquis 5mg BID), GERD, kidney stones, AR, hypertension and COPD (home oxygen dependent) sent in to the ED for admission from Dr. Patrick's office for SOB. Exam with diminished BS at the bases and 2+ LE edeme. DDx includes ACS vs PE vs CHF vs PNA. 02/22/18 22:58 Thus far, work up reveals elevated trop to 0.10. ASA 325mg given. LE US with non occlusive clot in femoral vein. CTA with no evidence of PE. Hospitalist paged for admission, currently Dr. Matthews at the bedside evaluating patient. Per his resident, they will let me know about the admission. 02/22/18 23:25 Case discussed in detail with admitting physician including history, physical exam and ancillary studies. Admitting physician has assumed care for the patient, will follow all pending diagnostics and will complete the evaluation and treatment. <Blayne Mejia - Last Filed: 02/22/18 23:25> *DC/Admit/Observation/Transfer - Attestations Scribe Attestion: 02/22/18 21:13 Documentation prepared by Carlos Montesinos, acting as medical legal investigator for Blayne Mejia MD, /DO. <Carlos Montesinos - Last Filed: 02/22/18 22:42> - Discharge Dispostion Admit: Yes - Attestations Physician Attestion: 02/22/18 23:23 I, Dr. Blayne Mejia MD, attest that this document has been prepared under my direction and personally reviewed by me in its entirety. I further attest, that it accurately reflects all work, treatment, procedures and medical decision -making performed by me. <MalvinterenceRileystefanie - Last Filed: 02/22/18 23:25> Diagnosis at time of Disposition: Shortness of breath - Discharge Dispostion Condition at time of disposition: Stable - Referrals Referrals: Edwardo Yang MD [Primary Care Provider] - - Patient Instructions - Post Discharge Activity
--- NOTE | 2018-02-22 17:44 | CON.CARD ---
Consult Consult Specialty:: Cardiology Referred by:: Edwardo Yang MD Reason for Consultation:: Dyspnea at rest - History of Present Illness Chief Complaint: Dyspnea at rest History of Present Illness: I had the pleasure of seeing Mr. Vences in self-referral for initial outpatient cardiovascular evaluation, previously saw Drs. Ridley and [place]. 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 He just started Anoro MDI today, referred to emergency department for further evaluation and treatment, ambulates with walker assistance. 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 Cardio/Vascular: Yes: CAD (multiple stents), Deep Vein Thrombosis, HTN, Hyperlipdemia, CA Pulmonary: Yes: COPD Gastrointestinal: Yes: GERD Renal/: Yes: BPH, Cancer (Prostate) Psych: Yes: Anxiety Musculoskeletal: Yes: Osteoarthritis, Other (Chronic pain syndrome) - Past Surgical History Past Surgical History: Yes: Stent - Alcohol/Substance Use Hx Alcohol Use: No History of Substance Use: reports: None - Smoking History Smoking history: Never smoked Have you smoked in the past 12 months: No Aproximately how many cigarettes per day: 0 - Social History ADL: Independent 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 History of Recent Travel: No Home Medications - Allergies Allergies/Adverse Reactions: Allergies Allergy/AdvReac Type Severity Reaction Status Date / Time No Known Allergies Allergy Verified 01/21/18 10:12 - Home Medications Home Medications: Ambulatory Orders Albuterol Sulfate [Proair Hfa] 2 puff IH BID 02/22/18 Alirocumab [Praluent Pen] 75 mg SQ ASDIR 02/22/18 Apixaban [Eliquis -] 5 mg PO BID 02/22/18 Aspirin [ASA -] 81 mg PO DAILY 02/22/18 Digoxin [Lanoxin -] 0.25 mg PO DAILY 02/22/18 Diltiazem Cd [Cardizem Cd -] 120 mg PO DAILY 02/22/18 Docusate Sodium 200 mg PO HS 02/22/18 Fluticasone Prop 0.05% Nasal [Flonase -] 1 - 2 spray NS BID 02/22/18 Furosemide [Lasix -] 40 mg PO DAILY 02/22/18 HYDROmorphone [Dilaudid -] 6 mg PO Q8H PRN 02/22/18 Levothyroxine Sodium [Synthroid] 88 mcg PO AM 02/22/18 Linaclotide [Linzess] 290 mcg PO DAILY 02/22/18 Melatonin 5 mg PO HS 02/22/18 Morphine *Sr* [Ms Contin -] 30 mg PO Q12H PRN 02/22/18 Naloxegol Oxalate [Movantik] 25 mg PO DAILY 02/22/18 Omeprazole 40 mg PO DAILY 02/22/18 Prednisone 10 mg PO DAILY 02/22/18 Ranolazine [Ranexa -] 500 mg PO BID 02/22/18 Tamsulosin HCl 0.4 mg PO DAILY 02/22/18 Review of Systems - Review of Systems Respiratory: reports: Cough, Snoring, Wheezing Vital Signs: Vital Signs Temperature 97.6 F 02/22/18 16:06 Pulse Rate 69 02/22/18 16:06 Respiratory Rate 20 02/22/18 16:06 Blood Pressure 120/66 02/22/18 16:06 O2 Sat by Pulse Oximetry (%) 100 02/22/18 16:06 Constitutional: Yes: No Distress, Calm Neck: Yes: Supple Respiratory: Yes: Regular, Diminished, SOB Gastrointestinal: Yes: Normal Bowel Sounds, Soft Cardiovascular: Yes: Regular Rate and Rhythm JVD: No Carotid Bruit: No Heart Sounds: Yes: S1, S2 Edema: No Imaging - Results Chest X-ray: Pending Problem List - Problems (1) Coronary artery disease Code(s): I25.10 - ATHSCL HEART DISEASE OF [place] CORONARY ARTERY W/O ANG PCTRS Qualifiers: Coronary Disease-Associated Artery/Lesion type: elem artery [place] vs. transplanted heart: elem heart Associated angina: without angina Qualified Code(s): I25.10 - Atherosclerotic heart disease of [place] coronary artery without angina pectoris (2) S/P coronary artery stent placement Code(s): Z95.5 - PRESENCE OF CORONARY ANGIOPLASTY IMPLANT AND GRAFT (3) COPD (chronic obstructive pulmonary disease) Code(s): J44.9 - CHRONIC OBSTRUCTIVE PULMONARY DISEASE, UNSPECIFIED Qualifiers: COPD type: COPD with acute exacerbation Qualified Code(s): J44.1 - Chronic obstructive pulmonary disease with (acute) exacerbation (4) CVA (cerebral vascular accident) Code(s): I63.9 - CEREBRAL INFARCTION, UNSPECIFIED Qualifiers: CVA mechanism: unspecified Qualified Code(s): I63.9 - Cerebral infarction, unspecified (5) Chronic pain syndrome Code(s): G89.4 - CHRONIC PAIN SYNDROME (6) HTN (hypertension) Code(s): I10 - ESSENTIAL (PRIMARY) HYPERTENSION Qualifiers: Hypertension type: essential hypertension Qualified Code(s): I10 - Essential (primary) hypertension (7) Hypercholesteremia Code(s): E78.0 - PURE HYPERCHOLESTEROLEMIA * DO NOT USE * (8) SOB (shortness of breath) Code(s): R06.02 - SHORTNESS OF BREATH Assessment/Plan ECG: NSR @ 84 with anterolateral Tw changes similar to previous Chest CT: 01/23/2018 Intersitial lung disease with fibrotic changes similar to 07/16/2016 severe coronary calcifications Echocardiogram: 01/21/2018 Poor acoustic windows Echocardiogram: 05/07/2013 Normal LV size and fxn, tr-mild TR, tr MR Persantine Myoview: 07/17/2016 Small, subtle inferolateral mild ischemia, LVEF 57% Lab data: Reviewed ASSESSMENT: 1. Dyspnea referable to COPD, ILD flare 2. CAD s/p multivessel PCI, angina pectoris 3. Factor V Leiden, h/o DVT/PE/IVC filter on Eliquis 4. H/o cerebrovascular disease 5. HTN 6. Chol 7. Prostate ca 8. Diastolic dysfunction 9. Hypothyroidism PLAN: 1. Check BNP, rule out CA, check TSH, lipid panel 2. IV steroids, O2 to maintain saO2>90%, BD, pulm input, f/u CXR 3. Cardizem CD 120 qd, Lasix 40 qd, Eliquis 5 bid, Ranexa 500 bid 4. Further plans to follow after hospital evaluation
[2018-02-22 17:54] LABS: BASO % 0.6 % (0-2.0); EOS % 1.7 % (0-4.5); HEMATOCRIT 39.9 % (35.4-49); HEMOGLOBIN 13.8 GM/dL (11.7-16.9); LYMPH % 18.2 % (8-40); MCH 32.6 pg (25.7-33.7); MCHC 34.5 g/dl (32.0-35.9); MEAN CELL VOLUME 94.4 fl (80-96); MEAN PLT VOLUME 7.6 fl (7.5-11.1); MONO % 12.8 % (3.8-10.2); NEUT % 66.7 % (42.8-82.8); PLATELET COUNT 184 K/MM3 (134-434); RBC 4.23 M/mm3 (4.00-5.60); RDW 14.3 % (11.9-15.9); WHITE BLOOD COUNT 5.2 K/mm3 (4.0-10.0)
[2018-02-22 18:17] LABS: ALBUMIN 3.2 g/dl (3.4-5.0); ANION GAP 11 (8-16); BILIRUBIN,TOTAL 0.6 mg/dL (0.2-1.0); BLOOD UREA NITROGEN 10 mg/dL (7-18); CALCIUM 9.1 mg/dL (8.5-10.1); CHLORIDE 103 mmol/L (98-107); CO2 28 mmol/L (21-32); CREATININE 1.1 mg/dL (0.7-1.3); GLUCOSE,RANDOM 111 mg/dL (74-106); MAGNESIUM 2.2 mg/dL (1.8-2.4); POTASSIUM 4.1 mmol/L (3.5-5.1); SGOT/AST 19 U/L (15-37); SGPT/ALT 32 U/L (12-78); SODIUM 142 mmol/L (136-145); TOT PROT 6.2 g/dl (6.4-8.2)
[2018-02-22 18:20] LABS: ALK PHOS 67 U/L (45-117); N-TERMINAL BNP 265.04 pg/ml (5-450)
[2018-02-22 18:51] LABS: INR 1.5 (0.82-1.09); PROTHROMBIN TIME (PATIENT) 16.9 SEC (9.98-11.88)
[2018-02-22] MEDS ORDERED: morphine CARPU-JECT 4 MG/1 ML DISP.SYRIN IVPUSH ONE (19:00)
[2018-02-22] MEDS ORDERED: morphine SULFATE 4 MG/ML VIAL ONE (20:36)
--- NOTE | 2018-02-22 23:28 | HP ---
CHIEF COMPLAINT: PCP: Dr Trey Brooke HISTORY OF PRESENT ILLNESS: 77 year old male with a PMH of CAD s/p multivessel stents (last cath 11/2011), HTN, dyslipidemia, chronic atypical chest pain, COPD and ILD, CVA x 2, factor V Leiden deficiency, h/o of DVT in LLE, PE, IVC filter, on Eliquis, GERD, BPH, Prostate Ca, hypothyroid, anxiety who presented to the hospital referred by his Machinist Set Up Dr Patrick that saw him earlier today. He has been complaining of SOB , cough, ringing up yellow sputum and chest pain. His pain is midsternal and lasts for an hour, not associated with physical activity. He also endorses lower extremity swelling. The patient denies palpitations, LOC, dizziness, fever , chills. He is compliant with home medications. He started taking Anoro today. Denies dysuria, N/V, diarrhea. ER course was notable for: (1)EKG (2)CBC, CMP PAST MEDICAL HISTORY: as above PAST SURGICAL HISTORY: n/a Social History: Smoking:no Alcohol:no Drugs: no Family History: n/a Allergies No Known Allergies Allergy (Verified 01/21/18 10:12) HOME MEDICATIONS: Home Medications Medication Instructions Recorded Albuterol Sulfate [Proair Hfa] 2 puff IH BID 02/22/18 Alirocumab [Praluent Pen] 75 mg SQ ASDIR 02/22/18 Apixaban [Eliquis -] 5 mg PO BID 02/22/18 Aspirin [ASA -] 81 mg PO DAILY 02/22/18 Digoxin [Lanoxin -] 0.25 mg PO DAILY 02/22/18 Diltiazem Cd [Cardizem Cd -] 120 mg PO DAILY 02/22/18 Docusate Sodium 200 mg PO HS 02/22/18 Fluticasone Prop 0.05% Nasal 1 - 2 spray NS BID 02/22/18 [Flonase -] Furosemide [Lasix -] 40 mg PO DAILY 02/22/18 HYDROmorphone [Dilaudid -] 6 mg PO Q8H PRN 02/22/18 Levothyroxine Sodium [Synthroid] 88 mcg PO AM 02/22/18 Linaclotide [Linzess] 290 mcg PO DAILY 02/22/18 Melatonin 5 mg PO HS 02/22/18 Morphine *Sr* [Ms Contin -] 30 mg PO Q12H PRN 02/22/18 Naloxegol Oxalate [Movantik] 25 mg PO DAILY 02/22/18 Omeprazole 40 mg PO DAILY 02/22/18 Prednisone 10 mg PO DAILY 02/22/18 Ranolazine [Ranexa -] 500 mg PO BID 02/22/18 Tamsulosin HCl 0.4 mg PO DAILY 02/22/18 REVIEW OF SYSTEMS CONSTITUTIONAL: Absent: fever, chills, diaphoresis, generalized weakness, malaise, loss of appetite, weight change HEENT: Absent: rhinorrhea, nasal congestion, throat pain, throat swelling, difficulty swallowing, mouth swelling, ear pain, eye pain, visual changes CARDIOVASCULAR: chest pain, peripheral edema Absent: syncope, palpitations, irregular heart rate, lightheadedness, RESPIRATORY: shortness of breath, Absent: cough, dyspnea with exertion, orthopnea, wheezing, stridor, hemoptysis GASTROINTESTINAL: Absent: abdominal pain, abdominal distension, nausea, vomiting, diarrhea, constipation, melena, hematochezia GENITOURINARY: Absent: dysuria, frequency, urgency, hesitancy, hematuria, flank pain, genital pain MUSCULOSKELETAL: Absent: myalgia, arthralgia, joint swelling, back pain, neck pain SKIN: Absent: rash, itching, pallor ENDOCRINE: Absent: unexplained weight gain, unexplained weight loss, heat intolerance, cold intolerance NEUROLOGIC: Absent: headache, focal weakness or paresthesias, dizziness, unsteady gait PSYCHIATRIC: Absent: anxiety, depression, PHYSICAL EXAMINATION Vital Signs - 24 hr 02/22/18 16:06 Temperature 97.6 F Pulse Rate 69 Respiratory 20 Rate Blood Pressure 120/66 O2 Sat by Pulse 100 Oximetry (%) GENERAL: Awake, alert, and fully oriented, in no acute distress. HEAD: Normal with no signs of trauma. EYES: Pupils equal, round and reactive to light, extraocular movements intact, sclera anicteric, conjunctiva clear. No lid lag. EARS, NOSE, THROAT: Ears normal, nares patent, oropharynx clear without exudates. Moist mucous membranes. NECK: Normal range of motion, supple without lymphadenopathy, JVD, or masses. LUNGS: Breath sounds equal, clear to auscultation bilaterally. No wheezes, and no crackles. No accessory muscle use. HEART: Regular rate and rhythm, normal S1 and S2 without murmur, rub or gallop. ABDOMEN: Soft, nontender, not distended, normoactive bowel sounds, no guarding, no rebound, no masses. No hepatomegaly or splenomegaly. MUSCULOSKELETAL: Normal range of motion at all joints. No bony deformities or tenderness. UPPER EXTREMITIES: 2+ pulses, warm. No peripheral edema. LOWER EXTREMITIES: 2+ pulses, warm, trace peripheral edema. NEUROLOGICAL: Cranial nerves II-XII intact. Normal speech. Normal gait. PSYCHIATRIC: Cooperative, anxious. SKIN: Warm, dry, normal turgor, no rashes. Laboratory Results - last 24 hr 02/22/18 02/22/18 02/22/18 17:30 17:30 17:30 WBC 5.2 D RBC 4.23 Hgb 13.8 Hct 39.9 MCV 94.4 MCH 32.6 MCHC 34.5 RDW 14.3 Plt Count 184 MPV 7.6 Neutrophils % 66.7 D Lymphocytes % 18.2 D Monocytes % 12.8 H D Eosinophils % 1.7 D Basophils % 0.6 D PT with INR INR PTT (Actin FS) 30.0 Sodium 142 Potassium 4.1 D Chloride 103 Carbon Dioxide 28 Anion Gap 11 BUN 10 D Creatinine 1.1 Creat Clearance w eGFR > 60 Random Glucose 111 H Calcium 9.1 Magnesium 2.2 Total Bilirubin 0.6 AST 19 D ALT 32 D Alkaline Phosphatase 67 Troponin I B-Natriuretic Peptide 265.04 Total Protein 6.2 L Albumin 3.2 L 02/22/18 02/22/18 02/22/18 17:30 17:30 22:30 WBC RBC Hgb Hct MCV MCH MCHC RDW Plt Count MPV Neutrophils % Lymphocytes % Monocytes % Eosinophils % Basophils % PT with INR 16.90 H INR 1.50 H PTT (Actin FS) Sodium Potassium Chloride Carbon Dioxide Anion Gap BUN Creatinine Creat Clearance w eGFR Random Glucose Calcium Magnesium Total Bilirubin AST ALT Alkaline Phosphatase Troponin I 0.10 H D 0.09 H B-Natriuretic Peptide Total Protein Albumin ASSESSMENT/PLAN: 77 year old male with a PMH of CAD s/p multivessel stents, HTN, dyslipidemia, chronic atypical chest pain, COPD and ILD, CVA x 2, factor V Leiden deficiency, h/o of DVT in LLE, PE, IVC filter, on Eliquis, GERD, BPH, Prostate Ca, hypothyroid, anxiety who presented to the hospital referred by his Machinist Set Up Dr Patrick He is admitted for SOB. SOB: -r/o ACS, CHF exacerbation less likely, no peripheral edema, BNP normal, PE nl -no acute ekg changes, no john/std -continue cardiac monitoring on telemetry -will be evaluated by Dr Patrick tomorrow -resume home medications -ECHO -f/u troponins, 0.1, followed by 0.09, f/u third one -f/u flu swab, urine ag COPD: -the pat reports cough, SOB -CX, chest CT-no acute pathology -will continue home meds HTN: cont home medications Dyslipidemia: -continue statins Chronic chest pain: -continue home pain meds, started oxycontin, resume Dilaulid if needed DVT PPX: -on Eliquis, svc filter F/E/N no fluids/no changes/low sodium Disposition: tele obs - Problem List - Problem (1) Coronary artery disease Code(s): I25.10 - ATHSCL HEART DISEASE OF [place] CORONARY ARTERY W/O ANG PCTRS Qualifiers: Coronary Disease-Associated Artery/Lesion type: [place] artery [place] vs. transplanted heart: [place] heart Associated angina: without angina Qualified Code(s): I25.10 - Atherosclerotic heart disease of [place] coronary artery without angina pectoris (2) S/P coronary artery stent placement Code(s): Z95.5 - PRESENCE OF CORONARY ANGIOPLASTY IMPLANT AND GRAFT (3) SOB (shortness of breath) Code(s): R06.02 - SHORTNESS OF BREATH (4) Anxiety Code(s): F41.9 - ANXIETY DISORDER, UNSPECIFIED (5) COPD (chronic obstructive pulmonary disease) Code(s): J44.9 - CHRONIC OBSTRUCTIVE PULMONARY DISEASE, UNSPECIFIED Qualifiers: COPD type: COPD with acute exacerbation Qualified Code(s): J44.1 - Chronic obstructive pulmonary disease with (acute) exacerbation (6) Chest pain Code(s): R07.9 - CHEST PAIN, UNSPECIFIED Qualifiers: Chest pain type: unspecified Qualified Code(s): R07.9 - Chest pain, unspecified (7) Chronic abdominal pain Code(s): R10.9 - UNSPECIFIED ABDOMINAL PAIN; G89.29 - OTHER CHRONIC PAIN (8) Chronic pain syndrome Code(s): G89.4 - CHRONIC PAIN SYNDROME (9) Factor V deficiency Code(s): D68.2 - HEREDITARY DEFICIENCY OF OTHER CLOTTING FACTORS (10) GERD (gastroesophageal reflux disease) Code(s): K21.9 - GASTRO-ESOPHAGEAL REFLUX DISEASE WITHOUT ESOPHAGITIS (11) HTN (hypertension) Code(s): I10 - ESSENTIAL (PRIMARY) HYPERTENSION Qualifiers: Hypertension type: essential hypertension Qualified Code(s): I10 - Essential (primary) hypertension (12) Hypercholesteremia Code(s): E78.0 - PURE HYPERCHOLESTEROLEMIA * DO NOT USE * Visit type - Emergency Visit Emergency Visit: Yes ED Registration Date: 02/22/18 Care time: The patient presented to the Emergency Department on the above date and was hospitalized for further evaluation of their emergent condition. - New Patient This patient is new to me today: Yes Date on this admission: 02/23/18 - Critical Care Critical Care patient: No Hospitalist Screening - Colonoscopy Questionnaire Colonoscopy Questionnaire: Colonoscopy Questionnaire - Patient: 50 - 75 years old and never had a screening colonoscopy: No History of colon or rectal polyps, or CA: No History of IBD, Crohn's disease or UC: No History of abdominal radiation therapy as a child: No - Relative: 1 with colon or rectal CA, or polyps at age 60 or younger: No Colon or rectal CA diagnosed at age 45 or younger: No Multiple relatives with colon or rectal CA: No - Outcome: Screening Result: Negative Screen
--- NOTE | 2018-02-22 23:30 | PN ---
Teaching Attending Note Name of Resident: Kristan Smith ATTENDING PHYSICIAN STATEMENT I saw and evaluated the patient. I reviewed the resident's note and discussed the case with the resident. I agree with the resident's findings and plan as documented. SUBJECTIVE: OBJECTIVE: ASSESSMENT AND PLAN: 77 y/o male presented to the ER after the patient was seen by his spray gun sizer today, when he was complaining of SOB, patient stated that he is also having productive yellow sputum, chest pain that is worse with breathing, located on the right side mostly and is reproducible, he denied any fever or chill, he was also complaining of lower Ext swelling, however the patient didnt have any edema on exam patient was noted to have elevated troponin that is trending down will admit the patient to the obs tele consult cardiology cw aspirin brenda the troponin trend the ECG c/w home medication flu swab
[2018-02-22] MEDS ORDERED: ALBUTEROL SO4 18 GM HFA INHALER IH PRN (23:57)
[2018-02-23 02:21] VITALS: BMI 30.9
[2018-02-23 07:20] LABS: BASO % 0.7 % (0-2.0); EOS % 2.4 % (0-4.5); HEMATOCRIT 36.4 % (35.4-49); HEMOGLOBIN 12.6 GM/dL (11.7-16.9); LYMPH % 23.3 % (8-40); MCH 32.3 pg (25.7-33.7); MCHC 34.5 g/dl (32.0-35.9); MEAN CELL VOLUME 93.6 fl (80-96); MEAN PLT VOLUME 7.4 fl (7.5-11.1); MONO % 13.7 % (3.8-10.2); NEUT % 59.9 % (42.8-82.8); PLATELET COUNT 175 K/MM3 (134-434); RBC 3.89 M/mm3 (4.00-5.60); RDW 14.4 % (11.9-15.9); WHITE BLOOD COUNT 5.2 K/mm3 (4.0-10.0)
[2018-02-23 08:02] LABS: CHLORIDE 106 mmol/L (98-107); POTASSIUM 3.7 mmol/L (3.5-5.1); SODIUM 141 mmol/L (136-145)
[2018-02-23 08:35] LABS: ALBUMIN 2.7 g/dl (3.4-5.0); ALK PHOS 59 U/L (45-117); ANION GAP 9 (8-16); BILIRUBIN,TOTAL 0.4 mg/dL (0.2-1.0); BLOOD UREA NITROGEN 8 mg/dL (7-18); CALCIUM 7.8 mg/dL (8.5-10.1); CHOLESTEROL 95 mg/dL (50-200); CO2 26 mmol/L (21-32); GLUCOSE,RANDOM 110 mg/dL (74-106); HDL CHOLESTEROL 51 mg/dL (40-60); LDL CHOLESTEROL (ONLY SJRH) 42 mg/dL (5-100); PHOSPHOROUS 3.6 mg/dL (2.5-4.9); SGOT/AST 19 U/L (15-37); SGPT/ALT 31 U/L (12-78); TOT PROT 5.5 g/dl (6.4-8.2); TRIGLYCERIDES 112 mg/dL (35-160)
[2018-02-23] MEDS: RANOLAZINE E.R. 500 MG TABLET (FP) PO SCH ×2 (09:23→21:50)
[2018-02-23] MEDS: APIXABAN 5 MG TABLET PO SCH ×2 (09:23→21:50)
[2018-02-23] MEDS: TAMSULOSIN HCL 0.4 MG CAP.ER.24H (FP) PO SCH (09:23)
[2018-02-23] MEDS: FUROSEMIDE 40 MG TABLET (FP) PO SCH (09:23)
[2018-02-23] MEDS: ASPIRIN 81 MG CHEWABLE TABLETS PO SCH (09:23)
[2018-02-23] MEDS: PANTOPRAZOLE 40 MG TABLET (FP) PO SCH (09:23)
[2018-02-23] MEDS: morphine SO4 SUSTAINED ACTING 30 MG TABLET.SA PO SCH ×2 (09:24→21:50)
--- NOTE | 2018-02-23 10:35 | PN ---
Progress Note, Physician Chief Complaint: Events noted Dyspnea persists Complains of diffuse abdominal discomfort with palpation Complains of vague chest discomfort History of Present Illness: Patient was seen and examined. Awake and alert. Chart was reviewed As outlined above. CT chest ruled out PTE, but presence of subpleural fibrosis and coronary calcification - Current Medication List Current Medications: Active Medications Albuterol Sulfate (Ventolin Hfa Inhaler -) 2 puff IH Q4H PRN PRN Reason: SHORT OF BREATH/WHEEZING Apixaban (Eliquis -) 5 mg PO BID COUNTS INCLUDE 234 BEDS AT THE [facility] Last Admin: 02/23/18 09:23 Dose: 5 mg Aspirin (Asa -) 81 mg PO DAILY COUNTS INCLUDE 234 BEDS AT THE [facility] Last Admin: 02/23/18 09:23 Dose: 81 mg Diltiazem HCl (Cardizem Cd -) 120 mg PO DAILY COUNTS INCLUDE 234 BEDS AT THE [facility] Last Admin: 02/23/18 09:23 Dose: 120 mg Docusate Sodium (Colace -) 200 mg PO HS COUNTS INCLUDE 234 BEDS AT THE [facility] Furosemide (Lasix -) 40 mg PO DAILY COUNTS INCLUDE 234 BEDS AT THE [facility] Last Admin: 02/23/18 09:23 Dose: 40 mg Levothyroxine Sodium (Synthroid -) 88 mcg PO AM COUNTS INCLUDE 234 BEDS AT THE [facility] Melatonin (Melatonin) 5 mg PO HS COUNTS INCLUDE 234 BEDS AT THE [facility] Metoprolol Succinate (Toprol Xl -) 25 mg PO HS COUNTS INCLUDE 234 BEDS AT THE [facility] Morphine Sulfate (Ms Contin -) 30 mg PO BID COUNTS INCLUDE 234 BEDS AT THE [facility] Last Admin: 02/23/18 09:24 Dose: 30 mg Pantoprazole Sodium (Protonix -) 40 mg PO DAILY COUNTS INCLUDE 234 BEDS AT THE [facility] Last Admin: 02/23/18 09:23 Dose: 40 mg Ranolazine (Ranexa -) 500 mg PO BID COUNTS INCLUDE 234 BEDS AT THE [facility] Last Admin: 02/23/18 09:23 Dose: 500 mg Tamsulosin HCl (Flomax -) 0.4 mg PO DAILY@0830 COUNTS INCLUDE 234 BEDS AT THE [facility] Last Admin: 02/23/18 09:23 Dose: 0.4 mg - Objective Vital Signs: Vital Signs Temperature 97.8 F 02/23/18 09:00 Pulse Rate 80 02/23/18 09:00 Respiratory Rate 18 02/23/18 09:00 Blood Pressure 120/55 02/23/18 09:00 O2 Sat by Pulse Oximetry (%) 98 02/23/18 09:00 Eyes: Yes: PERRL HENT: Yes: Atraumatic Neck: Yes: Supple Cardiovascular: Yes: Regular Rate and Rhythm, S1, S2 Respiratory: Yes: Diminished Gastrointestinal: Yes: Soft, Tenderness (Diffuse) Edema: No Additional Findings/Remarks: - Review of Systems Constitutional: denies: Chills, Fever Cardiovascular: (+) chest pain, (+) SOB. (-) palpitation Respiratory: reports: Cough and sputum Production Gastrointestinal: denies: Nausea, Vomiting, Diarrhea, Constipation, (+) Abdominal Pain Musculoskeletal: denies: Joint Pain Neurological: denies: Dizziness or Headaches Labs: CBC, BMP 02/23/18 05:00 02/23/18 05:00 INR, PTT INR 1.50 (0.82-1.09) H 02/22/18 17:30 Problem List - Problems (1) Coronary artery disease Code(s): I25.10 - ATHSCL HEART DISEASE OF [place] CORONARY ARTERY W/O ANG PCTRS Qualifiers: Coronary Disease-Associated Artery/Lesion type: [place] artery [place] vs. transplanted heart: [place] heart Associated angina: without angina Qualified Code(s): I25.10 - Atherosclerotic heart disease of [place] coronary artery without angina pectoris (2) S/P coronary artery stent placement Code(s): Z95.5 - PRESENCE OF CORONARY ANGIOPLASTY IMPLANT AND GRAFT (3) SOB (shortness of breath) Code(s): R06.02 - SHORTNESS OF BREATH (4) COPD (chronic obstructive pulmonary disease) Code(s): J44.9 - CHRONIC OBSTRUCTIVE PULMONARY DISEASE, UNSPECIFIED Qualifiers: COPD type: COPD with acute exacerbation Qualified Code(s): J44.1 - Chronic obstructive pulmonary disease with (acute) exacerbation (5) CVA (cerebral vascular accident) Code(s): I63.9 - CEREBRAL INFARCTION, UNSPECIFIED Qualifiers: CVA mechanism: unspecified Qualified Code(s): I63.9 - Cerebral infarction, unspecified (6) Chest pain Code(s): R07.9 - CHEST PAIN, UNSPECIFIED Qualifiers: Chest pain type: unspecified Qualified Code(s): R07.9 - Chest pain, unspecified (7) Chronic abdominal pain Code(s): R10.9 - UNSPECIFIED ABDOMINAL PAIN; G89.29 - OTHER CHRONIC PAIN (8) Factor V deficiency Code(s): D68.2 - HEREDITARY DEFICIENCY OF OTHER CLOTTING FACTORS (9) HTN (hypertension) Code(s): I10 - ESSENTIAL (PRIMARY) HYPERTENSION Qualifiers: Hypertension type: essential hypertension Qualified Code(s): I10 - Essential (primary) hypertension (10) Hypercholesteremia Code(s): E78.0 - PURE HYPERCHOLESTEROLEMIA * DO NOT USE * (11) Hypothyroid Code(s): E03.9 - HYPOTHYROIDISM, UNSPECIFIED Qualifiers: Hypothyroidism type: due to acquired atrophy of thyroid Qualified Code(s): E03.4 - Atrophy of thyroid (acquired) (12) Demand ischemia Code(s): I24.8 - OTHER FORMS OF ACUTE ISCHEMIC HEART DISEASE Assessment/Plan 1. Dyspnea referable to COPD and ILD 2. CAD with multivessel PCI, angina pectoris 3. 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 Cerebrovascular disease 5. Hypertension 6. Hypercholesterolemia 7. Prostate CA 8. 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 Hypothyroidism 10. Abdominal pain, etiology unclear PLAN: 1. Continue Cardizem CD 120 mg once a day 2. Continue Eliquis 5 mg BID and Ranexa 500 mg BID as tolerated. Diuretic with Lasix with caution 3. Consider abdominal imaging 4. Continue pulmonary management with IV steroids, bronchodilator and O2 5. Patient was given Metoprolol ER - with caution in view of presence of ILD and COPD 6. Continue ASA in view of multivessel CAD even though he is on NOAC Guarded Further plans are to follow Alonso Conrad MD
--- NOTE | 2018-02-23 11:15 | PN ---
Physical Exam: SUBJECTIVE: Patient seen and examined. complaining of abdominal pain in RLQ area , sharp, constant. He says did not notice it yesterday when chest pain was there but now it is more significant. chest pain is still there as a dull ache in center of chest. OBJECTIVE: Vital Signs Period Temp Pulse Resp BP Sys/Fernandez Pulse Ox Last 24 Hr 97.6 F-98.2 F 69-92 18-21 120-136/55-77 96-100 GENERAL: The patient was sleeping comfortably, arousable easily. oriented x3 alert LUNGS: Breath sounds equal, clear to auscultation bilaterally, no wheezes, no crackles, no accessory muscle use. HEART: Regular rate and rhythm, S1, S2 without murmur, rub or gallop. ABDOMEN: Soft, RLQ tenderness with rebound no guarding BS+ EXTREMITIES: 2+ pulses, warm, well-perfused, no edema. Laboratory Results - last 24 hr 02/22/18 02/22/18 02/22/18 17:30 17:30 17:30 WBC 5.2 D RBC 4.23 Hgb 13.8 Hct 39.9 MCV 94.4 MCH 32.6 MCHC 34.5 RDW 14.3 Plt Count 184 MPV 7.6 Neutrophils % 66.7 D Lymphocytes % 18.2 D Monocytes % 12.8 H D Eosinophils % 1.7 D Basophils % 0.6 D PT with INR INR PTT (Actin FS) 30.0 Sodium 142 Potassium 4.1 D Chloride 103 Carbon Dioxide 28 Anion Gap 11 BUN 10 D Creatinine 1.1 Creat Clearance w eGFR > 60 Random Glucose 111 H Calcium 9.1 Phosphorus Magnesium 2.2 Total Bilirubin 0.6 AST 19 D ALT 32 D Alkaline Phosphatase 67 Troponin I B-Natriuretic Peptide 265.04 Total Protein 6.2 L Albumin 3.2 L Triglycerides Cholesterol Total LDL Cholesterol HDL Cholesterol 02/22/18 02/22/18 02/22/18 17:30 17:30 22:30 WBC RBC Hgb Hct MCV MCH MCHC RDW Plt Count MPV Neutrophils % Lymphocytes % Monocytes % Eosinophils % Basophils % PT with INR 16.90 H INR 1.50 H PTT (Actin FS) Sodium Potassium Chloride Carbon Dioxide Anion Gap BUN Creatinine Creat Clearance w eGFR Random Glucose Calcium Phosphorus Magnesium Total Bilirubin AST ALT Alkaline Phosphatase Troponin I 0.10 H D 0.09 H B-Natriuretic Peptide Total Protein Albumin Triglycerides Cholesterol Total LDL Cholesterol HDL Cholesterol 02/23/18 02/23/18 05:00 05:00 WBC 5.2 RBC 3.89 L Hgb 12.6 Hct 36.4 MCV 93.6 MCH 32.3 MCHC 34.5 RDW 14.4 Plt Count 175 MPV 7.4 L Neutrophils % 59.9 Lymphocytes % 23.3 D Monocytes % 13.7 H Eosinophils % 2.4 Basophils % 0.7 PT with INR INR PTT (Actin FS) Sodium 141 Potassium 3.7 Chloride 106 Carbon Dioxide 26 Anion Gap 9 BUN 8 Creatinine 1.0 Creat Clearance w eGFR > 60 Random Glucose 110 H Calcium 7.8 L Phosphorus 3.6 Magnesium 2.0 Total Bilirubin 0.4 D AST 19 ALT 31 Alkaline Phosphatase 59 Troponin I 0.11 H B-Natriuretic Peptide Total Protein 5.5 L Albumin 2.7 L Triglycerides 112 Cholesterol 95 D Total LDL Cholesterol 42 D HDL Cholesterol 51 Active Medications Generic Name Dose Route Start Last Admin Trade Name Freq PRN Reason Stop Dose Admin Albuterol Sulfate 2 puff 02/22/18 23:57 Ventolin Hfa Inhaler - IH Q4H PRN SHORT OF BREATH/WHEEZING Apixaban 5 mg 02/23/18 10:00 02/23/18 09:23 Eliquis - PO 5 mg BID JAIMEE Administration Aspirin 81 mg 02/23/18 10:00 02/23/18 09:23 Asa - PO 81 mg DAILY JAIMEE Administration Diltiazem HCl 120 mg 02/23/18 10:00 02/23/18 09:23 Cardizem Cd - PO 120 mg DAILY JAIMEE Administration Docusate Sodium 200 mg 02/23/18 22:00 Colace - PO HS JAIMEE Furosemide 40 mg 02/23/18 10:00 02/23/18 09:23 Lasix - PO 40 mg DAILY JAIMEE Administration Levothyroxine Sodium 88 mcg 02/23/18 07:00 Synthroid - PO AM JAIMEE Melatonin 5 mg 02/23/18 22:00 Melatonin PO HS JAIMEE Metoprolol Succinate 25 mg 02/23/18 22:00 Toprol Xl - PO HS JAIMEE Morphine Sulfate 30 mg 02/23/18 10:00 02/23/18 09:24 Ms Contin - PO 30 mg BID JAIMEE Administration Pantoprazole Sodium 40 mg 02/23/18 10:00 04/07/18 09:23 Protonix - PO 40 mg DAILY JAIMEE Administration Ranolazine 500 mg 02/23/18 10:00 02/23/18 09:23 Ranexa - PO 500 mg BID JAIMEE Administration Tamsulosin HCl 0.4 mg 02/23/18 08:30 02/23/18 09:23 Flomax - PO 0.4 mg DAILY@0830 JAIMEE Administration ASSESSMENT/PLAN: initial presentation for chest pain, however now having a new abdominal pain concern for GI pathology order CTAP and have GI evaluation chest pain - improving follow up cardiology recommendations currently on toprol XL 25, Cardizem 120 daily, Ranexa, aspirin, and lasix on MS contin COPD, ILD was resting comfortably, does not appear to be in COPD exacerbation at this time continue albuterol prn DVT, PE, s/p IVC filter - CTA negative for acute PE, continue eliquis GERD - PPI Visit type - Emergency Visit Emergency Visit: Yes ED Registration Date: 02/22/18 Care time: The patient presented to the Emergency Department on the above date and was hospitalized for further evaluation of their emergent condition. - New Patient This patient is new to me today: Yes Date on this admission: 02/23/18 - Critical Care Critical Care patient: No
--- NOTE | 2018-02-23 11:36 | EKG ---
Test Reason : Blood Pressure : / mmHG Vent. Rate : 077 BPM Atrial Rate : 077 BPM P-R Int : 142 ms QRS Dur : 086 ms QT Int : 394 ms P-R-T Axes : 002 -06 049 degrees QTc Int : 445 ms POOR DATA QUALITY, INTERPRETATION MAY BE ADVERSELY AFFECTED SINUS RHYTHM WITH PREMATURE ATRIAL COMPLEXES NONSPECIFIC T WAVE ABNORMALITY ABNORMAL ECG WHEN COMPARED WITH ECG OF 21-JAN-2018 10:12, PREMATURE ATRIAL COMPLEXES ARE NOW PRESENT Confirmed by CHEN COATES, JANNETH ([id number]) on 02/23/2018 11:35:49 AM Referred By: Confirmed By:JANNETH SIDDIQUI MD
--- NOTE | 2018-02-23 11:36 | EKG ---
Test Reason : Blood Pressure : / mmHG Vent. Rate : 076 BPM Atrial Rate : 076 BPM P-R Int : 148 ms QRS Dur : 084 ms QT Int : 400 ms P-R-T Axes : 014 -04 008 degrees QTc Int : 450 ms SINUS RHYTHM WITH PREMATURE ATRIAL COMPLEXES NONSPECIFIC T WAVE ABNORMALITY ABNORMAL ECG WHEN COMPARED WITH ECG OF 22-FEB-2018 16:19, NONSPECIFIC T WAVE ABNORMALITY NOW EVIDENT IN LATERAL LEADS Confirmed by CHEN COATES, JANNETH ([id number]) on 02/23/2018 11:35:55 AM Referred By: Confirmed By:JANNETH SIDDIQUI MD
--- NOTE | 2018-02-23 17:11 | CON.GI ---
Consult Consult Specialty:: Dr. Ascencio covering for Dr. Moya Referred by:: Hospitalist Reason for Consultation:: Abdominal pain - History of Present Illness Chief Complaint: Abdominal pain History of Present Illness: 77M admitted through [facility] ER for evaluation of chest pain and SOB. Called to evaluate abdominal pain. The Hospitalist note describes RLQ pain., Mr. Vences points towards his LUQ. He complains of constipation. I had followed him some years ago and it appears as though in 2016 he began to follow with Dr. Italo Chand. Mr. Vences states getting a call from Dr. Chand two weeks ago prompting him to stop Movantik due to potential interaction with one of his medications. He also had Mr. Vences perform a gastric emptying study 03/05 that revealed delayed emptying. he has also had 7 CT scans of the abodmen and pelvis spanning from from 2009 along, some with and some without contrast. they revealed nephrolithiasis. He has also had multiple CT scan's of the head during that time as well. He has had an UGIS revealing reflux. His last colonoscopy appears to have been in [address] Prieto that revealed a ? burnt out right sided colitis. He also had an EGD around that that was unrevealing aside from antral erosions. There has been no rectal bleeding, nausea, vomiting. The pain may get better with a bowel movement - History Source History Provided By: Patient, Medical Record - Past Medical History [employer]: Yes: CVA Cardio/Vascular: Yes: CAD (multiple stents), Deep Vein Thrombosis, HTN, Hyperlipdemia, [place] Pulmonary: Yes: COPD Gastrointestinal: Yes: GERD Renal/: Yes: BPH, Cancer (Prostate) Psych: Yes: Anxiety Musculoskeletal: Yes: Osteoarthritis, Other (Chronic pain syndrome) - Past Surgical History Past Surgical History: Yes: Stent - Alcohol/Substance Use Hx Alcohol Use: No History of Substance Use: reports: None - Smoking History Smoking history: Never smoked Have you smoked in the past 12 months: No Aproximately how many cigarettes per day: 0 - Social History ADL: Independent 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 History of Recent Travel: No Home Medications - Allergies Allergies/Adverse Reactions: Allergies Allergy/AdvReac Type Severity Reaction Status Date / Time No Known Allergies Allergy Verified 01/21/18 10:12 - Home Medications Home Medications: Ambulatory Orders Albuterol Sulfate [Proair Hfa] 2 puff IH BID 02/22/18 Alirocumab [Praluent Pen] 75 mg SQ ASDIR 02/22/18 Apixaban [Eliquis -] 5 mg PO BID 02/22/18 Aspirin [ASA -] 81 mg PO DAILY 02/22/18 Diltiazem Cd [Cardizem Cd -] 120 mg PO DAILY 02/22/18 Docusate Sodium 200 mg PO HS 02/22/18 Fluticasone Prop 0.05% Nasal [Flonase -] 1 - 2 spray NS BID 02/22/18 Furosemide [Lasix -] 40 mg PO DAILY 02/22/18 HYDROmorphone [Dilaudid -] 6 mg PO Q8H PRN 02/22/18 Levothyroxine Sodium [Synthroid] 88 mcg PO AM 02/22/18 Linaclotide [Linzess] 290 mcg PO DAILY 02/22/18 Melatonin 5 mg PO HS 02/22/18 Metoprolol Succinate 25 mg PO HS 02/22/18 Morphine *Sr* [Ms Contin -] 30 mg PO Q12H PRN 02/22/18 Naloxegol Oxalate [Movantik] 25 mg PO DAILY 02/22/18 Omeprazole 40 mg PO DAILY 02/22/18 Ranolazine [Ranexa -] 500 mg PO BID 02/22/18 Tamsulosin HCl 0.4 mg PO DAILY 02/22/18 Family Disease History - Family Disease History Other Family History: No family history of colorectal cancer or other GI malignancy Review of Systems - Review of Systems Constitutional: denies: Fever Cardiovascular: reports: Chest Pain, Shortness of Breath Respiratory: reports: Cough. denies: Hemoptysis Gastrointestinal: reports: Abdominal Pain, Constipation. denies: Diarrhea, Rectal Bleeding, Vomiting Blood Musculoskeletal: reports: Back Pain Physical Exam-GI Vital Signs: Vital Signs Temperature 98.1 F 02/23/18 14:00 Pulse Rate 90 02/23/18 14:00 Respiratory Rate 18 02/23/18 14:00 Blood Pressure 114/62 02/23/18 14:00 O2 Sat by Pulse Oximetry (%) 98 02/23/18 09:00 Constitutional: Yes: Calm Eyes: No: Sclera Icterus Cardiovascular: Yes: Regular Rate and Rhythm. No: Murmur Respiratory: Yes: Diminished (at bases, poor insp effort) Gastrointestinal Inspection: No: Distention, Scars ...Auscultate: Yes: Normoactive Bowel Sounds ...Palpate: Yes: Soft, Tenderness (in LUQ however when patient distracted with conversation, I was unable to elicit tenderness). No: Guarding, Tenderness, Rebound ...Percussion: No: Tympanitic ...Rectal Exam: Yes: Other (No external lesions, no masses, scant brown stool, guaiac negative) Edema: No (No LE edema) Neurological: Yes: Alert, Oriented Labs: CBC, BMP 02/23/18 05:00 02/23/18 05:00 INR, PTT INR 1.50 (0.82-1.09) H 02/22/18 17:30 Problem List - Problems (1) Abdominal pain Assessment/Plan: Migratory in nature. Was RLQ when evaluated by hospitalist and LUQ when I evaluated Mr. Vences. When distracted with conversation I was unable to reproduce the pain her had previously described. AXR unrevealing and he finished contrast for CT scan of the abdomen and pelvis ordered by hospitalist. - Await CT - MiraLAX 17g daily after CT scan - Avoid opiate analgesia and monitor for withdrawal - Clear liquid diet Code(s): R10.9 - UNSPECIFIED ABDOMINAL PAIN
[2018-02-23] MEDS: metoPROLOL SUCCINATE 25 MG TAB.SR.24H (FP) PO SCH (21:50)
[2018-02-23] MEDS: DOCUSATE SODIUM 100 MG CAPSULE (FP) PO SCH (21:50)
[2018-02-23] MEDS: MELATONIN 5 MG TABLETS PO SCH (21:51)
[2018-02-24] MEDS: LEVOTHYROXINE NA 88 MCG TABLET (FP) PO SCH (06:39)
[2018-02-24 08:07] LABS: ANION GAP 7 (8-16); BLOOD UREA NITROGEN 8 mg/dL (7-18); CALCIUM 8.3 mg/dL (8.5-10.1); CHLORIDE 104 mmol/L (98-107); CO2 29 mmol/L (21-32); GLUCOSE,RANDOM 106 mg/dL (74-106); POTASSIUM 3.5 mmol/L (3.5-5.1); SODIUM 140 mmol/L (136-145)
[2018-02-24 08:14] LABS: CREATININE 0.9 mg/dL (0.7-1.3)
[2018-02-24 08:57] LABS: BASO % 0.8 % (0-2.0); EOS % 2.8 % (0-4.5); HEMATOCRIT 37.2 % (35.4-49); HEMOGLOBIN 12.5 GM/dL (11.7-16.9); LYMPH % 21.6 % (8-40); MCH 31.7 pg (25.7-33.7); MCHC 33.7 g/dl (32.0-35.9); MEAN CELL VOLUME 94.3 fl (80-96); MEAN PLT VOLUME 7.5 fl (7.5-11.1); MONO % 14.6 % (3.8-10.2); NEUT % 60.2 % (42.8-82.8); PLATELET COUNT 178 K/MM3 (134-434); RBC 3.95 M/mm3 (4.00-5.60); RDW 14.3 % (11.9-15.9); WHITE BLOOD COUNT 4.8 K/mm3 (4.0-10.0)
[2018-02-24] MEDS: morphine SO4 SUSTAINED ACTING 30 MG TABLET.SA PO SCH ×2 (09:06→21:06)
[2018-02-24] MEDS: ASPIRIN 81 MG CHEWABLE TABLETS PO SCH (09:07)
[2018-02-24] MEDS: APIXABAN 5 MG TABLET PO SCH ×2 (09:07→21:06)
[2018-02-24] MEDS: RANOLAZINE E.R. 500 MG TABLET (FP) PO SCH ×2 (09:07→21:06)
[2018-02-24] MEDS: PANTOPRAZOLE 40 MG TABLET (FP) PO SCH (09:07)
[2018-02-24] MEDS: TAMSULOSIN HCL 0.4 MG CAP.ER.24H (FP) PO SCH (09:07)
[2018-02-24] MEDS: FUROSEMIDE 40 MG TABLET (FP) PO SCH (09:07)
[2018-02-24] MEDS: POLYETHYLENE GLYCOL 3350 119 GM BTL PO SCH (09:08)
--- NOTE | 2018-02-24 09:40 | PN ---
Progress Note, Physician Chief Complaint: Events noted Dyspnea persists Complains of diffuse abdominal discomfort with palpation, but better History of Present Illness: Patient was seen and examined. Awake and alert. Chart was reviewed GI input noted Denies chest pain. Persistent shortness of breath Less abdominal discomfort - Current Medication List Current Medications: Active Medications Albuterol Sulfate (Ventolin Hfa Inhaler -) 2 puff IH Q4H PRN PRN Reason: SHORT OF BREATH/WHEEZING Apixaban (Eliquis -) 5 mg PO BID [facility] Last Admin: 02/24/18 09:07 Dose: 5 mg Aspirin (Asa -) 81 mg PO DAILY [facility] Last Admin: 02/24/18 09:07 Dose: 81 mg Diltiazem HCl (Cardizem Cd -) 120 mg PO DAILY [facility] Last Admin: 02/24/18 09:07 Dose: 120 mg Docusate Sodium (Colace -) 200 mg PO HS [facility] Last Admin: 02/23/18 21:50 Dose: 200 mg Furosemide (Lasix -) 40 mg PO DAILY [facility] Last Admin: 02/24/18 09:07 Dose: 40 mg Levothyroxine Sodium (Synthroid -) 88 mcg PO AM [facility] Last Admin: 02/24/18 06:39 Dose: 88 mcg Melatonin (Melatonin) 5 mg PO HS [facility] Last Admin: 02/23/18 21:51 Dose: 5 mg Metoprolol Succinate (Toprol Xl -) 25 mg PO HS [facility] Last Admin: 02/23/18 21:50 Dose: 25 mg Morphine Sulfate (Ms Contin -) 30 mg PO BID [facility] Last Admin: 02/24/18 09:06 Dose: 30 mg Pantoprazole Sodium (Protonix -) 40 mg PO DAILY [facility] Last Admin: 02/24/18 09:07 Dose: 40 mg Polyethylene Glycol (Miralax (For Daily Use) -) 17 gm PO DAILY [facility] Last Admin: 02/24/18 09:08 Dose: 17 gm Ranolazine (Ranexa -) 500 mg PO BID [facility] Last Admin: 02/24/18 09:07 Dose: 500 mg Tamsulosin HCl (Flomax -) 0.4 mg PO DAILY@0830 [facility] Last Admin: 02/24/18 09:07 Dose: 0.4 mg - Objective Vital Signs: Vital Signs Temperature 97.6 F 02/24/18 05:56 Pulse Rate 62 02/24/18 05:56 Respiratory Rate 20 02/24/18 05:56 Blood Pressure 109/49 02/24/18 05:56 O2 Sat by Pulse Oximetry (%) 99 02/24/18 05:56 HENT: Yes: Atraumatic Neck: Yes: Supple Cardiovascular: Yes: Regular Rate and Rhythm, S1, S2 Respiratory: Yes: Diminished Gastrointestinal: Yes: Normal Bowel Sounds, Tenderness (Diffuse) Edema: No Additional Findings/Remarks: - Review of Systems Constitutional: denies: Chills, Fever Cardiovascular: (+) chest pain, (+) SOB. (-) palpitation Respiratory: reports: Cough and sputum Production Gastrointestinal: denies: Nausea, Vomiting, Diarrhea, Constipation, (+) Abdominal Pain Musculoskeletal: denies: Joint Pain Neurological: denies: Dizziness or Headaches Labs: CBC, BMP 02/24/18 06:00 02/24/18 06:00 INR, PTT INR 1.50 (0.82-1.09) H 02/22/18 17:30 - ....Imaging X-ray: Report Reviewed (AXR noted) Cat Scan: Pending Problem List - Problems (1) Coronary artery disease Code(s): I25.10 - ATHSCL HEART DISEASE OF [place] CORONARY ARTERY W/O ANG PCTRS Qualifiers: Coronary Disease-Associated Artery/Lesion type: [place] artery [place] vs. transplanted heart: [place] heart Associated angina: without angina Qualified Code(s): I25.10 - Atherosclerotic heart disease of [place] coronary artery without angina pectoris (2) S/P coronary artery stent placement Code(s): Z95.5 - PRESENCE OF CORONARY ANGIOPLASTY IMPLANT AND GRAFT (3) SOB (shortness of breath) Code(s): R06.02 - SHORTNESS OF BREATH (4) COPD (chronic obstructive pulmonary disease) Code(s): J44.9 - CHRONIC OBSTRUCTIVE PULMONARY DISEASE, UNSPECIFIED Qualifiers: COPD type: COPD with acute exacerbation Qualified Code(s): J44.1 - Chronic obstructive pulmonary disease with (acute) exacerbation (5) CVA (cerebral vascular accident) Code(s): I63.9 - CEREBRAL INFARCTION, UNSPECIFIED Qualifiers: CVA mechanism: unspecified Qualified Code(s): I63.9 - Cerebral infarction, unspecified (6) Chest pain Code(s): R07.9 - CHEST PAIN, UNSPECIFIED Qualifiers: Chest pain type: unspecified Qualified Code(s): R07.9 - Chest pain, unspecified (7) Chronic abdominal pain Code(s): R10.9 - UNSPECIFIED ABDOMINAL PAIN; G89.29 - OTHER CHRONIC PAIN (8) Factor V deficiency Code(s): D68.2 - HEREDITARY DEFICIENCY OF OTHER CLOTTING FACTORS (9) HTN (hypertension) Code(s): I10 - ESSENTIAL (PRIMARY) HYPERTENSION Qualifiers: Hypertension type: essential hypertension Qualified Code(s): I10 - Essential (primary) hypertension (10) Hypercholesteremia Code(s): E78.0 - PURE HYPERCHOLESTEROLEMIA * DO NOT USE * (11) Hypothyroid Code(s): E03.9 - HYPOTHYROIDISM, UNSPECIFIED Qualifiers: Hypothyroidism type: due to acquired atrophy of thyroid Qualified Code(s): E03.4 - Atrophy of thyroid (acquired) (12) Demand ischemia Code(s): I24.8 - OTHER FORMS OF ACUTE ISCHEMIC HEART DISEASE Assessment/Plan 1. Dyspnea referable to COPD and ILD 2. CAD with multivessel PCI, angina pectoris 3. 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 Cerebrovascular disease 5. Hypertension 6. Hypercholesterolemia 7. Prostate CA 8. 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 Hypothyroidism 10. Abdominal pain, etiology unclear PLAN: 1. Continue Cardizem CD 120 mg once a day 2. Continue Eliquis 5 mg BID and Ranexa 500 mg BID as tolerated. Diuretic with Lasix with caution 3. Await abdominal CT result. GI to follow 4. Continue pulmonary management with IV steroids, bronchodilator and O2 5. Patient was given Metoprolol ER - with caution in view of presence of ILD and COPD 6. Continue ASA in view of multivessel CAD even though he is on NOAC Guarded Further plans are to follow Alonso Conrad MD
--- NOTE | 2018-02-24 13:57 | PN ---
Physical Exam: SUBJECTIVE: Patient seen and examined at the bedside. No chest pain, less abdominal pain. OBJECTIVE: for ct abdmen pelvis to further evaluate GI symptoms Vital Signs Period Temp Pulse Resp BP Sys/Fernandez Pulse Ox Last 24 Hr 97.2 F-98.3 F 59-90 18-20 109-119/45-62 97-99 GENERAL: The patient is awake, alert, and fully oriented, in no acute distress. HEAD: Normal with no signs of trauma. EYES: PERRL, extraocular movements intact, sclera anicteric, conjunctiva clear. No ptosis. ENT: Ears normal, nares patent, oropharynx clear without exudates, moist mucous membranes. NECK: Trachea midline, full range of motion, supple. LUNGS: Breath sounds equal, clear to auscultation bilaterally, no wheezes, no crackles, HEART: Regular rate and rhythm ABDOMEN: Soft, nontender, nondistended, normoactive bowel sounds, no guarding, no rebound, no hepatosplenomegaly, no masses. EXTREMITIES: 2+ pulses, warm, well-perfused, no edema. NEUROLOGICAL: Normal speech, gait not observed. PSYCH: Normal mood, normal affect. SKIN: Warm, dry, normal turgor, no rashes or lesions noted Laboratory Results - last 24 hr 02/24/18 02/24/18 06:00 06:00 WBC 4.8 RBC 3.95 L Hgb 12.5 Hct 37.2 MCV 94.3 MCH 31.7 MCHC 33.7 RDW 14.3 Plt Count 178 MPV 7.5 Neutrophils % 60.2 Lymphocytes % 21.6 Monocytes % 14.6 H Eosinophils % 2.8 Basophils % 0.8 Sodium 140 Potassium 3.5 Chloride 104 Carbon Dioxide 29 Anion Gap 7 L BUN 8 Creatinine 0.9 Random Glucose 106 Calcium 8.3 L TSH 1.29 D Active Medications Generic Name Dose Route Start Last Admin Trade Name Freq PRN Reason Stop Dose Admin Albuterol Sulfate 2 puff 02/22/18 23:57 Ventolin Hfa Inhaler - IH Q4H PRN SHORT OF BREATH/WHEEZING Apixaban 5 mg 02/23/18 10:00 02/24/18 09:07 Eliquis - PO 5 mg BID JAIMEE Administration Aspirin 81 mg 02/23/18 10:02/24/18 09:07 Asa - PO 81 mg DAILY JAIMEE Administration Diltiazem HCl 120 mg 02/23/18 10:00 02/24/18 09:07 Cardizem Cd - PO 120 mg DAILY JAIMEE Administration Docusate Sodium 200 mg 02/23/18 22:00 02/23/18 21:50 Colace - PO 200 mg HS JAIMEE Administration Furosemide 40 mg 02/23/18 10:00 02/24/18 09:07 Lasix - PO 40 mg DAILY JAIMEE Administration Levothyroxine Sodium 88 mcg 02/23/18 07:00 02/24/18 06:39 Synthroid - PO 88 mcg AM JAIMEE Administration Melatonin 5 mg 02/23/18 22:00 02/23/18 21:51 Melatonin PO 5 mg HS JAIMEE Administration Metoprolol Succinate 25 mg 02/23/18 22:00 02/23/18 21:50 Toprol Xl - PO 25 mg HS JAIMEE Administration Morphine Sulfate 30 mg 02/23/18 10:00 02/24/18 09:06 Ms Contin - PO 30 mg BID JAIMEE Administration Pantoprazole Sodium 40 mg 02/23/18 10:00 02/24/18 09:07 Protonix - PO 40 mg DAILY JAIMEE Administration Polyethylene Glycol 17 gm 02/24/18 10:00 02/24/18 09:08 Miralax (For Daily Use) - PO 17 gm DAILY JAIMEE Administration Ranolazine 500 mg 02/23/18 10:00 02/24/18 09:07 Ranexa - PO 500 mg BID JAIMEE Administration Tamsulosin HCl 0.4 mg 02/23/18 08:30 02/24/18 09:07 Flomax - PO 0.4 mg DAILY@0830 JAIMEE Administration ASSESSMENT/PLAN: Patient is a 77 year old male with a significant past medical history of CVA, CAD s/p stents x 2, factor V leiden, diverticulitis, DVT (on Elliquis 5mg BID), GERD, kidney stones, [place], hypertension and COPD (home oxygen dependent) Card: Chest pain on admission, now with new abdominal pain CTAP ordered and pending GI following, notes reviewed Chest pain improved Cardiology following, patient on Toprol XL 25, Cardizem 120 daily, Ranexa, ASA, Lasix CAD s/p stents x 2 DVT history On Eliquis 5mg BID Hypertension, chronic Pulmonary COPD, hx, but not in exacerbation On supplemental oxygen @ 2-3 liters Maintain oxygen saturations 90% or greater Muscular/Skeletal Back pain, generalized pain, chronic will continue his home regimen as pain is musculoskeletal MS contin BID Hematology: Factor 5 leiden PE, DVT history IVC filter On Eliquis 5mg BID F.E.N. Fluids: Po adequate Electrolytes: monitor Nutrition: low sodium diet Prophy: On Eliquis Disposition: full code. Visit type - Emergency Visit Emergency Visit: Yes ED Registration Date: 02/22/18 Care time: The patient presented to the Emergency Department on the above date and was hospitalized for further evaluation of their emergent condition. - New Patient This patient is new to me today: Yes Date on this admission: 02/24/18 - Critical Care Critical Care patient: No - Discharge Referral Referred to [facility] No
[2018-02-24] MEDS: DOCUSATE SODIUM 100 MG CAPSULE (FP) PO SCH ×2 (21:05→21:10)
[2018-02-24] MEDS: MELATONIN 5 MG TABLETS PO SCH ×2 (21:06→22:58)
[2018-02-24] MEDS: metoPROLOL SUCCINATE 25 MG TAB.SR.24H (FP) PO SCH (21:06)
[2018-02-25] MEDS: LEVOTHYROXINE NA 88 MCG TABLET (FP) PO SCH (06:01)
[2018-02-25] MEDS: TAMSULOSIN HCL 0.4 MG CAP.ER.24H (FP) PO SCH (09:37)
[2018-02-25] MEDS: PANTOPRAZOLE 40 MG TABLET (FP) PO SCH (09:38)
[2018-02-25] MEDS: ASPIRIN 81 MG CHEWABLE TABLETS PO SCH (09:38)
[2018-02-25] MEDS: RANOLAZINE E.R. 500 MG TABLET (FP) PO SCH ×2 (09:38→21:18)
[2018-02-25] MEDS: APIXABAN 5 MG TABLET PO SCH ×2 (09:38→21:19)
[2018-02-25] MEDS: morphine SO4 SUSTAINED ACTING 30 MG TABLET.SA PO SCH ×2 (09:38→21:18)
[2018-02-25] MEDS: POLYETHYLENE GLYCOL 3350 119 GM BTL PO SCH (09:39)
--- NOTE | 2018-02-25 09:55 | PN ---
Progress Note, Physician Chief Complaint: Events noted Dyspnea persists Complains of diffuse abdominal discomfort with palpation Abdominal CT official result pending History of Present Illness: Patient was seen and examined. Awake and alert. Chart was reviewed Denies chest pain. Persistent shortness of breath Persistent abdominal discomfort, etiology to be determined - Current Medication List Current Medications: Active Medications Albuterol Sulfate (Ventolin Hfa Inhaler -) 2 puff IH Q4H PRN PRN Reason: SHORT OF BREATH/WHEEZING Apixaban (Eliquis -) 5 mg PO BID [facility] Last Admin: 02/25/18 09:38 Dose: 5 mg Aspirin (Asa -) 81 mg PO DAILY [facility] Last Admin: 02/25/18 09:38 Dose: 81 mg Diltiazem HCl (Cardizem Cd -) 120 mg PO DAILY [facility] Last Admin: 02/24/18 09:07 Dose: 120 mg Docusate Sodium (Colace -) 200 mg PO HS [facility] Last Admin: 02/24/18 21:10 Dose: Not Given Furosemide (Lasix -) 40 mg PO DAILY [facility] Last Admin: 02/24/18 09:07 Dose: 40 mg Levothyroxine Sodium (Synthroid -) 88 mcg PO AM [facility] Last Admin: 02/25/18 06:01 Dose: 88 mcg Melatonin (Melatonin) 5 mg PO HS [facility] Last Admin: 02/24/18 22:58 Dose: 5 mg Metoprolol Succinate (Toprol Xl -) 25 mg PO HS [facility] Last Admin: 02/24/18 21:06 Dose: 25 mg Morphine Sulfate (Ms Contin -) 30 mg PO BID [facility] Last Admin: 02/25/18 09:38 Dose: 30 mg Pantoprazole Sodium (Protonix -) 40 mg PO DAILY [facility] Last Admin: 02/25/18 09:38 Dose: 40 mg Polyethylene Glycol (Miralax (For Daily Use) -) 17 gm PO DAILY [facility] Last Admin: 02/25/18 09:39 Dose: 17 gm Ranolazine (Ranexa -) 500 mg PO BID [facility] Last Admin: 02/25/18 09:38 Dose: 500 mg Tamsulosin HCl (Flomax -) 0.4 mg PO DAILY@0830 [facility] Last Admin: 02/25/18 09:37 Dose: 0.4 mg - Objective Vital Signs: Vital Signs Temperature 98.4 F 02/25/18 09:35 Pulse Rate 70 02/25/18 09:35 Respiratory Rate 22 02/25/18 09:35 Blood Pressure 99/43 02/25/18 09:35 O2 Sat by Pulse Oximetry (%) 97 02/24/18 19:52 Eyes: Yes: PERRL HENT: Yes: Atraumatic Neck: Yes: Supple Cardiovascular: Yes: Regular Rate and Rhythm, S1, S2 Respiratory: Yes: Diminished Gastrointestinal: Yes: Soft, Tenderness (mid center area) Edema: No Additional Findings/Remarks: - Review of Systems Constitutional: denies: Chills, Fever Cardiovascular: (+) chest pain, (+) SOB. (-) palpitation Respiratory: reports: Cough and sputum Production Gastrointestinal: denies: Nausea, Vomiting, Diarrhea, Constipation, (+) Abdominal Pain Musculoskeletal: denies: Joint Pain Neurological: denies: Dizziness or Headaches Labs: CBC, BMP 02/24/18 06:00 02/24/18 06:00 INR, PTT INR 1.50 (0.82-1.09) H 02/22/18 17:30 Problem List - Problems (1) Coronary artery disease Code(s): I25.10 - ATHSCL HEART DISEASE OF [place] CORONARY ARTERY W/O ANG PCTRS Qualifiers: Coronary Disease-Associated Artery/Lesion type: [place] artery [place] vs. transplanted heart: [place] heart Associated angina: without angina Qualified Code(s): I25.10 - Atherosclerotic heart disease of [place] coronary artery without angina pectoris (2) S/P coronary artery stent placement Code(s): Z95.5 - PRESENCE OF CORONARY ANGIOPLASTY IMPLANT AND GRAFT (3) SOB (shortness of breath) Code(s): R06.02 - SHORTNESS OF BREATH (4) COPD (chronic obstructive pulmonary disease) Code(s): J44.9 - CHRONIC OBSTRUCTIVE PULMONARY DISEASE, UNSPECIFIED Qualifiers: COPD type: COPD with acute exacerbation Qualified Code(s): J44.1 - Chronic obstructive pulmonary disease with (acute) exacerbation (5) CVA (cerebral vascular accident) Code(s): I63.9 - CEREBRAL INFARCTION, UNSPECIFIED Qualifiers: CVA mechanism: unspecified Qualified Code(s): I63.9 - Cerebral infarction, unspecified (6) Chest pain Code(s): R07.9 - CHEST PAIN, UNSPECIFIED Qualifiers: Chest pain type: unspecified Qualified Code(s): R07.9 - Chest pain, unspecified (7) Chronic abdominal pain Code(s): R10.9 - UNSPECIFIED ABDOMINAL PAIN; G89.29 - OTHER CHRONIC PAIN (8) Factor V deficiency Code(s): D68.2 - HEREDITARY DEFICIENCY OF OTHER CLOTTING FACTORS (9) HTN (hypertension) Code(s): I10 - ESSENTIAL (PRIMARY) HYPERTENSION Qualifiers: Hypertension type: essential hypertension Qualified Code(s): I10 - Essential (primary) hypertension (10) Hypercholesteremia Code(s): E78.0 - PURE HYPERCHOLESTEROLEMIA * DO NOT USE * (11) Hypothyroid Code(s): E03.9 - HYPOTHYROIDISM, UNSPECIFIED Qualifiers: Hypothyroidism type: due to acquired atrophy of thyroid Qualified Code(s): E03.4 - Atrophy of thyroid (acquired) (12) Demand ischemia Code(s): I24.8 - OTHER FORMS OF ACUTE ISCHEMIC HEART DISEASE Assessment/Plan 1. Dyspnea referable to COPD and ILD 2. CAD with multivessel PCI, angina pectoris 3. 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 Cerebrovascular disease 5. Hypertension 6. Hypercholesterolemia 7. Prostate CA 8. 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 Hypothyroidism 10. Abdominal pain, etiology unclear PLAN: 1. Continue Cardizem CD 120 mg once a day 2. Continue Eliquis 5 mg BID and Ranexa 500 mg BID as tolerated. Diuretic with Lasix with caution 3. Await official abdominal CT result. GI to follow for assessing etiology of abdominal discomfort 4. Continue pulmonary management with IV steroids, bronchodilator and O2 5. Patient was given Metoprolol ER - with caution in view of presence of ILD and COPD 6. Continue ASA in view of multivessel CAD even though he is on NOAC Guarded Further plans are to follow Alonso Conrad MD
[2018-02-25 12:41] LABS: BASO % 0.9 % (0-2.0); EOS % 2.2 % (0-4.5); HEMATOCRIT 41.7 % (35.4-49); HEMOGLOBIN 14.1 GM/dL (11.7-16.9); LYMPH % 23.3 % (8-40); MCH 31.8 pg (25.7-33.7); MCHC 33.8 g/dl (32.0-35.9); MEAN CELL VOLUME 94.1 fl (80-96); MEAN PLT VOLUME 7.1 fl (7.5-11.1); MONO % 11.6 % (3.8-10.2); PLATELET COUNT 205 K/MM3 (134-434); RBC 4.44 M/mm3 (4.00-5.60); RDW 14.7 % (11.9-15.9); WHITE BLOOD COUNT 5.9 K/mm3 (4.0-10.0)
[2018-02-25 13:09] LABS: ALBUMIN 3.2 g/dl (3.4-5.0); ALK PHOS 72 U/L (45-117); ANION GAP 6 (8-16); BILIRUBIN,TOTAL 0.6 mg/dL (0.2-1.0); BLOOD UREA NITROGEN 6 mg/dL (7-18); CALCIUM 8.8 mg/dL (8.5-10.1); CHLORIDE 103 mmol/L (98-107); CO2 31 mmol/L (21-32); CREATININE 1.1 mg/dL (0.7-1.3); GLUCOSE,RANDOM 124 mg/dL (74-106); MAGNESIUM 2.2 mg/dL (1.8-2.4); SGOT/AST 16 U/L (15-37); SGPT/ALT 34 U/L (12-78); SODIUM 140 mmol/L (136-145); TOT PROT 6.3 g/dl (6.4-8.2)
--- NOTE | 2018-02-25 13:13 | PN ---
Progress Note, Physician Chief Complaint: Mr Vences complains of abdominal and chest pain. No sob or n/v. - Current Medication List Current Medications: Active Medications Albuterol Sulfate (Ventolin Hfa Inhaler -) 2 puff IH Q4H PRN PRN Reason: SHORT OF BREATH/WHEEZING Apixaban (Eliquis -) 5 mg PO BID [facility] Last Admin: 02/25/18 09:38 Dose: 5 mg Aspirin (Asa -) 81 mg PO DAILY [facility] Last Admin: 02/25/18 09:38 Dose: 81 mg Diltiazem HCl (Cardizem Cd -) 120 mg PO DAILY [facility] Last Admin: 02/24/18 09:07 Dose: 120 mg Docusate Sodium (Colace -) 200 mg PO [facility] Last Admin: 02/24/18 21:10 Dose: Not Given Furosemide (Lasix -) 40 mg PO DAILY [facility] Last Admin: 02/24/18 09:07 Dose: 40 mg Levothyroxine Sodium (Synthroid -) 88 mcg PO AM [facility] Last Admin: 02/25/18 06:01 Dose: 88 mcg Melatonin (Melatonin) 5 mg PO [facility] Last Admin: 02/24/18 22:58 Dose: 5 mg Metoprolol Succinate (Toprol Xl -) 25 mg PO [facility] Last Admin: 02/24/18 21:06 Dose: 25 mg Morphine Sulfate (Ms Contin -) 30 mg PO BID [facility] Last Admin: 02/25/18 09:38 Dose: 30 mg Pantoprazole Sodium (Protonix -) 40 mg PO DAILY [facility] Last Admin: 02/25/18 09:38 Dose: 40 mg Polyethylene Glycol (Miralax (For Daily Use) -) 17 gm PO DAILY [facility] Last Admin: 02/25/18 09:39 Dose: 17 gm Ranolazine (Ranexa -) 500 mg PO BID [facility] Last Admin: 02/25/18 09:38 Dose: 500 mg Tamsulosin HCl (Flomax -) 0.4 mg PO DAILY@0830 [facility] Last Admin: 02/25/18 09:37 Dose: 0.4 mg - Objective Vital Signs: Vital Signs Temperature 36.9 C 02/25/18 09:35 Pulse Rate 70 02/25/18 09:35 Respiratory Rate 22 02/25/18 10:50 Blood Pressure 99/43 02/25/18 09:35 O2 Sat by Pulse Oximetry (%) 94 L 02/25/18 10:50 Constitutional: Yes: No Distress, Calm, Obese Cardiovascular: Yes: Regular Rate and Rhythm. No: Gallop, Murmur, Rub Respiratory: Yes: Regular, CTA Bilaterally. No: Rales, Rhonchi, Wheezes Gastrointestinal: Yes: Normal Bowel Sounds, Soft. No: Distention, Tenderness Extremities: Yes: WNL Edema: No Labs: CBC, BMP 02/25/18 12:30 02/25/18 12:30 INR, PTT INR 1.50 (0.82-1.09) H 02/22/18 17:30 - ....Imaging Cat Scan: Report Reviewed, Image Reviewed Problem List - Problems (1) Abdominal pain Assessment/Plan: -Dr Jean and Dr Mott's notes reviewed -on exam note patient does not react to palpation of abdomen when distracted -however when asked he says he has pain with slight guarding -CT scan read reviewed, no acute pathology -will start high fiber diet and probiotics -continue miralax Code(s): R10.9 - UNSPECIFIED ABDOMINAL PAIN Qualifiers: Abdominal location: generalized Qualified Code(s): R10.84 - Generalized abdominal pain (2) Coronary artery disease Assessment/Plan: -chest pain does not appear cardiac in nature -cardiology note reviewed -continue current regimen -continue telemetry Code(s): I25.10 - ATHSCL HEART DISEASE OF [place] CORONARY ARTERY W/O ANG PCTRS Qualifiers: Coronary Disease-Associated Artery/Lesion type: [place] artery [place] vs. transplanted heart: [place] heart Associated angina: without angina Qualified Code(s): I25.10 - Atherosclerotic heart disease of [place] coronary artery without angina pectoris (3) COPD (chronic obstructive pulmonary disease) Assessment/Plan: -not in exacerbation -continue albuterol Code(s): J44.9 - CHRONIC OBSTRUCTIVE PULMONARY DISEASE, UNSPECIFIED Qualifiers: COPD type: COPD with acute exacerbation Qualified Code(s): J44.1 - Chronic obstructive pulmonary disease with (acute) exacerbation (4) CVA (cerebral vascular accident) Assessment/Plan: -on aspirin and eliquis Code(s): I63.9 - CEREBRAL INFARCTION, UNSPECIFIED Qualifiers: CVA mechanism: unspecified Qualified Code(s): I63.9 - Cerebral infarction, unspecified (5) Constipation Assessment/Plan: -on miralax Code(s): K59.00 - CONSTIPATION, UNSPECIFIED (6) GERD (gastroesophageal reflux disease) Assessment/Plan: -continue protonix Code(s): K21.9 - GASTRO-ESOPHAGEAL REFLUX DISEASE WITHOUT ESOPHAGITIS (7) HTN (hypertension) Assessment/Plan: -controlled -monitor Code(s): I10 - ESSENTIAL (PRIMARY) HYPERTENSION Qualifiers: Hypertension type: essential hypertension Qualified Code(s): I10 - Essential (primary) hypertension (8) Hypothyroid Assessment/Plan: -continue levothyroxine Code(s): E03.9 - HYPOTHYROIDISM, UNSPECIFIED Qualifiers: Hypothyroidism type: due to acquired atrophy of thyroid Qualified Code(s): E03.4 - Atrophy of thyroid (acquired)
--- NOTE | 2018-02-25 14:29 | PN ---
Progress Note, Physician History of Present Illness: No events. c/o generalized abdominal pain with emphasis on LLQ. CT a/p with contrast no GI pathology. Also c/o chronic constipation, which apparently responds well to probiotics. - Current Medication List Current Medications: Active Medications Albuterol Sulfate (Ventolin Hfa Inhaler -) 2 puff IH Q4H PRN PRN Reason: SHORT OF BREATH/WHEEZING Apixaban (Eliquis -) 5 mg PO BID [facility] Last Admin: 02/25/18 09:38 Dose: 5 mg Aspirin (Asa -) 81 mg PO DAILY [facility] Last Admin: 02/25/18 09:38 Dose: 81 mg Diltiazem HCl (Cardizem Cd -) 120 mg PO DAILY [facility] Last Admin: 02/24/18 09:07 Dose: 120 mg Docusate Sodium (Colace -) 200 mg PO [facility] Last Admin: 02/24/18 21:10 Dose: Not Given Furosemide (Lasix -) 40 mg PO DAILY [facility] Last Admin: 02/24/18 09:07 Dose: 40 mg Levothyroxine Sodium (Synthroid -) 88 mcg PO AM [facility] Last Admin: 02/25/18 06:01 Dose: 88 mcg Melatonin (Melatonin) 5 mg PO HS [facility] Last Admin: 02/24/18 22:58 Dose: 5 mg Metoprolol Succinate (Toprol Xl -) 25 mg PO HS [facility] Last Admin: 02/24/18 21:06 Dose: 25 mg Morphine Sulfate (Ms Contin -) 30 mg PO BID [facility] Last Admin: 02/25/18 09:38 Dose: 30 mg Pantoprazole Sodium (Protonix -) 40 mg PO DAILY [facility] Last Admin: 02/25/18 09:38 Dose: 40 mg Polyethylene Glycol (Miralax (For Daily Use) -) 17 gm PO DAILY [facility] Last Admin: 02/25/18 09:39 Dose: 17 gm Ranolazine (Ranexa -) 500 mg PO BID [facility] Last Admin: 02/25/18 09:38 Dose: 500 mg Tamsulosin HCl (Flomax -) 0.4 mg PO DAILY@0830 [facility] Last Admin: 02/25/18 09:37 Dose: 0.4 mg - Objective Vital Signs: Vital Signs Temperature 98.4 F 02/25/18 09:35 Pulse Rate 70 02/25/18 09:35 Respiratory Rate 22 02/25/18 10:50 Blood Pressure 99/43 02/25/18 09:35 O2 Sat by Pulse Oximetry (%) 94 L 02/25/18 10:50 Constitutional: Yes: Well Nourished, No Distress, Calm Eyes: Yes: Conjunctiva Clear HENT: Yes: Atraumatic Neck: Yes: Supple Cardiovascular: Yes: Regular Rate and Rhythm. No: Tachycardia, Pulse Irregular Respiratory: Yes: Regular Gastrointestinal: Yes: Normal Bowel Sounds, Soft, Abdomen, Obese, Tenderness ( LLQ on deep palpation). No: Ascites, Distention, Melena, Palpable Mass, Pulsatile Mass, Vomiting Neurological: Yes: Alert, Oriented Labs: CBC, BMP 02/25/18 12:30 02/25/18 12:30 INR, PTT INR 1.50 (0.82-1.09) H 02/22/18 17:30 Laboratory Last Values WBC 5.9 K/mm3 (4.0-10.0) 02/25/18 12:30 RBC 4.44 M/mm3 (4.00-5.60) 02/25/18 12:30 Hgb 14.1 GM/dL (11.7-16.9) D 02/25/18 12:30 Hct 41.7 % (35.4-49) 02/25/18 12:30 MCV 94.1 fl (80-96) 02/25/18 12:30 MCH 31.8 pg (25.7-33.7) 02/25/18 12:30 MCHC 33.8 g/dl (32.0-35.9) 02/25/18 12:30 RDW 14.7 % (11.9-15.9) 02/25/18 12:30 Plt Count 205 K/MM3 (134-434) 02/25/18 12:30 MPV 7.1 fl (7.5-11.1) L 02/25/18 12:30 Neutrophils % 62.0 % (42.8-82.8) 02/25/18 12:30 Lymphocytes % 23.3 % (8-40) 02/25/18 12:30 Monocytes % 11.6 % (3.8-10.2) H 02/25/18 12:30 Eosinophils % 2.2 % (0-4.5) 02/25/18 12:30 Basophils % 0.9 % (0-2.0) 02/25/18 12:30 PT with INR 16.90 SEC (9.98-11.88) H 02/22/18 17:30 INR 1.50 (0.82-1.09) H 02/22/18 17:30 PTT (Actin FS) 30.0 SECONDS (26.9-34.4) 02/22/18 17:30 Sodium 140 mmol/L (136-145) 02/25/18 12:30 Potassium 4.0 mmol/L (3.5-5.1) 02/25/18 12:30 Chloride 103 mmol/L (98-107) 02/25/18 12:30 Carbon Dioxide 31 mmol/L (21-32) 02/25/18 12:30 Anion Gap 6 (8-16) L 02/25/18 12:30 BUN 6 mg/dL (7-18) L D 02/25/18 12:30 Creatinine 1.1 mg/dL (0.7-1.3) D 02/25/18 12:30 Creat Clearance w eGFR > 60 (>60) 02/25/18 12:30 Random Glucose 124 mg/dL (74-106) H 02/25/18 12:30 Calcium 8.8 mg/dL (8.5-10.1) 02/25/18 12:30 Phosphorus 3.6 mg/dL (2.5-4.9) 02/23/18 05:00 Magnesium 2.2 mg/dL (1.8-2.4) 02/25/18 12:30 Total Bilirubin 0.6 mg/dL (0.2-1.0) D 02/25/18 12:30 AST 16 U/L (15-37) 02/25/18 12:30 ALT 34 U/L (12-78) 02/25/18 12:30 Alkaline Phosphatase 72 U/L (45-117) D 02/25/18 12:30 Troponin I 0.11 ng/ml (0.00-0.05) H 02/23/18 05:00 B-Natriuretic Peptide 265.04 pg/ml (5-450) 02/22/18 17:30 Total Protein 6.3 g/dl (6.4-8.2) L 02/25/18 12:30 Albumin 3.2 g/dl (3.4-5.0) L 02/25/18 12:30 Triglycerides 112 mg/dL (35-160) 02/23/18 05:00 Cholesterol 95 mg/dL (50-200) D 02/23/18 05:00 Total LDL Cholesterol 42 mg/dL (5-100) D 02/23/18 05:00 HDL Cholesterol 51 mg/dL (40-60) 02/23/18 05:00 TSH 1.29 uIU/ml (0.358-3.74) D 02/24/18 06:00 Problem List - Problems (1) Abdominal pain Code(s): R10.9 - UNSPECIFIED ABDOMINAL PAIN Assessment/Plan Non-specific, chronic abdominal pain in settings of ichronically altered bowels. ?Constipation-predominant IBS?. CT A/P with contrast is negative for acute GI pathology. Multiple imaging studies in pursuit of chronic abdominal pain dx have been unrevealing. Last colonoscopy 10 y ago, per patient. He is due for one now. 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
[2018-02-25] MEDS: FUROSEMIDE 40 MG TABLET (FP) PO SCH (14:34)
[2018-02-25] MEDS: LACTOBACILLUS ACIDOPHILUS 1 CAP PO SCH (18:20)
[2018-02-25] MEDS: DOCUSATE SODIUM 100 MG CAPSULE (FP) PO SCH (21:19)
[2018-02-25] MEDS: metoPROLOL SUCCINATE 25 MG TAB.SR.24H (FP) PO SCH (21:19)
[2018-02-25] MEDS: MELATONIN 5 MG TABLETS PO SCH (23:43)
[2018-02-26] MEDS: LEVOTHYROXINE NA 88 MCG TABLET (FP) PO SCH (06:03)
[2018-02-26 07:44] LABS: BASO % 0.6 % (0-2.0); EOS % 2.3 % (0-4.5); HEMATOCRIT 37.6 % (35.4-49); HEMOGLOBIN 12.7 GM/dL (11.7-16.9); LYMPH % 24.9 % (8-40); MCHC 33.8 g/dl (32.0-35.9); MEAN CELL VOLUME 94.6 fl (80-96); MEAN PLT VOLUME 7.4 fl (7.5-11.1); MONO % 14.8 % (3.8-10.2); NEUT % 57.4 % (42.8-82.8); PLATELET COUNT 181 K/MM3 (134-434); RBC 3.97 M/mm3 (4.00-5.60); RDW 14.1 % (11.9-15.9); WHITE BLOOD COUNT 4.9 K/mm3 (4.0-10.0)
[2018-02-26 08:08] LABS: ANION GAP 7 (8-16); BLOOD UREA NITROGEN 5 mg/dL (7-18); CALCIUM 8.2 mg/dL (8.5-10.1); CHLORIDE 105 mmol/L (98-107); CO2 30 mmol/L (21-32); GLUCOSE,RANDOM 98 mg/dL (74-106); MAGNESIUM 2.2 mg/dL (1.8-2.4); POTASSIUM 3.6 mmol/L (3.5-5.1); SODIUM 142 mmol/L (136-145)
[2018-02-26] MEDS: morphine SO4 SUSTAINED ACTING 30 MG TABLET.SA PO SCH ×2 (09:27→21:05)
[2018-02-26] MEDS: FUROSEMIDE 40 MG TABLET (FP) PO SCH (09:28)
[2018-02-26] MEDS: TAMSULOSIN HCL 0.4 MG CAP.ER.24H (FP) PO SCH (09:28)
[2018-02-26] MEDS: LACTOBACILLUS ACIDOPHILUS 1 CAP PO SCH (09:28)
[2018-02-26] MEDS: PANTOPRAZOLE 40 MG TABLET (FP) PO SCH (09:29)
[2018-02-26] MEDS: RANOLAZINE E.R. 500 MG TABLET (FP) PO SCH ×2 (09:29→21:05)
[2018-02-26] MEDS: APIXABAN 5 MG TABLET PO SCH ×2 (09:29→21:05)
[2018-02-26] MEDS: ASPIRIN 81 MG CHEWABLE TABLETS PO SCH (09:29)
[2018-02-26] MEDS ORDERED: SIMETHICONE 80 MG TAB.CHEW (FP) PO PRN (10:35)
[2018-02-26] MEDS: POLYETHYLENE GLYCOL 3350 119 GM BTL PO SCH (11:32)
--- NOTE | 2018-02-26 11:57 | PN ---
Progress Note (short form) - Note Progress Note: Chief Complaint: Events noted, notes reviewed, reports persistent dyspnea and intermittent chest discomfort History of Present Illness: Seen and examined on telemetry. Events noted, notes reviewed, reports persistent dyspnea and intermittent chest discomfort Echocardiography revealed Low normal left ventricular systolic function with estimated left ventricular ejection fraction between 50-55%, normal right ventricular size and systolic function, aortic valve leaflet sclerosis, mitral annular calcification, mild mitral valve regurgitation with no evidence of pulmonary hypertension - Current Medication List Current Medications Albuterol Sulfate (Ventolin Hfa Inhaler -) 2 puff IH Q4H PRN PRN Reason: SHORT OF BREATH/WHEEZING Apixaban (Eliquis -) 5 mg PO BID [facility] Last Admin: 02/26/18 09:29 Dose: 5 mg Aspirin (Asa -) 81 mg PO DAILY [facility] Last Admin: 02/26/18 09:29 Dose: 81 mg Diltiazem HCl (Cardizem Cd -) 120 mg PO DAILY [facility] Last Admin: 02/26/18 09:27 Dose: 120 mg Docusate Sodium (Colace -) 200 mg PO [facility] Last Admin: 02/25/18 21:19 Dose: Not Given Furosemide (Lasix -) 40 mg PO DAILY [facility] Last Admin: 02/26/18 09:28 Dose: 40 mg Lactobacillus Acidophilus (Bacid -) 1 cap PO DAILY [facility] Last Admin: 02/26/18 09:28 Dose: 1 cap Levothyroxine Sodium (Synthroid -) 88 mcg PO AM [facility] Last Admin: 02/26/18 06:03 Dose: 88 mcg Melatonin (Melatonin) 5 mg PO [facility] Last Admin: 02/25/18 23:43 Dose: 5 mg Metoprolol Succinate (Toprol Xl -) 25 mg PO [facility] Last Admin: 02/25/18 21:19 Dose: 25 mg Morphine Sulfate (Ms Contin -) 30 mg PO BID [facility] Last Admin: 02/26/18 09:27 Dose: 30 mg Pantoprazole Sodium (Protonix -) 40 mg PO DAILY [facility] Last Admin: 02/26/18 09:29 Dose: 40 mg Polyethylene Glycol (Miralax (For Daily Use) -) 17 gm PO DAILY [facility] Last Admin: 02/26/18 11:32 Dose: Not Given Ranolazine (Ranexa -) 500 mg PO BID [facility] Last Admin: 04/10/18 09:29 Dose: 500 mg Simethicone (Mylicon -) 80 mg PO QID PRN PRN Reason: GAS Last Admin: 02/26/18 11:23 Dose: 80 mg Tamsulosin HCl (Flomax -) 0.4 mg PO DAILY@0830 [facility] Last Admin: 02/26/18 09:28 Dose: 0.4 mg - Review of Systems Constitutional: denies: Chills or Fever Cardiovascular: As noted above Respiratory: reports: Cough and Sputum Production Gastrointestinal: denies: Nausea, Vomiting, Diarrhea, Constipation but reports intermittent Abdominal Pain Musculoskeletal: denies: Joint Pain Neurological: denies: Dizziness or Headaches - Objective Vital Signs: Last Vital Signs Temp Pulse Resp BP Pulse Ox 97.6 F 74 18 139/73 96 02/26/18 09:00 02/26/18 09:00 02/26/18 09:00 02/26/18 09:00 02/25/18 20:02 Intake & Output 02/23/18 02/24/18 02/25/18 02/26/18 23:59 23:59 23:59 23:59 Intake Total 20 10 790 250 Output Total 409 625 3228 700 Balance -680 -890 -610 -450 Weight 222 lb 1 oz Neck: Supple Negative JVD Cardiovascular: S1 and S2 Regular Rate and Rhythm Respiratory: Diminished Bilaterally at the Bases Gastrointestinal: Soft, Benign Normal Bowel Sounds Ext: Trace Edema Bilaterally Labs: CBC, BMP 02/26/18 07:00 02/26/18 07:00 Hepatic Panel Total Bilirubin 0.6 mg/dL (0.2-1.0) D 02/25/18 12:30 AST 16 U/L (15-37) 02/25/18 12:30 ALT 34 U/L (12-78) 02/25/18 12:30 Alkaline Phosphatase 72 U/L (45-117) D 02/25/18 12:30 Albumin 3.2 g/dl (3.4-5.0) L 02/25/18 12:30 Assessment/Plan ASSESSMENT: 1. Dyspnea referable COPD and ILD, exacerbation, resolving 2. CAD post multi-vessel PCI, angina pectoris with evidence of demand ischemic injury 3. Systolic/diastolic left ventricular dysfunction with chronic class I-II [place] [employer] classification left ventricular failure, resolved 4. Hypertension 5. Hypercholesterolemia 6. History of cerebrovascular disease 7. Factor V Leiden with history of DVT and PE post IVC filter implant on NOAC's 8. Hypothyroidism 9. History of prostate CA PLAN: 1. Discontinue Cardizem CD in view of the above-noted systolic left ventricular dysfunction 2. Continue Toprol-XL therapy and titrate dosage as tolerated 3. Continue Ranexa 4. Recommend the addition of MILES inhibitor or angiotensin receptor suellen therapy unless it is absolutely contraindicated 5. Continue Eliquis at 5 mg twice daily, and Ecotrin with caution and close monitoring of CBC 6. Continue Lasix with caution and close monitoring of renal function 7. Continue IV steroids and bronchodilator therapy Seema Santos MD
--- NOTE | 2018-02-26 14:43 | PN ---
Progress Note, Physician Chief Complaint: Mr Vences complains of pain in his back, abdomen, and chest. Remains unchanged. No sob or n/v. Complains of diarrhea. - Current Medication List Current Medications: Active Medications Albuterol Sulfate (Ventolin Hfa Inhaler -) 2 puff IH Q4H PRN PRN Reason: SHORT OF BREATH/WHEEZING Apixaban (Eliquis -) 5 mg PO BID [facility] Last Admin: 02/26/18 09:29 Dose: 5 mg Aspirin (Asa -) 81 mg PO DAILY [facility] Last Admin: 02/26/18 09:29 Dose: 81 mg Docusate Sodium (Colace -) 200 mg PO HS [facility] Last Admin: 02/25/18 21:19 Dose: Not Given Furosemide (Lasix -) 40 mg PO DAILY [facility] Last Admin: 02/26/18 09:28 Dose: 40 mg Lactobacillus Acidophilus (Bacid -) 1 cap PO DAILY [facility] Last Admin: 02/26/18 09:28 Dose: 1 cap Levothyroxine Sodium (Synthroid -) 88 mcg PO AM [facility] Last Admin: 02/26/18 06:03 Dose: 88 mcg Melatonin (Melatonin) 5 mg PO HS [facility] Last Admin: 02/25/18 23:43 Dose: 5 mg Metoprolol Succinate (Toprol Xl -) 50 mg PO [facility] Morphine Sulfate (Ms Contin -) 30 mg PO BID [facility] Last Admin: 02/26/18 09:27 Dose: 30 mg Pantoprazole Sodium (Protonix -) 40 mg PO DAILY [facility] Last Admin: 02/26/18 09:29 Dose: 40 mg Ranolazine (Ranexa -) 500 mg PO BID [facility] Last Admin: 02/26/18 09:29 Dose: 500 mg Simethicone (Mylicon -) 80 mg PO QID PRN PRN Reason: GAS Last Admin: 02/26/18 11:23 Dose: 80 mg Tamsulosin HCl (Flomax -) 0.4 mg PO DAILY@0830 [facility] Last Admin: 02/26/18 09:28 Dose: 0.4 mg Valsartan (Diovan -) 40 mg PO DAILY [facility] - Objective Vital Signs: Vital Signs Temperature 36.4 C 02/26/18 09:00 Pulse Rate 74 02/26/18 09:00 Respiratory Rate 18 02/26/18 12:00 Blood Pressure 139/73 02/26/18 09:00 O2 Sat by Pulse Oximetry (%) 96 02/26/18 12:00 Constitutional: Yes: No Distress, Calm, Obese Cardiovascular: Yes: Regular Rate and Rhythm. No: Gallop, Murmur, Rub Respiratory: Yes: Regular, CTA Bilaterally. No: Rales, Rhonchi, Wheezes Gastrointestinal: Yes: Normal Bowel Sounds, Soft. No: Distention, Tenderness Extremities: Yes: WNL Edema: No Labs: CBC, BMP 02/26/18 07:00 02/26/18 07:00 INR, PTT INR 1.50 (0.82-1.09) H 02/22/18 17:30 Problem List - Problems (1) Abdominal pain Code(s): R10.9 - UNSPECIFIED ABDOMINAL PAIN Qualifiers: Abdominal location: generalized Qualified Code(s): R10.84 - Generalized abdominal pain (2) Coronary artery disease Code(s): I25.10 - ATHSCL HEART DISEASE OF [place] CORONARY ARTERY W/O ANG PCTRS Qualifiers: Coronary Disease-Associated Artery/Lesion type: [place] artery [place] vs. transplanted heart: [place] heart Associated angina: without angina Qualified Code(s): I25.10 - Atherosclerotic heart disease of [place] coronary artery without angina pectoris (3) COPD (chronic obstructive pulmonary disease) Code(s): J44.9 - CHRONIC OBSTRUCTIVE PULMONARY DISEASE, UNSPECIFIED Qualifiers: COPD type: COPD with acute exacerbation Qualified Code(s): J44.1 - Chronic obstructive pulmonary disease with (acute) exacerbation (4) CVA (cerebral vascular accident) Code(s): I63.9 - CEREBRAL INFARCTION, UNSPECIFIED Qualifiers: CVA mechanism: unspecified Qualified Code(s): I63.9 - Cerebral infarction, unspecified (5) Constipation Code(s): K59.00 - CONSTIPATION, UNSPECIFIED (6) GERD (gastroesophageal reflux disease) Code(s): K21.9 - GASTRO-ESOPHAGEAL REFLUX DISEASE WITHOUT ESOPHAGITIS (7) HTN (hypertension) Code(s): I10 - ESSENTIAL (PRIMARY) HYPERTENSION Qualifiers: Hypertension type: essential hypertension Qualified Code(s): I10 - Essential (primary) hypertension (8) Hypothyroid Code(s): E03.9 - HYPOTHYROIDISM, UNSPECIFIED Qualifiers: 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 CORONARY ARTERY W/O ANG PCTRS Qualifiers: Coronary Disease-Associated Artery/Lesion type: [place] artery [place] vs. transplanted heart: [place] heart Associated angina: without angina Qualified Code(s): I25.10 - Atherosclerotic heart disease of [place] coronary artery without angina pectoris (3) COPD (chronic obstructive pulmonary disease) Assessment/Plan: -not in exacerbation -continue albuterol Code(s): J44.9 - CHRONIC OBSTRUCTIVE PULMONARY DISEASE, UNSPECIFIED Qualifiers: COPD type: COPD with acute exacerbation Qualified Code(s): J44.1 - Chronic obstructive pulmonary disease with (acute) exacerbation (4) CVA (cerebral vascular accident) Assessment/Plan: -on aspirin and eliquis Code(s): I63.9 - CEREBRAL INFARCTION, UNSPECIFIED Qualifiers: CVA mechanism: unspecified Qualified Code(s): I63.9 - Cerebral infarction, unspecified (5) Constipation Assessment/Plan: -on miralax Code(s): K59.00 - CONSTIPATION, UNSPECIFIED (6) GERD (gastroesophageal reflux disease) Assessment/Plan: -continue protonix Code(s): K21.9 - GASTRO-ESOPHAGEAL REFLUX DISEASE WITHOUT ESOPHAGITIS (7) HTN (hypertension) Assessment/Plan: -controlled -monitor -continue valsartan and furosemide -toprol xl increased per cardiology Code(s): I10 - ESSENTIAL (PRIMARY) HYPERTENSION Qualifiers: Hypertension type: essential hypertension Qualified Code(s): I10 - Essential (primary) hypertension (8) Hypothyroid Assessment/Plan: -continue levothyroxine Code(s): E03.9 - HYPOTHYROIDISM, UNSPECIFIED Qualifiers: 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
[2018-02-26] MEDS: VALSARTAN 40 MG TABLET (FP) PO SCH (15:00)
--- NOTE | 2018-02-26 19:12 | PN ---
Progress Note, Physician History of Present Illness: No events. C/o diarrhea this am, now better - Current Medication List Current Medications: Active Medications Albuterol Sulfate (Ventolin Hfa Inhaler -) 2 puff IH Q4H PRN PRN Reason: SHORT OF BREATH/WHEEZING Apixaban (Eliquis -) 5 mg PO BID [facility] Last Admin: 02/26/18 09:29 Dose: 5 mg Aspirin (Asa -) 81 mg PO DAILY [facility] Last Admin: 02/26/18 09:29 Dose: 81 mg Docusate Sodium (Colace -) 200 mg PO HS [facility] Last Admin: 02/25/18 21:19 Dose: Not Given Furosemide (Lasix -) 40 mg PO DAILY [facility] Last Admin: 02/26/18 09:28 Dose: 40 mg Lactobacillus Acidophilus (Bacid -) 1 cap PO DAILY [facility] Last Admin: 02/26/18 09:28 Dose: 1 cap Levothyroxine Sodium (Synthroid -) 88 mcg PO AM [facility] Last Admin: 02/26/18 06:03 Dose: 88 mcg Melatonin (Melatonin) 5 mg PO HS [facility] Last Admin: 02/25/18 23:43 Dose: 5 mg Metoprolol Succinate (Toprol Xl -) 50 mg PO HS [facility] Morphine Sulfate (Ms Contin -) 30 mg PO BID [facility] Last Admin: 02/26/18 09:27 Dose: 30 mg Pantoprazole Sodium (Protonix -) 40 mg PO DAILY [facility] Last Admin: 02/26/18 09:29 Dose: 40 mg Ranolazine (Ranexa -) 500 mg PO BID [facility] Last Admin: 02/26/18 09:29 Dose: 500 mg Simethicone (Mylicon -) 80 mg PO QID PRN PRN Reason: GAS Last Admin: 02/26/18 11:23 Dose: 80 mg Tamsulosin HCl (Flomax -) 0.4 mg PO DAILY@0830 [facility] Last Admin: 02/26/18 09:28 Dose: 0.4 mg Valsartan (Diovan -) 40 mg PO DAILY [facility] Last Admin: 02/26/18 15:00 Dose: 40 mg - Objective Vital Signs: Vital Signs Temperature 97.7 F 02/26/18 14:00 Pulse Rate 67 02/26/18 14:00 Respiratory Rate 18 02/26/18 12:00 Blood Pressure 112/56 02/26/18 14:00 O2 Sat by Pulse Oximetry (%) 96 02/26/18 12:00 Constitutional: Yes: Well Nourished, No Distress, Calm Gastrointestinal: Yes: Soft. No: Distention, Tenderness Neurological: Yes: Alert Labs: CBC, BMP 02/26/18 07:00 02/26/18 07:00 INR, PTT INR 1.50 (0.82-1.09) H 02/22/18 17:30 Laboratory Last Values WBC 4.9 K/mm3 (4.0-10.0) 02/26/18 07:00 RBC 3.97 M/mm3 (4.00-5.60) L 02/26/18 07:00 Hgb 12.7 GM/dL (11.7-16.9) 02/26/18 07:00 Hct 37.6 % (35.4-49) 02/26/18 07:00 MCV 94.6 fl (80-96) 02/26/18 07:00 MCH 32.0 pg (25.7-33.7) 02/26/18 07:00 MCHC 33.8 g/dl (32.0-35.9) 02/26/18 07:00 RDW 14.1 % (11.9-15.9) 02/26/18 07:00 Plt Count 181 K/MM3 (134-434) 02/26/18 07:00 MPV 7.4 fl (7.5-11.1) L 02/26/18 07:00 Neutrophils % 57.4 % (42.8-82.8) 02/26/18 07:00 Lymphocytes % 24.9 % (8-40) 02/26/18 07:00 Monocytes % 14.8 % (3.8-10.2) H 02/26/18 07:00 Eosinophils % 2.3 % (0-4.5) 02/26/18 07:00 Basophils % 0.6 % (0-2.0) 02/26/18 07:00 PT with INR 16.90 SEC (9.98-11.88) H 02/22/18 17:30 INR 1.50 (0.82-1.09) H 02/22/18 17:30 PTT (Actin FS) 30.0 SECONDS (26.9-34.4) 02/22/18 17:30 Sodium 142 mmol/L (136-145) 02/26/18 07:00 Potassium 3.6 mmol/L (3.5-5.1) 02/26/18 07:00 Chloride 105 mmol/L (98-107) 02/26/18 07:00 Carbon Dioxide 30 mmol/L (21-32) 02/26/18 07:00 Anion Gap 7 (8-16) L 02/26/18 07:00 BUN 5 mg/dL (7-18) L 02/26/18 07:00 Creatinine 1.0 mg/dL (0.7-1.3) 02/26/18 07:00 Creat Clearance w eGFR > 60 (>60) 02/25/18 12:30 Random Glucose 98 mg/dL (74-106) D 02/26/18 07:00 Calcium 8.2 mg/dL (8.5-10.1) L 02/26/18 07:00 Phosphorus 4.0 mg/dL (2.5-4.9) 02/26/18 07:00 Magnesium 2.2 mg/dL (1.8-2.4) 02/26/18 07:00 Total Bilirubin 0.6 mg/dL (0.2-1.0) D 02/25/18 12:30 AST 16 U/L (15-37) 02/25/18 12:30 ALT 34 U/L (12-78) 02/25/18 12:30 Alkaline Phosphatase 72 U/L (45-117) D 02/25/18 12:30 Troponin I 0.11 ng/ml (0.00-0.05) H 02/23/18 05:00 B-Natriuretic Peptide 265.04 pg/ml (5-450) 02/22/18 17:30 Total Protein 6.3 g/dl (6.4-8.2) L 02/25/18 12:30 Albumin 3.2 g/dl (3.4-5.0) L 02/25/18 12:30 Triglycerides 112 mg/dL (35-160) 02/23/18 05:00 Cholesterol 95 mg/dL (50-200) D 02/23/18 05:00 Total LDL Cholesterol 42 mg/dL (5-100) D 02/23/18 05:00 HDL Cholesterol 51 mg/dL (40-60) 02/23/18 05:00 TSH 1.29 uIU/ml (0.358-3.74) D 02/24/18 06:00 Problem List - Problems (1) Abdominal pain Code(s): R10.9 - UNSPECIFIED ABDOMINAL PAIN Qualifiers: Abdominal location: generalized Qualified Code(s): R10.84 - Generalized abdominal pain Assessment/Plan Non-specific, chronic abdominal pain in settings of chronically altered bowels. Trial of probiotics x2-4 weeks Miralax bid High fiber diet will follow
[2018-02-26] MEDS: DOCUSATE SODIUM 100 MG CAPSULE (FP) PO SCH (21:06)
[2018-02-26] MEDS: MELATONIN 5 MG TABLETS PO SCH (22:33)
[2018-02-27] MEDS: LEVOTHYROXINE NA 88 MCG TABLET (FP) PO SCH (06:14)
[2018-02-27] MEDS: VALSARTAN 40 MG TABLET (FP) PO SCH (09:27)
[2018-02-27] MEDS: RANOLAZINE E.R. 500 MG TABLET (FP) PO SCH (09:27)
[2018-02-27] MEDS: APIXABAN 5 MG TABLET PO SCH (09:27)
[2018-02-27] MEDS: LACTOBACILLUS ACIDOPHILUS 1 CAP PO SCH (09:27)
[2018-02-27] MEDS: ASPIRIN 81 MG CHEWABLE TABLETS PO SCH (09:28)
[2018-02-27] MEDS: PANTOPRAZOLE 40 MG TABLET (FP) PO SCH (09:28)
[2018-02-27] MEDS: TAMSULOSIN HCL 0.4 MG CAP.ER.24H (FP) PO SCH (09:28)
[2018-02-27] MEDS: morphine SO4 SUSTAINED ACTING 30 MG TABLET.SA PO SCH (09:28)
[2018-02-27] MEDS: FUROSEMIDE 40 MG TABLET (FP) PO SCH (09:28)
--- NOTE | 2018-02-27 10:18 | PN ---
Progress Note (short form) - Note Progress Note: Chief Complaint: Events noted, notes reviewed, reports persistent dyspnea but improved, denies any chest discomfort History of Present Illness: Seen and examined on telemetry. Events noted, notes reviewed, reports persistent dyspnea but improved, denies any chest discomfort Echocardiography revealed Low normal left ventricular systolic function with estimated left ventricular ejection fraction between 50-55%, normal right ventricular size and systolic function, aortic valve leaflet sclerosis, mitral annular calcification, mild mitral valve regurgitation with no evidence of pulmonary hypertension - Current Medication List Current Medications Albuterol Sulfate (Ventolin Hfa Inhaler -) 2 puff IH Q4H PRN PRN Reason: SHORT OF BREATH/WHEEZING Apixaban (Eliquis -) 5 mg PO BID [facility] Last Admin: 02/27/18 09:27 Dose: 5 mg Aspirin (Asa -) 81 mg PO DAILY [facility] Last Admin: 02/27/18 09:28 Dose: 81 mg Docusate Sodium (Colace -) 200 mg PO [facility] Last Admin: 02/26/18 21:06 Dose: Not Given Furosemide (Lasix -) 40 mg PO DAILY [facility] Last Admin: 02/27/18 09:28 Dose: 40 mg Lactobacillus Acidophilus (Bacid -) 1 cap PO DAILY [facility] Last Admin: 02/27/18 09:27 Dose: 1 cap Levothyroxine Sodium (Synthroid -) 88 mcg PO AM [facility] Last Admin: 02/27/18 06:14 Dose: 88 mcg Melatonin (Melatonin) 5 mg PO HS [facility] Last Admin: 02/26/18 22:33 Dose: 5 mg Metoprolol Succinate (Toprol Xl -) 50 mg PO [facility] Last Admin: 02/26/18 21:05 Dose: 50 mg Morphine Sulfate (Ms Contin -) 30 mg PO BID [facility] Last Admin: 02/27/18 09:28 Dose: 30 mg Pantoprazole Sodium (Protonix -) 40 mg PO DAILY [facility] Last Admin: 02/27/18 09:28 Dose: 40 mg Ranolazine (Ranexa -) 500 mg PO BID [facility] Last Admin: 02/27/18 09:27 Dose: 500 mg Simethicone (Mylicon -) 80 mg PO QID PRN PRN Reason: GAS Last Admin: 02/26/18 11:23 Dose: 80 mg Tamsulosin HCl (Flomax -) 0.4 mg PO DAILY@0830 [facility] Last Admin: 02/27/18 09:28 Dose: 0.4 mg Valsartan (Diovan -) 40 mg PO DAILY [facility] Last Admin: 02/27/18 09:27 Dose: 40 mg - Review of Systems Constitutional: denies: Chills or Fever Cardiovascular: As noted above Respiratory: reports: Cough and Sputum Production Gastrointestinal: denies: Nausea, Vomiting, Diarrhea, Constipation but reports intermittent Abdominal Pain Musculoskeletal: denies: Joint Pain Neurological: denies: Dizziness or Headaches - Objective Vital Signs: Last Vital Signs Temp Pulse Resp BP Pulse Ox 98.2 F 55 L 20 106/40 94 L 02/27/18 05:32 02/27/18 05:32 02/27/18 05:32 02/27/18 05:32 02/26/18 19:25 Intake & Output 02/24/18 02/25/18 02/26/18 02/27/18 23:59 23:59 23:59 23:59 Intake Total 10 790 570 Output Total 900 1400 1000 200 Balance -890 -610 -430 -200 Neck: Supple Negative JVD Cardiovascular: S1 and S2 Regular Rate and Rhythm Respiratory: Diminished Bilaterally at the Bases Gastrointestinal: Soft, Benign Normal Bowel Sounds Ext: Trace Edema Bilaterally Labs: CBC, BMP 02/26/18 07:00 02/26/18 07:00 Assessment/Plan ASSESSMENT: 1. Dyspnea referable COPD and ILD, exacerbation, resolving 2. CAD post multi-vessel PCI, angina pectoris with evidence of demand ischemic injury 3. Systolic/diastolic left ventricular dysfunction with chronic class I-II [place] [employer] classification left ventricular failure, resolved 4. Hypertension 5. Hypercholesterolemia 6. History of cerebrovascular disease 7. Factor V Leiden with history of DVT and PE post IVC filter implant on NOAC's 8. Hypothyroidism 9. History of prostate CA PLAN: 1. Continue Toprol-XL therapy and titrate dosage as tolerated 2. Continue Diovan 3. Continue Ranexa 4. Continue Eliquis at 5 mg twice daily, and Ecotrin with caution and close monitoring of CBC 5. Continue PO Lasix with caution and close monitoring of renal function 6. Continue bronchodilator therapy 7. D/C planning as per the primary team, advised F/U in the office post D/C Seema Santos MD
[2018-02-27 12:32] VITALS: BP 100/57; PULSE 70; TEMP 97.8
--- NOTE | 2018-02-27 13:40 | DS ---
Physical Examination Vital Signs: Vital Signs Temperature 36.6 C 02/27/18 10:00 Pulse Rate 70 02/27/18 10:00 Respiratory Rate 22 02/27/18 10:00 Blood Pressure 100/57 02/27/18 10:00 O2 Sat by Pulse Oximetry (%) 98 02/27/18 10:00 Labs: CBC, BMP 02/26/18 07:00 02/26/18 07:00 Discharge Summary Reason For Visit: CHEST PAIN Current Active Problems Abdominal pain (Acute) Coronary artery disease (Acute) Demand ischemia (Acute) S/P coronary artery stent placement (Acute) SOB (shortness of breath) (Acute) Condition: Stable - Instructions Diet, Activity, Other Instructions: resume previous diet and activity Referrals: Gila Moya MD [Staff Physician] - Edwardo Yang MD [Primary Care Provider] - 1 Week Seema Santos MD [Staff Physician] - Disposition: HOME - Home Medications Comprehensive Discharge Medication List: Ambulatory Orders Albuterol Sulfate [Proair Hfa] 2 puff IH BID 02/22/18 Alirocumab [Praluent Pen] 75 mg SQ ASDIR 02/22/18 Apixaban [Eliquis -] 5 mg PO BID 02/22/18 Aspirin [ASA -] 81 mg PO DAILY 02/22/18 Diltiazem Cd [Cardizem Cd -] 120 mg PO DAILY 02/22/18 Docusate Sodium 200 mg PO HS 02/22/18 Fluticasone Prop 0.05% Nasal [Flonase -] 1 - 2 spray NS BID 02/22/18 Furosemide [Lasix -] 40 mg PO DAILY 02/22/18 HYDROmorphone [Dilaudid -] 6 mg PO Q8H PRN 02/22/18 Levothyroxine Sodium [Synthroid] 88 mcg PO AM 02/22/18 Linaclotide [Linzess] 290 mcg PO DAILY 02/22/18 Melatonin 5 mg PO HS 02/22/18 Morphine *Sr* [MS Contin -] 30 mg PO Q12H PRN 02/22/18 Omeprazole 40 mg PO DAILY 02/22/18 Ranolazine [Ranexa -] 500 mg PO BID 02/22/18 Tamsulosin HCl 0.4 mg PO DAILY 02/22/18 Lactobacillus Acidophilus [Bacid -] 1 cap PO DAILY #20 cap 02/27/18 Metoprolol Succinate [Toprol XL -] 50 mg PO HS #30 tab.sr.24h 02/27/18 Polyethylene Glycol 3350 [Miralax 119 gm Btl -] 17 gm PO DAILY #1 bottle Simethicone [Mylicon -] 80 mg PO QID PRN #60 tab.chew 02/27/18 Valsartan [Diovan] 40 mg PO DAILY #30 tablet 02/27/18
== END 2018-02-27 14:45 | disposition home or self-care (01) | DRG 190 ==
LOC: JER 15:41 → JERBED 23:23 → J4W 02-23 02:00 → OBSVTOIN 02-25 11:45
PROVIDERS: ADMIT Internal Medicine; ATTEND Internal Medicine
DX: J44.1 Chronic obstructive pulmonary disease with (acute) exacerbation (principal); I50.33 Acute on chronic diastolic (congestive) heart failure; D68.51 Activated protein C resistance; I25.110 Atherosclerotic heart disease of native coronary artery with unstable angina pectoris; J84.9 Interstitial pulmonary disease, unspecified; K21.9 Gastro-esophageal reflux disease without esophagitis; I25.2 Old myocardial infarction; K57.90 Diverticulosis of intestine, part unspecified, without perforation or abscess without bleeding; N40.0 Benign prostatic hyperplasia without lower urinary tract symptoms; F41.9 Anxiety disorder, unspecified; G89.4 Chronic pain syndrome; E03.9 Hypothyroidism, unspecified; E78.00 Pure hypercholesterolemia, unspecified; R10.9 Unspecified abdominal pain; I11.0 Hypertensive heart disease with heart failure; Z87.442 Personal history of urinary calculi; Z99.81 Dependence on supplemental oxygen; Z85.46 Personal history of malignant neoplasm of prostate; Z86.718 Personal history of other venous thrombosis and embolism; Z95.5 Presence of coronary angioplasty implant and graft; Z86.73 Personal history of transient ischemic attack (TIA), and cerebral infarction without residual deficits
CPT/HCPCS: 36415; 71045-TC-FY; 71275-TC; 74018-TC-FY; 74178-TC; 80048; 80053; 80061; 83721; 83735; 83880; 84100; 84443; 84484; 85025; 85610; 85730; 87804; 93005; 93010; 93306-TC; 93970-TC; 97116-GP; 97162-GP; 99285-25; G0378

== ENCOUNTER 2019-09-09 15:56 | Emergency (ER) | payer OTHER, BC ==
[2019-09-09 16:09] VITALS: TEMP 97.3; BMI 27.8
--- NOTE | 2019-09-09 17:50 | PDOC ---
Attending Attestation - Resident Resident Name: Kareen Ron - ED Attending Attestation I have performed the following: I have examined & evaluated the patient, The case was reviewed & discussed with the resident, I agree w/resident's findings & plan, Exceptions are as noted - HPI HPI: 09/09/19 17:48 79-year-old male presents with complaint of shortness of breath associated with chest pain. He did have a negative stress test done September 05 of this year it showed LV ejection fraction of 62% with normal wall motion and there was no sign of any ischemia. 09/09/19 17:50 - Physicial Exam PE: 09/09/19 17:51 wnwd 79 yo male with c/o left chest pain head ncat neck no bruits lungs cta b/l cvs [id number] abd nontender skin warm and dry no cva tenderness neuro axox3,ambulatory - Medical Decision Making 09/09/19 17:51 Dr. Ridley, the [employer] commerce developer who knows this patient well states that this presentation is very common for this patient. Typically they would just trend his troponins 09/09/19 20:53 negative stress test on 09/05/19 plan: IF second troponin is negative ,pt will be d/c to follow up with his [employer] commerce developer
--- NOTE | 2019-09-09 18:12 | PDOC ---
History of Present Illness - General Chief Complaint: Chest Pain Stated Complaint: SOB Time Seen by Provider: 09/09/19 16:36 - History of Present Illness Initial Comments: 09/09/19 18:58 79 y/o M hx of CAD s/p stent placement x2, HTN,HLD, CVA x2, COPD, factor V Leiden deficiency (Eloquis for anticoagulation), diverticulitis,chronic abdominal pain and uses O2 at home, presented today with chest pain. The pt. has had chest pain over the last month and a half. He had a stress test on which showed LVEF of 62% with no ischemic changes or arrhythmia. BIBEMS with continued complaints of midsternal chest pain, radiating to his right shoulder. Pt denies, cough,fever, chills nausea vomiting. Past History - Past Medical History Allergies/Adverse Reactions: Allergies Allergy/AdvReac Type Severity Reaction Status Date / Time No Known Allergies Allergy Verified 09/09/19 16:05 Home Medications: Ambulatory Orders Albuterol Sulfate [Proair Hfa] 2 puff IH BID 02/22/18 Alirocumab [Praluent Pen] 75 mg SQ ASDIR 02/22/18 Apixaban [Eliquis -] 5 mg PO BID 02/22/18 Aspirin [ASA -] 81 mg PO DAILY 02/22/18 Diltiazem Cd [Cardizem Cd -] 120 mg PO DAILY 02/22/18 Docusate Sodium 200 mg PO HS 02/22/18 Fluticasone Prop 0.05% Nasal [Flonase -] 1 - 2 spray NS BID 02/22/18 Furosemide [Lasix -] 40 mg PO DAILY 02/22/18 HYDROmorphone [Dilaudid -] 6 mg PO Q8H PRN 02/22/18 Levothyroxine Sodium [Synthroid] 88 mcg PO AM 02/22/18 Linaclotide [Linzess] 290 mcg PO DAILY 02/22/18 Melatonin 5 mg PO HS 02/22/18 Morphine *Sr* [MS Contin -] 30 mg PO Q12H PRN 02/22/18 Omeprazole 40 mg PO DAILY 02/22/18 Ranolazine [Ranexa -] 500 mg PO BID 02/22/18 Tamsulosin HCl 0.4 mg PO DAILY 02/22/18 Lactobacillus Acidophilus [Bacid -] 1 cap PO DAILY #20 cap 02/27/18 Metoprolol Succinate [Toprol XL -] 50 mg PO HS #30 tab.sr.24h 02/27/18 Polyethylene Glycol 3350 [Miralax 119 gm Btl -] 17 gm PO DAILY #1 bottle Simethicone [Mylicon -] 80 mg PO QID PRN #60 tab.chew 02/27/18 Valsartan [Diovan] 40 mg PO DAILY #30 tablet 02/27/18 Anemia: No Asthma: No Cancer: Yes (PROSTATE) Cardiac Disorders: Yes (STENTS, FACTOR 5, CLOTTING DISORDER) CVA: Yes (X2 '93 / '04 / (L) WEAKNESS) COPD: Yes (O2 DEPENDENT) CHF: No Dementia: No Diabetes: No GI Disorders: Yes (diverticulosis,gerd) Disorders: Yes (kidney stone) HTN: Yes Hypercholesterolemia: Yes Kidney Stones: Yes Liver Disease: No Seizures: No Thyroid Disease: No - Surgical History Abdominal Surgery: No Appendectomy: No Cardiac Surgery: Yes (2 STENTS, NICHOL FILTER) Cholecystectomy: No Lung Surgery: No Neurologic Surgery: No - Immunization History Immunization Up to Date: Yes - Psycho Social/Smoking Cessation Hx Smoking Status: No Smoking History: Never smoked Have you smoked in the past 12 months: No Number of Cigarettes Smoked Daily: 0 Information on smoking cessation initiated: No Hx Alcohol Use: No Drug/Substance Use Hx: No Substance Use Type: None Hx Substance Use Treatment: No Review of Systems - Review of Systems Constitutional: No: Chills, Fever HEENTM: No: Eye Pain, Blurred Vision Respiratory: No: Cough Cardiac (ROS): Yes: See HPI ABD/GI: No: Constipated, Diarrhea : No: Burning, Dysuria Integumentary: Yes: Bruising Neurological: No: Headache, Numbness Psychiatric: Yes: Anxiety *Physical Exam - Vital Signs Last Vital Signs Temp Pulse Resp BP Pulse Ox 97.3 F L 73 22 H 141/81 100 09/09/19 16:06 09/09/19 16:06 09/09/19 16:06 09/09/19 16:06 09/09/19 16:06 - Physical Exam Comments: 09/09/19 18:09 PE: GENERAL: Awake, alert, and fully oriented, in no acute distress HEAD: No signs of trauma, normocephalic, atraumatic EYES: PERRLA, EOMI, sclera anicteric, conjunctiva clear ENT: Auricles normal inspection, hearing grossly normal, nares patent, oropharynx clear without exudates. Moist mucosa NECK: Normal ROM, supple, no lymphadenopathy, JVD, or masses LUNGS: No distress,shortness of breath with exertionl.speaks full sentences, crackles in lung bases bilaterally. HEART: Irregular rate normal S1 and S2, no murmurs, rubs or gallops, peripheral pulses normal and equal bilaterally. ABDOMEN: Soft, nontender, normoactive bowel sounds. No guarding, no rebound. No masses EXTREMITIES : Normal inspection, Normal range of motion, 1+ edema to calf. pedal echymosis on left leg.(pt on anticoagulation) No clubbing or cyanosis NEUROLOGICAL: Cranial nerves II through XII grossly intact. Normal speech, normal gait, no focal sensorimotor deficits SKIN: Warm, Dry, normal turgor, no rashes or lesions noted ED Treatment Course - LABORATORY CBC & Chemistry Diagram: 09/09/19 17:33 09/09/19 17:33 Medical Decision Making - Medical Decision Making 09/09/19 18:07 EKG, CMP, cardiac profile, bnp, lipase, pt/inr, cardiac monitoring EKG: Sinus rhythm with premature atrial complexes possible left atrial enlargement. 09/09/19 18:12 Pt had a stress test last week which showed LVEF of 62% with no ischemia, arrthymias and normal wall motion noted during testing. baseline EKG at that time showed single isolated premature ventricular contractions during infusion. no significant ST changes. Per pt's cardiology team (Dr. Latif), he is known for exaggerating his condition. He is okay with our chest pain workup. pt reports that he was referred by Dr. Mas to the ED, for transfer to [facility] for chest pain. senior resident confirmed with (covering for Dr. Mas) that pt. has h/o falsely reporting need for transfer to [facility], or referral to ED. Per Dr. almonte advises routine ED workup for pt. with chronic chest pain, serial troponins. and admit as we see fit. 09/09/19 18:17 09/09/19 19:16 Labs Trop negative repeat 2nd trop at 8:33 Lipase within normal limits. 09/09/19 20:56 Pt given 4mg morphine IV at 7:08 for pain. continues to compain of general body aches 1000mg IV tylenol ordered 09/09/19 21:53 Second troponin negative Discharge with follow up with senior engineering technician. Discharge - Discharge Information Problems reviewed: Yes Clinical Impression/Diagnosis: Chest pain Qualifiers: Chest pain type: unspecified Qualified Code(s): R07.9 - Chest pain, unspecified Condition: Stable Disposition: HOME - Admission No - Follow up/Referral Referrals: Edwardo Yang MD [Primary Care Provider] - Jessi Mas MD [Staff Physician] - Abhishek Almonte MD [Staff Physician] - - Patient Discharge Instructions Patient Printed Discharge Instructions: DI for Chest Pain Additional Instructions: You were seen in the ED for chest pain. You have been give copies of all the lab work that was done. your workup was negative. Follow up with your Primary care provider and senior engineering technician in the next few days. Your care is not complete until you do so. Your care is not complete until you do so Return to the ER if your chest pain worsens if your pain medication at home does not work. - Post Discharge Activity
[2019-09-09 18:29] LABS: BASO % 0.5 % (0-2.0); EOS % 0.8 % (0-4.5); HEMATOCRIT 44.9 % (35.4-49); HEMOGLOBIN 14.7 GM/dL (11.7-16.9); LYMPH % 17.3 % (8-40); MCH 30.9 pg (25.7-33.7); MCHC 32.6 g/dl (32.0-35.9); MEAN CELL VOLUME 94.7 fl (80-96); MEAN PLT VOLUME 8.4 fl (7.5-11.1); MONO % 9.6 % (3.8-10.2); NEUT % 71.8 % (42.8-82.8); PLATELET COUNT 152 K/MM3 (134-434); RBC 4.74 M/mm3 (4.00-5.60); RDW 15.2 % (11.9-15.9); WHITE BLOOD COUNT 6.6 K/mm3 (4.0-10.0)
[2019-09-09] MEDS ORDERED: morphine CARPU-JECT 4 MG/1 ML DISP.SYRIN IVPUSH ONE (18:29)
[2019-09-09 18:40] LABS: INR 1.3 (0.83-1.09); PROTHROMBIN TIME (PATIENT) 15.4 SEC (9.7-13.0)
[2019-09-09 19:08] LABS: ALBUMIN 3.2 g/dl (3.4-5.0); BILIRUBIN,TOTAL 0.6 mg/dL (0.2-1); BLOOD UREA NITROGEN 15.3 mg/dL (7-18); CALCIUM 7.8 mg/dL (8.5-10.1); N-TERMINAL BNP 139.6 pg/ml (5-450); POTASSIUM 3.6 mmol/L (3.5-5.1); TOT PROT 5.7 g/dl (6.4-8.2)
[2019-09-09] MEDS ORDERED: morphine SULFATE 4 MG/ML VIAL ONE (19:08)
[2019-09-09 20:37] VITALS: BP 111/65; PULSE 82
[2019-09-09] MEDS ORDERED: ACETAMINOPHEN 1000 MG/100 ML VIAL (NON FORMULARY) IVPB ONE (20:55)
[2019-09-09] MEDS ORDERED: ACETAMINOPHEN INJECTION 100 ML IVPB ONE (21:02)
--- NOTE | 2019-09-10 09:56 | EKG ---
Test Reason : Blood Pressure : / mmHG Vent. Rate : 089 BPM Atrial Rate : 089 BPM P-R Int : 156 ms QRS Dur : 084 ms QT Int : 382 ms P-R-T Axes : 047 -02 018 degrees QTc Int : 464 ms SINUS RHYTHM WITH PREMATURE ATRIAL COMPLEXES POSSIBLE LEFT ATRIAL ENLARGEMENT BORDERLINE ECG WHEN COMPARED WITH ECG OF 22-FEB-2018 17:21, NONSPECIFIC T WAVE ABNORMALITY NO LONGER EVIDENT IN LATERAL LEADS Confirmed by CHEN COATES, JANNETH ([id number]) on 09/10/2019 9:56:08 AM Referred By: Confirmed By:JANNETH SIDDIQUI MD
== END 2019-09-09 23:23 | disposition home or self-care (01) ==
LOC: JER 15:56
PROC: 3E033NZ Introduction of Analgesics, Hypnotics, Sedatives into Peripheral Vein, Percutaneous Approach (ICD-10-PCS; principal; 2019-09-09)
PROC: 3E033NZ Introduction of Analgesics, Hypnotics, Sedatives into Peripheral Vein, Percutaneous Approach (ICD-10-PCS; 2019-09-09)
DX: R07.9 Chest pain, unspecified (principal); I25.10 Atherosclerotic heart disease of native coronary artery without angina pectoris; I10 Essential (primary) hypertension; Z95.5 Presence of coronary angioplasty implant and graft; J44.9 Chronic obstructive pulmonary disease, unspecified; Z99.81 Dependence on supplemental oxygen; E78.00 Pure hypercholesterolemia, unspecified; D68.51 Activated protein C resistance; Z79.01 Long term (current) use of anticoagulants; I69.854 Hemiplegia and hemiparesis following other cerebrovascular disease affecting left non-dominant side; Z85.46 Personal history of malignant neoplasm of prostate; Z79.82 Long term (current) use of aspirin; K21.9 Gastro-esophageal reflux disease without esophagitis; Z87.19 Personal history of other diseases of the digestive system; Z87.442 Personal history of urinary calculi; Z95.828 Presence of other vascular implants and grafts
CPT/HCPCS: 36415; 71046-TC-FY; 80053; 82550; 83690; 83880; 84484; 85025; 85610; 93005; 93010; 96374; 96375; 99284-25; J0131